=== PATIENT | female | born 1930 | race Caucasian/White ===

== ENCOUNTER 2016-06-20 09:28 | Inpatient (IN) | payer MEDICARE ==
[~2016-06-20] VITALS: Ht 157.5 cm; Wt 84.8 kg
[~2016-06-20 09:28] MED LIST: *BLDWK3; *BLDWK6; /ADVA50050; /ESOM40CA; /ESOM40CA OR; /ESOM40CA PO; /WARF2TA; /WARF3TA; /WARF3TA PO; ADVAIR200 INHALATION; ALDA25TA2; ALDA25TA2 PO; ALLO100T PO; ALLOPUR100 PO; AMBIEN5 PO; AMILORIDE; AMITRIP10 PO; AMLO10TA; AMLO2.5T; AMLO2.5T PO; AMO500 PO; ASACOL PO; ASPI1TAB PO; ASPI81TA83 OR; ATARAX25 PO; AUG875 PO; AUGM875T27 PO; AVAPRO150 PO; AVAPRO75 PO; BISO5TAB5 PO; CIPR25SS OR; CIPRO250 PO; CIPRO500 PO; COLA100C2; COLACE PO; COLC0.6T; COUMADIN; COUMADIN PO; COZA50TA18 PO; DARVOCET-N PO; DARVON-N1 PO; DUONSOL INHALATION; ERYTHROOPT OPTHALMIC; EVISTA60 PO; FERR325T PO; FISH500C PO; FLAGYL500 PO; FLEXERIL5 PO; FURO40TA2 PO; GEMF600T; IRON65TA PO; JANT1TAB; JANUVIA; JANUVIA PO; K-DUR10 PO; LASI40TA; LASI40TA OR; LASI40TA PO; LASIX40 PO; LOPID600 PO; LOPR50TA OR; LOPR50TA PO; LOPRESS50 PO; LOPRESSO25 PO; LOSA50TA20 PO; NEBUMIS2; NEXIUM40 PO; NITR0.4S; NITR0.4S SL; NITR4TASL SL; NITRODUR TOPICAL; NITROSTAT4 SL; OMEPRAZ40 PO; PERC5TAB8 OR; PERC7.5T8 OR; POTA10CA2; PRED10TA2 OR; PRED20TA OR; PREDNISO20 PO; PRIL20CA; PRILOSEC40 PO; PRILOSECOT PO; PRO AIR INH; PROCRIT; PROCRIT3000 MG/ML; PROTONIX40 PO; ROBITUSSDM PO; SIMV40TA2 PO; SPIR25TA2 PO; TRICOR145 PO; TRICOR160 PO; TUMS500C OR; TYLE325T5 PO; TYLENOL500 PO; ULTRAM50 PO; VITAMIN D PO; VITAMIN D50000 UNT; ZEBE5TAB PO; ZOCO20TA; ZOCO40TA; ZOCOR20 PO; ZOCOR40 PO; ZYLO300T4 PO; [UNRECOGNIZED DRUG - CODE] PO; [UNRECOGNIZED DRUG - SUPPLY]; januvia PO
[2016-06-20] MEDS ORDERED: methylPREDNISolone INJ 125 MG/2 ML VIAL (J2930) As Ordered ONE ×2 (09:45→21:07)
[2016-06-20] MEDS ORDERED: IPRATROPIUM 0.5MG/ALBUTEROL 2.5MG INH SOL UD 3ML (DUONEB)(J7620) As Ordered ONE ×4 (09:53→23:04)
[2016-06-20] MEDS ORDERED: ALBUTEROL SULFATE 2.5 MG/0.5 ML INH NEB SOLN As Ordered ONE (09:53)
[2016-06-20 10:10] LABS: BASO % 0.8 % (0.0-1.0); EOS # 0.2 K/mm3 (0.0-0.50); EOS % 3.1 % (0.0-3.0); LARGE UNSTAINED CELL # 0.2 K/mm3 (0.0-0.4); LARGE UNSTAINED CELL % 2.5 % (0.0-4.0); LYMPH # 2.6 K/mm3 (1.5-4.5); LYMPH % 38.6 % (24.0-44.0); MEAN CORPUSCULAR HEMOGLOBIN 31.1 pg (27.0-33.0); MEAN CORPUSCULAR HGB CONC 31.7 g/dl (32.0-36.5); MEAN CORPUSCULAR VOLUME 98.2 fl (80.0-96.0); MONO # 0.4 K/mm3 (0.0-0.8); MONO % 5.9 % (0.0-5.0); NEUTROPHILS # 3.1 K/mm3 (1.8-7.7); NEUTROPHILS % 49.1 % (36.0-66.0); PLATELET COUNT, AUTOMATED 144 k/mm3 (150-450); RED CELL DISTRIBUTION WIDTH 17.2 % (11.5-14.5); WHITE BLOOD COUNT 6.3 K/mm3 (4.0-10.0)
--- NOTE | 2016-06-20 10:18 | REP ---
Clinical: Shortness of breath. Comparison: 07/08/2015. Findings: Mediastinum and cardiac silhouette are stable. Chronic bibasilar changes are appreciated. No obvious acute consolidation, effusion, or pneumothorax. Skeletal structures stable. Impression: Chronic stable changes. No obvious acute cardiopulmonary process. Signed by Domingo Veliz MD 06/20/2016 10:09 A
[2016-06-20 10:33] LABS: ALBUMIN 3.8 GM/DL (3.2-5.2); ALBUMIN/GLOBULIN RATIO 1.12 (1.00-1.93); ALKALINE PHOSPHATASE 80 U/L (45-117); ALT/SGPT 12 U/L (12-78); ANION GAP 10 MEQ/L (8-16); AST/SGOT 12 U/L (15-37); BILIRUBIN,DIRECT 0.2 MG/DL (0.0-0.2); BILIRUBIN,TOTAL 0.7 MG/DL (0.2-1.0); BLOOD UREA NITROGEN 51 MG/DL (7-18); CALCIUM LEVEL 9.5 MG/DL (8.8-10.2); CARBON DIOXIDE LEVEL 27 MEQ/L (21-32); CHLORIDE LEVEL 105 MEQ/L (98-107); CREATININE FOR GFR 2.28 MG/DL (0.55-1.02); GLOMERULAR FILTRATION RATE 21.7 (>32); GLUCOSE, FASTING 111 MG/DL (83-110); POTASSIUM SERUM 4.6 MEQ/L (3.5-5.1); SODIUM LEVEL 142 MEQ/L (136-145); TOTAL PROTEIN 7.2 GM/DL (6.4-8.2)
[2016-06-20] MEDS ORDERED: CLOP75TA2 PO (11:43)
[2016-06-20] MEDS ORDERED: OXYB5TA PO (11:43)
[2016-06-20] MEDS ORDERED: ATOR1TAB19 PO (11:43)
[2016-06-20] MEDS ORDERED: LOSA100T36 PO (11:43)
[2016-06-20 11:58] LABS: ABG BASE EXCESS -3.7 (-2.0-2.0); ABG DEVICE NASAL CANN; ABG HCO3 21.4 MEQ/L (22.0-26.0); ABG STANDARD HCO3 21.3 MEQ/L (22.0-26.0); ABG TOTAL CO2 22.6 MEQ/L (23.0-31.0); ABG pH (ARTERIAL) 7.357 UNITS (7.350-7.450)
[2016-06-20] MEDS ORDERED: ALBUTEROL SULFATE 2.5 MG/0.5 ML INH NEB SOLN INH PRN (13:00)
[2016-06-20] MEDS: DOXYCYCLINE HYCLATE 100 MG in D5W MINI-BAG PLUS 100 ML IV SCH (15:00)
[2016-06-20] MEDS: IPRATROPIUM 0.5MG/ALBUTEROL 2.5MG INH SOL UD 3ML (DUONEB)(J7620) NEB SCH ×3 (15:50→23:08)
--- NOTE | 2016-06-20 18:08 | ECGEPIP ---
Stationary ECG Study [facility] - ED Test Date: 2016-06-20 Pat Name: CHELLY ESPINO Department: Room: - Gender: F Automatic Mounter: bay : 1930 Requested By: Ileana Bernal Order Number: [id number] Reading MD: Hanna Cardoza Measurements Intervals [place] Rate: 98 P: 86 WV: 186 QRS: -41 QRSD: 74 T: 5 QT: 344 QTc: 440 Interpretive Statements SINUS RHYTHM WITH OCCASIONAL SUPRAVENTRICULAR PREMATURE COMPLEXES MARKED LEFT AXIS DEVIATION PATTERN CONSISTENT WITH PULMONARY DISEASE NONSPECIFIC T-WAVE ABNORMALITY PRIOR 07/08/15 ATRIAL PACED Electronically Signed On 06-20-2016 18:07:41 EST by Hanna Cardoza
--- NOTE | 2016-06-20 18:27 | HPEPDOC ---
Medical History and Physical Date of Admission Jun 20, 2016 at 13:16 History and Physical PRIMARY CARE PROVIDER: ATTENDING: Mariama Lorenzo MD CHIEF COMPLAINT: Shortness of breath HISTORY OF PRESENT ILLNESS: This is a 85-year-old female past history of COPD on 2 L home O2, CKD stage 3-4 , CAD, atrial fibrillation, prior NC in 2004, obstructive sleep apnea noncompliant with CPAP who presents with shortness breath and cough. Patient states that she's been short of breath over the past 3 weeks which has been increasing recently. Has been having a nonproductive cough. States she lives alone living assisted area and there is a lot of sick people around her. Patient also states that she's had an episode of nonbilious nonbloody vomiting followed by this cough. Patient denies any abdominal pain. No chest pain/palpitations. In the ED patient was found to have COPD exacerbation with increased oxygen primary. PAST MEDICAL HISTORY: As per HPI PAST SURGICAL HISTORY: Permanent pacemaker, hysterectomy, back surgery, tonsillectomy, colon resection, carpal tunnel repair, cataract surgery FAMILY HISTORY: Noncontributory SOCIAL HISTORY: History of tobacco abuse however quit in 1989, used to smoke 1 pack per day prior to that. Denies any alcohol use. Lives alone in [place]. ALLERGIES: See below REVIEW OF SYSTEMS: HEENT: Denies sore throat/headache CARDIOVASCULAR: Denies chest pain/palpitations RESPIRATORY: + shortness of breath/cough GASTROINTESTINAL: denies nausea/vomiting GENITOURINARY: Denies dysuria/urinary urgency. MUSCULOSKELETAL: Denies myalgias/arthralgias NEUROLOGICAL: Denies any focal weakness Rest of ROS negative. HOME MEDICATIONS: Please see below. PHYSICAL EXAMINATION: Vitals: (see below) General: No acute distress, laying comfortably in bed. HEENT: Moist mucous membranes. Neck: No JVD or lymphadenopathy Cardiac: Irregularly irregular Pulm: Bilateral exp wheezing. Diminished breath sounds at the bases. Abd: NT/ND + BS Ext: No edema or cyanosis LABORATORY DATA: See below. IMAGING: Chest x-ray on 06/20/16 Impression: Chronic stable changes. No obvious acute cardiopulmonary process. ASSESSMENT/PLAN: COPD exacerbation- patient is on 2 L home O2 chronically. Her oxygen requirements have increased to 4 L nasal cannula. Patient's is actively wheezing with a productive cough. Continue nebs, Solu-Medrol, doxycycline. Chest x-ray (see above). Atrial fibrillation- rate is currently controlled. Patient was previously on Coumadin however states that she had a GI bleed and that was discontinued altogether. Patient states she had followed up with her outpt wrapper hands sprayer, and he had placed her on aspirin and Plavix instead of Coumadin. CKD stage 3-4 there has been a mild increase in her creatinine and patient did receive some IV fluid in the ED. Avoid nephrotoxins. Obstructive sleep apnea noncompliant with CPAP History of CAD- continue aspirin, Plavix, statin, beta ezra, ELVIN inhibitor Hypertension- controlled continue current meds DVT prophylaxis- heparin subcutaneous Vital Signs Blood pressure 117/56, heart rate 93, respiratory rate 16, O2 saturation 94% on 4 L as her cannula, afebrile. Laboratory Data Labs 24H Laboratory Tests 2 06/20/16 09:53: Aspartate Amino Transf (AST/SGOT) 12L, Alanine Aminotransferase (ALT/SGPT) 12, Alkaline Phosphatase 80, Total Bilirubin 0.7, Direct Bilirubin 0.2, Albumin 3.8 , Albumin/Globulin Ratio 1.12, Anion Gap 10, White Blood Count 6.3, Red Blood Count 3.32L, Hemoglobin 10.3L, Hematocrit 32.6L, Mean Corpuscular Volume 98.2H, Mean Corpuscular Hemoglobin 31.1, Mean Corpuscular Hemoglobin Concent 31.7L, Red Cell Distribution Width 17.2H, Platelet Count 144L, Neutrophils (%) (Auto) 49.1, Lymphocytes (%) (Auto) 38.6, Monocytes (%) (Auto) 5.9H, Eosinophils (%) ( Auto) 3.1H, Basophils (%) (Auto) 0.8, Neutrophils # (Auto) 3.1, Lymphocytes # ( Auto) 2.6, Monocytes # (Auto) 0.4, Eosinophils # (Auto) 0.2, Basophils # (Auto) 0.0, Calcium Level 9.5, Creatine Kinase MB 1.0, Creatine Kinase MB Relative Index 1.81, Glomerular Filtration Rate 21.7L, Lactic Acid Level 1.5, Large Unclassified Cells # 0.2, Large Unclassified Cells % 2.5, Total Creatine Kinase 55, Total Protein 7.2, Troponin I < 0.02 06/20/16 11:44: Arterial Blood pH 7.357, Arterial Blood Partial Pressure CO2 39.0, Arterial Blood Partial Pressure O2 75.0, Arterial Blood Total CO2 22.6L, Arterial Blood HCO3 21.4L, Arterial Blood Base Excess -3.7L, Arterial Blood Oxygen Saturation 94.4L, Blood Gas Bicarbonate Standard 21.3L, Oxygen Delivery Device NASAL DEL CBC/BMP Laboratory Tests 06/20/16 09:53 Red Blood Count 3.32 L, Mean Corpuscular Volume 98.2 H, Mean Corpuscular Hemoglobin 31.1, Mean Corpuscular Hemoglobin Concent 31.7 L, Red Cell Distribution Width 17.2 H, Neutrophils (%) (Auto) 49.1, Lymphocytes (%) (Auto) 38.6, Monocytes (%) (Auto) 5.9 H, Eosinophils (%) (Auto) 3.1 H, Basophils (%) ( Auto) 0.8, Neutrophils # (Auto) 3.1, Lymphocytes # (Auto) 2.6, Monocytes # (Auto ) 0.4, Eosinophils # (Auto) 0.2, Basophils # (Auto) 0.0 Microbiology Microbiology 06/20/16 Blood Culture, Received Pending 06/20/16 Blood Culture, Received Pending 06/20/16 Respiratory Virus Panel (PCR) (KARMEN) - Final, Complete Coronavirus Oc43 06/20/16 Influenza Virus Type A Antigen - Final, Complete 06/20/16 Influenza Virus Type B Antigen - Final, Complete Home Medications Scheduled Allopurinol (Zyloprim) 300 Mg Tab 300 MG PO DAILY Aspirin (Aspirin 81) 81 Mg Tab 81 MG PO DAILY Atorvastatin Calcium (Atorvastatin Calcium) 10 Mg Tab 10 MG PO QHS Bisoprolol Fumarate (Bisoprolol Fumarate) 5 Mg Tab 2.5 MG PO QPM Clopidogrel Bisulfate (Clopidogrel) 75 Mg Tab 75 MG PO QHS Ferrous Sulfate (Ferrous Sulfate) 325 Mg Tab 325 MG PO DAILY Furosemide (Furosemide) 40 Mg Tab 40 MG PO DAILY Losartan Potassium (Losartan Potassium) 100 Mg Tab 100 MG PO DAILY Oxybutynin Chloride (Oxybutynin Chloride) 5 Mg Tab 5 MG PO DAILY Spironolactone (Spironolactone) 25 Mg Tab 25 MG PO DAILY Scheduled PRN Nitroglycerin (Nitrostat) 0.4 Mg Subl 0.4 MG SL PRN PRN PRN CHEST PAIN Allergies Coded Allergies: Codeine (Verified Allergy, Severe, DIFFICULTY BREATHING, 09/15/12) Nitrofurantoin (Unverified Allergy, Unknown, 06/15/14) Warfarin (Verified Adverse Reaction, Intermediate, ELEVATED BP WITH GENERIC WARFARIN. CAN TAKE COUMADIN BRAND, 09/15/12) Propoxyphene (Verified Adverse Reaction, Mild, UNSET STOMACH, 10/14/13) Uncoded Allergies: NARCOTICS (Adverse Reaction, Mild, UPSET STOMACH, 06/15/14) MARIAMA LORENZO MD Jun 20, 2016 18:27
[2016-06-20 20:00] VITALS: BP 112/54
[2016-06-20] MEDS ORDERED: ACETAMINOPHEN 500 MG TAB PO PRN (20:30)
[2016-06-20] MEDS ORDERED: PANTOPRAZOLE 40MG TAB (PROTONIX) As Ordered ONE (21:07)
[2016-06-20] MEDS: ATORVASTATIN 10 MG TAB PO SCH (21:39)
[2016-06-20] MEDS: PANTOPRAZOLE 40MG TAB (PROTONIX) PO SCH (21:39)
[2016-06-20] MEDS: CLOPIDOGREL 75 MG TAB PO SCH (21:39)
[2016-06-20] MEDS: methylPREDNISolone INJ 125 MG/2 ML VIAL (J2930) IV SCH (21:40)
[2016-06-20] MEDS: BISOPROLOL FUM 2.5 MG PER 1/2TAB PO SCH (21:46)
[2016-06-20] MEDS ORDERED: HEPARIN SOD (PORCINE) 5000 UNITS/ML VIAL As Ordered ONE (21:48)
[2016-06-20] MEDS: HEPARIN SOD (PORCINE) 5000 UNITS/ML VIAL SQ SCH (21:49)
[2016-06-21] VITALS (9 sets, daily range): BP systolic 108–130; BP diastolic 53–64; O2SAT 98
[2016-06-21] MEDS ORDERED: methylPREDNISolone INJ 125 MG/2 ML VIAL (J2930) As Ordered ONE (02:20)
[2016-06-21] MEDS: methylPREDNISolone INJ 125 MG/2 ML VIAL (J2930) IV SCH ×2 (02:54→08:59)
--- NOTE | 2016-06-21 03:14 | EDDOCDS ---
Physician Documentation [facility] Name: Cristela Cooper Age: 85 yrs Sex: Female : 1930 Arrival Date: 06/20/2016 Time: 09:28 Bed Admit Hold Private MD: Jose Roberto Graham Disposition: 06/20/16 12:09 Hospitalization ordered by Feroz Lorenzo for Inpatient Admission. Preliminary diagnosis are Chronic obstructive pulmonary disease with (acute) exacerbation, Chronic obstructive pulmonary disease with acute lower respiratory infection, Chronic respiratory failure with hypoxia. - Bed requested for PCU. - Status is Inpatient Admission. cz - Condition is Stable. - Problem is an acute exacerbation. - Symptoms are unchanged. Historical: - Allergies: Codeine Sulfate ("can't breathe"); Coumadin; Hydrocodone-Acetaminophen; Macrobid (Unknown); Narcotics ("can't breathe"); Vicodin (Unknown); - Home Meds: 1. allopurinol 100 mg Oral tab 2 tabs once daily 2. Plavix 75 mg Oral tab 1 tab nightly 3. oxybutynin chloride 5 mg Oral tab 1 tab once daily 4. bisoprolol fumarate 5 mg oral tab 0.5 tab once daily 5. Lasix 40 mg Oral tab 1 tab once daily 6. ferrous sulfate 325 mg (65 mg iron) Oral cpER daily 7. spironolactone 25 mg Oral tab 1 tab once daily 8. atorvastatin 10 mg oral tab 1 tab once daily 9. aspirin 81 mg Oral chew 1 tab once daily 10. losartan 100 mg oral tab 1 tab once daily 11. NitroQuick SL 0.4 mg as needed 12. 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 No barriers to communication noted, The patient speaks fluent Cameroonian, Speaks appropriately for age. - Family history: Not pertinent. - : The pt / caregiver states he / she is on anticoagulants: Plavix. Home medication list is obtained from the patient. - Exposure Risk Screening:: None identified. Vital Signs: 06/20 09:42 BP 162 / 100; Pulse 71; Resp 20; Temp 97.4(TE); Pulse Ox 86% on R/A; Weight 77.11 kg / hs1 170 lbs; Height 5 ft. 2 in. (157.48 cm); Pain 0/10; 09:42 Pulse Ox 96% on 2 lpm NC; hs1 10:08 BP 118 / 68 (auto/); hs1 10:09 Pulse 78 MON; Pulse Ox 96% ; hs1 10:23 BP 106 / 54 (auto/); hs1 10:24 Pulse 124 MON; Pulse Ox 92% ; hs1 10:53 BP 99 / 56 (auto/); hs1 10:53 Pulse 82 MON; Pulse Ox 92% ; hs1 11:11 BP 110 / 68 (auto/); hs1 11:12 Pulse 98 MON; Pulse Ox 93% ; hs1 11:24 Pulse 136 MON; Pulse Ox 86% on 2 lpm NC; hs1 11:31 BP 120 / 68 (auto/); hs1 11:31 Pulse 144 MON; Pulse Ox 88% ; hs1 11:38 BP 107 / 76 (auto/); hs1 11:38 Pulse 144 MON; Pulse Ox 91% on 5 lpm NC; hs1 11:53 BP 112 / 66 (auto/); hs1 11:54 Pulse 120 MON; Pulse Ox 98% ; hs1 12:08 BP 111 / 58 (auto/); hs1 12:09 Pulse 134 MON; Resp 20; Pulse Ox 95% ; hs1 12:09 Resp 20; hs1 12:23 BP 117 / 58 (auto/); hs1 12:29 Pulse 144 MON; Pulse Ox 93% ; hs1 12:57 BP 102 / 48 (auto/); hs1 12:58 Pulse 140 MON; Pulse Ox 95% ; hs1 14:20 BP 99 / 67 (auto/); hs1 14:20 Pulse 100 MON; Resp 20; Pulse Ox 95% ; hs1 14:23 BP 110 / 42 (auto/); hs1 14:23 Pulse 116 MON; Pulse Ox 96% ; hs1 15:13 BP 102 / 54 (auto/); hs1 15:13 Pulse 120 MON; Pulse Ox 94% ; hs1 15:38 BP 120 / 93 (auto/); hs1 15:39 Pulse 124 MON; Pulse Ox 93% ; hs1 18:21 BP 99 / 55 (auto/); hs1 18:21 Pulse 114 MON; Pulse Ox 96% ; hs1 18:22 BP 112 / 51 (auto/); hs1 18:22 Pulse 122 MON; Pulse Ox 96% ; hs1 09:42 Body Mass Index 31.09 (77.11 kg, 157.48 cm) hs1 MDM: 09:44 IV Saline Lock ordered. ml 09:44 Air Pollution Specialist/Pulse Ox/q 15 min VS ordered. ml 09:44 Rhythm Strip to chart ordered. ml 09:44 -Blood Culture (Adults Only), peripheral from different site, or from device/port/PICC ml etc. if present ordered. 09:44 Albuterol 5 mg Nebulizer once ordered. ml 09:44 Albuterol-Ipratropium 3 ml Inhalation once ordered. ml 09:44 Call Respiratory ordered. ml 09:44 Solu-MEDROL 125 mg IVP once ordered. ml 09:44 Call Respiratory complete. jlf 09:44 CBC with Diff Ordered. EDMS 09:44 MED Profile Ordered. EDMS 09:44 CIP Ordered. EDMS 09:44 Troponin Ordered. EDMS 09:44 Liver Profile Ordered. EDMS 09:44 Lactic Acid (Phillips tube on ice) Ordered. EDMS 09:45 -Blood Culture Ordered. EDMS 09:45 Chest, 1 View Ordered. EDMS 09:50 -Blood Culture (Adults Only), peripheral from different site, or from device/port/PICC lbd etc. if present complete. 09:53 BLOOD CULTURES Ordered. EDMS 10:10 BED REQUEST+ADM ordered. EDMS 10:12 Obtain sample by nasal aspiration ordered. ml 10:13 -Influenza A&B Rapid Antigen - Nose Ordered. EDMS 10:18 ECG WITH READING ER PHYS+CARDIAG ordered. EDMS 10:40 Financial registration complete. mm15 10:44 [facility] Payment Agreement was scanned into [employer] and attached to record. mm15 10:56 CBC with Diff Reviewed. ml 10:56 MED Profile Reviewed. ml 10:56 Liver Profile Reviewed. ml 10:56 CIP Reviewed. ml 10:56 Troponin Reviewed. ml 10:56 Lactic Acid (Phillips tube on ice) Reviewed. ml 10:56 Chest, 1 View Reviewed. ml 11:25 Call Respiratory ordered. ml 11:25 NS 0.9% 500 ml IV at bolus once ordered. ml 11:25 Call Respiratory complete. lbd 11:26 -Arterial Blood Gas Ordered. EDMS 11:39 Albuterol-Ipratropium 3 ml Inhalation once ordered. ml 11:39 Misc. Nursing Order ordered. ml 12:55 SPUTUM CULTURE AND GRAM STAIN Ordered. EDMS 12:55 RESPIRATORY PANEL Ordered. EDMS 12:57 Admission / Observation Status ordered. EDMS 12:57 COPD DIET ordered. EDMS 14:27 -Arterial Blood Gas Reviewed. ml 14:27 -Influenza A&B Rapid Antigen - Nose Reviewed. ml 15:06 T-Sheet-- Draft Copy was scanned into [employer] and attached to record. gb 15:39 Doxycycline 100 mg IVPB once over 1 hrs; dilute in NS or D5W ordered. hs1 19:32 CBC WITH DIFFERENTIAL Ordered. EDMS 19:33 BASIC METABOLIC PROFILE Ordered. EDMS 01 02:42 ELECTROCARDIOGRAM ADULT ordered. EDMS 02:46 MAGNESIUM LEVEL Ordered. EDMS 02:46 PHOSPHOROUS LEVEL Ordered. EDMS 02:46 THYROID STIMULATING HORMONE Ordered. EDMS 03:06 TROPONIN Ordered. EDMS Administered Medications: 06/20 09:55 Drug: Albuterol 5 mg [albuterol sulfate 2.5 mg/0.5 mL solution for nebulization (1 mL)] sd7 Route: Nebulizer; 10:05 Follow up: Response: Nebulizer completed sd7 09:55 Drug: Albuterol-Ipratropium 3 ml [ipratropium-albuterol 0.5 mg-3 mg(2.5 mg base)/3 mL sd7 nebulization soln (3 mL)] Route: Inhalation; 10:05 Follow up: Response: Nebulizer completed sd7 09:57 Drug: Solu-MEDROL 125 mg [Solu-Medrol 500 mg intravenous solution (125 mg)] Route: IVP; hs1 Site: right antecubital; 11:35 Drug: NS 0.9% 500 ml [sodium chloride 0.9 % injection solution] Route: IV; Rate: bolus; dsf Site: right antecubital; 12:48 Follow up: IV Status: Completed infusion; IV Intake: 500ml hs1 11:52 Drug: Albuterol-Ipratropium 3 ml [ipratropium-albuterol 0.5 mg-3 mg(2.5 mg base)/3 mL sd7 nebulization soln (3 mL)] Route: Inhalation; 11:59 Follow up: Response: Nebulizer completed sd7 15:40 Drug: Doxycycline 100 mg [doxycycline hyclate 100 mg intravenous powder for solution] hs1 Route: IVPB; Infused Over: 1 hrs; Site: right antecubital; 16:42 Follow up: IV Status: Completed infusion; IV Intake: 100ml hs1 Signatures: Dispatcher [employer] EDMS Ileana Bernal MD MD ml Daly, Linda, Data Entry Machine Operator Unit lbd Qi Tompkins, RN RN Lacho Franklin RN RN cz Lelia Moran, Reg Reg gb VeronicaDmitryzabeth, Data Entry Machine Operator Unit ml3 Jessica Jane RN RN hs1 Sergio Matias mm15 Yonny Valera, RUKHSANA REGISTERED NURSE FETAL Dorcas Chen RN, Samantha RT sd7 The chart was reviewed and I authenticate all verbal orders and agree with the evaluation and treatment provided.Corrections: (The following items were deleted from the chart) 11:39 11:25 Misc. Nursing Order ordered. ml ml 06/21 02:46 02:38 MAGNESIUM LEVEL ordered. EDMS EDMS 02:46 02:38 PHOSPHOROUS LEVEL ordered. EDMS EDMS 02:46 02:38 THYROID STIMULATING HORMONE ordered. EDMS EDMS 03:07 02:56 TROPONIN ordered. EDMS EDMS Attachments: 06/20 10:44 [facility] [place] Payment Agreement mm15 15:06 T-Sheet-- Draft Copy gb MTDD
[2016-06-21] MEDS: DOXYCYCLINE HYCLATE 100 MG in D5W MINI-BAG PLUS 100 ML IV SCH (03:43)
[2016-06-21] MEDS: IPRATROPIUM 0.5MG/ALBUTEROL 2.5MG INH SOL UD 3ML (DUONEB)(J7620) NEB SCH ×6 (03:58→23:37)
[2016-06-21] MEDS: HEPARIN SOD (PORCINE) 5000 UNITS/ML VIAL SQ SCH ×3 (05:23→21:02)
[2016-06-21 05:33] LABS: BASO % 0.1 % (0.0-1.0); EOS % 0.3 % (0.0-3.0); LARGE UNSTAINED CELL % 0.5 % (0.0-4.0); LYMPH # 0.5 K/mm3 (1.5-4.5); LYMPH % 7.4 % (24.0-44.0); MEAN CORPUSCULAR HEMOGLOBIN 32.7 pg (27.0-33.0); MEAN CORPUSCULAR HGB CONC 32.7 g/dl (32.0-36.5); MEAN CORPUSCULAR VOLUME 100.1 fl (80.0-96.0); MONO # 0.1 K/mm3 (0.0-0.8); MONO % 2.2 % (0.0-5.0); NEUTROPHILS # 5.5 K/mm3 (1.8-7.7); NEUTROPHILS % 89.6 % (36.0-66.0); PLATELET COUNT, AUTOMATED 127 k/mm3 (150-450); RED CELL DISTRIBUTION WIDTH 16.2 % (11.5-14.5); WHITE BLOOD COUNT 6.2 K/mm3 (4.0-10.0)
[2016-06-21 05:50] LABS: CREATININE FOR GFR 3.37 MG/DL (0.55-1.02); GLOMERULAR FILTRATION RATE 13.8 (>32); MAGNESIUM LEVEL 1.5 MG/DL (1.8-2.4); PHOSPHORUS LEVEL 1.7 MG/DL (2.5-4.9); POTASSIUM SERUM 4.2 MEQ/L (3.5-5.1)
[2016-06-21] MEDS ORDERED: MAG SULF 1GM/100ML (MAG RUN) 1 GM in APPROPRIATE DILUENT 1 EA IV ONE (07:30)
--- NOTE | 2016-06-21 07:59 | ECGEPIP ---
Stationary ECG Study [facility] Test Date: 2016-06-21 Pat Name: CHELLY ESPINO Department: Room: [place] [address] Gender: F Histotechnologist Supervisor: SaundersB: 1930 Requested By: SEGUNDO Balderrama Order Number: [id number] Reading MD: Jhonathan Cunningham Measurements Intervals [place] Rate: 90 P: 93 SC: 211 QRS: -32 QRSD: 91 T: 61 QT: 386 QTc: 474 Interpretive Statements SINUS RHYTHM WITH FIRST DEGREE AV BLOCK LEFT AXIS DEVIATION LOW QRS VOLTAGE IN PRECORDIAL LEADS NONSPECIFIC T-WAVE ABNORMALITY Electronically Signed On 06-21-2016 7:59:36 EST by Jhonathan Cunningham
--- NOTE | 2016-06-21 08:06 | ECGEPIP ---
Stationary ECG Study [facility] Test Date: 2016-06-21 Pat Name: CHELLY ESPINO Department: Room: [place] [address] Gender: F Internal Control Manager: CLARA : 1930 Requested By: MARIAMA HOWARD Order Number: [id number] Reading MD: Johnathan Cunningham Measurements Intervals [place] Rate: 75 P: 52 AR: 199 QRS: -31 QRSD: 80 T: 52 QT: 382 QTc: 429 Interpretive Statements SINUS RHYTHM WITH some atrial paced beats LEFT AXIS DEVIATION NONSPECIFIC T-WAVE ABNORMALITY Electronically Signed On 06-21-2016 8:05:45 EST by Jhonathan Cunningham
[2016-06-21] MEDS: FERROUS SULFATE 325MG TAB PO SCH (08:59)
[2016-06-21] MEDS ORDERED: FUROSEMIDE 40 MG TAB PO SCH (09:00)
[2016-06-21] MEDS: ASPIRIN 81 MG ENTERIC TAB PO SCH (09:00)
[2016-06-21] MEDS: ALLOPURINOL 300 MG TAB PO SCH (09:00)
[2016-06-21] MEDS ORDERED: SPIRONOLACTONE 25 MG TAB PO SCH (09:00)
[2016-06-21] MEDS: PANTOPRAZOLE 40MG TAB (PROTONIX) PO SCH (09:00)
--- NOTE | 2016-06-21 10:31 | IPN ---
DATE: 06/21/2016 I was called by nurse due to patient having on water. Rhythm strip printed with 23 beats of ventricular tachycardia. Patient was seen and examined at bedside with vitals of blood pressure 130/58, heart rate 96, temperature 96.4, respiration rate 20, 94% on 4 liters nasal cannula. Patient was lying in bed comfortable. Denied any chest pain, shortness of breath, palpitations, nausea, dizziness, lightheadedness or syncopal episode. . a lot better compared to admission. were . palpable pacemaker but diminished in the lung bases. Abdomen: Soft, nontender. Bowel sounds present. Because of her ventricular tachycardia, an EKG was ordered which showed . . Diet and okay. My preceptor for this patient encounter was Dr. Concetta Foster. The preceptor was physically present in the building during the encounter and was fully available. As needed, all aspects of the patient interview, examination, medical decision making process, and medical care plan development were reviewed and approved by the preceptor. The preceptor is aware and concurs with the plan as stated in the body of this note and will attest to such by his/her cosignature. Dictation quality was poor, please review before signing. MTDD
[2016-06-21] MEDS: oxyBUTYnin 5 MG TAB PO SCH (12:40)
--- NOTE | 2016-06-21 16:38 | IPNPDOC ---
Text Note Date of Service The patient was seen on 06/21/16 at 16:33. NOTE Subjective: Patient states shortness with a significantly improved. Denies any chest pain/palpitations. Had a run of V. tach overnight however patient was asymptomatic. Objective: Vitals: (see below) General: No acute distress, laying comfortably in bed. HEENT: Moist mucous membranes. Neck: No JVD or lymphadenopathy Cardiac: Irregularly irregular Pulm: Minimal external wheezing wheezing. Diminished breath sounds at the bases. Good chest expansion. Abd: NT/ND + BS Ext: No edema or cyanosis Labs (see below) Images: Chest x-ray on 06/20/16 Impression: Chronic stable changes. No obvious acute cardiopulmonary process. Assessment/Plan: COPD exacerbation- patient is on 2 L home O2 chronically. Her oxygen requirements had increased to 4 L nasal cannula, over today she is on room air. Secondary to coronavirus, will d/c antibiotics. Continue nebs. Change Solu- Medrol to prednisone. Chest x-ray (see above). Episode of ventricular tachycardia- asymptomatic with a run of 26 beats. Patient 's magnesium was replaced. Potassium is currently about 4. Dr. Reyes has been consulted. Atrial fibrillation- rate is currently controlled. Patient was previously on Coumadin however states that she had a GI bleed and that was discontinued altogether. Patient states she had followed up with her outpt sweat band sewer, and states he had placed her on aspirin and Plavix instead of Coumadin. 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 Will d/c lasix and spironolactone. Gentle hydration. Obstructive sleep apnea noncompliant with CPAP History of CAD- continue aspirin, Plavix, statin, beta ezra, ELVIN inhibitor Hypertension- controlled continue current meds DVT prophylaxis- heparin subcutaneous VS,Fishbone, I+O VS, Fishbone, I+O Laboratory Tests 06/21/16 05:18 Calcium Level 9.0, Red Blood Count 2.79 L, Mean Corpuscular Volume 100.1 H, Mean Corpuscular Hemoglobin 32.7, Mean Corpuscular Hemoglobin Concent 32.7, Red Cell Distribution Width 16.2 H, Neutrophils (%) (Auto) 89.6 H, Lymphocytes (%) ( Auto) 7.4 L, Monocytes (%) (Auto) 2.2, Eosinophils (%) (Auto) 0.3, Basophils (% ) (Auto) 0.1, Neutrophils # (Auto) 5.5, Lymphocytes # (Auto) 0.5 L, Monocytes # (Auto) 0.1, Eosinophils # (Auto) 0.0, Basophils # (Auto) 0.0 Vital Signs Date Time Temp Pulse Resp B/P Pulse Ox O2 Delivery O2 Flow Rate FiO2 06/21/16 16:00 95.7 92 20 120/54 99 Room Air 06/21/16 07:30 2.0 I&O- Last 24 Hours up to 6 AM 06/21/16 05:59 Intake Total 240 ml Output Total 0 ml Balance 240 ml MARIAMA HOWARD MD Jun 21, 2016 16:38
[2016-06-21] MEDS ORDERED: CEPACOL LOZENGE PO PRN (17:15)
[2016-06-21] MEDS ORDERED: SODIUM CHLORIDE 0.9% 1000 ML IV ONE (17:45)
[2016-06-21] MEDS ORDERED: METOPROLOL 5 MG/5 ML VIAL As Ordered ONE (17:45)
[2016-06-21] MEDS: BISOPROLOL FUM 2.5 MG PER 1/2TAB PO SCH (17:56)
[2016-06-21] MEDS ORDERED: METOPROLOL 5 MG/5 ML VIAL IV ONE (18:00)
[2016-06-21] MEDS: NS 1,000 ML IV SCH (18:58)
--- NOTE | 2016-06-21 20:50 | IPN ---
DATE: 06/21/2016 SUBJECTIVE: I was called by nursing staff due to patient having multiple runs of ventricular tachycardia (V-tach) on monitor. Please note that this is a redictation to previously transcribed note as previous note was poorly transcribed. The patient had a rhythm strip printed, with repeats of V-tach. She was seen and examined at bedside. Denied any chest pain, shortness of breath, palpitations, nausea, vomiting, dizziness, lightheadedness, near-syncopal or syncopal episode. States that she was feeling a lot better compared to when she first got admitted and wants to know if she can go home because she was worried that her cat was home by herself. PHYSICAL EXAMINATION: VITAL SIGNS: Blood pressure 130/58, heart rate 96, temperature 96.4, respiration rate 20, pulse oximetry 94% on 4 liters nasal cannula. The patient was lying in bed, comfortable, in no acute distress. She is alert, awake, oriented times three, pleasant, cooperative. HEENT: Normocephalic, atraumatic. NECK: Supple. Trachea midline. CHEST: Symmetric chest rise. No accessory muscle use. Breath sounds diminished in the lung bases. Left chest with probable pacemaker. EKG ordered showed sinus rhythm with first degree arteriovenous (AV) block, rate of 90. Left axis deviation with low QRS voltage. Nonspecific abnormality in T wave. Because of her nonsustained V-tach on the monitor, laboratories were ordered including electrolytes and troponin. Case discussed with Dr. Foster regarding her nonsustained V-tach. At this time, because the patient remains asymptomatic throughout the episode, no further intervention was recommended. Will continue to monitor patient closely and followup lab work. My preceptor for this patient encounter was Dr. Concetta Foster. The preceptor was physically present in the building during the encounter and was fully available. As needed, all aspects of the patient interview, examination, medical decision making process, and medical care plan development were reviewed and approved by the preceptor. The preceptor is aware and concurs with the plan as stated in the body of this note and will attest to such by his/her cosignature. ESTEVAN
[2016-06-21] MEDS: ATORVASTATIN 10 MG TAB PO SCH (21:02)
[2016-06-21] MEDS: CLOPIDOGREL 75 MG TAB PO SCH (21:02)
[2016-06-22] MEDS: IPRATROPIUM 0.5MG/ALBUTEROL 2.5MG INH SOL UD 3ML (DUONEB)(J7620) NEB SCH ×6 (03:07→23:44)
[2016-06-22 05:40] VITALS: BP 129/60
[2016-06-22] MEDS: HEPARIN SOD (PORCINE) 5000 UNITS/ML VIAL SQ SCH ×3 (05:46→21:37)
[2016-06-22 06:07] LABS: EOS % 0.3 % (0.0-3.0); LARGE UNSTAINED CELL # 0.1 K/mm3 (0.0-0.4); LARGE UNSTAINED CELL % 0.5 % (0.0-4.0); LYMPH # 0.6 K/mm3 (1.5-4.5); LYMPH % 4.9 % (24.0-44.0); MEAN CORPUSCULAR HEMOGLOBIN 32.2 pg (27.0-33.0); MEAN CORPUSCULAR HGB CONC 32.2 g/dl (32.0-36.5); MEAN CORPUSCULAR VOLUME 99.8 fl (80.0-96.0); MONO # 0.3 K/mm3 (0.0-0.8); MONO % 2.2 % (0.0-5.0); NEUTROPHILS # 10.6 K/mm3 (1.8-7.7); NEUTROPHILS % 92.1 % (36.0-66.0); PLATELET COUNT, AUTOMATED 132 k/mm3 (150-450); RED CELL DISTRIBUTION WIDTH 16.3 % (11.5-14.5); WHITE BLOOD COUNT 11.6 K/mm3 (4.0-10.0)
[2016-06-22 06:20] LABS: CALCIUM LEVEL 8.5 MG/DL (8.8-10.2); CREATININE FOR GFR 2.84 MG/DL (0.55-1.02); GLOMERULAR FILTRATION RATE 16.9 (>32); POTASSIUM SERUM 4.3 MEQ/L (3.5-5.1)
[2016-06-22 08:00] VITALS: BP 126/58
[2016-06-22] MEDS: NS 1,000 ML IV SCH ×2 (08:59→23:40)
[2016-06-22] MEDS: predniSONE 20 MG TAB PO SCH (09:00)
[2016-06-22] MEDS: FERROUS SULFATE 325MG TAB PO SCH (09:00)
[2016-06-22] MEDS: ALLOPURINOL 300 MG TAB PO SCH (09:00)
[2016-06-22] MEDS: ASPIRIN 81 MG ENTERIC TAB PO SCH (09:00)
[2016-06-22] MEDS: oxyBUTYnin 5 MG TAB PO SCH (09:00)
[2016-06-22] MEDS: PANTOPRAZOLE 40MG TAB (PROTONIX) PO SCH (09:00)
[2016-06-22 12:00] VITALS: BP 138/57
[2016-06-22] MEDS ORDERED: BISOPROLOL FUM 2.5 MG PER 1/2TAB PO ONE (14:30)
[2016-06-22 14:51] LABS: CALCIUM LEVEL 8.3 MG/DL (8.8-10.2); CREATININE FOR GFR 2.54 MG/DL (0.55-1.02); GLOMERULAR FILTRATION RATE 19.2 (>32); MAGNESIUM LEVEL 1.7 MG/DL (1.8-2.4); POTASSIUM SERUM 4.4 MEQ/L (3.5-5.1)
--- NOTE | 2016-06-22 15:27 | IPNPDOC ---
Text Note Date of Service The patient was seen on 06/22/16 at 15:25. NOTE Subjective: Patient denies any shortness of breath at this time. Denies any chest pain/palpitations. Objective: Vitals: (see below) General: No acute distress, laying comfortably in bed. HEENT: Moist mucous membranes. Neck: No JVD or lymphadenopathy Cardiac: Irregularly irregular Pulm: Minimal external wheezing wheezing. Diminished breath sounds at the bases. Good chest expansion. Abd: NT/ND + BS Ext: No edema or cyanosis Labs (see below) Images: Chest x-ray on 06/20/16 Impression: Chronic stable changes. No obvious acute cardiopulmonary process. Assessment/Plan: COPD exacerbation- patient is on 2 L home O2 chronically. Her oxygen requirements had increased to 4 L nasal cannula, over today she is on room air. Secondary to coronavirus, will d/c antibiotics. Continue nebs. Change Solu- Medrol to prednisone. Chest x-ray (see above). Episode of ventricular tachycardia- asymptomatic with a run of 26 beats. Patient 's magnesium was replaced. Potassium is currently about 4. Dr. Reyes has been consulted. Had another episode of V. tach this morning 06/22/16 however patient was asymptomatic. We'll maintain magnesium greater than 2 and potassium rhythm 4. Beta Licha dose has been increased. Atrial fibrillation- rate is currently controlled. Patient was previously on Coumadin however states that she had a GI bleed and that was discontinued altogether. Patient states she had followed up with her outpt insurance sales representative, and states he had placed her on aspirin and Plavix instead of Coumadin. 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 Will d/c lasix and spironolactone. Gentle hydration. Obstructive sleep apnea noncompliant with CPAP History of CAD- continue aspirin, Plavix, statin, beta licha, ELVIN inhibitor Hypertension- controlled continue current meds DVT prophylaxis- heparin subcutaneous VS,Fishbone, I+O VS, Fishbone, I+O Laboratory Tests 06/22/16 05:19 Calcium Level 8.5 L, Red Blood Count 2.61 L, Mean Corpuscular Volume 99.8 H, Mean Corpuscular Hemoglobin 32.2, Mean Corpuscular Hemoglobin Concent 32.2, Red Cell Distribution Width 16.3 H, Neutrophils (%) (Auto) 92.1 H, Lymphocytes (%) ( Auto) 4.9 L, Monocytes (%) (Auto) 2.2, Eosinophils (%) (Auto) 0.3, Basophils (% ) (Auto) 0.0, Neutrophils # (Auto) 10.6 H, Lymphocytes # (Auto) 0.6 L, Monocytes # (Auto) 0.3, Eosinophils # (Auto) 0.0, Basophils # (Auto) 0.0 06/22/16 14:13 Calcium Level 8.3 L Vital Signs Date Time Temp Pulse Resp B/P Pulse Ox O2 Delivery O2 Flow Rate FiO2 06/22/16 14:42 101 145/72 06/22/16 12:00 97.0 20 97 Nasal Cannula 3.0 I&O- Last 24 Hours up to 6 AM 06/22/16 05:59 Intake Total 1280 ml Output Total 707 ml Balance 573 ml AMRIAMA HOWARD MD Jun 22, 2016 15:27
[2016-06-22 16:00] VITALS: BP 132/63
[2016-06-22] MEDS ORDERED: MAG SULF 1GM/100ML (MAG RUN) 1 GM in APPROPRIATE DILUENT 1 EA IV ONE (16:00)
[2016-06-22 20:00] VITALS: BP 144/62
[2016-06-22] MEDS: CLOPIDOGREL 75 MG TAB PO SCH (20:06)
[2016-06-22] MEDS: ATORVASTATIN 10 MG TAB PO SCH (20:06)
[2016-06-22] MEDS ORDERED: BISOPROLOL FUMARATE 5 MG TAB PO SCH (21:00)
[2016-06-23] VITALS (7 sets, daily range): BP systolic 99–155; BP diastolic 54–72
[2016-06-23] MEDS: IPRATROPIUM 0.5MG/ALBUTEROL 2.5MG INH SOL UD 3ML (DUONEB)(J7620) NEB SCH ×6 (03:55→23:39)
--- NOTE | 2016-06-23 04:14 | EDDOCDS ---
Nurse's Notes [facility] Name: Cristela Cooper Age: 85 yrs Sex: Female : 1930 Arrival Date: 06/20/2016 Time: 09:28 Bed Admit Hold Private MD: Jose Roberto Graham Diagnosis: Chronic obstructive pulmonary disease with (acute) exacerbation;Chronic obstructive pulmonary disease with acute lower respiratory infection;Chronic respiratory failure with hypoxia Presentation: 06/20 09:31 Presenting complaint: EMS states: patient called due to difficulty breathing because of hs1 her cough. Wheezes bilaterally and cough in unproductive. Patient lacking appetite. Adult Sepsis Screening: The patient does not have new or worsening altered mentation. Patient's respiratory rate is less than 22. Systolic blood pressure is greater than 100. Patient has a qSOFA score of 0- Negative Sepsis Screen. Suicide/Homicide risk assessment- the patient denies having any suicidal and/or homicidal ideations and does not present with any other emotional, behavioral or mental health complaints. Status: Patient is not a player services representative or dependent. Transition of care: patient was not received from another setting of care. 09:31 Acuity: TONY Level 3 hs1 09:31 Method Of Arrival: Ambulance hs1 Triage Assessment: 09:39 General: Appears in no apparent distress, Behavior is appropriate for age, cooperative. hs1 Pain: Location: back. Neurological: No deficits noted. Cardiovascular: Rhythm is irregular. Respiratory: Airway is patent Respiratory effort is even, unlabored, Respiratory pattern is regular, symmetrical, Breath sounds are coarse Breath sounds with wheezes bilaterally. : Reports urinating when she coughs and sneezes frequently. Patient states she wears a pad. Derm: Skin is pink, warm & dry. normal. Historical: - Allergies: Codeine Sulfate ("can't breathe"); Coumadin; Hydrocodone-Acetaminophen; Macrobid (Unknown); Narcotics ("can't breathe"); Vicodin (Unknown); - Home Meds: 1. allopurinol 100 mg Oral tab 2 tabs once daily 2. Plavix 75 mg Oral tab 1 tab nightly 3. oxybutynin chloride 5 mg Oral tab 1 tab once daily 4. bisoprolol fumarate 5 mg oral tab 0.5 tab once daily 5. Lasix 40 mg Oral tab 1 tab once daily 6. ferrous sulfate 325 mg (65 mg iron) Oral cpER daily 7. spironolactone 25 mg Oral tab 1 tab once daily 8. atorvastatin 10 mg oral tab 1 tab once daily 9. aspirin 81 mg Oral chew 1 tab once daily 10. losartan 100 mg oral tab 1 tab once daily 11. NitroQuick SL 0.4 mg as needed 12. 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 No barriers to communication noted, The patient speaks fluent Zambian, Speaks appropriately for age. - Family history: Not pertinent. - : The pt / caregiver states he / she is on anticoagulants: Plavix. Home medication list is obtained from the patient. - Exposure Risk Screening:: None identified. Screenin:58 Screening information is obtained from the patient. Fall risk: No risks identified. hs1 Assistance ADL's: requires no assistance with activities of daily living. Abuse/DV Screen: The patient / caregiver reports he/she is: not in a situation that causes fear, pain or injury. Nutritional screening: No deficits noted. Advance Directives: There is no active DNR order. home support is adequate. Assessment: 09:57 General: Appears in no apparent distress, comfortable, Behavior is cooperative, hs1 pleasant. Pain: Location: back Noted to be grimacing. Neurological: Level of Consciousness is awake, alert, obeys commands. Cardiovascular: Rhythm is irregular. Respiratory: Airway is patent Respiratory effort is even, Respiratory pattern is regular, symmetrical, Breath sounds with wheezes bilaterally. GI: No deficits noted. Derm: Skin is pink, warm & dry. normal. 10:35 General: Patient noted to be SOB on any exertion. NC needed to be increased to keep hs1 patient above 90%. Pt now on 4 L NC at this time. Pt resting on stretcher. . 11:36 General: Appears in no apparent distress, resting on stretcher. Family present at this hs1 time. Family is a employee here of [employer]. Pt resting on stretcher Cough noted and SOB on any exertion. Patient has no needs at this time. . 11:36 Adult Sepsis Screening: The patient does not have new or worsening altered mentation. hs1 Patient's respiratory rate is less than 22. Systolic blood pressure is greater than 100. Patient has a qSOFA score of 0- Negative Sepsis Screen. 12:54 General: Appears in no apparent distress, Behavior is appropriate for age, cooperative. hs1 Pain: Location: back Pain currently is 6 out of 10 on a pain scale. Is intermittent lasting a few seconds. Neurological: No deficits noted. Respiratory: Airway is patent Respiratory effort is even, cough noted. Breath sounds with wheezes bilaterally. 14:22 General: Appears in no apparent distress, Behavior is appropriate for age, cooperative, hs1 Pt resting on stretcher with no needs at present. Pt denies SOB at this time however does become SOB with any exertion.. Respiratory: Airway is patent Respiratory effort is even, Respiratory pattern is regular, symmetrical, Breath sounds with wheezes bilaterally. 15:42 Reassessment: Patient appears in no apparent distress at this time. Pt resting with hs1 family member at bedside. Pt eating and drinking with no issues. Patient does not appear SOB while eating. Cough still present. . Cardiovascular: Rhythm is atrial fibrillation. Derm: Skin is pink, warm & dry. normal. 16:04 Adult Sepsis Screening: The patient does not have new or worsening altered mentation. hs1 Patient's respiratory rate is less than 22. Systolic blood pressure is greater than 100. Patient has a qSOFA score of 0- Negative Sepsis Screen. 17:25 General: Appears in no apparent distress, comfortable, Behavior is appropriate for age, hs1 cooperative, sitting up at edge of bed. No needs noted. Pt aware of being here for the night and bed capacity. Patient is vert patient with nursing staff. . Respiratory: Airway is patent Respiratory effort is even, unlabored, Respiratory pattern is regular, Breath sounds with wheezes bilaterally. 18:30 General: Appears in no apparent distress, comfortable, Behavior is appropriate for age, hs1 cooperative, No needs noted. Patient awaiting dinner at present, medications administered per MAR. Pt very pleasant and cordial with all staff. Respiratory will be down for breathing treatment around 8pm. . 19:58 Reassessment: Patient states feeling better. Patient states symptoms have improved. cf2 20:18 General: Patient with complaint of back pain. Repositioned and hospitalist paged. . cf2 Vital Signs: 09:42 BP 162 / 100; Pulse 71; Resp 20; Temp 97.4(TE); Pulse Ox 86% on R/A; Weight 77.11 kg; hs1 Height 5 ft. 2 in. (157.48 cm); Pain 0/10; 09:42 Pulse Ox 96% on 2 lpm NC; hs1 10:08 BP 118 / 68 (auto/); hs1 10:09 Pulse 78 MON; Pulse Ox 96% ; hs1 10:23 BP 106 / 54 (auto/); hs1 10:24 Pulse 124 MON; Pulse Ox 92% ; hs1 10:53 BP 99 / 56 (auto/); hs1 10:53 Pulse 82 MON; Pulse Ox 92% ; hs1 11:11 BP 110 / 68 (auto/); hs1 11:12 Pulse 98 MON; Pulse Ox 93% ; hs1 11:24 Pulse 136 MON; Pulse Ox 86% on 2 lpm NC; hs1 11:31 BP 120 / 68 (auto/); hs1 11:31 Pulse 144 MON; Pulse Ox 88% ; hs1 11:38 BP 107 / 76 (auto/); hs1 11:38 Pulse 144 MON; Pulse Ox 91% on 5 lpm NC; hs1 11:53 BP 112 / 66 (auto/); hs1 11:54 Pulse 120 MON; Pulse Ox 98% ; hs1 12:08 BP 111 / 58 (auto/); hs1 12:09 Pulse 134 MON; Resp 20; Pulse Ox 95% ; hs1 12:09 Resp 20; hs1 12:23 BP 117 / 58 (auto/); hs1 12:29 Pulse 144 MON; Pulse Ox 93% ; hs1 12:57 BP 102 / 48 (auto/); hs1 12:58 Pulse 140 MON; Pulse Ox 95% ; hs1 14:20 BP 99 / 67 (auto/); hs1 14:20 Pulse 100 MON; Resp 20; Pulse Ox 95% ; hs1 14:23 BP 110 / 42 (auto/); hs1 14:23 Pulse 116 MON; Pulse Ox 96% ; hs1 15:13 BP 102 / 54 (auto/); hs1 15:13 Pulse 120 MON; Pulse Ox 94% ; hs1 15:38 BP 120 / 93 (auto/); hs1 15:39 Pulse 124 MON; Pulse Ox 93% ; hs1 18:21 BP 99 / 55 (auto/); hs1 18:21 Pulse 114 MON; Pulse Ox 96% ; hs1 18:22 BP 112 / 51 (auto/); hs1 18:22 Pulse 122 MON; Pulse Ox 96% ; hs1 09:42 Body Mass Index 31.09 (77.11 kg, 157.48 cm) hs1 Vitals: 09:42 Log In Time N/A - ambulance arrival. hs1 ED Course: 09:29 Patient visited by Bette Kemp Reg. lg 09:29 Jose Roberto Graham MD is Private Physician. lg 09:29 Patient moved to Waiting lg 09:30 Patient moved to 14 hs1 09:36 Ileana Bernal MD is Attending Physician. ml 09:36 Patient visited by Ileana Bernal MD. ml 09:36 Triage Initiated hs1 09:50 Inserted saline lock: 20 gauge in right antecubital area The patient tolerated the hs1 procedure well. 09:57 Lactic Acid (Phillips tube on ice) Sent. hs1 09:57 Liver Profile Sent. hs1 09:57 Troponin Sent. hs1 09:57 CIP Sent. hs1 09:57 MED Profile Sent. hs1 09:57 CBC with Diff Sent. hs1 09:57 -Blood Culture Sent. hs1 10:13 Patient visited by Yonny Valera PCA. jlf 10:21 Patient visited by Yonny Valera PCA. jlf 10:21 EKG done. (by ED staff). Reviewed by Ileana Bernal MD. jlf 10:32 Chest, 1 View Returned. EDMS 10:35 Patient visited by Yonny Valera PCA. jlf 10:44 [facility] Payment Agreement was scanned into [employer] and attached to record. mm15 11:02 -Influenza A&B Rapid Antigen - Nose Sent. mcp 11:08 Patient visited by Yonny Valera PCA. jlf 11:13 BLOOD CULTURES Sent. kc3 11:13 Labs/Blood culture drawn. kc3 11:32 Patient visited by Yonny Valera PCA. jlf 11:51 -Arterial Blood Gas Sent. sd7 12:08 Feroz Lorenzo is Hospitalizing Provider. ml 12:57 The patient / caregiver is instructed regarding the plan of care and ED course. hs1 15:06 T-Sheet-- Draft Copy was scanned into [employer] and attached to record. gb 17:17 Patient moved to Admit Hold mcp 18:09 EKG-ADULT Returned. EDMS 18:44 Patient moved to 14 mcp 18:44 Patient moved to Admit Hold mcp 19:06 Nydia Rodriguez,RN is Primary Nurse. cf2 19:06 Patient visited by Nydia Rodriguez,HAYDEN. cf2 19:21 Patient visited by Nydia Rodriguez,HAYDEN. cf2 19:57 Patient visited by Nydia Rodriguez,HAYDEN. cf2 19:58 Patient has correct armband on for positive identification. Placed in gown. Bed in low cf2 position. Call light in reach. Side rails up X 1. Side rails up X2. Adult w/ patient. court monitor on. Pulse ox on. NIBP on. Property :Personal belongings accompany Pt. Door closed. Noise minimized. Visitors limited. Lights dimmed. Moved to private room. Warm blanket given. Pillow given. Head of bed elevated. 19:58 No procedures done that require assistance. cf2 21:04 Patient visited by Nydia Rodriguez,HAYDEN. cf2 06/21 02:49 EKG done. (by ED staff). given to hospitalist. rehan Administered Medications: 06/20 09:55 Drug: Albuterol 5 mg [albuterol sulfate 2.5 mg/0.5 mL solution for nebulization (1 mL)] Route: Nebulizer; 10:05 Follow up: Response: Nebulizer completed 09:55 Drug: Albuterol-Ipratropium 3 ml [ipratropium-albuterol 0.5 mg-3 mg(2.5 mg base)/3 mL sd7 nebulization soln (3 mL)] Route: Inhalation; 10:05 Follow up: Response: Nebulizer completed 09:57 Drug: Solu-MEDROL 125 mg [Solu-Medrol 500 mg intravenous solution (125 mg)] Route: IVP; hs1 Site: right antecubital; 11:35 Drug: NS 0.9% 500 ml [sodium chloride 0.9 % injection solution] Route: IV; Rate: bolus; dsf Site: right antecubital; 12:48 Follow up: IV Status: Completed infusion; IV Intake: 500ml hs1 11:52 Drug: Albuterol-Ipratropium 3 ml [ipratropium-albuterol 0.5 mg-3 mg(2.5 mg base)/3 mL sd7 nebulization soln (3 mL)] Route: Inhalation; 11:59 Follow up: Response: Nebulizer completed sd7 15:40 Drug: Doxycycline 100 mg [doxycycline hyclate 100 mg intravenous powder for solution] hs1 Route: IVPB; Infused Over: 1 hrs; Site: right antecubital; 16:42 Follow up: IV Status: Completed infusion; IV Intake: 100ml hs1 Intake: 12:48 IV: 500.00ml; Total: 500.00ml. hs1 16:42 IV: 100.00ml; Total: 600.00ml. hs1 RT: 09:57 Initial Med Neb Given as ordered Patient was instructed and evaluated on procedure sd7 Patient tolerated procedure well without adverse effect. Respiratory: Airway is patent Respiratory effort is labored, Respiratory pattern is regular Breath sounds with wheezes bilaterally. at expiration. 11:52 ABG's drawn from right radial artery allens test done and positive pressure held for 5 sd7 minutes no bleeding noted pressure bandage applied specimen sent pt. tolerated well. Subsequent Med Neb Given as ordered Patient tolerated procedure well without adverse effect. Respiratory: Breath sounds with wheezes bilaterally. at expiration. Order Results: Lab Order: CBC with Diff; SPEC'M 06/20/16 09:53 Test: WHITE BLOOD COUNT; Value: 6.3; Range: 4.0-10.0; Units: K/mm3; Status: F Test: RED BLOOD COUNT; Value: 3.32; Range: 4.00-5.40; Abnormal: Below low normal; Units: M/mm3; Status: F Test: HEMOGLOBIN; Value: 10.3; Range: 12.0-16.0; Abnormal: Below low normal; Units: g/dl; Status: F Test: HEMATOCRIT; Value: 32.6; Range: 36.0-47.0; Abnormal: Below low normal; Units: %; Status: F Test: MEAN CORPUSCULAR VOLUME; Value: 98.2; Range: 80.0-96.0; Abnormal: Above high normal; Units: fl; Status: F Test: MEAN CORPUSCULAR HEMOGLOBIN; Value: 31.1; Range: 27.0-33.0; Units: pg; Status: F Test: MEAN CORPUSCULAR HGB CONC; Value: 31.7; Range: 32.0-36.5; Abnormal: Below low normal; Units: g/dl; Status: F Test: RED CELL DISTRIBUTION WIDTH; Value: 17.2; Range: 11.5-14.5; Abnormal: Above high normal; Units: %; Status: F Test: PLATELET COUNT, AUTOMATED; Value: 144; Range: 150-450; Abnormal: Below low normal; Units: k/mm3; Status: F Test: NEUTROPHILS %; Value: 49.1; Range: 36.0-66.0; Units: %; Status: F Test: LYMPH %; Value: 38.6; Range: 24.0-44.0; Units: %; Status: F Test: MONO %; Value: 5.9; Range: 0.0-5.0; Abnormal: Above high normal; Units: %; Status: F Test: EOS %; Value: 3.1; Range: 0.0-3.0; Abnormal: Above high normal; Units: %; Status: F Test: BASO %; Value: 0.8; Range: 0.0-1.0; Units: %; Status: F Test: LARGE UNSTAINED CELL %; Value: 2.5; Range: 0.0-4.0; Units: %; Status: F Test: NEUTROPHILS #; Value: 3.1; Range: 1.8-7.7; Units: K/mm3; Status: F Test: LYMPH #; Value: 2.6; Range: 1.5-4.5; Units: K/mm3; Status: F Test: MONO #; Value: 0.4; Range: 0.0-0.8; Units: K/mm3; Status: F Test: EOS #; Value: 0.2; Range: 0.0-0.50; Units: K/mm3; Status: F Test: BASO #; Value: 0.0; Range: 0.0-0.2; Units: K/mm3; Status: F Test: LARGE UNSTAINED CELL #; Value: 0.2; Range: 0.0-0.4; Units: K/mm3; Status: F Lab Order: MED Profile; SPEC06/20/16 09:53 Test: GLUCOSE, FASTING; Value: 111; Range: 83-110; Abnormal: Above high normal; Units: MG/DL; Status: F Test: BLOOD UREA NITROGEN; Value: 51; Range: 7-18; Abnormal: Above high normal; Units: MG/DL; Status: F Test: CREATININE FOR GFR; Value: 2.28; Range: 0.55-1.02; Abnormal: Above high normal; Units: MG/DL; Status: F Test: GLOMERULAR FILTRATION RATE; Value: 21.7; Range: >32; Abnormal: Below low normal; Status: F Test: SODIUM LEVEL; Value: 142; Range: 136-145; Units: MEQ/L; Status: F Test: POTASSIUM SERUM; Value: 4.6; Range: 3.5-5.1; Units: MEQ/L; Status: F Test: CHLORIDE LEVEL; Value: 105; Range: 98-107; Units: MEQ/L; Status: F Test: CARBON DIOXIDE LEVEL; Value: 27; Range: 21-32; Units: MEQ/L; Status: F Test: ANION GAP; Value: 10; Range: 8-16; Units: MEQ/L; Status: F Test: CALCIUM LEVEL; Value: 9.5; Range: 8.8-10.2; Units: MG/DL; Status: F Test Note: ; Units are mL/min/1.73 m2 Chronic Kidney Disease Staging per NKF: Stage I & II GFR >=60 Normal to Mildly Decreased Stage III GFR 30-59 Moderately Decreased Stage IV GFR 15-29 Severely Decreased Stage V GFR <15 Very Little GFR Left ESRD GFR <15 on SHOULDER PAD MOLDER Lab Order: CIP; SPEC06/20/16 09:53 Test: CPK CREATINE PHOSPHOKINASE; Value: 55; Range: 26-192; Units: U/L; Status: F Test: CK-MB VALUE MASS; Value: 1.0; Range: 0.0-3.6; Units: NG/ML; Status: F Test: MB/CK RELATIVE INDEX; Value: 1.81; Range: < OR =4; Status: F Test Note: ; DIAGNOSIS CRITERIA MMB ng/ml Relative Index (RI) NON-AMI < or = 5 N/A PHILLIPS ZONE > 5 < or = 4 AMI > 5 > 4 Lab Order: Troponin; 06/20/16 09:53 Test: TROPONIN I; Value: < 0.02; Range: < 0.10; Units: NG/ML; Status: F Test Note: ; Troponin I Reference Interval for Siemens Cotera LOCI: 99th Percentile= 0.00-0.045 ng/ml Risk Stratification: <= 0.10 ng/ml Decreased Risk for Adverse Clinical Events. 0.10-1.50 ng/ml Increased Risk for Adverse Clinical Events. Evaluation of additional criterion and/or repeat testing in 2-6 hours is suggested to rule out myocardial damage. >= 1.50 ng/ml Indicative of Myocardial Injury. Lab Order: Liver Profile; 06/20/16 09:53 Test: AST/SGOT; Value: 12; Range: 15-37; Abnormal: Below low normal; Units: U/L; Status: F Test: ALT/SGPT; Value: 12; Range: 12-78; Units: U/L; Status: F Test: ALKALINE PHOSPHATASE; Value: 80; Range: 45-117; Units: U/L; Status: F Test: BILIRUBIN,TOTAL; Value: 0.7; Range: 0.2-1.0; Units: MG/DL; Status: F Test: BILIRUBIN,DIRECT; Value: 0.2; Range: 0.0-0.2; Units: MG/DL; Status: F Test: TOTAL PROTEIN; Value: 7.2; Range: 6.4-8.2; Units: GM/DL; Status: F Test: ALBUMIN; Value: 3.8; Range: 3.2-5.2; Units: GM/DL; Status: F Test: ALBUMIN/GLOBULIN RATIO; Value: 1.12; Range: 1.00-1.93; Status: F Lab Order: Lactic Acid (Phillips tube on ice); 06/20/16 09:53 Test: LACTIC ACID LEVEL, LACTATE; Value: 1.5; Range: 0.4-2.0; Units: MMOL/L; Status: F Lab Order: -Influenza A&B Rapid Antigen - Nose; 06/20/16 10:59 Test: INFLUENZA A RAPID SCR by ICA; Value: INFLUENZA A RESULTS NEGATIVE; Status: F Test: INFLUENZA A RAPID SCR by ICA; Value: Comments:; Status: F Test: INFLUENZA B RAPID SCR by ICA; Value: INFLUENZA B RESULTS NEGATIVE; Status: F Test Note: ; The Influenza test is a direct rapid immunoassay for the qualitative detection of Influenza viral antigen. Cell culture (Viral Culture) testing should be considered to confirm NEGATIVE results and to assist in detecting other viruses that can provide similar clinical symptoms. Please contact the lab within 24 hours [phone] if confirmatory testing is desired. Lab Order: -Arterial Blood Gas; SPEC'M 06/20/16 11:44 Test: ABG pH (ARTERIAL); Value: 7.357; Range: 7.350-7.450; Units: UNITS; Status: F Test: ABG PARTIAL PRESSURE CO2; Value: 39.0; Range: 35.0-45.0; Units: mmHg; Status: F Test: ABG PARTIAL PRESSURE O2; Value: 75.0; Range: 75.0-100.0; Units: mmHg; Status: F Test: ABG TOTAL CO2; Value: 22.6; Range: 23.0-31.0; Abnormal: Below low normal; Units: MEQ/L; Status: F Test: ABG HCO3; Value: 21.4; Range: 22.0-26.0; Abnormal: Below low normal; Units: MEQ/L; Status: F Test: ABG BASE EXCESS; Value: -3.7; Range: -2.0-2.0; Abnormal: Below low normal; Status: F Test: ABG STANDARD HCO3; Value: 21.3; Range: 22.0-26.0; Abnormal: Below low normal; Units: MEQ/L; Status: F Test: ABG O2 SATURATION; Value: 94.4; Range: 95.0-99.0; Abnormal: Below low normal; Units: %; Status: F Test: ABG DEVICE; Value: NASAL DEL; Status: F Lab Order: RESPIRATORY PANEL; SPEC'M 06/20/16 10:59 Test: RESPIRATORY PANEL; Value: RP PANEL RESULT POSITIVE by PCR; Abnormal: Abnormal; Status: F Test: RESPIRATORY PANEL; Value: Comments:; Status: F Test: RESPIRATORY PANEL; Value: ORGANISM 1: CORONAVIRUS OC43; Status: F Test: RESPIRATORY PANEL; Value: CORONAVIRUS OC43; Status: F Test: RESPIRATORY PANEL; Value: Feliciano OC 1 Coronaviruses are most commonly associated with; Status: F Test: RESPIRATORY PANEL; Value: Feliciano OC 2 mild to moderate upper respiratory tract infections.; Status: F Test: RESPIRATORY PANEL; Value: Feliciano OC 3 Coronaviruses have been associated with croup and; Status: F Test: RESPIRATORY PANEL; Value: Feliciano OC 4 exacerbation of asthma. Infections occur more often; Status: F Test: RESPIRATORY PANEL; Value: Feliciano OC 5 in the winter.; Status: F Test Note: ; This respiratory PCR panel detects Influenza A H1, H3 and 2009 H1 viruses, Influenza B virus, Respiratory syncytial virus, Human metapneumovirus, Parainfluenza virus 1, 2, 3 and 4, Adenovirus, Rhinovirus/Enterovirus, Coronavirus HKU1, NL63, OC43 and 229E, Bordetella pertussis, Mycoplasma pneumoniae and Chlamydia pneumoniae. Radiology Order: Chest, 1 View Test: Chest, 1 View REASON FOR EXAMINATION: sob; Clinical: Shortness of breath.; ; Comparison: 07/08/2015.; ; Findings: Mediastinum and cardiac silhouette are stable. Chronic bibasilar; changes are appreciated. No obvious acute consolidation, effusion, or; pneumothorax. Skeletal structures stable.; ; Impression:; Chronic stable changes. No obvious acute cardiopulmonary process.; ; ; Signed by; Domingo Veliz MD 06/20/2016 10:09 A; Outcome: 12:09 Decision to Hospitalize by Provider. 21:04 Discharge Assessment: Patient awake, alert and oriented x 3. No cognitive and/or cf2 functional deficits noted. Patient verbalized understanding of disposition instructions. Patient awake and alert. patient administered narcotics - no. The following High Risk Discharge criteria are identified: Yes, Admitted ER admission hold. Condition: stable. No special radiology studies were completed. 06/21 03:13 Patient left the ED. cz Signatures: Dispatcher [employer] EDMS Ileana Bernal MD MD ml Peters, Mary RN RN Lacho Franklin RN RN cz Lelia Moran, Reg Reg gb Bette Kemp, Reg Reg lg Jessica Jane RN RN hs1 Abril Heath, TAR PROCESSING TECHNICIAN TAR PROCESSING TECHNICIAN Dorcas Magdaleno,RN RN dsf Sergio Matias mm15 Yonny Valera, TAR PROCESSING TECHNICIAN TAR PROCESSING TECHNICIAN jlf Keely Aquino,RT RT sd7 Suzan Santoyo,RN RN kc3 Nydia RodriguezRN RN cf2 Corrections: (The following items were deleted from the chart) 06/20 16:04 11:36 General: Appears in no apparent distress, resting on stretcher. Family present at hs1 this time. Family is a employee here of [facility]. Pt resting on stretcher Cough noted and SOB on any exertion. Patient has no needs at this time. . hs1 Chart Complete MTDD
--- NOTE | 2016-06-23 04:14 | EDDOCDS ---
Physician Documentation [facility] Name: Cristela Cooper Age: 85 yrs Sex: Female : 1930 Arrival Date: 06/20/2016 Time: 09:28 Bed Admit Hold Private MD: Jose Roberto Graham Disposition: 06/20/16 12:09 Hospitalization ordered by Feroz Lorenzo for Inpatient Admission. Preliminary diagnosis are Chronic obstructive pulmonary disease with (acute) exacerbation, Chronic obstructive pulmonary disease with acute lower respiratory infection, Chronic respiratory failure with hypoxia. - Bed requested for PCU. - Status is Inpatient Admission. cz - Condition is Stable. - Problem is an acute exacerbation. - Symptoms are unchanged. Historical: - Allergies: Codeine Sulfate ("can't breathe"); Coumadin; Hydrocodone-Acetaminophen; Macrobid (Unknown); Narcotics ("can't breathe"); Vicodin (Unknown); - Home Meds: 1. allopurinol 100 mg Oral tab 2 tabs once daily 2. Plavix 75 mg Oral tab 1 tab nightly 3. oxybutynin chloride 5 mg Oral tab 1 tab once daily 4. bisoprolol fumarate 5 mg oral tab 0.5 tab once daily 5. Lasix 40 mg Oral tab 1 tab once daily 6. ferrous sulfate 325 mg (65 mg iron) Oral cpER daily 7. spironolactone 25 mg Oral tab 1 tab once daily 8. atorvastatin 10 mg oral tab 1 tab once daily 9. aspirin 81 mg Oral chew 1 tab once daily 10. losartan 100 mg oral tab 1 tab once daily 11. NitroQuick SL 0.4 mg as needed 12. 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 No barriers to communication noted, The patient speaks fluent Mongolian, Speaks appropriately for age. - Family history: Not pertinent. - : The pt / caregiver states he / she is on anticoagulants: Plavix. Home medication list is obtained from the patient. - Exposure Risk Screening:: None identified. Vital Signs: 06/20 09:42 BP 162 / 100; Pulse 71; Resp 20; Temp 97.4(TE); Pulse Ox 86% on R/A; Weight 77.11 kg / hs1 170 lbs; Height 5 ft. 2 in. (157.48 cm); Pain 0/10; 09:42 Pulse Ox 96% on 2 lpm NC; hs1 10:08 BP 118 / 68 (auto/); hs1 10:09 Pulse 78 MON; Pulse Ox 96% ; hs1 10:23 BP 106 / 54 (auto/); hs1 10:24 Pulse 124 MON; Pulse Ox 92% ; hs1 10:53 BP 99 / 56 (auto/); hs1 10:53 Pulse 82 MON; Pulse Ox 92% ; hs1 11:11 BP 110 / 68 (auto/); hs1 11:12 Pulse 98 MON; Pulse Ox 93% ; hs1 11:24 Pulse 136 MON; Pulse Ox 86% on 2 lpm NC; hs1 11:31 BP 120 / 68 (auto/); hs1 11:31 Pulse 144 MON; Pulse Ox 88% ; hs1 11:38 BP 107 / 76 (auto/); hs1 11:38 Pulse 144 MON; Pulse Ox 91% on 5 lpm NC; hs1 11:53 BP 112 / 66 (auto/); hs1 11:54 Pulse 120 MON; Pulse Ox 98% ; hs1 12:08 BP 111 / 58 (auto/); hs1 12:09 Pulse 134 MON; Resp 20; Pulse Ox 95% ; hs1 12:09 Resp 20; hs1 12:23 BP 117 / 58 (auto/); hs1 12:29 Pulse 144 MON; Pulse Ox 93% ; hs1 12:57 BP 102 / 48 (auto/); hs1 12:58 Pulse 140 MON; Pulse Ox 95% ; hs1 14:20 BP 99 / 67 (auto/); hs1 14:20 Pulse 100 MON; Resp 20; Pulse Ox 95% ; hs1 14:23 BP 110 / 42 (auto/); hs1 14:23 Pulse 116 MON; Pulse Ox 96% ; hs1 15:13 BP 102 / 54 (auto/); hs1 15:13 Pulse 120 MON; Pulse Ox 94% ; hs1 15:38 BP 120 / 93 (auto/); hs1 15:39 Pulse 124 MON; Pulse Ox 93% ; hs1 18:21 BP 99 / 55 (auto/); hs1 18:21 Pulse 114 MON; Pulse Ox 96% ; hs1 18:22 BP 112 / 51 (auto/); hs1 18:22 Pulse 122 MON; Pulse Ox 96% ; hs1 09:42 Body Mass Index 31.09 (77.11 kg, 157.48 cm) hs1 MDM: 09:44 IV Saline Lock ordered. ml 09:44 Health Information Management Director/Pulse Ox/q 15 min VS ordered. ml 09:44 Rhythm Strip to chart ordered. ml 09:44 -Blood Culture (Adults Only), peripheral from different site, or from device/port/PICC ml etc. if present ordered. 09:44 Albuterol 5 mg Nebulizer once ordered. ml 09:44 Albuterol-Ipratropium 3 ml Inhalation once ordered. ml 09:44 Call Respiratory ordered. ml 09:44 Solu-MEDROL 125 mg IVP once ordered. ml 09:44 Call Respiratory complete. jlf 09:44 CBC with Diff Ordered. EDMS 09:44 MED Profile Ordered. EDMS 09:44 CIP Ordered. EDMS 09:44 Troponin Ordered. EDMS 09:44 Liver Profile Ordered. EDMS 09:44 Lactic Acid (Phillips tube on ice) Ordered. EDMS 09:45 -Blood Culture Ordered. EDMS 09:45 Chest, 1 View Ordered. EDMS 09:50 -Blood Culture (Adults Only), peripheral from different site, or from device/port/PICC lbd etc. if present complete. 09:53 BLOOD CULTURES Ordered. EDMS 10:10 BED REQUEST+ADM ordered. EDMS 10:12 Obtain sample by nasal aspiration ordered. ml 10:13 -Influenza A&B Rapid Antigen - Nose Ordered. EDMS 10:18 ECG WITH READING ER PHYS+CARDIAG ordered. EDMS 10:40 Financial registration complete. mm15 10:44 [facility] Payment Agreement was scanned into [employer] and attached to record. mm15 10:56 CBC with Diff Reviewed. ml 10:56 MED Profile Reviewed. ml 10:56 Liver Profile Reviewed. ml 10:56 CIP Reviewed. ml 10:56 Troponin Reviewed. ml 10:56 Lactic Acid (Phillips tube on ice) Reviewed. ml 10:56 Chest, 1 View Reviewed. ml 11:25 Call Respiratory ordered. ml 11:25 NS 0.9% 500 ml IV at bolus once ordered. ml 11:25 Call Respiratory complete. lbd 11:26 -Arterial Blood Gas Ordered. EDMS 11:39 Albuterol-Ipratropium 3 ml Inhalation once ordered. ml 11:39 Misc. Nursing Order ordered. ml 12:55 SPUTUM CULTURE AND GRAM STAIN Ordered. EDMS 12:55 RESPIRATORY PANEL Ordered. EDMS 12:57 Admission / Observation Status ordered. EDMS 12:57 COPD DIET ordered. EDMS 14:27 -Arterial Blood Gas Reviewed. ml 14:27 -Influenza A&B Rapid Antigen - Nose Reviewed. ml 15:06 T-Sheet-- Draft Copy was scanned into [employer] and attached to record. gb 15:39 Doxycycline 100 mg IVPB once over 1 hrs; dilute in NS or D5W ordered. hs1 19:32 CBC WITH DIFFERENTIAL Ordered. EDMS 19:33 BASIC METABOLIC PROFILE Ordered. EDMS 01 02:42 ELECTROCARDIOGRAM ADULT ordered. EDMS 02:46 MAGNESIUM LEVEL Ordered. EDMS 02:46 PHOSPHOROUS LEVEL Ordered. EDMS 02:46 THYROID STIMULATING HORMONE Ordered. EDMS 03:06 TROPONIN Ordered. EDMS Administered Medications: 06/20 09:55 Drug: Albuterol 5 mg [albuterol sulfate 2.5 mg/0.5 mL solution for nebulization (1 mL)] sd7 Route: Nebulizer; 10:05 Follow up: Response: Nebulizer completed sd7 09:55 Drug: Albuterol-Ipratropium 3 ml [ipratropium-albuterol 0.5 mg-3 mg(2.5 mg base)/3 mL sd7 nebulization soln (3 mL)] Route: Inhalation; 10:05 Follow up: Response: Nebulizer completed sd7 09:57 Drug: Solu-MEDROL 125 mg [Solu-Medrol 500 mg intravenous solution (125 mg)] Route: IVP; hs1 Site: right antecubital; 11:35 Drug: NS 0.9% 500 ml [sodium chloride 0.9 % injection solution] Route: IV; Rate: bolus; dsf Site: right antecubital; 12:48 Follow up: IV Status: Completed infusion; IV Intake: 500ml hs1 11:52 Drug: Albuterol-Ipratropium 3 ml [ipratropium-albuterol 0.5 mg-3 mg(2.5 mg base)/3 mL sd7 nebulization soln (3 mL)] Route: Inhalation; 11:59 Follow up: Response: Nebulizer completed sd7 15:40 Drug: Doxycycline 100 mg [doxycycline hyclate 100 mg intravenous powder for solution] hs1 Route: IVPB; Infused Over: 1 hrs; Site: right antecubital; 16:42 Follow up: IV Status: Completed infusion; IV Intake: 100ml hs1 Signatures: Dispatcher [employer] EDMS Ileana Bernal MD MD ml Daly, Linda, Vamper Unit lbd Qi Tompkins, RN RN Lacho Franklin RN RN cz Lelai Moran, Reg Reg gb VeronicaDariusAnna Marie, Vamper Unit ml3 Jessica Jane RN RN hs1 Sergio Matias mm15 Yonny Valera, RUKHSANA CHASSIS ENGINEER Dorcas Chen RN, Samantha RT sd7 The chart was reviewed and I authenticate all verbal orders and agree with the evaluation and treatment provided.Corrections: (The following items were deleted from the chart) 11:39 11:25 Misc. Nursing Order ordered. ml ml 06/21 02:46 02:38 MAGNESIUM LEVEL ordered. EDMS EDMS 02:46 02:38 PHOSPHOROUS LEVEL ordered. EDMS EDMS 02:46 02:38 THYROID STIMULATING HORMONE ordered. EDMS EDMS 03:07 02:56 TROPONIN ordered. EDMS EDMS Attachments: 06/20 10:44 [facility] mm15 15:06 T-Sheet-- Draft Copy gb Chart Complete MTDD
--- NOTE | 2016-06-23 04:14 | EDDOCDS ---
Physician Documentation [facility] Name: Cristela Cooper Age: 85 yrs Sex: Female : 1930 Arrival Date: 06/20/2016 Time: 09:28 Bed Admit Hold Private MD: Jose Roberto Graham Disposition: 06/20/16 12:09 Hospitalization ordered by Feroz Lorenzo for Inpatient Admission. Preliminary diagnosis are Chronic obstructive pulmonary disease with (acute) exacerbation, Chronic obstructive pulmonary disease with acute lower respiratory infection, Chronic respiratory failure with hypoxia. - Bed requested for PCU. - Status is Inpatient Admission. cz - Condition is Stable. - Problem is an acute exacerbation. - Symptoms are unchanged. Historical: - Allergies: Codeine Sulfate ("can't breathe"); Coumadin; Hydrocodone-Acetaminophen; Macrobid (Unknown); Narcotics ("can't breathe"); Vicodin (Unknown); - Home Meds: 1. allopurinol 100 mg Oral tab 2 tabs once daily 2. Plavix 75 mg Oral tab 1 tab nightly 3. oxybutynin chloride 5 mg Oral tab 1 tab once daily 4. bisoprolol fumarate 5 mg oral tab 0.5 tab once daily 5. Lasix 40 mg Oral tab 1 tab once daily 6. ferrous sulfate 325 mg (65 mg iron) Oral cpER daily 7. spironolactone 25 mg Oral tab 1 tab once daily 8. atorvastatin 10 mg oral tab 1 tab once daily 9. aspirin 81 mg Oral chew 1 tab once daily 10. losartan 100 mg oral tab 1 tab once daily 11. NitroQuick SL 0.4 mg as needed 12. 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 No barriers to communication noted, The patient speaks fluent [place] Citizen, Speaks appropriately for age. - Family history: Not pertinent. - : The pt / caregiver states he / she is on anticoagulants: Plavix. Home medication list is obtained from the patient. - Exposure Risk Screening:: None identified. Vital Signs: 06/20 09:42 BP 162 / 100; Pulse 71; Resp 20; Temp 97.4(TE); Pulse Ox 86% on R/A; Weight 77.11 kg / hs1 170 lbs; Height 5 ft. 2 in. (157.48 cm); Pain 0/10; 09:42 Pulse Ox 96% on 2 lpm NC; hs1 10:08 BP 118 / 68 (auto/); hs1 10:09 Pulse 78 MON; Pulse Ox 96% ; hs1 10:23 BP 106 / 54 (auto/); hs1 10:24 Pulse 124 MON; Pulse Ox 92% ; hs1 10:53 BP 99 / 56 (auto/); hs1 10:53 Pulse 82 MON; Pulse Ox 92% ; hs1 11:11 BP 110 / 68 (auto/); hs1 11:12 Pulse 98 MON; Pulse Ox 93% ; hs1 11:24 Pulse 136 MON; Pulse Ox 86% on 2 lpm NC; hs1 11:31 BP 120 / 68 (auto/); hs1 11:31 Pulse 144 MON; Pulse Ox 88% ; hs1 11:38 BP 107 / 76 (auto/); hs1 11:38 Pulse 144 MON; Pulse Ox 91% on 5 lpm NC; hs1 11:53 BP 112 / 66 (auto/); hs1 11:54 Pulse 120 MON; Pulse Ox 98% ; hs1 12:08 BP 111 / 58 (auto/); hs1 12:09 Pulse 134 MON; Resp 20; Pulse Ox 95% ; hs1 12:09 Resp 20; hs1 12:23 BP 117 / 58 (auto/); hs1 12:29 Pulse 144 MON; Pulse Ox 93% ; hs1 12:57 BP 102 / 48 (auto/); hs1 12:58 Pulse 140 MON; Pulse Ox 95% ; hs1 14:20 BP 99 / 67 (auto/); hs1 14:20 Pulse 100 MON; Resp 20; Pulse Ox 95% ; hs1 14:23 BP 110 / 42 (auto/); hs1 14:23 Pulse 116 MON; Pulse Ox 96% ; hs1 15:13 BP 102 / 54 (auto/); hs1 15:13 Pulse 120 MON; Pulse Ox 94% ; hs1 15:38 BP 120 / 93 (auto/); hs1 15:39 Pulse 124 MON; Pulse Ox 93% ; hs1 18:21 BP 99 / 55 (auto/); hs1 18:21 Pulse 114 MON; Pulse Ox 96% ; hs1 18:22 BP 112 / 51 (auto/); hs1 18:22 Pulse 122 MON; Pulse Ox 96% ; hs1 09:42 Body Mass Index 31.09 (77.11 kg, 157.48 cm) hs1 MDM: 09:44 IV Saline Lock ordered. ml 09:44 Truck Striker/Pulse Ox/q 15 min VS ordered. ml 09:44 Rhythm Strip to chart ordered. ml 09:44 -Blood Culture (Adults Only), peripheral from different site, or from device/port/PICC ml etc. if present ordered. 09:44 Albuterol 5 mg Nebulizer once ordered. ml 09:44 Albuterol-Ipratropium 3 ml Inhalation once ordered. ml 09:44 Call Respiratory ordered. ml 09:44 Solu-MEDROL 125 mg IVP once ordered. ml 09:44 Call Respiratory complete. jlf 09:44 CBC with Diff Ordered. EDMS 09:44 MED Profile Ordered. EDMS 09:44 CIP Ordered. EDMS 09:44 Troponin Ordered. EDMS 09:44 Liver Profile Ordered. EDMS 09:44 Lactic Acid (Phillips tube on ice) Ordered. EDMS 09:45 -Blood Culture Ordered. EDMS 09:45 Chest, 1 View Ordered. EDMS 09:50 -Blood Culture (Adults Only), peripheral from different site, or from device/port/PICC lbd etc. if present complete. 09:53 BLOOD CULTURES Ordered. EDMS 10:10 BED REQUEST+ADM ordered. EDMS 10:12 Obtain sample by nasal aspiration ordered. ml 10:13 -Influenza A&B Rapid Antigen - Nose Ordered. EDMS 10:18 ECG WITH READING ER PHYS+CARDIAG ordered. EDMS 10:40 Financial registration complete. mm15 10:44 [facility] Payment Agreement was scanned into [employer] and attached to record. mm15 10:56 CBC with Diff Reviewed. ml 10:56 MED Profile Reviewed. ml 10:56 Liver Profile Reviewed. ml 10:56 CIP Reviewed. ml 10:56 Troponin Reviewed. ml 10:56 Lactic Acid (Phillips tube on ice) Reviewed. ml 10:56 Chest, 1 View Reviewed. ml 11:25 Call Respiratory ordered. ml 11:25 NS 0.9% 500 ml IV at bolus once ordered. ml 11:25 Call Respiratory complete. lbd 11:26 -Arterial Blood Gas Ordered. EDMS 11:39 Albuterol-Ipratropium 3 ml Inhalation once ordered. ml 11:39 Misc. Nursing Order ordered. ml 12:55 SPUTUM CULTURE AND GRAM STAIN Ordered. EDMS 12:55 RESPIRATORY PANEL Ordered. EDMS 12:57 Admission / Observation Status ordered. EDMS 12:57 COPD DIET ordered. EDMS 14:27 -Arterial Blood Gas Reviewed. ml 14:27 -Influenza A&B Rapid Antigen - Nose Reviewed. ml 15:06 T-Sheet-- Draft Copy was scanned into [employer] and attached to record. gb 15:39 Doxycycline 100 mg IVPB once over 1 hrs; dilute in NS or D5W ordered. hs1 19:32 CBC WITH DIFFERENTIAL Ordered. EDMS 19:33 BASIC METABOLIC PROFILE Ordered. EDMS 01 02:42 ELECTROCARDIOGRAM ADULT ordered. EDMS 02:46 MAGNESIUM LEVEL Ordered. EDMS 02:46 PHOSPHOROUS LEVEL Ordered. EDMS 02:46 THYROID STIMULATING HORMONE Ordered. EDMS 03:06 TROPONIN Ordered. EDMS Administered Medications: 06/20 09:55 Drug: Albuterol 5 mg [albuterol sulfate 2.5 mg/0.5 mL solution for nebulization (1 mL)] sd7 Route: Nebulizer; 10:05 Follow up: Response: Nebulizer completed sd7 09:55 Drug: Albuterol-Ipratropium 3 ml [ipratropium-albuterol 0.5 mg-3 mg(2.5 mg base)/3 mL sd7 nebulization soln (3 mL)] Route: Inhalation; 10:05 Follow up: Response: Nebulizer completed sd7 09:57 Drug: Solu-MEDROL 125 mg [Solu-Medrol 500 mg intravenous solution (125 mg)] Route: IVP; hs1 Site: right antecubital; 11:35 Drug: NS 0.9% 500 ml [sodium chloride 0.9 % injection solution] Route: IV; Rate: bolus; dsf Site: right antecubital; 12:48 Follow up: IV Status: Completed infusion; IV Intake: 500ml hs1 11:52 Drug: Albuterol-Ipratropium 3 ml [ipratropium-albuterol 0.5 mg-3 mg(2.5 mg base)/3 mL sd7 nebulization soln (3 mL)] Route: Inhalation; 11:59 Follow up: Response: Nebulizer completed sd7 15:40 Drug: Doxycycline 100 mg [doxycycline hyclate 100 mg intravenous powder for solution] hs1 Route: IVPB; Infused Over: 1 hrs; Site: right antecubital; 16:42 Follow up: IV Status: Completed infusion; IV Intake: 100ml hs1 Signatures: Dispatcher [employer] EDMS Ileana Bernal MD MD ml Daly, Linda, Jig Boring Machine Set Up Operator Unit lbd Qi Tompkins, RN RN Lacho Franklin RN RN cz Lelia Moran, Reg Reg gb VeronicaDariusAnna Marie, Jig Boring Machine Set Up Operator Unit ml3 Jessica Jane RN RN hs1 Sergio Matias mm15 Yonny Valera, RUKHSANA CHILI MAKER Dorcas Chen RN, Samantha RT sd7 The chart was reviewed and I authenticate all verbal orders and agree with the evaluation and treatment provided.Corrections: (The following items were deleted from the chart) 11:39 11:25 Misc. Nursing Order ordered. ml ml 06/21 02:46 02:38 MAGNESIUM LEVEL ordered. EDMS EDMS 02:46 02:38 PHOSPHOROUS LEVEL ordered. EDMS EDMS 02:46 02:38 THYROID STIMULATING HORMONE ordered. EDMS EDMS 03:07 02:56 TROPONIN ordered. EDMS EDMS Attachments: 06/20 10:44 [facility] [place] Agreement mm15 15:06 T-Sheet-- Draft Copy gb Chart Complete MTDD
[2016-06-23 05:30] LABS: BASO # 0.1 K/mm3 (0.0-0.2); BASO % 1.1 % (0.0-1.0); EOS % 0.4 % (0.0-3.0); LARGE UNSTAINED CELL # 0.1 K/mm3 (0.0-0.4); LARGE UNSTAINED CELL % 0.7 % (0.0-4.0); LYMPH # 0.6 K/mm3 (1.5-4.5); LYMPH % 4.6 % (24.0-44.0); MEAN CORPUSCULAR HEMOGLOBIN 31.8 pg (27.0-33.0); MEAN CORPUSCULAR HGB CONC 32.8 g/dl (32.0-36.5); MEAN CORPUSCULAR VOLUME 96.9 fl (80.0-96.0); MONO # 0.3 K/mm3 (0.0-0.8); MONO % 2.7 % (0.0-5.0); NEUTROPHILS # 9.8 K/mm3 (1.8-7.7); NEUTROPHILS % 90.5 % (36.0-66.0); PLATELET COUNT, AUTOMATED 123 k/mm3 (150-450); RED CELL DISTRIBUTION WIDTH 17.3 % (11.5-14.5); WHITE BLOOD COUNT 10.9 K/mm3 (4.0-10.0)
[2016-06-23 05:45] LABS: CALCIUM LEVEL 8.9 MG/DL (8.8-10.2); CREATININE FOR GFR 2.22 MG/DL (0.55-1.02); GLOMERULAR FILTRATION RATE 22.4 (>32); POTASSIUM SERUM 4.3 MEQ/L (3.5-5.1)
[2016-06-23] MEDS: HEPARIN SOD (PORCINE) 5000 UNITS/ML VIAL SQ SCH ×3 (05:53→21:12)
[2016-06-23] MEDS ORDERED: GLUCAGON FOR INJ 1 MG VIAL (J1610) SC PRN (07:30)
[2016-06-23] MEDS ORDERED: DEXTROSE 50% 50 ML SYRINGE IV PRN (07:30)
[2016-06-23] MEDS ORDERED: GLUCOSE 4 GM CHEW TABLET PO PRN (07:30)
[2016-06-23] MEDS: HumaLOG INSULIN (NovoLOG) PER UNIT SC SCH ×3 (08:43→17:23)
[2016-06-23] MEDS: ALLOPURINOL 300 MG TAB PO SCH (08:43)
[2016-06-23] MEDS: predniSONE 20 MG TAB PO SCH (08:43)
[2016-06-23] MEDS: FERROUS SULFATE 325MG TAB PO SCH (08:43)
[2016-06-23] MEDS: oxyBUTYnin 5 MG TAB PO SCH (08:43)
[2016-06-23] MEDS: PANTOPRAZOLE 40MG TAB (PROTONIX) PO SCH (08:43)
[2016-06-23] MEDS: ASPIRIN 81 MG ENTERIC TAB PO SCH (08:44)
[2016-06-23] MEDS ORDERED: BISOPROLOL FUMARATE 5 MG TAB PO ONE (09:45)
--- NOTE | 2016-06-23 10:20 | ECGEPIP ---
Stationary ECG Study [facility] Test Date: 2016-06-23 Pat Name: CHELLY ESPINO Department: Room: [place] [address] Gender: F Accounting Manager Assistant Controller: EMERALD : 1930 Requested By: MARIAMA HOWARD Order Number: [id number] Reading MD: Jhonathan Cunningham Measurements Intervals [place] Rate: 132 P: SD: 0 QRS: -24 QRSD: 75 T: 136 QT: 230 QTc: 341 Interpretive Statements ATRIAL FIBRILLATION WITH RAPID VENTRICULAR RESPONSE Last non sinus tracing in computer was from 03-04-14 BORDERLINE LEFT AXIS DEVIATION NONSPECIFIC ST & T-WAVE ABNORMALITY Electronically Signed On 06-23-2016 10:20:47 EST by Jhonathan Cunningham
--- NOTE | 2016-06-23 12:48 | IPNPDOC ---
Text Note Date of Service The patient was seen on 06/23/16 at 12:46. NOTE Subjective: Patient denies any shortness of breath at this time. Denies any chest pain. Has some palpitations. Found to be in rapid ventricular response today, specially when ambulating. Objective: Vitals: (see below) General: No acute distress, laying comfortably in bed. HEENT: Moist mucous membranes. Neck: No JVD or lymphadenopathy Cardiac: Irregularly irregular, tachycardic Pulm: No wheezing. Diminished breath sounds at the bases. Good chest expansion. Abd: NT/ND + BS Ext: No edema or cyanosis Labs (see below) Images: Chest x-ray on 06/20/16 Impression: Chronic stable changes. No obvious acute cardiopulmonary process. Assessment/Plan: COPD exacerbation- patient is on 2 L home O2 chronically. Her oxygen requirements had increased to 4 L nasal cannula, over today she is on room air. Secondary to coronavirus, will d/c antibiotics. Continue nebs. Decrease prednisone dose. Chest x-ray (see above). Episode of ventricular tachycardia- asymptomatic with a run of 26 beats. Patient 's magnesium was replaced. Potassium is currently about 4. Dr. Reyes has been consulted. Had another episode of V. tach this morning 06/22/16 however patient was asymptomatic. We'll maintain magnesium greater than 2 and potassium rhythm 4. Beta Licha dose has been increased. As per nurse cleared for discharge by Dr. Reyes. Atrial fibrillation- rate was uncontrolled this morning and her beta licha dose was increased. Patient was previously on Coumadin however states that she had a GI bleed and that was discontinued altogether. Patient states she had followed up with her outpt crossing guard, and states he had placed her on aspirin and Plavix instead of Coumadin. 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 Will d/c lasix and spironolactone. Discontinue IV fluids. Obstructive sleep apnea noncompliant with CPAP History of CAD- continue aspirin, Plavix, statin, beta licha, ELVIN inhibitor Hypertension- controlled continue current meds DVT prophylaxis- heparin subcutaneous VS,Fishbone, I+O VS, Fishbone, I+O Laboratory Tests 06/22/16 14:13 Calcium Level 8.3 L 06/23/16 05:18 Calcium Level 8.9, Total Creatine Kinase 308 #H, Red Blood Count 2.85 L, Mean Corpuscular Volume 96.9 H, Mean Corpuscular Hemoglobin 31.8, Mean Corpuscular Hemoglobin Concent 32.8, Red Cell Distribution Width 17.3 H, Neutrophils (%) ( Auto) 90.5 H, Lymphocytes (%) (Auto) 4.6 L, Monocytes (%) (Auto) 2.7, Eosinophils (%) (Auto) 0.4, Basophils (%) (Auto) 1.1 H, Neutrophils # (Auto) 9.8 H, Lymphocytes # (Auto) 0.6 L, Monocytes # (Auto) 0.3, Eosinophils # (Auto) 0.0, Basophils # (Auto) 0.1 Vital Signs Date Time Temp Pulse Resp B/P Pulse Ox O2 Delivery O2 Flow Rate FiO2 06/23/16 11:34 100 148/70 06/23/16 08:00 Nasal Cannula 2.0 06/23/16 08:00 97.7 18 96 I&O- Last 24 Hours up to 6 AM 06/23/16 06:00 Intake Total 2860 ml Output Total 1600 ml Balance 1260 ml MARIAMA OHWARD MD Jun 23, 2016 12:48
--- NOTE | 2016-06-23 19:35 | ECGEPIP ---
Stationary ECG Study [facility] Test Date: 2016-06-23 Pat Name: CHELLY ESPINO Department: Room: [place] [address] Gender: F Welder Apprentice: EMERALD : 1930 Requested By: MARIAMA HOWARD Order Number: [id number] Reading MD: Jhonathan Cunningham Measurements Intervals [place] Rate: 100 P: 77 VA: 196 QRS: -29 QRSD: 86 T: 74 QT: 335 QTc: 434 Interpretive Statements SINUS TACHYCARDIA WITH OCCASIONAL SUPRAVENTRICULAR PREMATURE COMPLEXES BORDERLINE LEFT AXIS DEVIATION NONSPECIFIC ST & T-WAVE ABNORMALITY Electronically Signed On 06-23-2016 19:35:00 EST by Jhonathan Cunningham
[2016-06-23] MEDS ORDERED: BISOPROLOL FUMARATE 10 MG TAB PO SCH (21:00)
[2016-06-23] MEDS ORDERED: HumaLOG INSULIN (NovoLOG) PER UNIT SC SCH (21:00)
[2016-06-23] MEDS: ATORVASTATIN 10 MG TAB PO SCH (21:12)
[2016-06-23] MEDS: CLOPIDOGREL 75 MG TAB PO SCH (21:12)
[2016-06-24] VITALS: BP 146/61
[2016-06-24] MEDS: IPRATROPIUM 0.5MG/ALBUTEROL 2.5MG INH SOL UD 3ML (DUONEB)(J7620) NEB SCH ×3 (03:24→11:13)
[2016-06-24 04:00] VITALS: BP 129/59
[2016-06-24 06:05] LABS: BASO % 0.1 % (0.0-1.0); EOS % 0.5 % (0.0-3.0); LARGE UNSTAINED CELL # 0.1 K/mm3 (0.0-0.4); LARGE UNSTAINED CELL % 1.5 % (0.0-4.0); LYMPH # 0.9 K/mm3 (1.5-4.5); LYMPH % 9.6 % (24.0-44.0); MEAN CORPUSCULAR HEMOGLOBIN 31.7 pg (27.0-33.0); MEAN CORPUSCULAR HGB CONC 31.9 g/dl (32.0-36.5); MEAN CORPUSCULAR VOLUME 99.5 fl (80.0-96.0); MONO # 0.5 K/mm3 (0.0-0.8); MONO % 5.5 % (0.0-5.0); NEUTROPHILS # 7.5 K/mm3 (1.8-7.7); NEUTROPHILS % 82.7 % (36.0-66.0); PLATELET COUNT, AUTOMATED 134 k/mm3 (150-450); RED CELL DISTRIBUTION WIDTH 16.1 % (11.5-14.5)
[2016-06-24 06:35] LABS: CALCIUM LEVEL 8.8 MG/DL (8.8-10.2); CREATININE FOR GFR 1.91 MG/DL (0.55-1.02); GLOMERULAR FILTRATION RATE 26.6 (>32); MAGNESIUM LEVEL 2.1 MG/DL (1.8-2.4); POTASSIUM SERUM 4.3 MEQ/L (3.5-5.1)
[2016-06-24] MEDS: HEPARIN SOD (PORCINE) 5000 UNITS/ML VIAL SQ SCH ×2 (06:56→13:38)
[2016-06-24 08:00] VITALS: BP 136/71
[2016-06-24] MEDS: PANTOPRAZOLE 40MG TAB (PROTONIX) PO SCH (08:00)
[2016-06-24] MEDS: HumaLOG INSULIN (NovoLOG) PER UNIT SC SCH ×2 (08:00→12:00)
[2016-06-24] MEDS: ASPIRIN 81 MG ENTERIC TAB PO SCH (08:00)
[2016-06-24] MEDS: FERROUS SULFATE 325MG TAB PO SCH (08:01)
[2016-06-24] MEDS: oxyBUTYnin 5 MG TAB PO SCH (08:01)
[2016-06-24] MEDS: ALLOPURINOL 300 MG TAB PO SCH (08:01)
--- NOTE | 2016-06-24 08:32 | ECHO ---
DATE OF PROCEDURE: 06/22/2016 AGE: 85 GENDER: Female. HEIGHT: 62 inches. WEIGHT: 183 pounds. BODY SURFACE AREA: 1.84 sq m INPATIENT: Progressive care unit (PCU), room 3219. REFERRING PHYSICIAN: Dr. Feroz Lorenzo INDICATION: Abnormal EKG (nonsustained VT). MEASUREMENTS: 2D MEASUREMENTS: RV: 3.7 cm LV: 5.4 cm Septum: 1.1 cm Posterior wall: 1.1 cm Aortic root: 3.4 cm LA: 4.4 cm LVEF: 75% DOPPLER MEASUREMENTS: AV: 2.38 m/s LVOT: 1.2 m/s LVOT diameter: 2.0 cm Mean AV systolic gradient: 11 mmHg MV-E: 95 A: 106 E/A ratio: 0.9 Early mitral deceleration time: 155 ms PV: 1.0 m/s Pulmonary artery acceleration time: 85 ms RVSP: 66 mmHg IVC: 2.5 cm COMMENTS: The patient was initially in atrial fibrillation with a rapid ventricular response and narrow QRS complexes. Shortly into this examination, the patient converted to a sinus mechanism at 104 beats per minute. Somewhat technically challenging in light of the patient's body habitus/pulmonary disease, but diagnostically useful information was still obtained. Mildly dilated left atrium, but normal left ventricular size. Normal right ventricle size, but mildly dilated right atrium. Left ventricle (LV) wall thickness was upper limits of normal. On real-time imaging from the parasternal and apical projections, wall motion was symmetrical and hyperkinetic. Slightly thickened mitral annulus, but normal leaflet thickness and excursion with no posterior systolic buckling. Three equal size aortic cusps with moderate thickening but apparent adequate cusp separation. Normal aortic root size. Pacing leads could be visualized traversing right heart structures. No separate intracardiac mass. No pericardial effusion. Color flow Doppler study taken from the parasternal and apical projections showed trace aortic, very mild mitral, and moderate tricuspid insufficiency. Guided continuous wave Doppler of her aortic valve and pulsed Doppler study of her LV outflow tract taken from the apical long axis and five chamber projection showed an increased peak systolic velocity and slightly increased mean gradient with dimensionless index of 0.57 - at worst case, no more than very mild aortic stenosis. Pulsed and continuous wave Doppler of her LV inflow tract taken from the apical four-chamber projection showed normal diastolic filling velocities against mitral stenosis. There was more prominent late diastolic/atrial dependent filling pattern. Pulsed and continuous wave Doppler of her pulmonary trunk showed a normal peak systolic velocity against right ventricular (RV) outflow tract obstruction. Her pulmonary artery acceleration time was abbreviated, consistent with an elevated pulmonary vascular resistance. Guided continuous wave Doppler of her tricuspid valve allowed our estimation of her right ventricular systolic pressure (severely increased). Her inferior vena cava was prominently dilated with reduced respiratory collapse, consistent with an elevated central venous pressure/right heart failure. CONCLUSIONS: Normal left ventricular size and wall thickness with hyperkinetic wall motion. Mildly dilated left atrium with subtle Doppler findings in keeping with a degree of impaired LV diastolic function, but currently normal estimated mean left atrial pressure. Right ventricle upper limits of normal, but Doppler evidence of severe pulmonary hypertension. Mildly dilated right atrium and prominently dilated IVC with reduced respiratory collapse, consistent with elevated central venous pressure/right heart failure. At most, very mild calcific aortic stenosis with trace insufficiency. Subtle mitral annular thickening without functional valvular abnormality.
[2016-06-24] MEDS ORDERED: predniSONE 20 MG TAB PO SCH (09:00)
[2016-06-24 12:00] VITALS: BP 159/78
[2016-06-24] MEDS ORDERED: BISO10TA PO (13:27)
[2016-06-24] MEDS ORDERED: LASI20TA PO (13:27)
[2016-06-24] MEDS ORDERED: LOSA25TA8 PO (13:27)
[2016-06-24] MEDS ORDERED: DELT1TAB PO (13:27)
--- NOTE | 2016-06-24 15:37 | DS.PDOC ---
Discharge Summary General Date of Admission Jun 21, 2016 at 13:22 Date of Discharge Jun 24, 2016 at 14:07 Attending Physician: MARIAMA HOWARD MD Specialist/Consultants Involve: KELSIE TOBAR MD Discharge Summary PROCEDURES PERFORMED DURING STAY: None. COMPLICATIONS/CHIEF COMPLAINT: copd EXACERBATION ADMISSION DIAGNOSES/DISCHARGE DIAGNOSES: 1. COPD exacerbation from coronavirus 2. Nonsustained V. tach 3. Atrial fibrillation 4. Acute kidney injury on chronic kidney disease 5. Obstructive sleep apnea noncompliant with CPAP 6. History of CAD 7. Hypertension HISTORY OF PRESENT ILLNESS/HOSPITAL COURSE: This is a 85-year-old female past medical history of COPD on 2 L home O2, atrial fibrillation, CAD who presents complaining of shortness of breath and nonproductive cough over the past 3 weeks. Patient was found to be in a COPD exacerbation and was treated with steroids and nebulizer therapy. Patient was initially started on antibiotics however given respiratory panel positive for coronavirus, abx were d/c. Patient's respiratory status has significantly improved over the course of admission. She has been ambulating without difficulty and did well with physical therapy. During the course of hospitalization, patient did have an asymptomatic episode of V. tach. Her echocardiogram showed normal LV function. Dr. Tobar has been consulted and is cleared patient for discharge, with outpatient follow-up. Patient also did have atrial fibrillation with rapid ventricular rate for which her beta ezra dose was increased. She is currently hemodynamic stable and ready to be discharged with outpatient follow-up. DISCHARGE MEDICATIONS: Please see below. ALLERGIES: Please see below. PHYSICAL EXAMINATION ON DISCHARGE: Vitals: (see below) General: No acute distress, laying comfortably in bed. HEENT: Moist mucous membranes. Neck: No JVD or lymphadenopathy Cardiac: Irregularly irregular, tachycardic Pulm: No wheezing. Diminished breath sounds at the bases. Good chest expansion. Abd: NT/ND + BS Ext: No edema or cyanosis LABORATORY DATA: Please see below. IMAGING: Images: Chest x-ray on 06/20/16 Impression: Chronic stable changes. No obvious acute cardiopulmonary process. VTE Prophylaxis ordered?: Yes DISCHARGE CONDITION: Stable DISPOSITION: 01 Home, Self-Care ACTIVITY: As tolerated DIET: Low-sodium DISCHARGE PLAN AND INSTRUCTIONS: 1. Follow-up with PCP, cardiology, nephrology in 1-2 weeks. TIME SPENT ON DISCHARGE: Greater than 30 minutes. Vital Signs/I&Os Vital Signs Date Time Temp Pulse Resp B/P Pulse Ox O2 Delivery O2 Flow Rate FiO2 06/24/16 12:00 97.9 82 20 159/78 95 Room Air 06/23/16 16:00 2.0 I&O- Last 24 Hours up to 6 AM 06/24/16 06:00 Intake Total 2120 ml Output Total 2175 ml Balance -55 ml Laboratory Data Labs 24H Laboratory Tests 2 06/23/16 15:36: Creatine Kinase MB 14.6H, Creatine Kinase MB Relative Index 3.97, Total Creatine Kinase 367H, Troponin I 0.13H 06/23/16 16:29: Bedside Glucose (Misc Panel) 184H 06/23/16 20:24: Bedside Glucose (Misc Panel) 163H 06/23/16 23:09: Creatine Kinase MB 11.6H, Creatine Kinase MB Relative Index 3.91, Total Creatine Kinase 296H, Troponin I 0.11H 06/24/16 05:19: Anion Gap 10, White Blood Count 9.0, Red Blood Count 2.87L, Hemoglobin 9.1L, Hematocrit 28.5L, Mean Corpuscular Volume 99.5H, Mean Corpuscular Hemoglobin 31.7, Mean Corpuscular Hemoglobin Concent 31.9L, Red Cell Distribution Width 16.1H, Platelet Count 134L, Neutrophils (%) (Auto) 82.7H, Lymphocytes (%) (Auto ) 9.6L, Monocytes (%) (Auto) 5.5H, Eosinophils (%) (Auto) 0.5, Basophils (%) ( Auto) 0.1, Neutrophils # (Auto) 7.5, Lymphocytes # (Auto) 0.9L, Monocytes # ( Auto) 0.5, Eosinophils # (Auto) 0.0, Basophils # (Auto) 0.0, Blood Urea Nitrogen 57H, Creatinine 1.91H, Sodium Level 139, Potassium Level 4.3, Chloride Level 107, Carbon Dioxide Level 22, Calcium Level 8.8, Glomerular Filtration Rate 26.6L, Large Unclassified Cells # 0.1, Large Unclassified Cells % 1.5, Magnesium Level 2.1 CBC/BMP Laboratory Tests 06/24/16 05:19 Calcium Level 8.8, Red Blood Count 2.87 L, Mean Corpuscular Volume 99.5 H, Mean Corpuscular Hemoglobin 31.7, Mean Corpuscular Hemoglobin Concent 31.9 L, Red Cell Distribution Width 16.1 H, Neutrophils (%) (Auto) 82.7 H, Lymphocytes (%) ( Auto) 9.6 L, Monocytes (%) (Auto) 5.5 H, Eosinophils (%) (Auto) 0.5, Basophils ( %) (Auto) 0.1, Neutrophils # (Auto) 7.5, Lymphocytes # (Auto) 0.9 L, Monocytes # (Auto) 0.5, Eosinophils # (Auto) 0.0, Basophils # (Auto) 0.0 FSBS Laboratory Tests Test 06/23/16 16:29 06/23/16 20:24 Range/Units Bedside Glucose (Misc Panel) 184 163 83-110 MG/DL Microbiology Microbiology 06/20/16 Blood Culture - Preliminary, Resulted No Growth after 72 hours. All specime... 06/20/16 Blood Culture - Preliminary, Resulted No Growth after 72 hours. All specime... 06/20/16 Respiratory Virus Panel (PCR) ([facility]) - Final, Complete Coronavirus Oc43 06/20/16 Influenza Virus Type A Antigen - Final, Complete 06/20/16 Influenza Virus Type B Antigen - Final, Complete Medications Scheduled (Deltasone) 20 Mg Tab 20 MG PO DAILY Allopurinol (Zyloprim) 300 Mg Tab 300 MG PO DAILY Aspirin (Aspirin 81) 81 Mg Tab 81 MG PO DAILY Atorvastatin Calcium (Atorvastatin Calcium) 10 Mg Tab 10 MG PO QHS Bisoprolol Fumarate (Zebeta) 10 Mg Tab 10 MG PO QHS Clopidogrel Bisulfate (Clopidogrel) 75 Mg Tab 75 MG PO QHS Ferrous Sulfate (Ferrous Sulfate) 325 Mg Tab 325 MG PO DAILY Furosemide (Lasix) 20 Mg Tab 20 MG PO DAILY Losartan Potassium (Losartan Potassium) 25 Mg Tab 25 MG PO DAILY Oxybutynin Chloride (Oxybutynin Chloride) 5 Mg Tab 5 MG PO DAILY Scheduled PRN Nitroglycerin (Nitrostat) 0.4 Mg Subl 0.4 MG SL PRN PRN PRN CHEST PAIN Allergies Coded Allergies: Codeine (Verified Allergy, Severe, DIFFICULTY BREATHING, 09/15/12) Nitrofurantoin (Unverified Allergy, Unknown, 06/15/14) Warfarin (Verified Adverse Reaction, Intermediate, ELEVATED BP WITH GENERIC WARFARIN. CAN TAKE COUMADIN BRAND, 09/15/12) Propoxyphene (Verified Adverse Reaction, Mild, UNSET STOMACH, 10/14/13) Unclassified Drugs (Unverified Adverse Reaction, Mild, NARCOTICS - UPSET STOMACH, 06/22/16) MARIAMA HOWARD MD Jun 24, 2016 15:37
== END 2016-06-24 14:07 | disposition home or self-care (01) | DRG 191 ==
LOC: M ED 09:28 → M ED INP 13:16 → M PCU 06-21 03:18 → OBSVTOIN 06-21 13:22
PROVIDERS: ADMIT Internal Medicine; ATTEND Internal Medicine
DX: J44.1 Chronic obstructive pulmonary disease with (acute) exacerbation (principal); N18.4 Chronic kidney disease, stage 4 (severe); I47.2 Ventricular tachycardia; N17.9 Acute kidney failure, unspecified; G47.33 Obstructive sleep apnea (adult) (pediatric); I48.91 Unspecified atrial fibrillation; I25.10 Atherosclerotic heart disease of native coronary artery without angina pectoris; I12.9 Hypertensive chronic kidney disease with stage 1 through stage 4 chronic kidney disease, or unspecified chronic kidney disease; Z79.02 Long term (current) use of antithrombotics/antiplatelets; Z79.82 Long term (current) use of aspirin; Z99.81 Dependence on supplemental oxygen; Z91.14 Patient's other noncompliance with medication regimen; Z87.891 Personal history of nicotine dependence; I25.2 Old myocardial infarction; Z95.0 Presence of cardiac pacemaker; Z90.710 Acquired absence of both cervix and uterus; Z90.49 Acquired absence of other specified parts of digestive tract; Z79.899 Other long term (current) drug therapy

== ENCOUNTER 2016-06-26 13:06 | Observation (INO) | payer MEDICARE, MEDICAID ==
[~2016-06-26] VITALS: Ht 152.4 cm; Wt 79.7 kg
[~2016-06-26 13:06] MED LIST changes: +ATOR1TAB19 PO; +BISO10TA PO; +CLOP75TA2 PO; +DELT1TAB PO; +LASI20TA PO; +LOSA100T36 PO; +LOSA25TA8 PO; +OXYB5TA PO
[2016-06-26] MEDS ORDERED: methylPREDNISolone INJ 125 MG/2 ML VIAL (J2930) As Ordered ONE (13:39)
[2016-06-26] MEDS ORDERED: IPRATROPIUM 0.5MG/ALBUTEROL 2.5MG INH SOL UD 3ML (DUONEB)(J7620) As Ordered ONE (13:41)
[2016-06-26 13:53] LABS: BASO % 0.3 % (0.0-1.0); EOS # 0.1 K/mm3 (0.0-0.50); EOS % 0.8 % (0.0-3.0); LARGE UNSTAINED CELL # 0.1 K/mm3 (0.0-0.4); LARGE UNSTAINED CELL % 0.8 % (0.0-4.0); LYMPH # 0.8 K/mm3 (1.5-4.5); LYMPH % 10.9 % (24.0-44.0); MEAN CORPUSCULAR HGB CONC 32.9 g/dl (32.0-36.5); MEAN CORPUSCULAR VOLUME 97.4 fl (80.0-96.0); MONO # 0.3 K/mm3 (0.0-0.8); MONO % 3.3 % (0.0-5.0); NEUTROPHILS # 6.5 K/mm3 (1.8-7.7); PLATELET COUNT, AUTOMATED 144 k/mm3 (150-450); RED CELL DISTRIBUTION WIDTH 16.6 % (11.5-14.5); WHITE BLOOD COUNT 7.7 K/mm3 (4.0-10.0)
[2016-06-26 13:54] LABS: ABG BASE EXCESS -0.8 (-2.0-2.0); ABG DEVICE NASAL CANN; ABG HCO3 23.5 MEQ/L (22.0-26.0); ABG PARTIAL PRESSURE CO2 37.4 mmHg (35.0-45.0); ABG PARTIAL PRESSURE O2 76.6 mmHg (75.0-100.0); ABG STANDARD HCO3 23.8 MEQ/L (22.0-26.0); ABG TOTAL CO2 24.6 MEQ/L (23.0-31.0); ABG pH (ARTERIAL) 7.416 UNITS (7.350-7.450)
[2016-06-26 14:08] LABS: INR 1.02
--- NOTE | 2016-06-26 14:08 | REP ---
CHEST, ONE VIEW: HISTORY: Shortness of breath. COMPARISON: 03/02/2015 A minimal increase in interstitial markings is present in the lungs consistent with chronic interstitial fibrosis. Linear density is present in the right lower lobe consistent with scar. The heart is upper limits of normal in size. The pulmonary vasculature is normal in appearance. A cardiac pacemaker is present. IMPRESSION: 1. Chronic interstitial fibrosis. 2. Right lower lobe scar. Signed by Marvin Dinero MD 06/26/2016 02:09 P
[2016-06-26 14:11] LABS: CREATININE FOR GFR 1.8 MG/DL (0.55-1.02); GLOMERULAR FILTRATION RATE 28.5 (>32); POTASSIUM SERUM 4.2 MEQ/L (3.5-5.1)
[2016-06-26] MEDS ORDERED: BISO10TA6 PO (14:26)
[2016-06-26] MEDS ORDERED: NITROGLYCERIN 0.4 MG SUBL TABLET SL PRN (19:30)
[2016-06-26] MEDS ORDERED: ACETAMINOPHEN TAB 650MG DOSE (2X325MG) PO PRN (19:45)
--- NOTE | 2016-06-26 19:47 | HPEPDOC ---
General Date of Admission Jun 26, 2016 at 16:02 Primary Care Physician: JASBIR MATTHEWS MD [facility] Attending Physician: BRITTA ELLER DO Chief Complaint The patient is a 85-year-old female admitted with a reason for visit of shortness of breath. Source: Patient Exam Limitations: No limitations History of Present Illness Patient is an 85 year old female with past medical history of pulmonary hypertension, diastolic CHF, chronic back pain, chronic kidney disease, COPD, hypercholesterolemia, hypertension and myocardial infarction presenting with shortness of breath. The patient was recently discharged from [facility] on 06/24/15 for pneumonia and COPD exacerbation. At discharge she was feeling well, but after being home for 24 hours she started to feel increasingly short of breath, even at rest. She admits that she felt like she was gasping for air. The patient tried to use her nebulizer at home but she did not have any medication for it. She normally uses 2L oxygen at night, but had to use the oxygen for the duration of the day after she started feeling short of breath. She decided to come to [facility] again because the shortness of breath was persisting. She admits to having a cough but is not producing any sputum. She admits to chest pain right under the left breast tissue. She describes it as a "little ache." The pain does not travel and goes away after a couple seconds. The pain comes on with no identified inciting events. She denies fever, nausea, vomiting, and diarrhea. She admits to weight loss of 4 lbs and orthopnea. Home Medications Scheduled (Deltasone) 20 Mg Tab 20 MG PO DAILY Allopurinol (Zyloprim) 300 Mg Tab 300 MG PO DAILY (Reported) Aspirin (Aspirin 81) 81 Mg Tab 81 MG PO DAILY (Reported) Atorvastatin Calcium (Atorvastatin Calcium) 10 Mg Tab 10 MG PO QHS (Reported) Bisoprolol Fumarate (Zebeta) 10 Mg Tab 10 MG PO QHS Bisoprolol Fumarate (Bisoprolol Fumarate) 10 Mg Tab 10 MG PO QHS (Reported) Clopidogrel Bisulfate (Clopidogrel) 75 Mg Tab 75 MG PO QHS (Reported) Ferrous Sulfate (Ferrous Sulfate) 325 Mg Tab 325 MG PO DAILY (Reported) Furosemide (Lasix) 20 Mg Tab 20 MG PO DAILY Losartan Potassium (Losartan Potassium) 25 Mg Tab 25 MG PO DAILY Scheduled PRN Nitroglycerin (Nitrostat) 0.4 Mg Subl 0.4 MG SL PRN PRN PRN CHEST PAIN (Reported ) Allergies Coded Allergies: Codeine (Verified Allergy, Severe, DIFFICULTY BREATHING, 09/15/12) Nitrofurantoin (Unverified Allergy, Unknown, 06/15/14) Warfarin (Verified Adverse Reaction, Intermediate, ELEVATED BP WITH GENERIC WARFARIN. CAN TAKE COUMADIN BRAND, 09/15/12) Propoxyphene (Verified Adverse Reaction, Mild, UNSET STOMACH, 10/14/13) Unclassified Drugs (Unverified Adverse Reaction, Mild, NARCOTICS - UPSET STOMACH, 06/22/16) Past Medical History Medical History 1. Pulmonary Hypertension 2. Diastolic CHF 3. Chronic back pain 4. Chronic Kidney Disease 5. COPD 6. Hypercholesterolemia 7. Hypertension 8. ND Surgical History 1. Pacemaker insertion 2. Adenoidectomy 3. Hysterectomy 4. Back Surgery 5. Partial colectomy for diverticulitis 6. Tonsillectomy Family History Significant Family History: Cancer (Brother and Grandmother had bone cancer), Other (Mom had aneurysm of some kind) Social History * Smoker: former Smoker (Quit in 1989. Smoked for 50 years previously. ) Alcohol: denies Drugs: denies Recent Travel/Sick Contacts: Reports: Recent sick contacts Psychosocial History: No pertinent psych hx Social History Occupation: Used to work in [place] for 59 cents an hour. Pets: Cat named Baby Review of Symptoms Constitutional: Denies: Chills, Fever Eyes: Denies: Vision change ENT: Reports: Head Aches Pulmonary: Reports: Cough, Dyspnea Cardiovascular: Reports: Chest Pain, Orthopnea, Denies: Edema, Paroxysmal Noc. Dyspnea Gastrointestinal: Denies: Diarrhea, Nausea, Vomiting Genitourinary: Denies: Dysuria, Hematuria Physical Examination General Exam: Positive: Alert, No Acute Distress Eye Exam: Positive: EOMI ENT Exam: Positive: Atraumatic, Mucous membr. moist/pink Neck Exam: Positive: JVD (2.5cm) Chest Exam: Positive: Rhonchi, Wheezing Heart Exam: Positive: Normal S1, Normal S2, Rate Normal, Regular Rhythm Abdomen Exam: Positive: Normal bowel sounds, Soft, Negative: Tenderness Vital Signs Blood Pressure: 191/75, Pulse 79, Respirations 18, Temperature 98.4, Pulse Ox 94 % 2L NC Laboratory Data Labs 24H Laboratory Tests 2 06/26/16 13:19: Anion Gap 10, B-Type Natriuretic Peptide 270H, White Blood Count 7.7, Red Blood Count 3.10L, Hemoglobin 9.9L, Hematocrit 30.2L, Mean Corpuscular Volume 97.4H, Mean Corpuscular Hemoglobin 32.0, Mean Corpuscular Hemoglobin Concent 32.9, Red Cell Distribution Width 16.6H, Platelet Count 144L, Neutrophils (%) (Auto) 84.0H , Lymphocytes (%) (Auto) 10.9L, Monocytes (%) (Auto) 3.3, Eosinophils (%) (Auto ) 0.8, Basophils (%) (Auto) 0.3, Neutrophils # (Auto) 6.5, Lymphocytes # (Auto) 0.8L, Monocytes # (Auto) 0.3, Eosinophils # (Auto) 0.1, Basophils # (Auto) 0.0, Blood Urea Nitrogen 47H, Creatinine 1.80H, Sodium Level 141, Potassium Level 4.2 , Chloride Level 105, Carbon Dioxide Level 26, Calcium Level 9.0, Total Creatine Kinase 79, Creatine Kinase MB 3.8H, Creatine Kinase MB Relative Index 4.81H, Glomerular Filtration Rate 28.5L, Large Unclassified Cells # 0.1, Large Unclassified Cells % 0.8, Prothromb Time International Ratio 1.02, Prothrombin Time 13.5, Troponin I 0.04 06/26/16 13:49: Arterial Blood pH 7.416, Arterial Blood Partial Pressure CO2 37.4, Arterial Blood Partial Pressure O2 76.6, Arterial Blood Total CO2 24.6, Arterial Blood HCO3 23.5, Arterial Blood Base Excess -0.8, Arterial Blood Oxygen Saturation 95.7, Blood Gas Bicarbonate Standard 23.8, Oxygen Delivery Device NASAL DEL CBC/BMP Laboratory Tests 06/26/16 13:19 Calcium Level 9.0, Total Creatine Kinase 79, Red Blood Count 3.10 L, Mean Corpuscular Volume 97.4 H, Mean Corpuscular Hemoglobin 32.0, Mean Corpuscular Hemoglobin Concent 32.9, Red Cell Distribution Width 16.6 H, Neutrophils (%) ( Auto) 84.0 H, Lymphocytes (%) (Auto) 10.9 L, Monocytes (%) (Auto) 3.3, Eosinophils (%) (Auto) 0.8, Basophils (%) (Auto) 0.3, Neutrophils # (Auto) 6.5, Lymphocytes # (Auto) 0.8 L, Monocytes # (Auto) 0.3, Eosinophils # (Auto) 0.1, Basophils # (Auto) 0.0 Microbiology Microbiology 06/26/16 Blood Culture, Received Pending 06/26/16 Blood Culture, Received Pending Assessment/Plan Problems: (1) Dyspnea Onset Date: 12/21/2013 Status: Acute Problem Text: Patient likely is fluid overloaded with fluid accumulating in the lungs. This is based on the patient's history of diastolic CHF, pulmonary hypertension and chronic kidney disease. Rhonchi and faint crackles at the bases were appreciated in the patients lungs and she also admits to orthopnea. Patient's baseline dyspnea is 2L oxygen at night but now needs to wear 2L oxygen all the time to not have dyspnea. Less likely to be COPD exacerbation as upon examination of the patient, she was not found to be struggling to breathe nor was she having profound wheezing. We will start the patient on 40mg IV Lasix bid and monitor her with daily weights and Ins/Outs. (2) Diastolic CHF Status: Acute (3) Hyperlipidemia Status: Chronic Problem Text: Continue atorvastatin (4) Past heart attack Status: Chronic Problem Text: Patient reveals she had an ND back in 2003. She has not had any events since then. Continue bisprolol, aspirin, plavix, losartan and atorvastatin. Patient was taking Coumadin but stopped taking it due to adverse effect. She is taking aspirin and plavix now instead. (5) Hypertension Status: Chronic Problem Text: Patient has been having elevated BP beyond her baseline in the 130's. Today was 191/75. We will start her on IV hydralazine. q6 hours with hold parameter for less than 160 systolic and monitor her. Iv lasix will help reduce volume and anticipate BP to drop as she diureses. Continue bisprolol spironolactone, and losartan. (6) COPD (chronic obstructive pulmonary disease) Status: Chronic Problem Text: She received 125 mg Solumedrol and Duonebs in the ED. We will continue patients regiment of 20mg prednisone and Duonebs prn. (7) A-fib Status: Chronic Problem Text: Patient rate controlled with pace maker. Continue Plavix and aspirin. (8) TANISHA (obstructive sleep apnea) Status: Chronic Problem Text: Patient non-compliant with CPAP. (9) CKD (chronic kidney disease), stage III Status: Chronic Problem Text: Creatinine and BUN are at baseline for her. We will continue to monitor. Plan / VTE VTE Prophylaxis Ordered?: Yes (Lovenox renally dosed) RADHA ARGUELLO DO Jun 26, 2016 18:05
--- NOTE | 2016-06-26 19:53 | EDDOCDS ---
Nurse's Notes [facility] Name: Cristela Cooper Age: 85 yrs Sex: Female : 1930 Arrival Date: 06/26/2016 Time: 13:06 Bed 1 Private MD: Diagnosis: Hypoxemia;Other disorders of lung-copd with exacerbation Presentation: 06/26 13:07 Presenting complaint: Patient states: sob for the past few weeks was recently admitted mk4 to PCu for same and was discharged. 13:14 Adult Sepsis Screening: The patient does not have new or worsening altered mentation. [facility] Patient has a respiratory rate of greater than or equal to 22 (1 point). Systolic blood pressure is greater than 100. Patient has a qSOFA score of 1- Negative Sepsis Screen. Suicide/Homicide risk assessment- the patient denies having any suicidal and/or homicidal ideations and does not present with any other emotional, behavioral or mental health complaints. Status: Patient is not a patient service associate or dependent. Transition of care: patient was not received from another setting of care. 13:14 Acuity: TONY Level 3 [facility] 13:14 Method Of Arrival: Ambulance [facility] Triage Assessment: 13:13 General: Appears in no apparent distress. Pain: Denies pain. Respiratory: Onset: The [facility] symptoms/episode began/occurred past few weeks. Historical: - Allergies: Codeine Sulfate ("can't breathe"); Coumadin; Hydrocodone-Acetaminophen; Macrobid (Unknown); Narcotics ("can't breathe"); Vicodin (Unknown); - Home Meds: 1. Oxygen 2 L at night 2. allopurinol 100 mg Oral tab 2 tabs once daily 3. aspirin 81 mg Oral chew 1 tab once daily 4. atorvastatin 10 mg oral tab 1 tab once daily 5. bisoprolol fumarate 5 mg oral tab 0.5 tab once daily 6. ferrous sulfate 325 mg (65 mg iron) Oral cpER daily 7. Lasix 40 mg Oral tab 1 tab once daily 8. losartan 100 mg oral tab 1 tab once daily 9. NitroQuick SL 0.4 mg as needed 10. oxybutynin chloride 5 mg Oral tab 1 tab once daily 11. Plavix 75 mg Oral tab 1 tab nightly 12. spironolactone 25 mg Oral tab 1 tab once daily 13. bisoprolol fumarate 10 mg oral tab nightly 14. prednisone 20 mg Oral tab once daily 15. losartan 25 mg oral tab once daily - PMHx: Chronic Back pain; Chronic Renal Failure w/o Dialysis; COPD; Hypercholesterolemia; Hypertension; Myocardial infarction; - PSHx: Pacemaker Insertion; Adenoidectomy; Hysterectomy; back surgery; Unkown abdomen surgery; Tonsillectomy; - Social history: Smoking status: Patient states former smoker of tobacco. No barriers to communication noted, The patient speaks fluent Swedish. - Family history: Not pertinent. - : The pt / caregiver states he / she is on anticoagulants: Plavix. Home medication list is obtained from the facility AUG. - Exposure Risk Screening:: None identified. Screenin:44 Screening information is obtained from the patient. Fall risk: At risk due to gait mk4 disturbance, The following interventions are performed due to a positive Fall Risk Screen: Fall Risk is added to Special Handling on the patient Summary Screen. A Fall Risk Bracelet was applied to the patient. Side Rails are placed in the up position. A Call Welch is given with instruction to call for help when getting out of bed. Fall Alert bracelet is placed on the patient. Abuse/DV Screen: The patient / caregiver reports he/she is: not in a situation that causes fear, pain or injury. 18:34 Assistance ADL's: Requires assistance with meal preparation, this assistance is mk4 provided by residence staff, bathing, assistance is provided by residence staff, dressing, assistance is provided by residence staff, toileting, assistance is provided by residence staff, ambulation, assistance is provided by residence staff, housework, assistance is provided by residence staff. Nutritional screening: No deficits noted. home support is adequate. 19:42 Advance Directives: There is no active DNR order. js15 Assessment: 13:44 General: Appears in no apparent distress, comfortable. Neurological: Level of mk4 Consciousness is awake, alert, Oriented to person, place, time. Cardiovascular: Chest pain is denied. Respiratory: Airway is patent Respiratory effort is even, labored, Respiratory pattern is tachypnea pt RUSH just transferring from ambulance stretcher to bed. 15:04 General: Appears in no apparent distress, comfortable, pt ambulated in [place] with walker mk4 and no oxygen pt only wears o2 at night , pt ambulated well SAO2 dropped to 86% while ambulating, Daughter states mother only wears nasal cannula at night. 15:52 General: Appears in no apparent distress, comfortable, Behavior is cooperative. mk4 Respiratory: Breath sounds are clear bilaterally. 16:24 General: Appears in no apparent distress, comfortable, Behavior is cooperative, mk4 transferred to bedside commode independently gait steady , resp labored on exertion, 88-89 sao2 on room air, oxygen applied at 2-3 l nc. 16:45 General: Appears in no apparent distress, comfortable, Behavior is cooperative, pt resp mk4 easy , states she is scared to go home alone, states she is afraid she wont be able to breathe at night , pt aware of admission . 17:10 General: Appears in no apparent distress, comfortable. mk4 18:42 General: Appears in no apparent distress, comfortable, Behavior is cooperative, mk4 pleasant. Respiratory: Airway is patent Respiratory effort is even, labored, Respiratory pattern is regular. 19:20 General: Appears in no apparent distress, comfortable, Behavior is appropriate for age, js15 cooperative. Pain: Denies pain. Neurological: Level of Consciousness is awake, alert, obeys commands, Oriented to person, place, time. Cardiovascular: Rhythm is irregular. Respiratory: Airway is patent Respiratory effort is even, unlabored, Respiratory pattern is regular, symmetrical. Derm: Skin is pink, warm & dry. Vital Signs: 13:14 BP 191 / 75; Pulse 79; Resp 18; Temp 98.4(TE); Pulse Ox 94% on 2 lpm NC; Weight 81.04 ct3 kg (M); Height 5 ft. 1 in. (154.94 cm) (R); Pain 0/10; 13:45 BP 161 / 70 (auto/); mk4 13:46 Pulse 76 MON; Pulse Ox 95% ; mk4 14:00 BP 168 / 82 (auto/); mk4 14:00 Pulse 84 MON; Pulse Ox 94% ; mk4 14:15 BP 139 / 68 (auto/); mk4 14:16 Pulse 69 MON; Pulse Ox 94% ; mk4 14:30 BP 147 / 67 (auto/); mk4 14:30 Pulse 88 MON; Pulse Ox 93% ; mk4 14:45 BP 154 / 70 (auto/); mk4 14:46 Pulse 61 MON; Pulse Ox 94% ; mk4 15:15 BP 153 / 70 (auto/); mk4 15:15 Pulse 76 MON; Pulse Ox 90% ; mk4 15:29 Pulse 86 MON; Pulse Ox 87% ; mk4 15:30 BP 208 / 77 (auto/); mk4 15:45 BP 185 / 78 (auto/); mk4 15:46 Pulse 81 MON; Pulse Ox 87% ; mk4 16:08 BP 199 / 91 (auto/); mk4 16:08 Pulse 87 MON; Pulse Ox 92% ; mk4 16:15 BP 192 / 86 (auto/); mk4 16:16 Pulse 61 MON; Pulse Ox 95% ; mk4 16:26 Temp 99.4(TE); mk4 16:30 BP 177 / 77 (auto/); mk4 16:31 Pulse 67 MON; Pulse Ox 96% ; mk4 16:45 BP 200 / 81 (auto/); mk4 16:46 Pulse 81 MON; Pulse Ox 95% ; mk4 17:00 BP 201 / 85 (auto/); mk4 17:01 Pulse 70 MON; Pulse Ox 94% ; mk4 17:14 Pulse 72 MON; Pulse Ox 95% ; mk4 17:29 Pulse 60 MON; Pulse Ox 96% ; mk4 17:30 BP 189 / 77 (auto/); mk4 17:45 BP 184 / 93 (auto/); mk4 17:45 Pulse 64 MON; Pulse Ox 96% ; mk4 18:00 BP 199 / 84 (auto/); mk4 18:00 Pulse 63 MON; Pulse Ox 95% ; mk4 18:15 BP 193 / 78 (auto/); mk4 18:16 Pulse 68 MON; Pulse Ox 95% ; mk4 18:30 BP 167 / 73 (auto/); mk4 18:31 Pulse 69 MON; Pulse Ox 95% ; mk4 18:45 BP 181 / 77 (auto/); js15 18:45 Pulse 66 MON; Pulse Ox 94% ; js15 19:00 BP 161 / 69 (auto/); js15 19:00 Pulse 63 MON; Pulse Ox 97% ; js15 19:15 BP 181 / 76 (auto/); js15 19:16 Pulse 62 MON; Pulse Ox 96% ; js15 19:30 BP 173 / 79 (auto/); js15 19:30 Pulse 66 MON; Pulse Ox 95% ; js15 13:14 Body Mass Index 33.76 (81.04 kg, 154.94 cm) ct3 Vitals: 13:13 Log In Time N/A - ambulance arrival. mk4 13:14 Log In Time N/A - ambulance arrival. ct3 ED Course: 13:06 Patient visited by Quin Tian PCA. ar3 13:06 Patient moved to Waiting ar3 13:07 Patient moved to 1 ar3 13:14 Patient has correct armband on for positive identification. Placed in gown. Bed in low ct3 position. Call light in reach. Side rails up X2. automotive alignment specialist on. Pulse ox on. NIBP on. 13:15 Patient visited by Mariana Mckeon PCA. ct3 13:15 Triage Initiated mk4 13:18 Avery Carreon FNP is PHCP. ke 13:18 Patient visited by Avery Carreon FNP. ke 13:18 Patient visited by Avery Carreon FNP. ke 13:35 -Blood Culture Sent. mk4 13:35 B-Type Natiuretic Peptide Sent. mk4 13:35 Basic Metabolic Profile Sent. mk4 13:35 CBC with Diff Sent. mk4 13:35 Cardiac Injury Profile Sent. mk4 13:35 Troponin Sent. mk4 13:36 PT/INR Sent. mk4 13:43 Patient visited by Quin Tian PCA. ar3 13:43 EKG done. (by ED staff). Reviewed by Avery MUNSON. ar3 13:44 The patient / caregiver is instructed regarding the plan of care and ED course. mk4 13:44 Inserted saline lock: 20 gauge in right hand. mk4 13:50 -Arterial Blood Gas Sent. sd7 14:15 Patient visited by Avery Carreon FNP. ke 14:40 Patient visited by Avery Carreon FNP. ke 14:53 Chest, 1 View Returned. EDMS 15:11 Patient visited by Anupama Chavarria RN. mk4 15:18 Vickey Solares is Hospitalizing Provider. ke 15:41 [facility] Payment Agreement was scanned into [email or web address] and attached to record. gjb 18:44 No procedures done that require assistance. mk4 Administered Medications: 13:43 Drug: Solu-MEDROL 125 mg [Solu-Medrol 500 mg intravenous solution (125 mg)] Route: IVP; mk4 Site: right hand; 13:48 Drug: Albuterol-Ipratropium 3 ml [ipratropium-albuterol 0.5 mg-3 mg(2.5 mg base)/3 mL nebulization soln (3 mL)] Route: Inhalation; 13:57 Follow up: Response: Nebulizer completed RT: 13:45 ABG's drawn from right radial artery allens test done and positive pressure held for 5 sd7 minutes no bleeding noted pressure bandage applied specimen sent pt. tolerated well. 13:48 Initial Med Neb Given as ordered Patient was instructed and evaluated on procedure 7 Patient tolerated procedure well without adverse effect. Respiratory: Breath sounds with wheezes bilaterally. at expiration. Order Results: Lab Order: -Arterial Blood Gas; SPEC'M 06/26/16 13:49 Test: ABG pH (ARTERIAL); Value: 7.416; Range: 7.350-7.450; Units: UNITS; Status: F Test: ABG PARTIAL PRESSURE CO2; Value: 37.4; Range: 35.0-45.0; Units: mmHg; Status: F Test: ABG PARTIAL PRESSURE O2; Value: 76.6; Range: 75.0-100.0; Units: mmHg; Status: F Test: ABG TOTAL CO2; Value: 24.6; Range: 23.0-31.0; Units: MEQ/L; Status: F Test: ABG HCO3; Value: 23.5; Range: 22.0-26.0; Units: MEQ/L; Status: F Test: ABG BASE EXCESS; Value: -0.8; Range: -2.0-2.0; Status: F Test: ABG STANDARD HCO3; Value: 23.8; Range: 22.0-26.0; Units: MEQ/L; Status: F Test: ABG O2 SATURATION; Value: 95.7; Range: 95.0-99.0; Units: %; Status: F Test: ABG DEVICE; Value: NASAL DEL; Status: F Lab Order: B-Type Natiuretic Peptide; SPEC'M 06/26/16 13:19 Test: BRAIN NATRIURETIC PEPTIDE; Value: 270; Range: <100; Abnormal: Above high normal; Units: PG/ML; Status: F Lab Order: Basic Metabolic Profile; SPEC'M 06/26/16 13:19 Test: GLUCOSE, FASTING; Value: 151; Range: 83-110; Abnormal: Above high normal; Units: MG/DL; Status: F Test: BLOOD UREA NITROGEN; Value: 47; Range: 7-18; Abnormal: Above high normal; Units: MG/DL; Status: F Test: CREATININE FOR GFR; Value: 1.80; Range: 0.55-1.02; Abnormal: Above high normal; Units: MG/DL; Status: F Test: GLOMERULAR FILTRATION RATE; Value: 28.5; Range: >32; Abnormal: Below low normal; Status: F Test: SODIUM LEVEL; Value: 141; Range: 136-145; Units: MEQ/L; Status: F Test: POTASSIUM SERUM; Value: 4.2; Range: 3.5-5.1; Units: MEQ/L; Status: F Test: CHLORIDE LEVEL; Value: 105; Range: 98-107; Units: MEQ/L; Status: F Test: CARBON DIOXIDE LEVEL; Value: 26; Range: 21-32; Units: MEQ/L; Status: F Test: ANION GAP; Value: 10; Range: 8-16; Units: MEQ/L; Status: F Test: CALCIUM LEVEL; Value: 9.0; Range: 8.8-10.2; Units: MG/DL; Status: F Test Note: ; Units are mL/min/1.73 m2 Chronic Kidney Disease Staging per NKF: Stage I & II GFR >=60 Normal to Mildly Decreased Stage III GFR 30-59 Moderately Decreased Stage IV GFR 15-29 Severely Decreased Stage V GFR <15 Very Little GFR Left ESRD GFR <15 on GLASSWARE SELECTOR Lab Order: CBC with Diff; SPEC'M 06/26/16 13:19 Test: WHITE BLOOD COUNT; Value: 7.7; Range: 4.0-10.0; Units: K/mm3; Status: F Test: RED BLOOD COUNT; Value: 3.10; Range: 4.00-5.40; Abnormal: Below low normal; Units: M/mm3; Status: F Test: HEMOGLOBIN; Value: 9.9; Range: 12.0-16.0; Abnormal: Below low normal; Units: g/dl; Status: F Test: HEMATOCRIT; Value: 30.2; Range: 36.0-47.0; Abnormal: Below low normal; Units: %; Status: F Test: MEAN CORPUSCULAR VOLUME; Value: 97.4; Range: 80.0-96.0; Abnormal: Above high normal; Units: fl; Status: F Test: MEAN CORPUSCULAR HEMOGLOBIN; Value: 32.0; Range: 27.0-33.0; Units: pg; Status: F Test: MEAN CORPUSCULAR HGB CONC; Value: 32.9; Range: 32.0-36.5; Units: g/dl; Status: F Test: RED CELL DISTRIBUTION WIDTH; Value: 16.6; Range: 11.5-14.5; Abnormal: Above high normal; Units: %; Status: F Test: PLATELET COUNT, AUTOMATED; Value: 144; Range: 150-450; Abnormal: Below low normal; Units: k/mm3; Status: F Test: NEUTROPHILS %; Value: 84.0; Range: 36.0-66.0; Abnormal: Above high normal; Units: %; Status: F Test: LYMPH %; Value: 10.9; Range: 24.0-44.0; Abnormal: Below low normal; Units: %; Status: F Test: MONO %; Value: 3.3; Range: 0.0-5.0; Units: %; Status: F Test: EOS %; Value: 0.8; Range: 0.0-3.0; Units: %; Status: F Test: BASO %; Value: 0.3; Range: 0.0-1.0; Units: %; Status: F Test: LARGE UNSTAINED CELL %; Value: 0.8; Range: 0.0-4.0; Units: %; Status: F Test: NEUTROPHILS #; Value: 6.5; Range: 1.8-7.7; Units: K/mm3; Status: F Test: LYMPH #; Value: 0.8; Range: 1.5-4.5; Abnormal: Below low normal; Units: K/mm3; Status: F Test: MONO #; Value: 0.3; Range: 0.0-0.8; Units: K/mm3; Status: F Test: EOS #; Value: 0.1; Range: 0.0-0.50; Units: K/mm3; Status: F Test: BASO #; Value: 0.0; Range: 0.0-0.2; Units: K/mm3; Status: F Test: LARGE UNSTAINED CELL #; Value: 0.1; Range: 0.0-0.4; Units: K/mm3; Status: F Lab Order: Cardiac Injury Profile; [facility]' 06/26/16 13:19 Test: CPK CREATINE PHOSPHOKINASE; Value: 79; Range: 26-192; Units: U/L; Status: F Test: CK-MB VALUE MASS; Value: 3.8; Range: 0.0-3.6; Abnormal: Above high normal; Units: NG/ML; Status: F Test: MB/CK RELATIVE INDEX; Value: 4.81; Range: < OR =4; Abnormal: Above high normal; Status: F Test Note: ; DIAGNOSIS CRITERIA MMB ng/ml Relative Index (RI) NON-AMI < or = 5 N/A STEIN ZONE > 5 < or = 4 AMI > 5 > 4 Lab Order: Troponin; [facility]' 06/26/16 13:19 Test: TROPONIN I; Value: 0.04; Range: < 0.10; Units: NG/ML; Status: F Test Note: ; Troponin I Reference Interval for [facility] LOCI: 99th Percentile= 0.00-0.045 ng/ml Risk Stratification: <= 0.10 ng/ml Decreased Risk for Adverse Clinical Events. 0.10-1.50 ng/ml Increased Risk for Adverse Clinical Events. Evaluation of additional criterion and/or repeat testing in 2-6 hours is suggested to rule out myocardial damage. >= 1.50 ng/ml Indicative of Myocardial Injury. Lab Order: PT/INR; SPEC'M 06/26/16 13:19 Test: PROTHROMBIN TIME; Value: 13.5; Range: 12.3-14.5; Units: SECONDS; Status: F Test: INR; Value: 1.02; Status: F Test Note: ; THERAPUTIC HUMAN INR VALUES INDICATIONS NORMAL RANGES PROPHYLAXIS/TREATMENT OF: VENOUS THROMBOSIS 2.0-3.0 PULMONARY EMBOLISM 2.0-3.0 PREVENTION OF SYSTEMIC EMBOLISM FROM: TISSUE HEART VALVES 2.0-3.0 ACUTE MYOCARDIAL INFARCTION 2.0-3.0 VALVULAR HEART DISEASE 2.0-3.0 ATRIAL FIBRILLATION 2.0-3.0 MECHANICAL VALVES(HIGH RISK) 2.5-3.5 RECURRENT MYOCARDIAL INFARCTION 2.5-3.5 Radiology Order: Chest, 1 View Test: Chest, 1 View REASON FOR EXAMINATION: Shortness of Breath; CHEST, ONE VIEW:; ; HISTORY: Shortness of breath.; ; COMPARISON: 03/02/2015; ; A minimal increase in interstitial markings is present in the lungs consistent; with chronic interstitial fibrosis. Linear density is present in the right lower; lobe consistent with scar. The heart is upper limits of normal in size. The; pulmonary vasculature is normal in appearance. A cardiac pacemaker is present.; ; IMPRESSION:; ; 1. Chronic interstitial fibrosis.; ; 2. Right lower lobe scar.; ; ; Signed by; Marvin Dinero MD 06/26/2016 02:09 P; Outcome: 15:20 Decision to Hospitalize by Provider. 18:34 Discharge Assessment: patient administered narcotics - no. The following High Risk [facility] Discharge criteria are identified: None. Discharged to intermediate. Condition: stable. CT Study completed. Property sent home with patient. 18:44 Admission hand-off: Report Faxed Fax receipt verified by gabo angeles unable to go to [place] [id number] at this time. 19:53 Patient left the ED. js15 Signatures: Dispatcher [employer] EDMS Avery Carreon, BOILER ERECTOR BOILER ERECTOR Quin Lilly, THEATER EDUCATION TEACHER THEATER EDUCATION TEACHER ar3 Mariana Mckeon, THEATER EDUCATION TEACHER THEATER EDUCATION TEACHER ct3 Anupama Chavarria, RN RN mk4 Keely Aquino,RT RT [email or web address] Meredith Pa,RN RN js15 Beatriz Bellamy MTDD
--- NOTE | 2016-06-26 19:53 | EDDOCDS ---
Physician Documentation [facility] Name: Cristela Cooper Age: 85 yrs Sex: Female : 1930 Arrival Date: 06/26/2016 Time: 13:06 Bed 1 Private MD: Disposition: 06/26/16 15:20 Hospitalization ordered by Vickey Solares for Inpatient Admission. Preliminary diagnosis are Hypoxemia, Other disorders of lung - copd with exacerbation. - [facility] - Status is Inpatient Admission. js15 - Condition is Stable. - Problem is an acute exacerbation. - Symptoms are unchanged. Historical: - Allergies: Codeine Sulfate ("can't breathe"); Coumadin; Hydrocodone-Acetaminophen; Macrobid (Unknown); Narcotics ("can't breathe"); Vicodin (Unknown); - Home Meds: 1. Oxygen 2 L at night 2. allopurinol 100 mg Oral tab 2 tabs once daily 3. aspirin 81 mg Oral chew 1 tab once daily 4. atorvastatin 10 mg oral tab 1 tab once daily 5. bisoprolol fumarate 5 mg oral tab 0.5 tab once daily 6. ferrous sulfate 325 mg (65 mg iron) Oral cpER daily 7. Lasix 40 mg Oral tab 1 tab once daily 8. losartan 100 mg oral tab 1 tab once daily 9. NitroQuick SL 0.4 mg as needed 10. oxybutynin chloride 5 mg Oral tab 1 tab once daily 11. Plavix 75 mg Oral tab 1 tab nightly 12. spironolactone 25 mg Oral tab 1 tab once daily 13. bisoprolol fumarate 10 mg oral tab nightly 14. prednisone 20 mg Oral tab once daily 15. losartan 25 mg oral tab once daily - PMHx: Chronic Back pain; Chronic Renal Failure w/o Dialysis; COPD; Hypercholesterolemia; Hypertension; Myocardial infarction; - PSHx: Pacemaker Insertion; Adenoidectomy; Hysterectomy; back surgery; Unkown abdomen surgery; Tonsillectomy; - Social history: Smoking status: Patient states former smoker of tobacco. No barriers to communication noted, The patient speaks fluent Malay. - Family history: Not pertinent. - : The pt / caregiver states he / she is on anticoagulants: Plavix. Home medication list is obtained from the facility AUG. - Exposure Risk Screening:: None identified. Vital Signs: 01/17 13:14 BP 191 / 75; Pulse 79; Resp 18; Temp 98.4(TE); Pulse Ox 94% on 2 lpm NC; Weight 81.04 ct3 kg / 178.66 lbs (M); Height 5 ft. 1 in. (154.94 cm) (R); Pain 0/10; 13:45 BP 161 / 70 (auto/); mk4 13:46 Pulse 76 MON; Pulse Ox 95% ; mk4 14:00 BP 168 / 82 (auto/); mk4 14:00 Pulse 84 MON; Pulse Ox 94% ; mk4 14:15 BP 139 / 68 (auto/); mk4 14:16 Pulse 69 MON; Pulse Ox 94% ; mk4 14:30 BP 147 / 67 (auto/); mk4 14:30 Pulse 88 MON; Pulse Ox 93% ; mk4 14:45 BP 154 / 70 (auto/); mk4 14:46 Pulse 61 MON; Pulse Ox 94% ; mk4 15:15 BP 153 / 70 (auto/); mk4 15:15 Pulse 76 MON; Pulse Ox 90% ; mk4 15:29 Pulse 86 MON; Pulse Ox 87% ; mk4 15:30 BP 208 / 77 (auto/); mk4 15:45 BP 185 / 78 (auto/); mk4 15:46 Pulse 81 MON; Pulse Ox 87% ; mk4 16:08 BP 199 / 91 (auto/); mk4 16:08 Pulse 87 MON; Pulse Ox 92% ; mk4 16:15 BP 192 / 86 (auto/); mk4 16:16 Pulse 61 MON; Pulse Ox 95% ; mk4 16:26 Temp 99.4(TE); mk4 16:30 BP 177 / 77 (auto/); mk4 16:31 Pulse 67 MON; Pulse Ox 96% ; mk4 16:45 BP 200 / 81 (auto/); mk4 16:46 Pulse 81 MON; Pulse Ox 95% ; mk4 17:00 BP 201 / 85 (auto/); mk4 17:01 Pulse 70 MON; Pulse Ox 94% ; mk4 17:14 Pulse 72 MON; Pulse Ox 95% ; mk4 17:29 Pulse 60 MON; Pulse Ox 96% ; mk4 17:30 BP 189 / 77 (auto/); mk4 17:45 BP 184 / 93 (auto/); mk4 17:45 Pulse 64 MON; Pulse Ox 96% ; mk4 18:00 BP 199 / 84 (auto/); mk4 18:00 Pulse 63 MON; Pulse Ox 95% ; mk4 18:15 BP 193 / 78 (auto/); mk4 18:16 Pulse 68 MON; Pulse Ox 95% ; mk4 18:30 BP 167 / 73 (auto/); mk4 18:31 Pulse 69 MON; Pulse Ox 95% ; mk4 18:45 BP 181 / 77 (auto/); js15 18:45 Pulse 66 MON; Pulse Ox 94% ; js15 19:00 BP 161 / 69 (auto/); js15 19:00 Pulse 63 MON; Pulse Ox 97% ; js15 19:15 BP 181 / 76 (auto/); js15 19:16 Pulse 62 MON; Pulse Ox 96% ; js15 19:30 BP 173 / 79 (auto/); js15 19:30 Pulse 66 MON; Pulse Ox 95% ; js15 13:14 Body Mass Index 33.76 (81.04 kg, 154.94 cm) ct3 MDM: 13:32 Solu-MEDROL 125 mg IVP once ordered. ke 13:32 -Blood Culture (Adults Only), peripheral from different site, or from device/port/PICC ke etc. if present ordered. 13:32 Consumer Affairs Director/Pulse Ox/q 15 min VS ordered. ke 13:32 IV Saline Lock ordered. ke 13:32 Oxygen at 4L/Min NC or Home dosage ordered. ke 13:32 Rhythm Strip to chart ordered. ke 13:32 Albuterol-Ipratropium 3 ml Inhalation once ordered. ke 13:32 Call Respiratory ordered. ke 13:33 -Arterial Blood Gas Ordered. EDMS 13:33 -Blood Culture Ordered. EDMS 13:33 B-Type Natiuretic Peptide Ordered. EDMS 13:33 Basic Metabolic Profile Ordered. EDMS 13:33 CBC with Diff Ordered. EDMS 13:33 Cardiac Injury Profile Ordered. EDMS 13:33 Troponin Ordered. EDMS 13:33 PT/INR Ordered. EDMS 13:33 Chest, 1 View Ordered. EDMS 13:34 ECG WITH READING ER PHYS+CARDIAG ordered. EDMS 13:34 -Blood Culture (Adults Only), peripheral from different site, or from device/port/PICC lbd etc. if present complete. 13:35 Call Respiratory complete. lbd 13:37 BED REQUEST+ADM ordered. EDMS 13:49 BLOOD CULTURES Ordered. EDMS 14:41 B-Type Natiuretic Peptide Reviewed. ke 14:41 Basic Metabolic Profile Reviewed. ke 14:41 CBC with Diff Reviewed. ke 14:41 Cardiac Injury Profile Reviewed. ke 14:41 -Arterial Blood Gas Reviewed. ke 14:41 Troponin Reviewed. ke 14:41 PT/INR Reviewed. ke 15:13 Chest, 1 View Reviewed. ke 15:39 Financial registration complete. gjb 15:41 [facility] Payment Agreement was scanned into [employer] and attached to record. gjb 16:10 Admission / Observation Status ordered. EDMS 16:21 Admission / Observation Status ordered. EDMS 19:41 ELECTROCARDIOGRAM ADULT ordered. EDMS 19:41 CARDIAC MARKER PANEL Ordered. EDMS 19:41 BASIC METABOLIC PROFILE Ordered. EDMS 19:41 COMPLETE BLOOD COUNT Ordered. EDMS 19:42 CARDIAC MARKER PANEL Ordered. EDMS 19:42 CARDIAC MARKER PANEL Ordered. EDMS Administered Medications: 13:43 Drug: Solu-MEDROL 125 mg [Solu-Medrol 500 mg intravenous solution (125 mg)] Route: IVP; mk4 Site: right hand; 13:48 Drug: Albuterol-Ipratropium 3 ml [ipratropium-albuterol 0.5 mg-3 mg(2.5 mg base)/3 mL sd7 nebulization soln (3 mL)] Route: Inhalation; 13:57 Follow up: Response: Nebulizer completed sd7 Signatures: Dispatcher [employer] EDMS Daniela Martinez, Manager Production Unit [facility] Qi Tompkins RN Avery Rodrigues mcp, MANAGER CLUB MANAGER CLUB Anupama Cain RN RN mk4 Meredith Pa,RN RN js15 Beatriz Bellamy b Suhail Pérez, RN Keely Parekh sa RT sd7 The chart was reviewed and I authenticate all verbal orders and agree with the evaluation and treatment provided.Attachments: 15:41 [facility] Payment Agreement gjb MTDD
[2016-06-26 20:06] VITALS: BP 167/74
[2016-06-26] MEDS: hydrALAZINE INJ 20 MG/ML VIAL IV SCH (21:00)
[2016-06-26] MEDS: BISOPROLOL FUMARATE 10 MG TAB PO SCH (21:32)
[2016-06-26] MEDS: ATORVASTATIN 10 MG TAB PO SCH (21:38)
[2016-06-26] MEDS: FUROSEMIDE 40 MG/4 ML VIAL (J1940) IV SCH (21:38)
[2016-06-26] MEDS: CLOPIDOGREL 75 MG TAB PO SCH (21:38)
[2016-06-27] VITALS (7 sets, daily range): BP systolic 117–178; BP diastolic 49–88
[2016-06-27] MEDS: hydrALAZINE INJ 20 MG/ML VIAL IV SCH ×4 (03:30→20:47)
[2016-06-27 05:57] LABS: MEAN CORPUSCULAR HEMOGLOBIN 31.8 pg (27.0-33.0); MEAN CORPUSCULAR HGB CONC 31.6 g/dl (32.0-36.5); MEAN CORPUSCULAR VOLUME 100.7 fl (80.0-96.0); RED CELL DISTRIBUTION WIDTH 17.5 % (11.5-14.5); WHITE BLOOD COUNT 6.9 K/mm3 (4.0-10.0)
[2016-06-27 06:09] LABS: CALCIUM LEVEL 8.5 MG/DL (8.8-10.2); CREATININE FOR GFR 2.05 MG/DL (0.55-1.02); GLOMERULAR FILTRATION RATE 24.6 (>32)
--- NOTE | 2016-06-27 07:59 | ECGEPIP ---
Stationary ECG Study [facility] - ED Test Date: 2016-06-26 Pat Name: CHELLY ESPINO Department: Room: - Gender: F Master Ship: [place] : 1930 Requested By: NIKI MUNSON Order Number: [id number] Reading MD: Hanna Cardoza Measurements Intervals [place] Rate: 64 P: 27 LA: 165 QRS: -30 QRSD: 81 T: -19 QT: 405 QTc: 418 Interpretive Statements ELECTRONIC ATRIAL PACEMAKER BORDERLINE LEFT AXIS DEVIATION ABNORMAL RHYTHM ECG NSTTW ABNORMALITY Electronically Signed On 06-27-2016 7:58:57 EST by Hanna Cardoza
[2016-06-27] MEDS: ASPIRIN 81 MG ENTERIC TAB PO SCH (08:22)
[2016-06-27] MEDS: predniSONE 20 MG TAB PO SCH (08:22)
[2016-06-27] MEDS: FERROUS SULFATE 325MG TAB PO SCH (08:22)
[2016-06-27] MEDS: ALLOPURINOL 300 MG TAB PO SCH (08:22)
[2016-06-27] MEDS: FUROSEMIDE 40 MG/4 ML VIAL (J1940) IV SCH ×2 (08:23→16:52)
[2016-06-27] MEDS: ENOXAPARIN 30 MG/0.3 ML SYR (J1650) SC SCH (08:23)
[2016-06-27] MEDS ORDERED: LOSARTAN 25 MG TAB PO SCH (09:00)
--- NOTE | 2016-06-27 18:44 | IPNPDOC ---
Date/Time Seen The patient was seen on 06/27/16 at 09:27. Progress Note SUBJECTIVE: Patient is a 85 year old female with multiple comorbidities presenting with shortness of breath. Patient was examined at bedside and was found sitting on the edge of the bed in street clothes. She admits that she is feeling less short of breath today and is feeling better overall. She stated that she wants to go home. She admits to two episodes of chest pain underneath the left breast tissue that happened last night. The pain only lasts a few seconds and then goes away, without radiation. Denies syncope, palpitations, nausea, vomiting, diarrhea. She also admitted to a headache located in the forehead, rating it a 4 on the pain scale. She stated she rarely gets headaches. Admits to being constipated sometimes, cold extremities and feeling tired. OBJECTIVE: PHYSICAL EXAMINATION: GENERAL: A+Ox3. NAD HEENT: Normocephalic, atraumatic. Mucous membranes moist. EOMI. CARDIOVASCULAR: RRR. S1 systolic murmur, Normal S2. No gallops or rubs. RESPIRATORY: No rales or rhonchi. Mild wheezing. ABDOMINAL: Soft, non-tender. Normoactive bowel sounds. EXTREMITIES: No cyanosis, pallor or edema. IMAGING: Chest X-Ray revealed chronic interstitial fibrosis of lungs. DVT prophylaxis ordered?: Yes, Lovenox. ASSESSMENT AND PLAN: This is an 85 year old female with multiple comorbidities presenting with shortness of breath. PROBLEMS: 1. Dyspnea. Acute. Patient admits to feeling much less short of breath today. She continues to use 2L oxygen. Rhonchi were no longer appreciated in patient's lung ochoa but continued to have mild wheezing. Patient seems to be less fluid overloaded compared to yesterday. Continue patient on 40mg IV Lasix bid and monitor her with daily weights and Ins/Outs. 2. Diastolic CHF. Acute. Fluid overload is being managed with Lasix. 3. Hyperlipidemia. Chronic. Continue atorvastatin 4. Past Heart attack. Chronic. Patient reveals she had an NV back in 2003. Patient admits to paroxysmal chest pain that lasts a few seconds. She is on telemetry. Repeat troponins have been negative. Continue bisprolol, aspirin, plavix, losartan and atorvastatin. Patient was taking Coumadin but stopped taking it due to adverse effect. She is taking aspirin and plavix now instead. 5. Hypertension. Chronic. Patient has been having elevated BP beyond her baseline in the 130's. Today was 142/88. We will continue IV hydralazine q6 hours with hold parameter for less than 160 systolic and monitor her. Iv lasix will help reduce volume and anticipate BP to drop as she diureses. Continue bisprolol spironolactone, and losartan. 6. COPD. Chronic. She received 125 mg Solumedrol and Duonebs in the ED. We will continue patients regiment of 20mg prednisone and Duonebs prn. 7. Atrial Fibrillation. Chronic. Patient rate controlled with pace maker. Continue Plavix and aspirin. 8. TANISHA. Chronic. Patient non-compliant with CPAP. 9. Chronic Kidney Disease, Stage III. Chronic. Creatinine and BUN are at baseline for her. We will continue to monitor. VS, I&O, 24H, Fishbone VS, I&O, 24H, Fishbone Vital Signs Date Time Temp Pulse Resp B/P Pulse Ox O2 Delivery O2 Flow Rate FiO2 06/27/16 08:22 148/68 06/27/16 07:30 96.7 60 22 97 Nasal Cannula 06/27/16 07:10 2.0 I&O- Last 24 Hours up to 6 AM 06/27/16 06:00 Intake Total 120 ml Output Total 1925 ml Balance -1805 ml Laboratory Tests 2 06/26/16 13:19: Anion Gap 10, B-Type Natriuretic Peptide 270H, White Blood Count 7.7, Red Blood Count 3.10L, Hemoglobin 9.9L, Hematocrit 30.2L, Mean Corpuscular Volume 97.4H, Mean Corpuscular Hemoglobin 32.0, Mean Corpuscular Hemoglobin Concent 32.9, Red Cell Distribution Width 16.6H, Platelet Count 144L, Neutrophils (%) (Auto) 84.0H , Lymphocytes (%) (Auto) 10.9L, Monocytes (%) (Auto) 3.3, Eosinophils (%) (Auto ) 0.8, Basophils (%) (Auto) 0.3, Neutrophils # (Auto) 6.5, Lymphocytes # (Auto) 0.8L, Monocytes # (Auto) 0.3, Eosinophils # (Auto) 0.1, Basophils # (Auto) 0.0, Blood Urea Nitrogen 47H, Creatinine 1.80H, Sodium Level 141, Potassium Level 4.2 , Chloride Level 105, Carbon Dioxide Level 26, Calcium Level 9.0, Total Creatine Kinase 79, Creatine Kinase MB 3.8H, Creatine Kinase MB Relative Index 4.81H, Glomerular Filtration Rate 28.5L, Large Unclassified Cells # 0.1, Large Unclassified Cells % 0.8, Prothromb Time International Ratio 1.02, Prothrombin Time 13.5, Troponin I 0.04 06/26/16 13:49: Arterial Blood pH 7.416, Arterial Blood Partial Pressure CO2 37.4, Arterial Blood Partial Pressure O2 76.6, Arterial Blood Total CO2 24.6, Arterial Blood HCO3 23.5, Arterial Blood Base Excess -0.8, Arterial Blood Oxygen Saturation 95.7, Blood Gas Bicarbonate Standard 23.8, Oxygen Delivery Device NASAL DEL 06/26/16 20:29: Total Creatine Kinase 66, Creatine Kinase MB 2.6, Creatine Kinase MB Relative Index 3.93, Troponin I 0.02# 06/27/16 05:12: Anion Gap 9, Blood Urea Nitrogen 51H, Creatinine 2.05H, Sodium Level 140, Potassium Level 4.0, Chloride Level 103, Carbon Dioxide Level 28, Calcium Level 8.5L, Total Creatine Kinase 48, Creatine Kinase MB 1.8, Creatine Kinase MB Relative Index 3.75, Glomerular Filtration Rate 24.6L, Troponin I 0.03# Laboratory Tests 06/26/16 13:19 Calcium Level 9.0, Total Creatine Kinase 79, Red Blood Count 3.10 L, Mean Corpuscular Volume 97.4 H, Mean Corpuscular Hemoglobin 32.0, Mean Corpuscular Hemoglobin Concent 32.9, Red Cell Distribution Width 16.6 H, Neutrophils (%) ( Auto) 84.0 H, Lymphocytes (%) (Auto) 10.9 L, Monocytes (%) (Auto) 3.3, Eosinophils (%) (Auto) 0.8, Basophils (%) (Auto) 0.3, Neutrophils # (Auto) 6.5, Lymphocytes # (Auto) 0.8 L, Monocytes # (Auto) 0.3, Eosinophils # (Auto) 0.1, Basophils # (Auto) 0.0 06/27/16 05:12 Calcium Level 8.5 L, Total Creatine Kinase 48, Red Blood Count 3.07 L, Mean Corpuscular Volume 100.7 H, Mean Corpuscular Hemoglobin 31.8, Mean Corpuscular Hemoglobin Concent 31.6 L, Red Cell Distribution Width 17.5 H Microbiology 06/26/16 Blood Culture, Received Pending 06/26/16 Blood Culture, Received Pending GME ATTESTATION GME ATTESTATION My preceptor for this patient encounter was physically present in the building during the encounter and was fully available. As needed, all aspects of the patient interview, examination, medical decision making process, and medical care plan development were reviewed and approved by the preceptor. Preceptor is aware and concurs with the plan as stated in the body of this note and will attest to such by his/her cosignature. RADHA ARGUELLO DO Jun 27, 2016 10:09
[2016-06-27] MEDS: CLOPIDOGREL 75 MG TAB PO SCH (20:47)
[2016-06-27] MEDS: ATORVASTATIN 10 MG TAB PO SCH (20:47)
[2016-06-27] MEDS: BISOPROLOL FUMARATE 10 MG TAB PO SCH (20:47)
[2016-06-28] MEDS: hydrALAZINE INJ 20 MG/ML VIAL IV SCH ×4 (03:00→21:00)
[2016-06-28 04:00] VITALS: BP 157/70
[2016-06-28 05:25] LABS: MEAN CORPUSCULAR HEMOGLOBIN 32.2 pg (27.0-33.0); MEAN CORPUSCULAR HGB CONC 32.7 g/dl (32.0-36.5); MEAN CORPUSCULAR VOLUME 98.6 fl (80.0-96.0); RED CELL DISTRIBUTION WIDTH 16.3 % (11.5-14.5)
[2016-06-28 05:47] LABS: CALCIUM LEVEL 8.7 MG/DL (8.8-10.2); CREATININE FOR GFR 2.18 MG/DL (0.55-1.02); GLOMERULAR FILTRATION RATE 22.9 (>32); POTASSIUM SERUM 3.7 MEQ/L (3.5-5.1)
[2016-06-28 07:30] VITALS: BP 130/59
[2016-06-28] MEDS: FERROUS SULFATE 325MG TAB PO SCH (08:14)
[2016-06-28] MEDS: ALLOPURINOL 300 MG TAB PO SCH (08:14)
[2016-06-28] MEDS: ENOXAPARIN 30 MG/0.3 ML SYR (J1650) SC SCH (08:14)
[2016-06-28] MEDS: predniSONE 20 MG TAB PO SCH (08:14)
[2016-06-28] MEDS: ASPIRIN 81 MG ENTERIC TAB PO SCH (08:14)
[2016-06-28] MEDS ORDERED: LEVALBUTEROL 1.25 MG/0.5 ML CONCENTRATE NEB INH PRN (08:15)
--- NOTE | 2016-06-28 08:27 | ECGEPIP ---
Stationary ECG Study [facility] Test Date: 2016-06-27 Pat Name: CHELLY ESPINO Department: Room: [place] [address] Gender: F Perfusionist: KIMBERLY : [id number] Requested By: RADHA ARGUELLO Order Number: [id number] Reading MD: Rickie Gonzalez Measurements Intervals [place] Rate: 59 P: 95 [place]: 185 QRS: -28 QRSD: 78 T: -12 QT: 424 QTc: 423 Interpretive Statements Atrial pacing Left axis deviation Nonspecific ST-T wave abnormalities No significant change when compared to prior tracing of 06/26/2016 Electronically Signed On 06-28-2016 8:27:20 EST by Ricike Gonzalez
[2016-06-28] MEDS: FUROSEMIDE 40 MG TAB PO SCH (08:39)
[2016-06-28 12:00] VITALS: BP 124/58
[2016-06-28 16:00] VITALS: BP 150/66
[2016-06-28 20:00] VITALS: BP 129/61
--- NOTE | 2016-06-28 20:05 | IPNPDOC ---
Date/Time Seen The patient was seen on 06/28/16 at 10:32. Progress Note SUBJECTIVE: Patient is a 85 year old female with multiple comorbidities presenting with shortness of breath. Patient was examined at bedside and found in bed laying on her side at 60 degrees. Patient admits that her breathing continues to improve and feels at baseline. She admits that yesterday she did not wear her oxygen and did not experience any shortness of breath. Today she is wearing her oxygen because she gets a headache when she is not wearing oxygen. Continues to have a dry cough. Admits to being constipated as well. Denies chest pain, nausea, vomiting, diarrhea. Tolerating food well. OBJECTIVE: PHYSICAL EXAMINATION: GENERAL: NAD. A&Ox3. HEENT: Normocephalic, atraumatic. CARDIOVASCULAR: RRR. Normal S1 and S2. RESPIRATORY: Mild wheezes bilaterally at the lung bases. No rhonchi or rales. ABDOMINAL: Soft, nontender. No ecchymosis, peritoneal signs or masses. Normoactive bowel sounds. EXTREMITIES: No cyanosis or pallor. Edema in lower extremities bilaterally. DVT prophylaxis ordered?: Yes, patient on Lovenox. ASSESSMENT AND PLAN: This is a 85-year-old female with multiple comorbidities presenting with shortness of breath. PROBLEMS: 1. Dyspnea. Acute. Patient admits to feeling at baseline. She continues to use 2L oxygen. Rhonchi were no longer appreciated in patient's lung ochoa but continued to have mild wheezing in lung bases. Patient seems less fluid overloaded compared to admission. Will switch her over to her home dose of Lasix 40mg (which is listed wrong on the home med rec list), and she also says she is on 100mg of Losartan daily at home, but only 25 here, I will up her to 50 at this time and monitor. 2. Diastolic CHF. Acute. Fluid overload is being managed with Lasix. 3. Hyperlipidemia. Chronic. Continue atorvastatin 4. Past Heart attack. Chronic. Patient reveals she had an PA back in 2003. No new episodes of pain since admission. She is on telemetry. Repeat troponins have been negative. Continue bisprolol, aspirin, plavix, losartan and atorvastatin. Patient was taking Coumadin but stopped taking it due to adverse effect. She is taking aspirin and plavix now instead. 5. Hypertension. Chronic. Today was 130/59. We will continue IV hydralazine q6 hours with hold parameter for less than 160 systolic and monitor her. lasix will help reduce volume and anticipate BP to drop as she diureses. Continue bisprolol spironolactone, and will increase losartan as noted above. 6. COPD. Chronic. She received 125 mg Solumedrol and Duonebs in the ED. We will continue patients Levalbuterol HCl q4h prn and her home dose of 20mg prednisone daily. 7. Atrial Fibrillation. Chronic. Patient rate controlled with pace maker. Continue Plavix and aspirin. 8. TANISHA. Chronic. Patient non-compliant with CPAP. 9. Chronic Kidney Disease, Stage III. Chronic. Creatinine and BUN are at baseline for her. We will continue to monitor. VS, I&O, 24H, Fishbone VS, I&O, 24H, Fishbone Vital Signs Date Time Temp Pulse Resp B/P Pulse Ox O2 Delivery O2 Flow Rate FiO2 06/28/16 08:14 130/59 06/28/16 04:00 96.4 62 20 93 Nasal Cannula 2.0 I&O- Last 24 Hours up to 6 AM 06/28/16 06:00 Intake Total 1060 ml Output Total 1600 ml Balance -540 ml Laboratory Tests 2 06/27/16 11:23: Creatine Kinase MB 1.6, Creatine Kinase MB Relative Index 2.85, Total Creatine Kinase 56, Troponin I 0.02# 06/28/16 04:51: Anion Gap 9, Blood Urea Nitrogen 66H, Creatinine 2.18H, Sodium Level 144, Potassium Level 3.7, Chloride Level 105, Carbon Dioxide Level 30, Calcium Level 8.7L, Glomerular Filtration Rate 22.9L Laboratory Tests 06/28/16 04:51 Calcium Level 8.7 L, Red Blood Count 3.02 L, Mean Corpuscular Volume 98.6 H, Mean Corpuscular Hemoglobin 32.2, Mean Corpuscular Hemoglobin Concent 32.7, Red Cell Distribution Width 16.3 H Microbiology 06/26/16 Blood Culture - Preliminary, Resulted No growth after 24 hours . All specim... 06/26/16 Blood Culture - Preliminary, Resulted No growth after 24 hours . All specim... GME ATTESTATION GME ATTESTATION My preceptor for this patient encounter was physically present in the building during the encounter and was fully available. As needed, all aspects of the patient interview, examination, medical decision making process, and medical care plan development were reviewed and approved by the preceptor. Preceptor is aware and concurs with the plan as stated in the body of this note and will attest to such by his/her cosignature. RADHA ARGUELLO DO Jun 28, 2016 10:51
--- NOTE | 2016-06-28 20:53 | EDDOCDS ---
Nurse's Notes [facility] Name: Cristela Cooper Age: 85 yrs Sex: Female : 1930 Arrival Date: 06/26/2016 Time: 13:06 Bed 1 Private MD: Diagnosis: Hypoxemia;Other disorders of lung-copd with exacerbation Presentation: 06/26 13:07 Presenting complaint: Patient states: sob for the past few weeks was recently admitted mk4 to [facility]u for same and was discharged. 13:14 Adult Sepsis Screening: The patient does not have new or worsening altered mentation. [facility] Patient has a respiratory rate of greater than or equal to 22 (1 point). Systolic blood pressure is greater than 100. Patient has a qSOFA score of 1- Negative Sepsis Screen. Suicide/Homicide risk assessment- the patient denies having any suicidal and/or homicidal ideations and does not present with any other emotional, behavioral or mental health complaints. Status: Patient is not a medical customer service representative or dependent. Transition of care: patient was not received from another setting of care. 13:14 Acuity: TONY Level 3 [facility] 13:14 Method Of Arrival: Ambulance [facility] Triage Assessment: 13:13 General: Appears in no apparent distress. Pain: Denies pain. Respiratory: Onset: The [facility] symptoms/episode began/occurred past few weeks. Historical: - Allergies: Codeine Sulfate ("can't breathe"); Coumadin; Hydrocodone-Acetaminophen; Macrobid (Unknown); Narcotics ("can't breathe"); Vicodin (Unknown); - Home Meds: 1. Oxygen 2 L at night 2. allopurinol 100 mg Oral tab 2 tabs once daily 3. aspirin 81 mg Oral chew 1 tab once daily 4. atorvastatin 10 mg oral tab 1 tab once daily 5. bisoprolol fumarate 5 mg oral tab 0.5 tab once daily 6. ferrous sulfate 325 mg (65 mg iron) Oral cpER daily 7. Lasix 40 mg Oral tab 1 tab once daily 8. losartan 100 mg oral tab 1 tab once daily 9. NitroQuick SL 0.4 mg as needed 10. oxybutynin chloride 5 mg Oral tab 1 tab once daily 11. Plavix 75 mg Oral tab 1 tab nightly 12. spironolactone 25 mg Oral tab 1 tab once daily 13. bisoprolol fumarate 10 mg oral tab nightly 14. prednisone 20 mg Oral tab once daily 15. losartan 25 mg oral tab once daily - PMHx: Chronic Back pain; Chronic Renal Failure w/o Dialysis; COPD; Hypercholesterolemia; Hypertension; Myocardial infarction; - PSHx: Pacemaker Insertion; Adenoidectomy; Hysterectomy; back surgery; Unkown abdomen surgery; Tonsillectomy; - Social history: Smoking status: Patient states former smoker of tobacco. No barriers to communication noted, The patient speaks fluent Korean. - Family history: Not pertinent. - : The pt / caregiver states he / she is on anticoagulants: Plavix. Home medication list is obtained from the facility AUG. - Exposure Risk Screening:: None identified. Screenin:44 Screening information is obtained from the patient. Fall risk: At risk due to gait mk4 disturbance, The following interventions are performed due to a positive Fall Risk Screen: Fall Risk is added to Special Handling on the patient Summary Screen. A Fall Risk Bracelet was applied to the patient. Side Rails are placed in the up position. A Call Welch is given with instruction to call for help when getting out of bed. Fall Alert bracelet is placed on the patient. Abuse/DV Screen: The patient / caregiver reports he/she is: not in a situation that causes fear, pain or injury. 18:34 Assistance ADL's: Requires assistance with meal preparation, this assistance is mk4 provided by residence staff, bathing, assistance is provided by residence staff, dressing, assistance is provided by residence staff, toileting, assistance is provided by residence staff, ambulation, assistance is provided by residence staff, housework, assistance is provided by residence staff. Nutritional screening: No deficits noted. home support is adequate. 19:42 Advance Directives: There is no active DNR order. js15 Assessment: 13:44 General: Appears in no apparent distress, comfortable. Neurological: Level of mk4 Consciousness is awake, alert, Oriented to person, place, time. Cardiovascular: Chest pain is denied. Respiratory: Airway is patent Respiratory effort is even, labored, Respiratory pattern is tachypnea pt RUSH just transferring from ambulance stretcher to bed. 15:04 General: Appears in no apparent distress, comfortable, pt ambulated in [place] with walker mk4 and no oxygen pt only wears o2 at night , pt ambulated well SAO2 dropped to 86% while ambulating, Daughter states mother only wears nasal cannula at night. 15:52 General: Appears in no apparent distress, comfortable, Behavior is cooperative. mk4 Respiratory: Breath sounds are clear bilaterally. 16:24 General: Appears in no apparent distress, comfortable, Behavior is cooperative, mk4 transferred to bedside commode independently gait steady , resp labored on exertion, 88-89 sao2 on room air, oxygen applied at 2-3 l nc. 16:45 General: Appears in no apparent distress, comfortable, Behavior is cooperative, pt resp mk4 easy , states she is scared to go home alone, states she is afraid she wont be able to breathe at night , pt aware of admission . 17:10 General: Appears in no apparent distress, comfortable. mk4 18:42 General: Appears in no apparent distress, comfortable, Behavior is cooperative, mk4 pleasant. Respiratory: Airway is patent Respiratory effort is even, labored, Respiratory pattern is regular. 19:20 General: Appears in no apparent distress, comfortable, Behavior is appropriate for age, js15 cooperative. Pain: Denies pain. Neurological: Level of Consciousness is awake, alert, obeys commands, Oriented to person, place, time. Cardiovascular: Rhythm is irregular. Respiratory: Airway is patent Respiratory effort is even, unlabored, Respiratory pattern is regular, symmetrical. Derm: Skin is pink, warm & dry. Vital Signs: 13:14 BP 191 / 75; Pulse 79; Resp 18; Temp 98.4(TE); Pulse Ox 94% on 2 lpm NC; Weight 81.04 ct3 kg (M); Height 5 ft. 1 in. (154.94 cm) (R); Pain 0/10; 13:45 BP 161 / 70 (auto/); mk4 13:46 Pulse 76 MON; Pulse Ox 95% ; mk4 14:00 BP 168 / 82 (auto/); mk4 14:00 Pulse 84 MON; Pulse Ox 94% ; mk4 14:15 BP 139 / 68 (auto/); mk4 14:16 Pulse 69 MON; Pulse Ox 94% ; mk4 14:30 BP 147 / 67 (auto/); mk4 14:30 Pulse 88 MON; Pulse Ox 93% ; mk4 14:45 BP 154 / 70 (auto/); mk4 14:46 Pulse 61 MON; Pulse Ox 94% ; mk4 15:15 BP 153 / 70 (auto/); mk4 15:15 Pulse 76 MON; Pulse Ox 90% ; mk4 15:29 Pulse 86 MON; Pulse Ox 87% ; mk4 15:30 BP 208 / 77 (auto/); mk4 15:45 BP 185 / 78 (auto/); mk4 15:46 Pulse 81 MON; Pulse Ox 87% ; mk4 16:08 BP 199 / 91 (auto/); mk4 16:08 Pulse 87 MON; Pulse Ox 92% ; mk4 16:15 BP 192 / 86 (auto/); mk4 16:16 Pulse 61 MON; Pulse Ox 95% ; mk4 16:26 Temp 99.4(TE); mk4 16:30 BP 177 / 77 (auto/); mk4 16:31 Pulse 67 MON; Pulse Ox 96% ; mk4 16:45 BP 200 / 81 (auto/); mk4 16:46 Pulse 81 MON; Pulse Ox 95% ; mk4 17:00 BP 201 / 85 (auto/); mk4 17:01 Pulse 70 MON; Pulse Ox 94% ; mk4 17:14 Pulse 72 MON; Pulse Ox 95% ; mk4 17:29 Pulse 60 MON; Pulse Ox 96% ; mk4 17:30 BP 189 / 77 (auto/); mk4 17:45 BP 184 / 93 (auto/); mk4 17:45 Pulse 64 MON; Pulse Ox 96% ; mk4 18:00 BP 199 / 84 (auto/); mk4 18:00 Pulse 63 MON; Pulse Ox 95% ; mk4 18:15 BP 193 / 78 (auto/); mk4 18:16 Pulse 68 MON; Pulse Ox 95% ; mk4 18:30 BP 167 / 73 (auto/); mk4 18:31 Pulse 69 MON; Pulse Ox 95% ; mk4 18:45 BP 181 / 77 (auto/); js15 18:45 Pulse 66 MON; Pulse Ox 94% ; js15 19:00 BP 161 / 69 (auto/); js15 19:00 Pulse 63 MON; Pulse Ox 97% ; js15 19:15 BP 181 / 76 (auto/); js15 19:16 Pulse 62 MON; Pulse Ox 96% ; js15 19:30 BP 173 / 79 (auto/); js15 19:30 Pulse 66 MON; Pulse Ox 95% ; js15 13:14 Body Mass Index 33.76 (81.04 kg, 154.94 cm) ct3 Vitals: 13:13 Log In Time N/A - ambulance arrival. mk4 13:14 Log In Time N/A - ambulance arrival. ct3 ED Course: 13:06 Patient visited by Quin Tian PCA. ar3 13:06 Patient moved to Waiting ar3 13:07 Patient moved to 1 ar3 13:14 Patient has correct armband on for positive identification. Placed in gown. Bed in low ct3 position. Call light in reach. Side rails up X2. renal dietitian on. Pulse ox on. NIBP on. 13:15 Patient visited by Mariana Mckeon PCA. ct3 13:15 Triage Initiated mk4 13:18 Avery Carreon FNP is PHCP. ke 13:18 Patient visited by Avery Carreon FNP. ke 13:18 Patient visited by Avery Carreon FNP. ke 13:35 -Blood Culture Sent. mk4 13:35 B-Type Natiuretic Peptide Sent. mk4 13:35 Basic Metabolic Profile Sent. mk4 13:35 CBC with Diff Sent. mk4 13:35 Cardiac Injury Profile Sent. mk4 13:35 Troponin Sent. mk4 13:36 PT/INR Sent. mk4 13:43 Patient visited by Quin Tian PCA. ar3 13:43 EKG done. (by ED staff). Reviewed by Avery MUNSON. ar3 13:44 The patient / caregiver is instructed regarding the plan of care and ED course. mk4 13:44 Inserted saline lock: 20 gauge in right hand. mk4 13:50 -Arterial Blood Gas Sent. sd7 14:15 Patient visited by Avery Carreon FNP. ke 14:40 Patient visited by Avery Carreon FNP. ke 14:53 Chest, 1 View Returned. EDMS 15:11 Patient visited by Anupama Chavarria RN. mk4 15:18 Vickey Solares is Hospitalizing Provider. ke 15:41 [facility] Payment Agreement was scanned into [employer] and attached to record. gjb 18:44 No procedures done that require assistance. 4 06/27 09:26 T-Sheet-- Draft Copy was scanned into [employer] and attached to record. gb 09:26 ECG/EKG was scanned into [employer] and attached to record. gb Administered Medications: 06/26 13:43 Drug: Solu-MEDROL 125 mg [Solu-Medrol 500 mg intravenous solution (125 mg)] Route: IVP; mk4 Site: right hand; 13:48 Drug: Albuterol-Ipratropium 3 ml [ipratropium-albuterol 0.5 mg-3 mg(2.5 mg base)/3 mL sd7 nebulization soln (3 mL)] Route: Inhalation; 13:57 Follow up: Response: Nebulizer completed 7 RT: 13:45 ABG's drawn from right radial artery allens test done and positive pressure held for 5 sd7 minutes no bleeding noted pressure bandage applied specimen sent pt. tolerated well. 13:48 Initial Med Neb Given as ordered Patient was instructed and evaluated on procedure sd7 Patient tolerated procedure well without adverse effect. Respiratory: Breath sounds with wheezes bilaterally. at expiration. Order Results: Lab Order: -Arterial Blood Gas; SPEC'M 06/26/16 13:49 Test: ABG pH (ARTERIAL); Value: 7.416; Range: 7.350-7.450; Units: UNITS; Status: F Test: ABG PARTIAL PRESSURE CO2; Value: 37.4; Range: 35.0-45.0; Units: mmHg; Status: F Test: ABG PARTIAL PRESSURE O2; Value: 76.6; Range: 75.0-100.0; Units: mmHg; Status: F Test: ABG TOTAL CO2; Value: 24.6; Range: 23.0-31.0; Units: MEQ/L; Status: F Test: ABG HCO3; Value: 23.5; Range: 22.0-26.0; Units: MEQ/L; Status: F Test: ABG BASE EXCESS; Value: -0.8; Range: -2.0-2.0; Status: F Test: ABG STANDARD HCO3; Value: 23.8; Range: 22.0-26.0; Units: MEQ/L; Status: F Test: ABG O2 SATURATION; Value: 95.7; Range: 95.0-99.0; Units: %; Status: F Test: ABG DEVICE; Value: NASAL DEL; Status: F Lab Order: B-Type Natiuretic Peptide; SPEC'M 06/26/16 13:19 Test: BRAIN NATRIURETIC PEPTIDE; Value: 270; Range: <100; Abnormal: Above high normal; Units: PG/ML; Status: F Lab Order: Basic Metabolic Profile; SPEC'M 06/26/16 13:19 Test: GLUCOSE, FASTING; Value: 151; Range: 83-110; Abnormal: Above high normal; Units: MG/DL; Status: F Test: BLOOD UREA NITROGEN; Value: 47; Range: 7-18; Abnormal: Above high normal; Units: MG/DL; Status: F Test: CREATININE FOR GFR; Value: 1.80; Range: 0.55-1.02; Abnormal: Above high normal; Units: MG/DL; Status: F Test: GLOMERULAR FILTRATION RATE; Value: 28.5; Range: >32; Abnormal: Below low normal; Status: F Test: SODIUM LEVEL; Value: 141; Range: 136-145; Units: MEQ/L; Status: F Test: POTASSIUM SERUM; Value: 4.2; Range: 3.5-5.1; Units: MEQ/L; Status: F Test: CHLORIDE LEVEL; Value: 105; Range: 98-107; Units: MEQ/L; Status: F Test: CARBON DIOXIDE LEVEL; Value: 26; Range: 21-32; Units: MEQ/L; Status: F Test: ANION GAP; Value: 10; Range: 8-16; Units: MEQ/L; Status: F Test: CALCIUM LEVEL; Value: 9.0; Range: 8.8-10.2; Units: MG/DL; Status: F Test Note: ; Units are mL/min/1.73 m2 Chronic Kidney Disease Staging per NKF: Stage I & II GFR >=60 Normal to Mildly Decreased Stage III GFR 30-59 Moderately Decreased Stage IV GFR 15-29 Severely Decreased Stage V GFR <15 Very Little GFR Left ESRD GFR <15 on AGRIC[employer]URAL ENGINEERING TECHNICIANS Lab Order: CBC with Diff; SPEC'M 06/26/16 13:19 Test: WHITE BLOOD COUNT; Value: 7.7; Range: 4.0-10.0; Units: K/mm3; Status: F Test: RED BLOOD COUNT; Value: 3.10; Range: 4.00-5.40; Abnormal: Below low normal; Units: M/mm3; Status: F Test: HEMOGLOBIN; Value: 9.9; Range: 12.0-16.0; Abnormal: Below low normal; Units: g/dl; Status: F Test: HEMATOCRIT; Value: 30.2; Range: 36.0-47.0; Abnormal: Below low normal; Units: %; Status: F Test: MEAN CORPUSCULAR VOLUME; Value: 97.4; Range: 80.0-96.0; Abnormal: Above high normal; Units: fl; Status: F Test: MEAN CORPUSCULAR HEMOGLOBIN; Value: 32.0; Range: 27.0-33.0; Units: pg; Status: F Test: MEAN CORPUSCULAR HGB CONC; Value: 32.9; Range: 32.0-36.5; Units: g/dl; Status: F Test: RED CELL DISTRIBUTION WIDTH; Value: 16.6; Range: 11.5-14.5; Abnormal: Above high normal; Units: %; Status: F Test: PLATELET COUNT, AUTOMATED; Value: 144; Range: 150-450; Abnormal: Below low normal; Units: k/mm3; Status: F Test: NEUTROPHILS %; Value: 84.0; Range: 36.0-66.0; Abnormal: Above high normal; Units: %; Status: F Test: LYMPH %; Value: 10.9; Range: 24.0-44.0; Abnormal: Below low normal; Units: %; Status: F Test: MONO %; Value: 3.3; Range: 0.0-5.0; Units: %; Status: F Test: EOS %; Value: 0.8; Range: 0.0-3.0; Units: %; Status: F Test: BASO %; Value: 0.3; Range: 0.0-1.0; Units: %; Status: F Test: LARGE UNSTAINED CELL %; Value: 0.8; Range: 0.0-4.0; Units: %; Status: F Test: NEUTROPHILS #; Value: 6.5; Range: 1.8-7.7; Units: K/mm3; Status: F Test: LYMPH #; Value: 0.8; Range: 1.5-4.5; Abnormal: Below low normal; Units: K/mm3; Status: F Test: MONO #; Value: 0.3; Range: 0.0-0.8; Units: K/mm3; Status: F Test: EOS #; Value: 0.1; Range: 0.0-0.50; Units: K/mm3; Status: F Test: BASO #; Value: 0.0; Range: 0.0-0.2; Units: K/mm3; Status: F Test: LARGE UNSTAINED CELL #; Value: 0.1; Range: 0.0-0.4; Units: K/mm3; Status: F Lab Order: Cardiac Injury Profile; [facility] 06/26/16 13:19 Test: CPK CREATINE PHOSPHOKINASE; Value: 79; Range: 26-192; Units: U/L; Status: F Test: CK-MB VALUE MASS; Value: 3.8; Range: 0.0-3.6; Abnormal: Above high normal; Units: NG/ML; Status: F Test: MB/CK RELATIVE INDEX; Value: 4.81; Range: < OR =4; Abnormal: Above high normal; Status: F Test Note: ; DIAGNOSIS CRITERIA MMB ng/ml Relative Index (RI) NON-AMI < or = 5 N/A STEIN ZONE > 5 < or = 4 AMI > 5 > 4 Lab Order: Troponin; [facility] 06/26/16:19 Test: TROPONIN I; Value: 0.04; Range: < 0.10; Units: NG/ML; Status: F Test Note: ; Troponin I Reference Interval for iPerceptions LOCI: 99th Percentile= 0.00-0.045 ng/ml Risk Stratification: <= 0.10 ng/ml Decreased Risk for Adverse Clinical Events. 0.10-1.50 ng/ml Increased Risk for Adverse Clinical Events. Evaluation of additional criterion and/or repeat testing in 2-6 hours is suggested to rule out myocardial damage. >= 1.50 ng/ml Indicative of Myocardial Injury. Lab Order: PT/INR; [facility] 06/26/16 13:19 Test: PROTHROMBIN TIME; Value: 13.5; Range: 12.3-14.5; Units: SECONDS; Status: F Test: INR; Value: 1.02; Status: F Test Note: ; THERAPUTIC HUMAN INR VALUES INDICATIONS NORMAL RANGES PROPHYLAXIS/TREATMENT OF: VENOUS THROMBOSIS 2.0-3.0 PULMONARY EMBOLISM 2.0-3.0 PREVENTION OF SYSTEMIC EMBOLISM FROM: TISSUE HEART VALVES 2.0-3.0 ACUTE MYOCARDIAL INFARCTION 2.0-3.0 VALVULAR HEART DISEASE 2.0-3.0 ATRIAL FIBRILLATION 2.0-3.0 MECHANICAL VALVES(HIGH RISK) 2.5-3.5 RECURRENT MYOCARDIAL INFARCTION 2.5-3.5 Radiology Order: Chest, 1 View Test: Chest, 1 View REASON FOR EXAMINATION: Shortness of Breath; CHEST, ONE VIEW:; ; HISTORY: Shortness of breath.; ; COMPARISON: 03/02/2015; ; A minimal increase in interstitial markings is present in the lungs consistent; with chronic interstitial fibrosis. Linear density is present in the right lower; lobe consistent with scar. The heart is upper limits of normal in size. The; pulmonary vasculature is normal in appearance. A cardiac pacemaker is present.; ; IMPRESSION:; ; 1. Chronic interstitial fibrosis.; ; 2. Right lower lobe scar.; ; ; Signed by; Marvin Dinero MD 06/26/2016 02:09 P; Outcome: 15:20 Decision to Hospitalize by Provider. ke 18:34 Discharge Assessment: patient administered narcotics - no. The following High Risk [facility] Discharge criteria are identified: None. Discharged to senior care. Condition: stable. CT Study completed. Property sent home with patient. 18:44 Admission hand-off: Report Faxed Fax receipt verified by gabo [place] unable to go to [place] [phone] at this time. 19:53 Patient left the ED. js15 Signatures: Dispatcher [employer] EDMS Lelia Moran, Reg Reg Avery Villaseñor, LOCKET MAKER LOCKET MAKER Quin Lilly, FIBREGLASS LAY UP WORKER FIBREGLASS LAY UP WORKER ar3 Mckeon, Mariana, FIBREGLASS LAY UP WORKER FIBREGLASS LAY UP WORKER ct3 Anupama Chavarria, RN RN mk4 Keely Aquino,RT RT sd7 Meredith Pa RN RN js15 Beatriz Bellamy Chart Complete MTDD
--- NOTE | 2016-06-28 20:53 | EDDOCDS ---
Physician Documentation [facility] Name: Cristela Cooper Age: 85 yrs Sex: Female : 1930 Arrival Date: 06/26/2016 Time: 13:06 Bed 1 Private MD: Disposition: 06/26/16 15:20 Hospitalization ordered by Vickey Solares for Inpatient Admission. Preliminary diagnosis are Hypoxemia, Other disorders of lung - copd with exacerbation. - [facility] - Status is Inpatient Admission. js15 - Condition is Stable. - Problem is an acute exacerbation. - Symptoms are unchanged. Historical: - Allergies: Codeine Sulfate ("can't breathe"); Coumadin; Hydrocodone-Acetaminophen; Macrobid (Unknown); Narcotics ("can't breathe"); Vicodin (Unknown); - Home Meds: 1. Oxygen 2 L at night 2. allopurinol 100 mg Oral tab 2 tabs once daily 3. aspirin 81 mg Oral chew 1 tab once daily 4. atorvastatin 10 mg oral tab 1 tab once daily 5. bisoprolol fumarate 5 mg oral tab 0.5 tab once daily 6. ferrous sulfate 325 mg (65 mg iron) Oral cpER daily 7. Lasix 40 mg Oral tab 1 tab once daily 8. losartan 100 mg oral tab 1 tab once daily 9. NitroQuick SL 0.4 mg as needed 10. oxybutynin chloride 5 mg Oral tab 1 tab once daily 11. Plavix 75 mg Oral tab 1 tab nightly 12. spironolactone 25 mg Oral tab 1 tab once daily 13. bisoprolol fumarate 10 mg oral tab nightly 14. prednisone 20 mg Oral tab once daily 15. losartan 25 mg oral tab once daily - PMHx: Chronic Back pain; Chronic Renal Failure w/o Dialysis; COPD; Hypercholesterolemia; Hypertension; Myocardial infarction; - PSHx: Pacemaker Insertion; Adenoidectomy; Hysterectomy; back surgery; Unkown abdomen surgery; Tonsillectomy; - Social history: Smoking status: Patient states former smoker of tobacco. No barriers to communication noted, The patient speaks fluent Kyrgyz. - Family history: Not pertinent. - : The pt / caregiver states he / she is on anticoagulants: Plavix. Home medication list is obtained from the facility AUG. - Exposure Risk Screening:: None identified. Vital Signs: 01/17 13:14 BP 191 / 75; Pulse 79; Resp 18; Temp 98.4(TE); Pulse Ox 94% on 2 lpm NC; Weight 81.04 ct3 kg / 178.66 lbs (M); Height 5 ft. 1 in. (154.94 cm) (R); Pain 0/10; 13:45 BP 161 / 70 (auto/); mk4 13:46 Pulse 76 MON; Pulse Ox 95% ; mk4 14:00 BP 168 / 82 (auto/); mk4 14:00 Pulse 84 MON; Pulse Ox 94% ; mk4 14:15 BP 139 / 68 (auto/); mk4 14:16 Pulse 69 MON; Pulse Ox 94% ; mk4 14:30 BP 147 / 67 (auto/); mk4 14:30 Pulse 88 MON; Pulse Ox 93% ; mk4 14:45 BP 154 / 70 (auto/); mk4 14:46 Pulse 61 MON; Pulse Ox 94% ; mk4 15:15 BP 153 / 70 (auto/); mk4 15:15 Pulse 76 MON; Pulse Ox 90% ; mk4 15:29 Pulse 86 MON; Pulse Ox 87% ; mk4 15:30 BP 208 / 77 (auto/); mk4 15:45 BP 185 / 78 (auto/); mk4 15:46 Pulse 81 MON; Pulse Ox 87% ; mk4 16:08 BP 199 / 91 (auto/); mk4 16:08 Pulse 87 MON; Pulse Ox 92% ; mk4 16:15 BP 192 / 86 (auto/); mk4 16:16 Pulse 61 MON; Pulse Ox 95% ; mk4 16:26 Temp 99.4(TE); mk4 16:30 BP 177 / 77 (auto/); mk4 16:31 Pulse 67 MON; Pulse Ox 96% ; mk4 16:45 BP 200 / 81 (auto/); mk4 16:46 Pulse 81 MON; Pulse Ox 95% ; mk4 17:00 BP 201 / 85 (auto/); mk4 17:01 Pulse 70 MON; Pulse Ox 94% ; mk4 17:14 Pulse 72 MON; Pulse Ox 95% ; mk4 17:29 Pulse 60 MON; Pulse Ox 96% ; mk4 17:30 BP 189 / 77 (auto/); mk4 17:45 BP 184 / 93 (auto/); mk4 17:45 Pulse 64 MON; Pulse Ox 96% ; mk4 18:00 BP 199 / 84 (auto/); mk4 18:00 Pulse 63 MON; Pulse Ox 95% ; mk4 18:15 BP 193 / 78 (auto/); mk4 18:16 Pulse 68 MON; Pulse Ox 95% ; mk4 18:30 BP 167 / 73 (auto/); mk4 18:31 Pulse 69 MON; Pulse Ox 95% ; mk4 18:45 BP 181 / 77 (auto/); js15 18:45 Pulse 66 MON; Pulse Ox 94% ; js15 19:00 BP 161 / 69 (auto/); js15 19:00 Pulse 63 MON; Pulse Ox 97% ; js15 19:15 BP 181 / 76 (auto/); js15 19:16 Pulse 62 MON; Pulse Ox 96% ; js15 19:30 BP 173 / 79 (auto/); js15 19:30 Pulse 66 MON; Pulse Ox 95% ; js15 13:14 Body Mass Index 33.76 (81.04 kg, 154.94 cm) ct3 MDM: 13:32 Solu-MEDROL 125 mg IVP once ordered. ke 13:32 -Blood Culture (Adults Only), peripheral from different site, or from device/port/PICC ke etc. if present ordered. 13:32 Tailor Apprentice/Pulse Ox/q 15 min VS ordered. ke 13:32 IV Saline Lock ordered. ke 13:32 Oxygen at 4L/Min NC or Home dosage ordered. ke 13:32 Rhythm Strip to chart ordered. ke 13:32 Albuterol-Ipratropium 3 ml Inhalation once ordered. ke 13:32 Call Respiratory ordered. ke 13:33 -Arterial Blood Gas Ordered. EDMS 13:33 -Blood Culture Ordered. EDMS 13:33 B-Type Natiuretic Peptide Ordered. EDMS 13:33 Basic Metabolic Profile Ordered. EDMS 13:33 CBC with Diff Ordered. EDMS 13:33 Cardiac Injury Profile Ordered. EDMS 13:33 Troponin Ordered. EDMS 13:33 PT/INR Ordered. EDMS 13:33 Chest, 1 View Ordered. EDMS 13:34 ECG WITH READING ER PHYS+CARDIAG ordered. EDMS 13:34 -Blood Culture (Adults Only), peripheral from different site, or from device/port/PICC lbd etc. if present complete. 13:35 Call Respiratory complete. lbd 13:37 BED REQUEST+ADM ordered. EDMS 13:49 BLOOD CULTURES Ordered. EDMS 14:41 B-Type Natiuretic Peptide Reviewed. ke 14:41 Basic Metabolic Profile Reviewed. ke 14:41 CBC with Diff Reviewed. ke 14:41 Cardiac Injury Profile Reviewed. ke 14:41 -Arterial Blood Gas Reviewed. ke 14:41 Troponin Reviewed. ke 14:41 PT/INR Reviewed. ke 15:13 Chest, 1 View Reviewed. ke 15:39 Financial registration complete. gjb 15:41 [facility] Payment Agreement was scanned into [employer] and attached to record. gjb 16:10 Admission / Observation Status ordered. EDMS 16:21 Admission / Observation Status ordered. EDMS 19:41 ELECTROCARDIOGRAM ADULT ordered. EDMS 19:41 CARDIAC MARKER PANEL Ordered. EDMS 19:41 BASIC METABOLIC PROFILE Ordered. EDMS 19:41 COMPLETE BLOOD COUNT Ordered. EDMS 19:42 CARDIAC MARKER PANEL Ordered. EDMS 19:42 CARDIAC MARKER PANEL Ordered. EDMS 06/27 09:26 T-Sheet-- Draft Copy was scanned into [employer] and attached to record. gb 09:26 ECG/EKG was scanned into [employer] and attached to record. gb Administered Medications: 06/26 13:43 Drug: Solu-MEDROL 125 mg [Solu-Medrol 500 mg intravenous solution (125 mg)] Route: IVP; mk4 Site: right hand; 13:48 Drug: Albuterol-Ipratropium 3 ml [ipratropium-albuterol 0.5 mg-3 mg(2.5 mg base)/3 mL sd7 nebulization soln (3 mL)] Route: Inhalation; 13:57 Follow up: Response: Nebulizer completed sd7 Signatures: Dispatcher [employer] EDMS Daniela Martinez, Numerical Control Router Operator Unit lbd Qi Tompkins RN Lelia Romero mcp, Avery Adams, ELECTRIC MULE DRIVER ELECTRIC MULE DRIVER Anupama Cain RN RN mk4 Meredith PaRN RN js15 Beatriz Bellamyb Suhail Pérez, Keely Parekh RN, sa RT sd7 The chart was reviewed and I authenticate all verbal orders and agree with the evaluation and treatment provided.Attachments: 15:41 [facility] Payment Agreement gjb 06/27 09:26 T-Sheet-- Draft Copy gb : ECG/EKG gb Chart Complete MTDD
--- NOTE | 2016-06-28 20:53 | EDDOCDS ---
Physician Documentation [facility] Name: Cristela Cooper Age: 85 yrs Sex: Female : 1930 Arrival Date: 06/26/2016 Time: 13:06 Bed 1 Private MD: Disposition: 06/26/16 15:20 Hospitalization ordered by Vickey Solares for Inpatient Admission. Preliminary diagnosis are Hypoxemia, Other disorders of lung - copd with exacerbation. - [facility] - Status is Inpatient Admission. [id number] - Condition is Stable. - Problem is an acute exacerbation. - Symptoms are unchanged. Historical: - Allergies: Codeine Sulfate ("can't breathe"); Coumadin; Hydrocodone-Acetaminophen; Macrobid (Unknown); Narcotics ("can't breathe"); Vicodin (Unknown); - Home Meds: 1. Oxygen 2 L at night 2. allopurinol 100 mg Oral tab 2 tabs once daily 3. aspirin 81 mg Oral chew 1 tab once daily 4. atorvastatin 10 mg oral tab 1 tab once daily 5. bisoprolol fumarate 5 mg oral tab 0.5 tab once daily 6. ferrous sulfate 325 mg (65 mg iron) Oral cpER daily 7. Lasix 40 mg Oral tab 1 tab once daily 8. losartan 100 mg oral tab 1 tab once daily 9. NitroQuick SL 0.4 mg as needed 10. oxybutynin chloride 5 mg Oral tab 1 tab once daily 11. Plavix 75 mg Oral tab 1 tab nightly 12. spironolactone 25 mg Oral tab 1 tab once daily 13. bisoprolol fumarate 10 mg oral tab nightly 14. prednisone 20 mg Oral tab once daily 15. losartan 25 mg oral tab once daily - PMHx: Chronic Back pain; Chronic Renal Failure w/o Dialysis; COPD; Hypercholesterolemia; Hypertension; Myocardial infarction; - PSHx: Pacemaker Insertion; Adenoidectomy; Hysterectomy; back surgery; Unkown abdomen surgery; Tonsillectomy; - Social history: Smoking status: Patient states former smoker of tobacco. No barriers to communication noted, The patient speaks fluent Telugu. - Family history: Not pertinent. - : The pt / caregiver states he / she is on anticoagulants: Plavix. Home medication list is obtained from the facility AUG. - Exposure Risk Screening:: None identified. Vital Signs: 01/17 13:14 BP 191 / 75; Pulse 79; Resp 18; Temp 98.4(TE); Pulse Ox 94% on 2 lpm NC; Weight 81.04 ct3 kg / 178.66 lbs (M); Height 5 ft. 1 in. (154.94 cm) (R); Pain 0/10; 13:45 BP 161 / 70 (auto/); mk4 13:46 Pulse 76 MON; Pulse Ox 95% ; mk4 14:00 BP 168 / 82 (auto/); mk4 14:00 Pulse 84 MON; Pulse Ox 94% ; mk4 14:15 BP 139 / 68 (auto/); mk4 14:16 Pulse 69 MON; Pulse Ox 94% ; mk4 14:30 BP 147 / 67 (auto/); mk4 14:30 Pulse 88 MON; Pulse Ox 93% ; mk4 14:45 BP 154 / 70 (auto/); mk4 14:46 Pulse 61 MON; Pulse Ox 94% ; mk4 15:15 BP 153 / 70 (auto/); mk4 15:15 Pulse 76 MON; Pulse Ox 90% ; mk4 15:29 Pulse 86 MON; Pulse Ox 87% ; mk4 15:30 BP 208 / 77 (auto/); mk4 15:45 BP 185 / 78 (auto/); mk4 15:46 Pulse 81 MON; Pulse Ox 87% ; mk4 16:08 BP 199 / 91 (auto/); mk4 16:08 Pulse 87 MON; Pulse Ox 92% ; mk4 16:15 BP 192 / 86 (auto/); mk4 16:16 Pulse 61 MON; Pulse Ox 95% ; mk4 16:26 Temp 99.4(TE); mk4 16:30 BP 177 / 77 (auto/); mk4 16:31 Pulse 67 MON; Pulse Ox 96% ; mk4 16:45 BP 200 / 81 (auto/); mk4 16:46 Pulse 81 MON; Pulse Ox 95% ; mk4 17:00 BP 201 / 85 (auto/); mk4 17:01 Pulse 70 MON; Pulse Ox 94% ; mk4 17:14 Pulse 72 MON; Pulse Ox 95% ; mk4 17:29 Pulse 60 MON; Pulse Ox 96% ; mk4 17:30 BP 189 / 77 (auto/); mk4 17:45 BP 184 / 93 (auto/); mk4 17:45 Pulse 64 MON; Pulse Ox 96% ; mk4 18:00 BP 199 / 84 (auto/); mk4 18:00 Pulse 63 MON; Pulse Ox 95% ; mk4 18:15 BP 193 / 78 (auto/); mk4 18:16 Pulse 68 MON; Pulse Ox 95% ; mk4 18:30 BP 167 / 73 (auto/); mk4 18:31 Pulse 69 MON; Pulse Ox 95% ; mk4 18:45 BP 181 / 77 (auto/); js15 18:45 Pulse 66 MON; Pulse Ox 94% ; js15 19:00 BP 161 / 69 (auto/); js15 19:00 Pulse 63 MON; Pulse Ox 97% ; js15 19:15 BP 181 / 76 (auto/); js15 19:16 Pulse 62 MON; Pulse Ox 96% ; js15 19:30 BP 173 / 79 (auto/); js15 19:30 Pulse 66 MON; Pulse Ox 95% ; js15 13:14 Body Mass Index 33.76 (81.04 kg, 154.94 cm) ct3 MDM: 13:32 Solu-MEDROL 125 mg IVP once ordered. ke 13:32 -Blood Culture (Adults Only), peripheral from different site, or from device/port/PICC ke etc. if present ordered. 13:32 Ammonia Still Operator/Pulse Ox/q 15 min VS ordered. ke 13:32 IV Saline Lock ordered. ke 13:32 Oxygen at 4L/Min NC or Home dosage ordered. ke 13:32 Rhythm Strip to chart ordered. ke 13:32 Albuterol-Ipratropium 3 ml Inhalation once ordered. ke 13:32 Call Respiratory ordered. ke 13:33 -Arterial Blood Gas Ordered. EDMS 13:33 -Blood Culture Ordered. EDMS 13:33 B-Type Natiuretic Peptide Ordered. EDMS 13:33 Basic Metabolic Profile Ordered. EDMS 13:33 CBC with Diff Ordered. EDMS 13:33 Cardiac Injury Profile Ordered. EDMS 13:33 Troponin Ordered. EDMS 13:33 PT/INR Ordered. EDMS 13:33 Chest, 1 View Ordered. EDMS 13:34 ECG WITH READING ER PHYS+CARDIAG ordered. EDMS 13:34 -Blood Culture (Adults Only), peripheral from different site, or from device/port/PICC lbd etc. if present complete. 13:35 Call Respiratory complete. lbd 13:37 BED REQUEST+ADM ordered. EDMS 13:49 BLOOD CULTURES Ordered. EDMS 14:41 B-Type Natiuretic Peptide Reviewed. ke 14:41 Basic Metabolic Profile Reviewed. ke 14:41 CBC with Diff Reviewed. ke 14:41 Cardiac Injury Profile Reviewed. ke 14:41 -Arterial Blood Gas Reviewed. ke 14:41 Troponin Reviewed. ke 14:41 PT/INR Reviewed. ke 15:13 Chest, 1 View Reviewed. ke 15:39 Financial registration complete. gjb 15:41 [facility] [place] Payment Agreement was scanned into [email or web address] and attached to record. gjb 16:10 Admission / Observation Status ordered. EDMS 16:21 Admission / Observation Status ordered. EDMS 19:41 ELECTROCARDIOGRAM ADULT ordered. EDMS 19:41 CARDIAC MARKER PANEL Ordered. EDMS 19:41 BASIC METABOLIC PROFILE Ordered. EDMS 19:41 COMPLETE BLOOD COUNT Ordered. EDMS 19:42 CARDIAC MARKER PANEL Ordered. EDMS 19:42 CARDIAC MARKER PANEL Ordered. EDMS 06/27 09:26 T-Sheet-- Draft Copy was scanned into [email or web address] and attached to record. gb 09:26 ECG/EKG was scanned into [email or web address] and attached to record. gb Administered Medications: 06/26 13:43 Drug: Solu-MEDROL 125 mg [Solu-Medrol 500 mg intravenous solution (125 mg)] Route: IVP; mk4 Site: right hand; 13:48 Drug: Albuterol-Ipratropium 3 ml [ipratropium-albuterol 0.5 mg-3 mg(2.5 mg base)/3 mL sd7 nebulization soln (3 mL)] Route: Inhalation; 13:57 Follow up: Response: Nebulizer completed sd7 Signatures: Dispatcher [employer] EDMS Daniela Martinez, [employer] lbd Qi Tompkins RN Lelia Romero mcp, Avery Adams, WORK ORDER CLERK WORK ORDER CLERK Anupama Cain RN RN mk4 Meredith PaRN RN js15 Beatriz Bellamyb Suhail Pérez, Keely Parekh RN, sa RT sd7 The chart was reviewed and I authenticate all verbal orders and agree with the evaluation and treatment provided.Attachments: 15:41 [facility] [place] Payment Agreement gjb 06/27 09:26 T-Sheet-- Draft Copy gb : ECG/EKG gb Chart Complete MTDD
[2016-06-28] MEDS: BISOPROLOL FUMARATE 10 MG TAB PO SCH (20:58)
[2016-06-28] MEDS: ATORVASTATIN 10 MG TAB PO SCH (20:58)
[2016-06-28] MEDS: CLOPIDOGREL 75 MG TAB PO SCH (20:58)
[2016-06-28] MEDS ORDERED: LOSARTAN 50 MG TAB PO SCH (21:00)
[2016-06-29 03:00] VITALS: BP 149/66
[2016-06-29] MEDS: hydrALAZINE INJ 20 MG/ML VIAL IV SCH ×2 (03:00→08:45)
[2016-06-29 04:00] VITALS: BP 149/66
[2016-06-29 06:16] LABS: MEAN CORPUSCULAR HEMOGLOBIN 31.5 pg (27.0-33.0); MEAN CORPUSCULAR HGB CONC 31.1 g/dl (32.0-36.5); MEAN CORPUSCULAR VOLUME 101.4 fl (80.0-96.0); RED CELL DISTRIBUTION WIDTH 17.8 % (11.5-14.5); WHITE BLOOD COUNT 8.4 K/mm3 (4.0-10.0)
[2016-06-29 06:34] LABS: CALCIUM LEVEL 8.6 MG/DL (8.8-10.2); CREATININE FOR GFR 1.96 MG/DL (0.55-1.02); GLOMERULAR FILTRATION RATE 25.9 (>32); POTASSIUM SERUM 3.5 MEQ/L (3.5-5.1)
[2016-06-29 08:00] VITALS: BP 140/58
[2016-06-29] MEDS: ENOXAPARIN 30 MG/0.3 ML SYR (J1650) SC SCH (08:44)
[2016-06-29] MEDS: ALLOPURINOL 300 MG TAB PO SCH (08:44)
[2016-06-29] MEDS: FERROUS SULFATE 325MG TAB PO SCH (08:44)
[2016-06-29] MEDS: ASPIRIN 81 MG ENTERIC TAB PO SCH (08:44)
[2016-06-29] MEDS: predniSONE 20 MG TAB PO SCH (08:44)
[2016-06-29] MEDS: FUROSEMIDE 40 MG TAB PO SCH (08:44)
[2016-06-29] MEDS ORDERED: FURO40TA2 PO (09:22)
[2016-06-29] MEDS ORDERED: COZA100T2 PO (09:22)
[2016-06-29 12:00] VITALS: BP 122/57
--- NOTE | 2016-06-29 16:01 | IPNPDOC ---
Date/Time Seen The patient was seen on 06/29/16 at 08:46. Progress Note SUBJECTIVE: Patient is an 85 year old female presenting with shortness of breath. Patient was examined at bedside and found sitting in bed at 45 degrees. Patient denies feeling short of breath today. She continues to wear 2L oxygen at night. Patient continues to tolerate food. Denies nausea, vomiting, diarrhea , and chest pain. OBJECTIVE: PHYSICAL EXAMINATION: GENERAL: NAD. A&Ox3. HEENT: Normocephalic, atraumatic. EOMI. CARDIOVASCULAR: RRR. Normal S1 and S2. No murmurs, rubs or gallops. RESPIRATORY: Mild wheezes throughout all lung ochoa. No rales or rhonchi. ABDOMINAL: Normoactive bowel sounds. Soft, non-tender. EXTREMITIES: No cyanosis or pallor. Bilateral lower extremity edema. DVT prophylaxis ordered?: Yes, patient is on Lovenox. ASSESSMENT AND PLAN: This is a 85 year old female presenting with shortness of breath. PROBLEMS: 1. Dyspnea. Acute. Patient denies feeling short of breath today. She continues to wear 2L oxygen. Mild wheezing was appreciated throughout lungs ochoa but no rhonchi were appreciated. Will switch her over to her home dose of Lasix 40mg and home dose of Losartan 100 QHS (which is listed wrong on the home med rec list). 2. Diastolic CHF. Acute. Fluid overload is being managed with Lasix. 3. Hyperlipidemia. Chronic. Continue atorvastatin 4. Past Heart attack. Chronic. Patient reveals she had an AK back in 2003. No new episodes of pain since admission. Repeat troponins have been negative. Continue bisprolol, aspirin, plavix, losartan and atorvastatin. Patient was taking Coumadin but stopped taking it due to adverse effect. She is taking aspirin and plavix now instead. 5. Hypertension. Chronic. Today was 149/66. Continue bisprolol spironolactone, and resume her home dose of Losartan 100 QHS (which is also listed wrong on the home med rec list). 6. COPD. Chronic. We will continue patients Levalbuterol HCl q4h prn. 7. Atrial Fibrillation. Chronic. Patient rate controlled with pace maker. Continue Plavix and aspirin. 8. TANISHA. Chronic. Patient non-compliant with CPAP. 9. Chronic Kidney Disease, Stage III. Chronic. Creatinine and BUN are at baseline for her. We will continue to monitor. VS, I&O, 24H, Fishbone VS, I&O, 24H, Fishbone Vital Signs Date Time Temp Pulse Resp B/P Pulse Ox O2 Delivery O2 Flow Rate FiO2 06/29/16 07:45 Nasal Cannula 2.0 06/29/16 04:00 96.3 60 18 149/66 93 I&O- Last 24 Hours up to 6 AM 06/29/16 05:59 Intake Total 1700 ml Output Total 1300 ml Balance 400 ml Laboratory Tests 2 06/28/16 17:02: Urine Amorphous Sediment , Urine Appearance CLEAR, Urine Color YELLOW, Urine pH 5.0, Urine Specific [place] 1.009, Urine Protein NEGATIVE, Urine Glucose (UA) NEGATIVE, Urine Ketones NEGATIVE, Urine Urobilinogen 0.2, Urine Bilirubin NEGATIVE, Urine Leukocyte Esterase TRACEH, Urine Bacteria (Auto) NEGATIVE, Urine Blood 1+H, Urine Calcium Carbonate Cryst(Auto) , Urine Calcium Oxalate Cryst (Auto) , Urine Calcium Phosphate [place] (Auto) , Urine Cellular Casts , Urine Cystine Crystals , Urine Granular Casts (Auto) , Urine Hyaline Casts (Auto ) 8, Urine Leucine Crystals , Urine Mucus (Auto) SMALL, Urine Nitrite NEGATIVE, Urine Oval Fat Bodies (Auto) , Urine RBC (Auto) 2, Urine Renal Epithelial Cells , Urine Sperm (Auto) , Urine Squamous Epithelial Cells 0, Urine Transitional Epithelial Cells , Urine Trichomonas (Auto) , Urine Triple Phosphate Cryst (Auto ) , Urine Tyrosine Crystals , Urine Uric Acid Crystals (Auto) , Urine WBC (Auto ) 0, Urine Waxy Casts (Auto) , Urine Yeast-Like Cells (Auto) 06/29/16 05:46: Anion Gap 8, Blood Urea Nitrogen 70H, Creatinine 1.96H, Sodium Level 149H, Potassium Level 3.5, Chloride Level 110H, Carbon Dioxide Level 31, Calcium Level 8.6L, Glomerular Filtration Rate 25.9L Laboratory Tests 06/29/16 05:46 Calcium Level 8.6 L, Red Blood Count 3.07 L, Mean Corpuscular Volume 101.4 H, Mean Corpuscular Hemoglobin 31.5, Mean Corpuscular Hemoglobin Concent 31.1 L, Red Cell Distribution Width 17.8 H Microbiology 06/26/16 Blood Culture - Preliminary, Resulted No Growth after 48 hours. All Specime... 06/26/16 Blood Culture - Preliminary, Resulted No Growth after 48 hours. All Specime... GME ATTESTATION GME ATTESTATION My preceptor for this patient encounter was physically present in the building during the encounter and was fully available. As needed, all aspects of the patient interview, examination, medical decision making process, and medical care plan development were reviewed and approved by the preceptor. Preceptor is aware and concurs with the plan as stated in the body of this note and will attest to such by his/her cosignature. ATTENDING NOTE I have both independently examined this patient as well as reviewed the note. I have discussed in detail with the resident the findings and plan of treatment as documented in the residents note. I will continue to follow the patient and offer further guidance to the patients care as necessary during this hospital stay. RADHA ARGUELLO DO Jun 29, 2016 08:58 WEN DUQUE DO Jul 17, 2016 22:29
--- NOTE | 2016-06-29 16:11 | DS.PDOC ---
Discharge Summary General Date of Admission Jun 26, 2016 at 16:02 Date of Discharge Jun 29, 2016 at 13:05 Discharge Summary PRIMARY CARE PHYSICIAN: Dr. Graham ATTENDING AT TIME OF DISCHARGE: Dr. Wen Guillermo DISCHARGE DIAGNOS(E)S: 1. Acute exacerbation of diastolic CHF 2. Hyperlipidemia 3. History of NC 4. Hypertension 5. COPD 6. Atrial fibrillation 7. Obstructive sleep apnea 8. Stage III chronic kidney disease HPI & HOSPITAL COURSE: The patient was recently hospitalized for an acute exacerbation of COPD and a viral respiratory infection, and then she returned back to the hospital shortly thereafter with worsening shortness of breath. On admission she had crackles in her lungs, edema in her lower extremities bilaterally, and an elevated BNP. The determination was made that she was now in an acute exacerbation of CHF. She was treated with IV Lasix, diuresed well, and her shortness of breath improved. Apparently she had been taking a reduced dose of Lasix and Cozaar after her recent hospitalization, she will be returned back to her prior dose for discharge at this time. She does wear oxygen at night at home, her oxygen saturation was measured during the day when she was not wearing it and it was was found to be in the low 90s which is within satisfactory limits, especially given her recent acute illness. For further review of systems and physical exam please see today's progress note. DISPOSITION: Home DISCHARGE INSTRUCTIONS: Follow-up with primary care provider Dr. Graham within 7-10 days. Recommend a 2 g sodium restriction in her diet. Activity as tolerated. Continue wearing oxygen at night. If symptoms return, or if you experience worsening of your symptoms, please call your doctor or return to the emergency department. DISCHARGE MEDICATIONS: Continue taking from home: Furosemide 40 mg by mouth daily Losartan 100 mg by mouth daily at bedtime Allopurinol 300 mg by mouth daily Aspirin 81 mg by mouth daily Atorvastatin 10 mg by mouth daily at bedtime Bisoprolol fumarate 10 mg by mouth daily at bedtime Clopidogrel bisulfate 75 mg by mouth daily at bedtime Ferrous sulfate 325 mg by mouth daily Nitroglycerin 0.4 mg sublingual when necessary every 5 minutes when necessary chest pain New Medications: None Stop Taking: None My preceptor for this patient encounter was physically present in the building during the encounter and was fully available. As needed, all aspects of the patient interview, examination, medical decision making process, and medical care plan development were reviewed and approved by the preceptor. Preceptor is aware and concurs with the plan as stated in the body of this note and will attest to such by his/her cosignature. Medications Scheduled (Deltasone) 20 Mg Tab 10 MG PO ASDIRECTED Allopurinol (Allopurinol) 100 Mg Tab 200 MG PO DAILY Aspirin (Aspirin 81) 81 Mg Tab 81 MG PO DAILY Atorvastatin Calcium (Atorvastatin Calcium) 10 Mg Tab 10 MG PO QHS Bisoprolol Fumarate (Bisoprolol Fumarate) 10 Mg Tab 10 MG PO QHS Clopidogrel Bisulfate (Clopidogrel) 75 Mg Tab 75 MG PO QHS Ferrous Sulfate (Ferrous Sulfate) 325 Mg Tab 325 MG PO DAILY Furosemide (Furosemide) 40 Mg Tab 40 MG PO DAILY Losartan Potassium (Losartan Potassium) 100 Mg Tab 100 MG PO DAILY Oxybutynin Chloride (Oxybutynin Chloride) 5 Mg Tab 5 MG PO DAILY HAS BEEN OUT OF MED FOR ABOUT A WEEK Spironolactone (Spironolactone) 25 Mg Tab 25 MG PO DAILY Scheduled PRN Nitroglycerin (Nitrostat) 0.4 Mg Subl 0.4 MG SL PRN PRN PRN CHEST PAIN Allergies Coded Allergies: Codeine (Verified Allergy, Severe, DIFFICULTY BREATHING, 09/15/12) Nitrofurantoin (Unverified Allergy, Unknown, 06/15/14) Warfarin (Verified Adverse Reaction, Intermediate, ELEVATED BP WITH GENERIC WARFARIN. CAN TAKE COUMADIN BRAND, 09/15/12) Propoxyphene (Verified Adverse Reaction, Mild, UNSET STOMACH, 10/14/13) Unclassified Drugs (Unverified Adverse Reaction, Mild, NARCOTICS - UPSET STOMACH, 06/22/16) GME ATTESTATION GME ATTESTATION My preceptor for this patient encounter was physically present in the building during the encounter and was fully available. As needed, all aspects of the patient interview, examination, medical decision making process, and medical care plan development were reviewed and approved by the preceptor. Preceptor is aware and concurs with the plan as stated in the body of this note and will attest to such by his/her cosignature. ATTENDING NOTE I have both independently examined this patient as well as reviewed the note. I have discussed in detail with the resident the findings and plan of treatment as documented in the residents note. I will continue to follow the patient and offer further guidance to the patients care as necessary during this hospital stay. RADHA ARGUELLO DO Jun 29, 2016 16:11 WEN GUILLERMO DO Jul 17, 2016 22:29
== END 2016-06-29 13:05 | disposition home or self-care (01) ==
LOC: M ED 13:06 → M ED INP 16:02 → M PCU 19:57
PROVIDERS: ADMIT Internal Medicine; ATTEND Internal Medicine
DX: I50.31 Acute diastolic (congestive) heart failure (principal); E78.5 Hyperlipidemia, unspecified; I25.2 Old myocardial infarction; I12.9 Hypertensive chronic kidney disease with stage 1 through stage 4 chronic kidney disease, or unspecified chronic kidney disease; J44.9 Chronic obstructive pulmonary disease, unspecified; I48.91 Unspecified atrial fibrillation; G47.33 Obstructive sleep apnea (adult) (pediatric); N18.3 Chronic kidney disease, stage 3 (moderate); R06.02 Shortness of breath; R07.9 Chest pain, unspecified; I27.2 Other secondary pulmonary hypertension; M54.9 Dorsalgia, unspecified; Z95.0 Presence of cardiac pacemaker; Z79.899 Other long term (current) drug therapy; Z79.82 Long term (current) use of aspirin; Z88.5 Allergy status to narcotic agent; Z88.8 Allergy status to other drugs, medicaments and biological substances; Z87.891 Personal history of nicotine dependence
CPT/HCPCS: 36415; 36600; 71010; 80048; 81001; 82550; 82553; 82803; 83880; 84484; 85025; 85027; 85610; 87040; 93005; 93041; 94640; 96372; 96374; 96375; 96376; 99285; G0378; J1650; J1940; J2930

== ENCOUNTER 2016-07-11 15:49 | Inpatient (IN) | payer MEDICARE, MEDICAID ==
[~2016-07-11] VITALS: Ht 154.9 cm; Wt 80.1 kg
[~2016-07-11 15:49] MED LIST changes: +BISO10TA6 PO; +COZA100T2 PO
[2016-07-11] MEDS ORDERED: IPRATROPIUM 0.5MG/ALBUTEROL 2.5MG INH SOL UD 3ML (DUONEB)(J7620) As Ordered ONE (17:03)
[2016-07-11] MEDS ORDERED: methylPREDNISolone INJ 125 MG/2 ML VIAL (J2930) As Ordered ONE (17:15)
[2016-07-11 17:18] LABS: BASO % 0.2 % (0.0-1.0); EOS # 0.1 K/mm3 (0.0-0.50); EOS % 2.4 % (0.0-3.0); LARGE UNSTAINED CELL # 0.1 K/mm3 (0.0-0.4); LARGE UNSTAINED CELL % 2.7 % (0.0-4.0); LYMPH # 0.9 K/mm3 (1.5-4.5); LYMPH % 19.3 % (24.0-44.0); MEAN CORPUSCULAR HEMOGLOBIN 31.1 pg (27.0-33.0); MEAN CORPUSCULAR HGB CONC 31.8 g/dl (32.0-36.5); MEAN CORPUSCULAR VOLUME 97.9 fl (80.0-96.0); MONO # 0.3 K/mm3 (0.0-0.8); MONO % 5.9 % (0.0-5.0); NEUTROPHILS # 3.3 K/mm3 (1.8-7.7); NEUTROPHILS % 69.5 % (36.0-66.0); PLATELET COUNT, AUTOMATED 167 k/mm3 (150-450); RED CELL DISTRIBUTION WIDTH 15.6 % (11.5-14.5); WHITE BLOOD COUNT 4.8 K/mm3 (4.0-10.0)
[2016-07-11 17:25] LABS: ABG BASE EXCESS 1.4 (-2.0-2.0); ABG DEVICE NASAL CANN; ABG HCO3 25.5 MEQ/L (22.0-26.0); ABG PARTIAL PRESSURE CO2 38.3 mmHg (35.0-45.0); ABG PARTIAL PRESSURE O2 188.2 mmHg (75.0-100.0); ABG STANDARD HCO3 25.8 MEQ/L (22.0-26.0); ABG TOTAL CO2 26.7 MEQ/L (23.0-31.0); ABG pH (ARTERIAL) 7.442 UNITS (7.350-7.450)
--- NOTE | 2016-07-11 17:43 | REP ---
Portable chest x-ray: Upright AP view. History: Shortness of breath. Comparison chest x-ray June 26, 2016. Findings: A bipolar pacemaker is seen in the right heart via the left side as before. Heart is not enlarged. There are coarse linear densities in both bases consistent with discoid atelectasis and/or fibrosis. This is similar on the right and more pronounced on the left when compared with the prior study of June 26, 2016. Pulmonary vasculature is not increased. Impression: Discoid atelectasis versus fibrosis in both bases. Pacemaker. Signed by Christian Cheng MD 07/12/2016 09:54 A
[2016-07-11 17:54] LABS: CALCIUM LEVEL 8.8 MG/DL (8.8-10.2); CREATININE FOR GFR 2.89 MG/DL (0.55-1.02); GLOMERULAR FILTRATION RATE 16.5 (>32); POTASSIUM SERUM 4.5 MEQ/L (3.5-5.1)
--- NOTE | 2016-07-11 18:38 | REP ---
CT CHEST WITHOUT CONTRAST: CT chest is performed without IV contrast. Comparison is made with prior CT abdomen and pelvis 02/09/[address] chest 03/05/2006. There are scattered interstitial fibrotic changes in the upper lobes bilaterally. There are more confluent areas of fibro atelectatic change in each lung base. These appear fairly similar to the prior CT abdomen 02/09/2015. However, there is mild bronchiectasis in the right middle and lower lobes. There are areas of mild peribronchial opacity in the right lower lobe which may represent mild peribronchial infiltrate. No suspicious nodules are seen. There is no pleural or pericardial effusion. Heart is upper limits of normal in size. There are moderate arthrosclerotic calcifications of the thoracic aorta without aneurysm. In the visualized portion of the upper abdomen there is small bilateral adrenal nodules which are stable and representing adenomas. There are bilateral renal cysts. IMPRESSION: Bilateral interstitial fibrosis and bilateral lower lobe fibro atelectatic changes. There is right lower lobe bronchiectasis. In the peribronchial regions of the right lower lobe there are mild ill defined opacities which are not seen on prior studies. These may represent progressive areas of fibro atelectatic change or mild peribronchial infiltrate. Signed by Claudy Phillips MD 07/11/2016 07:42 P
[2016-07-11] MEDS ORDERED: METOCLOPRAMIDE INJ 10MG/2ML VIAL (J2765) IV PRN (19:30)
[2016-07-11] MEDS ORDERED: FURO40TA2 PO (19:30)
[2016-07-11] MEDS ORDERED: LEVO500T32 PO (19:30)
[2016-07-11] MEDS ORDERED: ALLO100T PO (19:30)
[2016-07-11] MEDS ORDERED: SPIR25TA2 PO (19:30)
[2016-07-11] MEDS ORDERED: OXYB5TA PO (19:30)
[2016-07-11] MEDS ORDERED: ACETAMINOPHEN TAB 650MG DOSE (2X325MG) PO PRN (19:30)
[2016-07-11] MEDS ORDERED: LOSA100T36 PO (19:30)
[2016-07-11] MEDS ORDERED: IPRATROPIUM 0.02% SOLN 0.5MG/2.5 ML NEB INH PRN (19:30)
[2016-07-11] MEDS ORDERED: BISOPROLOL FUMARATE 5 MG TAB PO ONE (19:30)
--- NOTE | 2016-07-11 19:47 | HPEPDOC ---
General Date of Admission 07/11/2016 746PM Chief Complaint The patient is a 85-year-old female Presented to the ER with complaints of shortness of breath and cough for 1 week duration. History of Present Illness Patient is a 85 year old female with a PMHx of COPD, Diastolic CHF, SSS s/p pacemaker, Atrial fibrillation (not on anticoagulation 2/2 GI bleed), CKD (Stage 3), DLP, HTN, CAD s/p stent (CT in 2003), TANISHA (not on CPAP), Arthritis and Hx of NSVT. She presented to the ER with complaints of shortness of breath and cough for 1 week duration. Patient was recently admitted to the hospital twice in the last 1 month. Jun 21 to Jun 24 and Jun 26 to Jun 29. The first admission was for COPD exacerbation and the second was for COPD exacerbation likely 2/2 viral infection , with possible component of CHF exacerbation. Patient noted that at home she has not been compliant with her medications because she was not sure how to take them. She noted that early this week she has been having some cough and shortness of breath and called her electromechanical assembly technician , and requested antibiotics but was denied. She called her primary care provider who provided her with Levaquin. Currently she notes that she has not had improvement and that her breathing has continued to deteriorate. She has been using her inhaled therapy with increased frequency but it has not helped. She notes that she wheezes at home. She sleeps in an upright position in her chair. She denies any PND. She does not increased leg swelling that started today. She reports a productive cough with yellowish sputum, no blood. She denies any fever or chills at home. She denies chest pain or palpitations. She denies any nausea, vomiting, abdominal pain, constipation, diarrhea or urinary symptoms. Home Medications Scheduled Allopurinol (Allopurinol) 100 Mg Tab 200 MG PO DAILY (Reported) Aspirin (Aspirin 81) 81 Mg Tab 81 MG PO DAILY (Reported) Atorvastatin Calcium (Atorvastatin Calcium) 10 Mg Tab 10 MG PO QHS (Reported) Bisoprolol Fumarate (Bisoprolol Fumarate) 10 Mg Tab 10 MG PO QHS (Reported) Clopidogrel Bisulfate (Clopidogrel) 75 Mg Tab 75 MG PO QHS (Reported) Ferrous Sulfate (Ferrous Sulfate) 325 Mg Tab 325 MG PO DAILY (Reported) Furosemide (Furosemide) 40 Mg Tab 40 MG PO DAILY (Reported) Levofloxacin Hemihydrate (Levofloxacin) 500 Mg Tab 500 MG PO DAILY (Reported) STARTED 07/09/16 FOR 10 DAYS Losartan Potassium (Losartan Potassium) 100 Mg Tab 100 MG PO DAILY (Reported) Oxybutynin Chloride (Oxybutynin Chloride) 5 Mg Tab 5 MG PO DAILY (Reported) HAS BEEN OUT OF MED FOR ABOUT A WEEK Spironolactone (Spironolactone) 25 Mg Tab 25 MG PO DAILY (Reported) Scheduled PRN Nitroglycerin (Nitrostat) 0.4 Mg Subl 0.4 MG SL PRN PRN PRN CHEST PAIN (Reported ) Allergies Coded Allergies: Codeine (Verified Allergy, Severe, DIFFICULTY BREATHING, 09/15/12) Nitrofurantoin (Unverified Allergy, Unknown, 06/15/14) Warfarin (Verified Adverse Reaction, Intermediate, ELEVATED BP WITH GENERIC WARFARIN. CAN TAKE COUMADIN BRAND, 09/15/12) Propoxyphene (Verified Adverse Reaction, Mild, UNSET STOMACH, 10/14/13) Unclassified Drugs (Unverified Adverse Reaction, Mild, NARCOTICS - UPSET STOMACH, 06/22/16) Past Medical History Medical History COPD, Diastolic CHF, SSS s/p pacemaker, Atrial fibrillation (not on anticoagulation 2/2 GI bleed), CKD (Stage 3), DLP, HTN, CAD s/p stent (CT in 2003), TANISHA (not on CPAP), Arthritis and Hx of NSVT. Surgical History Pacemaker placement Adenoidectomy Tonsillectomy Back surgery Hysterectomy Partial bowel resection 2/2 Diverticulitis Family History Family History Non contributory Social History Social History - Denies the use of alcohol or illicit drugs; Quit in 1989 Smoked for 50 years at [facility] - Denies recent travel or sick contacts - Lives alone - Occupation; worked for [employer]) Review of Symptoms Other systems Constitutional: Reports weight loss of 6 lbs in 1 week , Poor appetite, No recent trauma Eyes: No visual changes or eye pain Ears, Nose, Throat: Denies nose bleeds, or difficulty swallowing Cardiovascular: Denies chest pain, sweating, or orthopnea Respiratory: Positive productive cough, wheezing, and shortness of breath GI: Jacobo nausea, vomiting, abdominal pain, diarrhea or constipation : Denies pain with urination or frequency Musculoskeletal: Denies joint pain or swelling Neuro / Psych: Denies muscle weakness or sensory loss Skin: No skin rashes noted All other review of systems negative; otherwise stated in history of present illness Vital Signs - Vitals: BP 149/65, HR 98, RR 18, Sat 92%NC2L, Temp 97.6F - General: Lying in bed, No acute distress, Speaking in full sentences, AAOx3 - HEENT: NC, AT, PERRLA, EOMI - CVS: RRR, +S1S2, - Lungs: Fair air entry bilaterally, Positive expiratory wheezing bilaterally - Abdomen: Soft, Non-distended, Non-tender, + Bowel sounds x 4 - Extremities: + PPx4, Trace LE edema, No calf tenderness - Neuro: No focal motor or sensory deficit - Skin: No visible rashes Laboratory Data Labs 24H Laboratory Tests 2 07/11/16 17:07: B-Type Natriuretic Peptide 94.9, White Blood Count 4.8, Red Blood Count 3.06L, Hemoglobin 9.5L, Hematocrit 29.9L, Mean Corpuscular Volume 97.9H, Mean Corpuscular Hemoglobin 31.1, Mean Corpuscular Hemoglobin Concent 31.8L, Red Cell Distribution Width 15.6H, Platelet Count 167, Neutrophils (%) (Auto) 69.5H , Lymphocytes (%) (Auto) 19.3L, Monocytes (%) (Auto) 5.9H, Eosinophils (%) (Auto ) 2.4, Basophils (%) (Auto) 0.2, Neutrophils # (Auto) 3.3, Lymphocytes # (Auto) 0.9L, Monocytes # (Auto) 0.3, Eosinophils # (Auto) 0.1, Basophils # (Auto) 0.0, Large Unclassified Cells # 0.1, Large Unclassified Cells % 2.7 07/11/16 17:08: Anion Gap 6L, Blood Urea Nitrogen 32H, Creatinine 2.89H, Sodium Level 140, Potassium Level 4.5, Chloride Level 105, Carbon Dioxide Level 29, Calcium Level 8.8, Total Creatine Kinase 81, Creatine Kinase MB 1.6, Creatine Kinase MB Relative Index 1.97, Glomerular Filtration Rate 16.5L, Troponin I 0.02 07/11/16 17:17: Arterial Blood pH 7.442, Arterial Blood Partial Pressure CO2 38.3, Arterial Blood Partial Pressure O2 188.2H, Arterial Blood Total CO2 26.7, Arterial Blood HCO3 25.5, Arterial Blood Base Excess 1.4, Arterial Blood Oxygen Saturation 99.4H, Blood Gas Bicarbonate Standard 25.8, Oxygen Delivery Device NASAL DEL CBC/BMP Laboratory Tests 07/11/16 17:07 Red Blood Count 3.06 L, Mean Corpuscular Volume 97.9 H, Mean Corpuscular Hemoglobin 31.1, Mean Corpuscular Hemoglobin Concent 31.8 L, Red Cell Distribution Width 15.6 H, Neutrophils (%) (Auto) 69.5 H, Lymphocytes (%) (Auto ) 19.3 L, Monocytes (%) (Auto) 5.9 H, Eosinophils (%) (Auto) 2.4, Basophils (%) (Auto) 0.2, Neutrophils # (Auto) 3.3, Lymphocytes # (Auto) 0.9 L, Monocytes # ( Auto) 0.3, Eosinophils # (Auto) 0.1, Basophils # (Auto) 0.0 07/11/16 17:08 Calcium Level 8.8, Total Creatine Kinase 81 Microbiology Microbiology 07/11/16 Blood Culture, Received Pending 07/11/16 Blood Culture, Received Pending Plan / VTE VTE Prophylaxis Ordered?: Yes Plan Plan Dyspnea likely 2/2 acute COPD exacerbation, possible component of Diastolic CHF exacerbation - Presented with SOB, wheezing and productive cough, no fevers at home - Physical reveals expiratory wheezing bilaterally, no fevers - No leukocytosis - ABG does not reveal pCO2 retention - CXR 07/11: discoid atelectasis vs. fibrosis at both bases, pacemaker - CT chest 07/11: bilateral interstitial fibrosis and b/l lower lobe fibroatelectatic changes, mild ill-defined opacities at RLL (new), may represent peribronchial infiltrate vs. progressive fibroatelectatic change - s/p Solumedrol 125mg IV in ER and Duoneb therapy - Will c/w Solumedrol 60 IV q8 hours, Ipratropium inhaled therapy Atrial fibrillation with RVR likely 2/2 duoneb therapy - HR in ER was found to go up to 120s - Will give additional dose of home bisoprolol for better control - Not on anticoagulation because of GI bleeding history - c/w Aspirin Acute kidney injury on CKD3 possibly 2/2 pre-renal or renal etiology, less likely post-renal - Cr baseline of 2.0; currently at 2.9 - Will check urine electrolytes and osmolality - Will hold off on fluid hydration given increased leg swelling - Will hold losartan for now - Will c/w home Lasix dose SSS s/p pacemaker DLP - c/w atorvastatin HTN - c/w bisoprolol with holding parameters - will hold losartan (re: ZAINAB) CAD s/p stent (CT in 2003) - c/w aspirin, Plavix, bisoprolol, atorvastatin, - will hold losartan (re: ZAINAB) TANISHA - not on CPAP Arthritis - c/w Tylenol PRN Hx of NSVT - was found to have run in ER and remained asymptomatic - Will check magnesium level Gastrointestinal prophylaxis - Will start protonix DVT prophylaxis - Will start heparin JIMMY CUNNINGHAM MD Jul 11, 2016 19:47
[2016-07-11 19:53] LABS: MAGNESIUM LEVEL 1.6 MG/DL (1.8-2.4)
[2016-07-11] MEDS ORDERED: NITROGLYCERIN 0.4 MG SUBL TABLET SL PRN (20:00)
--- NOTE | 2016-07-11 22:20 | EDDOCDS ---
Physician Documentation [facility] Name: Cristela Cooper Age: 85 yrs Sex: Female : 1930 Arrival Date: 07/11/2016 Time: 15:49 Bed Admit Hold Private MD: Jose Roberto Graham A. Disposition: 07/11 19:00 Critical Care: Critical care not applicable. pc Disposition: 07/11/16 19:03 Hospitalization ordered by Zeb Lacy for Inpatient Admission. Preliminary diagnosis are Chronic obstructive pulmonary disease with (acute) exacerbation, Bronchiectasis with (acute) exacerbation, Acute kidney failure - due Levaquin. - Bed requested for PCU. - Status is Inpatient Admission. jp6 - Condition is Stable. - Problem is new. - Symptoms have improved. HPI: 16:57 This 85 yrs old Female presents to ER via Walkin/Carried/Asstd with pc complaints of Cold Symptoms. 16:57 The history is obtained from the patient, the patient's family/friend. The patient pc presents with shortness of breath, with a prior history of COPD. The symptoms began She was admitted twice in mid-June for COPD exacerbations, with only a viral etiology found by Resp. panel. She has been home for a week, has continued to have an occasionally productive cough but is coughing a lot. Her PCP placed her on Levaquin last week "because Dr. Ferro's office refused to" and she is no better. She went his office today and he sent her here for admission "she is NOT going home" per her family. She has not had any fevers or chills. She has swollen feet but admits to not taking her Lasix regularly. She also does not use her CPAP for her sleep apnea. Historical: - Allergies: Codeine Sulfate ("can't breathe"); Coumadin; Hydrocodone-Acetaminophen; Macrobid (Unknown); Narcotics ("can't breathe"); Vicodin (Unknown); - Home Meds: 1. allopurinol 100 mg Oral tab 2 tabs once daily (Last dose: 07/11/2016 08:00) 2. aspirin 81 mg Oral chew 1 tab once daily (Last dose: 07/11/2016 08:00) 3. atorvastatin 10 mg oral tab 1 tab once daily (Last dose: 07/11/2016 08:00) 4. bisoprolol fumarate 5 mg oral tab 1 tab once daily (Last dose: 07/11/2016 08:00) 5. ferrous sulfate 325 mg (65 mg iron) Oral cpER daily (Last dose: 07/11/2016 08:00) 6. Lasix 40 mg Oral tab 1 tab once daily (Last dose: 07/11/2016 08:00) 7. losartan 100 mg oral tab 1 tab once daily (Last dose: 07/11/2016 08:00) 8. NitroQuick SL 0.4 mg as needed 9. oxybutynin chloride 5 mg Oral tab 1 tab once daily ran out (Last dose: Unknown) 10. Oxygen 2 L at night 11. Plavix 75 mg Oral tab 1 tab nightly (Last dose: 07/10/2016) 12. spironolactone 25 mg Oral tab 1 tab once daily (Last dose: 07/11/2016 08:00) 13. Ampicillin Oral 14. levofloxacin 500 mg Oral tab 1 tab once daily (Last dose: 07/11/2016 08:00) - PMHx: Chronic Back pain; Chronic Renal Failure w/o Dialysis; COPD; Hypercholesterolemia; Hypertension; Myocardial infarction; Sleep Apnea w/ CPAP; Atrial Fib; Nonsustained Ventricular Tachycardia; - PSHx: Pacemaker Insertion; Adenoidectomy; Hysterectomy; back surgery; Unkown abdomen surgery; Tonsillectomy; - The history from nurses notes was reviewed: and elements of the historical information I have obtained differs from that reported to nursing. - Social history: Smoking status: Patient states former smoker of tobacco. No barriers to communication noted, The patient speaks fluent Croatian. - : The pt / caregiver states he / she is on anticoagulants: Plavix. Home medication list is obtained from the patient, family members. - Hospitalizations: : The patient was recently seen at [facility]. - Exposure Risk Screening:: None identified. - Immunization history:: All immunizations up-to-date. - Family history: Not pertinent. - Social history:: the patient is a former smoker, the patient does not drink alcohol. ROS: 17:01 All systems are negative except as listed. The gastrointestinal and genitourinary pc components are also addressed in the HPI. Exam: 17:01 General Appearance: alert, the patient is in mild distress, anxious. pc 17:01 EENT: normal eye inspection, ears, nose and throat normal, pharynx normal, mucous membranes moist 17:01 Neck: normal inspection. 17:01 Respiratory: no pleuritic chest pain, speaks in full sentences, the patient is in mild respiratory distress, auscultation reveals wheezes, diffusely, decreased air entry noted left posterior lower lobe and right posterior lower lobe. PO 91% on 2L. 17:01 Cardiovascular: normal heart rate, normal rhythm, no jugular venous distension appreciated, no murmurs, no gallop. 17:01 Abdomen: non-tender, non-distended, no organomegaly. 17:01 Skin: normal color, warm, dry. 17:01 Extremities: non-tender, normal range of motion of all joints, pedal edema is present and is 3 +. 17:01 Neuro: alert, oriented to person, place and time, cranial nerves normal as tested, no motor deficits, no sensory deficits. 17:01 Psych: normal mood. Vital Signs: 15:51 BP 103 / 63; Pulse 98; Resp 18 S; Temp 97.6(O); Pulse Ox 91% on R/A; Weight 75.75 kg / gr2 167 lbs (R); Height 5 ft. 1 in. (154.94 cm) (R); Pain 4/10; 16:36 BP 132 / 60 (auto/); dsf 16:37 Pulse 92 MON; Pulse Ox 86% ; dsf 16:42 Pulse 104 MON; Pulse Ox 91% ; dsf 18:12 BP 149 / 65 (auto/); dsf 18:12 Pulse 130 MON; Pulse Ox 92% ; dsf 19:27 BP 178 / 71 (auto/); jp6 19:27 Pulse 102 MON; Pulse Ox 93% ; jp6 19:42 BP 152 / 67 (auto/); jp6 19:43 Pulse 100 MON; Pulse Ox 92% ; jp6 19:57 BP 187 / 68 (auto/); jp6 19:58 Pulse 96 MON; Pulse Ox 93% ; jp6 20:12 BP 143 / 64 (auto/); jp6 20:15 Pulse 104 MON; Pulse Ox 94% ; jp6 20:27 BP 107 / 52 (auto/); jp6 20:27 Pulse 94 MON; Pulse Ox 93% ; jp6 20:42 BP 118 / 57 (auto/); jp6 20:43 Pulse 94 MON; Pulse Ox 92% ; jp6 20:57 BP 113 / 56 (auto/); jp6 20:58 Pulse 100 MON; Pulse Ox 91% ; jp6 21:12 BP 123 / 94 (auto/); jp6 21:13 Pulse 100 MON; Pulse Ox 93% ; jp6 21:27 BP 121 / 91 (auto/); jp6 21:28 Pulse 96 MON; Pulse Ox 91% ; jp6 21:49 Pulse 90 MON; Pulse Ox 94% ; jp6 21:57 BP 130 / 61 (auto/); jp6 22:02 Pulse 96 MON; Pulse Ox 93% ; jp6 22:12 BP 160 / 81 (auto/); jp6 22:13 Pulse 96 MON; Pulse Ox 94% ; jp6 15:51 Body Mass Index 31.55 (75.75 kg, 154.94 cm) gr2 16:37 pt placed on 2 L NC dsf MDM: 16:56 Solu-MEDROL 125 mg IVP once ordered. pc 16:56 -Blood Culture (Adults Only), peripheral from different site, or from device/port/PICC pc etc. if present ordered. 16:56 Call Respiratory ordered. pc 16:56 Speech Language Pathologist/Pulse Ox/q 15 min VS ordered. pc 16:56 IV Saline Lock ordered. pc 16:56 Oxygen at 4L/Min NC or Home dosage ordered. pc 16:56 Rhythm Strip to chart ordered. pc 16:56 Albuterol-Ipratropium 1 neb Nebulizer every 20 minutes x3 ordered. pc 16:57 Chest, 1 View Ordered. EDMS 16:57 -Arterial Blood Gas Ordered. EDMS 16:57 -Blood Culture Ordered. EDMS 16:57 B-Type Natiuretic Peptide Ordered. EDMS 16:57 Basic Metabolic Profile Ordered. EDMS 16:57 CBC with Diff Ordered. EDMS 16:57 Cardiac Injury Profile Ordered. EDMS 16:57 Troponin Ordered. EDMS 16:57 ECG WITH READING ER PHYS+CARDIAG ordered. EDMS 17:01 Differential diagnosis: Anxiety Reaction CHF, Chronic Obstructive Pulmonary Disease pc pneumonia. Plan: labs, meds, imaging, EKG. 17:10 -Blood Culture (Adults Only), peripheral from different site, or from device/port/PICC lbd etc. if present complete. 17:10 Call Respiratory complete. lbd 17:16 BLOOD CULTURES Ordered. EDMS 17:24 Test interpretation: EKG. pc 17:35 -Arterial Blood Gas Reviewed. pc 17:35 CBC with Diff Reviewed. pc 17:37 CT Chest Without Contrast Ordered. EDMS 18:10 Financial registration complete. zo 18:11 [facility] Agreement was scanned into [employer] and attached to record. zo 18:25 Basic Metabolic Profile Reviewed. pc 18:25 B-Type Natiuretic Peptide Reviewed. pc 18:25 Cardiac Injury Profile Reviewed. pc 18:25 Troponin Reviewed. pc 18:25 Chest, 1 View Reviewed. pc 19:00 Data reviewed: old medical records, vital signs, nurses notes, lab test results, all pc radiology studies and available results. Data reviewed: EKG(s). Test interpretation: LAB - all labs as ordered have been reviewed, interpreted and considered in the overall management of the clinical presentation; Arterial blood gas is normal except. pO2: 188 X-RAY - interpreted by Radiologist and personally reviewed, 1 view chest chronic obstructive pulmonary disease pattern, interpreted by Radiologist and personally reviewed, Chest CT; COPD. The patient has been re-examined and re-evaluated. The patient's symptoms have mildly improved after treatment. Physician consultation: Dr. Zeb Lacy regarding admission. Disposition: The historical points, examination findings, and any diagnostic results supporting the provided diagnosis, were discussed with the patient or legal guardian. The need for further work-up and/or treatment in the hospital was explained. 19:25 Admission / Observation Status ordered. EDMS 19:25 2 GRAM SODIUM DIET ordered. EDMS 19:26 URINALYSIS Ordered. EDMS 19:26 SODIUM,RANDOM URINE Ordered. EDMS 19:26 CREATININE,RANDOM URINE Ordered. EDMS 19:26 OSMOLALITY,URINE Ordered. EDMS 19:32 CARDIAC INJURY PROFILE Ordered. EDMS 19:32 TROPONIN Ordered. EDMS 19:33 CBC WITH DIFFERENTIAL Ordered. EDMS 19:33 COMPLETE COMPHRENSIVE METABOLI Ordered. EDMS 19:33 MAGNESIUM LEVEL Ordered. EDMS 19:33 CARDIAC INJURY PROFILE Ordered. EDMS 19:34 CARDIAC INJURY PROFILE Ordered. EDMS 19:34 TROPONIN Ordered. EDMS 19:34 TROPONIN Ordered. EDMS 19:45 MAGNESIUM LEVEL Ordered. EDMS EC:24 Rate is 89 beats/min. Rhythm is irregularly irregular, A fib. Left axis deviation pc noted. QRS is negative in leads II, aVF. SD interval is normal. QRS interval is normal. QT interval is normal. No Q waves. T waves are Normal. No ST changes noted. Clinical impression: Atrial Fibrillation w/o RVR and LAD. Administered Medications: 17:10 Drug: Albuterol-Ipratropium 1 neb [ipratropium-albuterol 0.5 mg-3 mg(2.5 mg base)/3 mL cs15 nebulization soln (1 neb)] Route: Nebulizer; 17:18 Drug: Solu-MEDROL 125 mg [Solu-Medrol 500 mg intravenous solution (125 mg)] Route: IVP; dsf Site: left antecubital; 17:25 Drug: Albuterol-Ipratropium 1 neb [ipratropium-albuterol 0.5 mg-3 mg(2.5 mg base)/3 mL cs15 nebulization soln (1 neb)] Route: Nebulizer; 17:44 Drug: Albuterol-Ipratropium 1 neb [ipratropium-albuterol 0.5 mg-3 mg(2.5 mg base)/3 mL cs15 nebulization soln (1 neb)] Route: Nebulizer; Signatures: Dispatcher [employer] EDMS Luis Mantilla MD MD pc Daniela Martinez, Service Desk Director Unit lbd Frank Stone Shannon, RN RN [id number] Abdias Wlaters,RN RN jf3 Lexie Raza RN RN [id number] Dorcas Michelle RN dsf Hakan Beasley RT [id number] The chart was reviewed and I authenticate all verbal orders and agree with the evaluation and treatment provided.Corrections: (The following items were deleted from the chart) 17:03 16:57 The symptoms began She was admitted twice in mid-June for COPD exacerbations, pc with only a viral etiology found by Resp. panel. She has been home for a week, has continued to have an occasionally productive cough but is coughing a lot. Her PCP placed her on Levaquin last week "because Dr. Ferro's office refused to" and she is no better, pc 19:36 19:26 CARDIAC INJURY PROFILE ordered. EDMO EDMS 19:36 19:26 TROPONIN ordered. EDMS EDMS 19:47 19:28 MAGNESIUM LEVEL ordered. EDMS EDMS Attachments: 18:11 [facility] Payment Agreement zo [facility]
--- NOTE | 2016-07-11 22:20 | EDDOCDS ---
Nurse's Notes [facility] Name: Cristela Cooper Age: 85 yrs Sex: Female : 1930 Arrival Date: 07/11/2016 Time: 15:49 Bed Admit Hold Private MD: Jose Roberto Graham A. Diagnosis: Chronic obstructive pulmonary disease with (acute) exacerbation;Bronchiectasis with (acute) exacerbation;Acute kidney failure-due Levaquin Presentation: 07/11 15:57 Presenting complaint: Patient states: "I don't feel good. I want to throw up when I jf3 eat. My feets are all swollen up and my pressure was kind of low and my doctor thought I should be seen". Family member states general crampy feeling. Adult Sepsis Screening: The patient does not have new or worsening altered mentation. Patient's respiratory rate is less than 22. Systolic blood pressure is greater than 100. Patient has a qSOFA score of 0- Negative Sepsis Screen. Suicide/Homicide risk assessment- the patient denies having any suicidal and/or homicidal ideations and does not present with any other emotional, behavioral or mental health complaints. Status: Patient is not a client services account manager or dependent. Transition of care: patient was received from a primary care office; Dr Graham. 15:57 Acuity: TONY Level 4 jf3 15:57 Method Of Arrival: Walkin/Carried/Asstd jf3 16:30 Acuity level changed due to complexity of care. ck1 16:30 Acuity: TONY Level 3 ck1 Triage Assessment: 16:10 General: Appears in no apparent distress, comfortable, Behavior is cooperative. Pain: jf3 Location: head Pain currently is 5 out of 10 on a pain scale. Respiratory: Airway is patent Respiratory effort is even, unlabored, Respiratory pattern is regular, symmetrical. Historical: - Allergies: Codeine Sulfate ("can't breathe"); Coumadin; Hydrocodone-Acetaminophen; Macrobid (Unknown); Narcotics ("can't breathe"); Vicodin (Unknown); - Home Meds: 1. allopurinol 100 mg Oral tab 2 tabs once daily (Last dose: 07/11/2016 08:00) 2. aspirin 81 mg Oral chew 1 tab once daily (Last dose: 07/11/2016 08:00) 3. atorvastatin 10 mg oral tab 1 tab once daily (Last dose: 07/11/2016 08:00) 4. bisoprolol fumarate 5 mg oral tab 1 tab once daily (Last dose: 07/11/2016 08:00) 5. ferrous sulfate 325 mg (65 mg iron) Oral cpER daily (Last dose: 07/11/2016 08:00) 6. Lasix 40 mg Oral tab 1 tab once daily (Last dose: 07/11/2016 08:00) 7. losartan 100 mg oral tab 1 tab once daily (Last dose: 07/11/2016 08:00) 8. NitroQuick SL 0.4 mg as needed 9. oxybutynin chloride 5 mg Oral tab 1 tab once daily ran out (Last dose: Unknown) 10. Oxygen 2 L at night 11. Plavix 75 mg Oral tab 1 tab nightly (Last dose: 07/10/2016) 12. spironolactone 25 mg Oral tab 1 tab once daily (Last dose: 07/11/2016 08:00) 13. Ampicillin Oral 14. levofloxacin 500 mg Oral tab 1 tab once daily (Last dose: 07/11/2016 08:00) - PMHx: Chronic Back pain; Chronic Renal Failure w/o Dialysis; COPD; Hypercholesterolemia; Hypertension; Myocardial infarction; Sleep Apnea w/ CPAP; Atrial Fib; Nonsustained Ventricular Tachycardia; - PSHx: Pacemaker Insertion; Adenoidectomy; Hysterectomy; back surgery; Unkown abdomen surgery; Tonsillectomy; - The history from nurses notes was reviewed: and elements of the historical information I have obtained differs from that reported to nursing. - Social history: Smoking status: Patient states former smoker of tobacco. No barriers to communication noted, The patient speaks fluent Tongan. - : The pt / caregiver states he / she is on anticoagulants: Plavix. Home medication list is obtained from the patient, family members. - Hospitalizations: : The patient was recently seen at [facility]. - Exposure Risk Screening:: None identified. - Immunization history:: All immunizations up-to-date. - Family history: Not pertinent. - Social history:: the patient is a former smoker, the patient does not drink alcohol. Screenin:15 Screening information is obtained from the patient. Fall risk: No risks identified. jp6 Assistance ADL's: requires no assistance with activities of daily living. Abuse/DV Screen: The patient / caregiver reports he/she is: not in a situation that causes fear, pain or injury. Nutritional screening: No deficits noted. home support is adequate. 21:13 Advance Directives: Currently, there is a health care proxy, Sariah. There is jp6 an active DNR order but there is no copy available at this time. There is no living will. Assessment: 17:12 Adult Sepsis Screening: The patient does not have new or worsening altered mentation. dsf Patient's respiratory rate is less than 22. Systolic blood pressure is greater than 100. Patient has a qSOFA score of 0- Negative Sepsis Screen. General: Appears slight distress. Behavior is appropriate for age, cooperative. Pain: Denies pain. Neurological: Level of Consciousness is awake, alert, Oriented to person, place, time. Cardiovascular: Capillary refill < 3 seconds Heart tones S1 S2 present Rhythm is atrial fibrillation. Respiratory: Airway is patent Respiratory effort is SOB with movement Respiratory pattern is regular, Breath sounds are coarse expiratory bilaterally. Breath sounds with wheezes expiratory bilaterally. GI: Abdomen is non- distended Bowel sounds present X 4 quads. Abd is soft and non tender X 4 quads. Derm: Skin is pink, warm & dry. 18:12 General: Appears in no apparent distress, Behavior is appropriate for age, cooperative. dsf Pain: Denies pain. Neurological: Level of Consciousness is awake, alert. Cardiovascular: Capillary refill < 3 seconds Heart tones S1 S2 present Rhythm is atrial fibrillation. Respiratory: Airway is patent Respiratory effort is unlabored, Respiratory pattern is regular, Breath sounds with wheezes expiratory bilaterally. GI: Abdomen is non- distended. Derm: Skin is pink, warm & dry. 18:46 General: Dr. Lacy in room examining patient . dsf 20:16 Reassessment: Patient appears in no apparent distress at this time. General: Appears in jp6 no apparent distress, comfortable, well developed, well nourished, Behavior is appropriate for age, cooperative. Pain: Denies pain. Neurological: Level of Consciousness is awake, alert, Oriented to person, place, time. EENT: No deficits noted. Cardiovascular: Capillary refill < 3 seconds Heart tones S1 S2 present Rhythm is atrial fibrillation. Respiratory: Airway is patent Respiratory effort is even, unlabored, Respiratory pattern is regular, symmetrical, Breath sounds are coarse Breath sounds with wheezes expiratory bilaterally. GI: Abdomen is non- distended Bowel sounds present X 4 quads. Abd is soft and non tender X 4 quads. : No deficits noted. Derm: Skin is pink, warm & dry. Musculoskeletal: No deficits noted. 20:59 Reassessment: Patient appears in no apparent distress at this time. General: Appears in jp6 no apparent distress, Behavior is appropriate for age, cooperative. Pain: Denies pain. Neurological: Level of Consciousness is awake, alert, Oriented to person, place, time. Respiratory: Airway is patent Respiratory effort is even, unlabored, Respiratory pattern is regular, symmetrical. Derm: Skin is pink, warm & dry. Vital Signs: 15:51 BP 103 / 63; Pulse 98; Resp 18 S; Temp 97.6(O); Pulse Ox 91% on R/A; Weight 75.75 kg gr2 (R); Height 5 ft. 1 in. (154.94 cm) (R); Pain 4/10; 16:36 BP 132 / 60 (auto/); dsf 16:37 Pulse 92 MON; Pulse Ox 86% ; dsf 16:42 Pulse 104 MON; Pulse Ox 91% ; dsf 18:12 BP 149 / 65 (auto/); dsf 18:12 Pulse 130 MON; Pulse Ox 92% ; dsf 19:27 BP 178 / 71 (auto/); jp6 19:27 Pulse 102 MON; Pulse Ox 93% ; jp6 19:42 BP 152 / 67 (auto/); jp6 19:43 Pulse 100 MON; Pulse Ox 92% ; jp6 19:57 BP 187 / 68 (auto/); jp6 19:58 Pulse 96 MON; Pulse Ox 93% ; jp6 20:12 BP 143 / 64 (auto/); jp6 20:15 Pulse 104 MON; Pulse Ox 94% ; jp6 20:27 BP 107 / 52 (auto/); jp6 20:27 Pulse 94 MON; Pulse Ox 93% ; jp6 20:42 BP 118 / 57 (auto/); jp6 20:43 Pulse 94 MON; Pulse Ox 92% ; jp6 20:57 BP 113 / 56 (auto/); jp6 20:58 Pulse 100 MON; Pulse Ox 91% ; jp6 21:12 BP 123 / 94 (auto/); jp6 21:13 Pulse 100 MON; Pulse Ox 93% ; jp6 21:27 BP 121 / 91 (auto/); jp6 21:28 Pulse 96 MON; Pulse Ox 91% ; jp6 21:49 Pulse 90 MON; Pulse Ox 94% ; jp6 21:57 BP 130 / 61 (auto/); jp6 22:02 Pulse 96 MON; Pulse Ox 93% ; jp6 22:12 BP 160 / 81 (auto/); jp6 22:13 Pulse 96 MON; Pulse Ox 94% ; jp6 15:51 Body Mass Index 31.55 (75.75 kg, 154.94 cm) gr2 16:37 pt placed on 2 L NC dsf Vitals: 15:51 Log In Time: July 11, 2016 at 15:51. gr2 ED Course: 15:51 Patient visited by Josseline Lang. gr2 15:51 Jose Roberto Graham is Private Physician. gr2 15:51 Patient moved to Waiting gr2 15:52 Patient visited by Josseline Lang. gr2 15:52 Patient moved to Pre RCE gr2 15:59 Triage Initiated jf3 16:19 Patient moved to Triage 3 jo3 16:23 [facility] ar2 16:24 Luis Mantilla MD is Attending Physician. ar2 16:24 Patient visited by Kyle Hogan PA-C. ar2 16:30 Patient moved to 15 ck1 16:30 The patient / caregiver is instructed regarding the plan of care and ED course. Patient dsf has correct armband on for positive identification. Placed in gown. Bed in low position. Call light in reach. Side rails up X2. morning news producer on. Pulse ox on. NIBP on. 16:31 Luis Mantilla MD is Attending Physician. pc 17:10 -Blood Culture Sent. dsf 17:10 B-Type Natiuretic Peptide Sent. dsf 17:10 Basic Metabolic Profile Sent. dsf 17:10 CBC with Diff Sent. dsf 17:10 Cardiac Injury Profile Sent. dsf 17:10 Troponin Sent. dsf 17:11 Inserted saline lock: 20 gauge in left antecubital area The patient tolerated the dsf procedure well. O2 via nasal cannula \\T\\ 2L/min. 17:14 Patient visited by Dorcas Michelle RN. dsf 17:19 -Arterial Blood Gas Sent. cs15 17:20 EKG done. (by ED staff). Reviewed by Luis Mantilla MD. cmb 17:24 Patient visited by Rosetta Donahue. cmb 17:27 Patient visited by Rosetta Donahue. cmb 17:27 BLOOD CULTURES Sent. cmb 18:11 [facility] Payment Agreement was scanned into [employer] and attached to record. zo 18:18 Chest, 1 View Returned. EDMS 18:21 Patient visited by Dorcas Michelle RN. dsf 19:03 Zeb Lacy is Hospitalizing Provider. pc 19:04 Lexie Raza,RN is Primary Nurse. jp6 19:04 Patient visited by Lexie Raza RN. jp6 19:22 CT Chest Without Contrast Returned. EDMS 20:22 Patient moved to Admit Hold sls1 20:27 No procedures done that require assistance. jp6 Administered Medications: 17:10 Drug: Albuterol-Ipratropium 1 neb [ipratropium-albuterol 0.5 mg-3 mg(2.5 mg base)/3 mL cs15 nebulization soln (1 neb)] Route: Nebulizer; 17:18 Drug: Solu-MEDROL 125 mg [Solu-Medrol 500 mg intravenous solution (125 mg)] Route: IVP; dsf Site: left antecubital; 17:25 Drug: Albuterol-Ipratropium 1 neb [ipratropium-albuterol 0.5 mg-3 mg(2.5 mg base)/3 mL cs15 nebulization soln (1 neb)] Route: Nebulizer; 17:44 Drug: Albuterol-Ipratropium 1 neb [ipratropium-albuterol 0.5 mg-3 mg(2.5 mg base)/3 mL cs15 nebulization soln (1 neb)] Route: Nebulizer; RT: 17:19 ABG's drawn from left radial artery allens test done and positive pressure held for 5 cs15 minutes no bleeding noted pressure bandage applied specimen sent pt. tolerated well. Initial Med Neb Given as ordered. Respiratory: Respiratory effort is unlabored, Respiratory pattern is regular Sputum is thick yellow Breath sounds with crackles in left posterior upper lobe and left posterior lower lobe Breath sounds are diminished bilaterally. 17:24 O2 via nasal cannula \\T\\ 2L/min O2 via 10 L during ABG. cs15 17:44 Respiratory: Breath sounds with crackles in left posterior lower lobe Breath sounds cs15 with wheezes in right posterior lower lobe at expiration. Order Results: Lab Order: -Arterial Blood Gas; SPEC'M 07/11/16 17:17 Test: ABG pH (ARTERIAL); Value: 7.442; Range: 7.350-7.450; Units: UNITS; Status: F Test: ABG PARTIAL PRESSURE CO2; Value: 38.3; Range: 35.0-45.0; Units: mmHg; Status: F Test: ABG PARTIAL PRESSURE O2; Value: 188.2; Range: 75.0-100.0; Abnormal: Above high normal; Units: mmHg; Status: F Test: ABG TOTAL CO2; Value: 26.7; Range: 23.0-31.0; Units: MEQ/L; Status: F Test: ABG HCO3; Value: 25.5; Range: 22.0-26.0; Units: MEQ/L; Status: F Test: ABG BASE EXCESS; Value: 1.4; Range: -2.0-2.0; Status: F Test: ABG STANDARD HCO3; Value: 25.8; Range: 22.0-26.0; Units: MEQ/L; Status: F Test: ABG O2 SATURATION; Value: 99.4; Range: 95.0-99.0; Abnormal: Above high normal; Units: %; Status: F Test: ABG DEVICE; Value: NASAL DEL; Status: F Lab Order: B-Type Natiuretic Peptide; SPEC'M 07/11/16 17:07 Test: BRAIN NATRIURETIC PEPTIDE; Value: 94.9; Range: <100; Units: PG/ML; Status: F Lab Order: Basic Metabolic Profile; SPEC'M 07/11/16 17:08 Test: GLUCOSE, FASTING; Value: 92; Range: 83-110; Units: MG/DL; Status: F Test: BLOOD UREA NITROGEN; Value: 32; Range: 7-18; Abnormal: Above high normal; Units: MG/DL; Status: F Test: CREATININE FOR GFR; Value: 2.89; Range: 0.55-1.02; Abnormal: Above high normal; Units: MG/DL; Status: F Test: GLOMERULAR FILTRATION RATE; Value: 16.5; Range: >32; Abnormal: Below low normal; Status: F Test: SODIUM LEVEL; Value: 140; Range: 136-145; Units: MEQ/L; Status: F Test: POTASSIUM SERUM; Value: 4.5; Range: 3.5-5.1; Units: MEQ/L; Status: F Test: CHLORIDE LEVEL; Value: 105; Range: 98-107; Units: MEQ/L; Status: F Test: CARBON DIOXIDE LEVEL; Value: 29; Range: 21-32; Units: MEQ/L; Status: F Test: ANION GAP; Value: 6; Range: 8-16; Abnormal: Below low normal; Units: MEQ/L; Status: F Test: CALCIUM LEVEL; Value: 8.8; Range: 8.8-10.2; Units: MG/DL; Status: F Test Note: ; Units are mL/min/1.73 m2 Chronic Kidney Disease Staging per NKF: Stage I & II GFR >=60 Normal to Mildly Decreased Stage III GFR 30-59 Moderately Decreased Stage IV GFR 15-29 Severely Decreased Stage V GFR <15 Very Little GFR Left ESRD GFR <15 on ARTISTS' BOOKING REPRESENTATIVE Lab Order: CBC with Diff; SPEC'M 07/11/16 17:07 Test: WHITE BLOOD COUNT; Value: 4.8; Range: 4.0-10.0; Units: K/mm3; Status: F Test: RED BLOOD COUNT; Value: 3.06; Range: 4.00-5.40; Abnormal: Below low normal; Units: M/mm3; Status: F Test: HEMOGLOBIN; Value: 9.5; Range: 12.0-16.0; Abnormal: Below low normal; Units: g/dl; Status: F Test: HEMATOCRIT; Value: 29.9; Range: 36.0-47.0; Abnormal: Below low normal; Units: %; Status: F Test: MEAN CORPUSCULAR VOLUME; Value: 97.9; Range: 80.0-96.0; Abnormal: Above high normal; Units: fl; Status: F Test: MEAN CORPUSCULAR HEMOGLOBIN; Value: 31.1; Range: 27.0-33.0; Units: pg; Status: F Test: MEAN CORPUSCULAR HGB CONC; Value: 31.8; Range: 32.0-36.5; Abnormal: Below low normal; Units: g/dl; Status: F Test: RED CELL DISTRIBUTION WIDTH; Value: 15.6; Range: 11.5-14.5; Abnormal: Above high normal; Units: %; Status: F Test: PLATELET COUNT, AUTOMATED; Value: 167; Range: 150-450; Units: k/mm3; Status: F Test: NEUTROPHILS %; Value: 69.5; Range: 36.0-66.0; Abnormal: Above high normal; Units: %; Status: F Test: LYMPH %; Value: 19.3; Range: 24.0-44.0; Abnormal: Below low normal; Units: %; Status: F Test: MONO %; Value: 5.9; Range: 0.0-5.0; Abnormal: Above high normal; Units: %; Status: F Test: EOS %; Value: 2.4; Range: 0.0-3.0; Units: %; Status: F Test: BASO %; Value: 0.2; Range: 0.0-1.0; Units: %; Status: F Test: LARGE UNSTAINED CELL %; Value: 2.7; Range: 0.0-4.0; Units: %; Status: F Test: NEUTROPHILS #; Value: 3.3; Range: 1.8-7.7; Units: K/mm3; Status: F Test: LYMPH #; Value: 0.9; Range: 1.5-4.5; Abnormal: Below low normal; Units: K/mm3; Status: F Test: MONO #; Value: 0.3; Range: 0.0-0.8; Units: K/mm3; Status: F Test: EOS #; Value: 0.1; Range: 0.0-0.50; Units: K/mm3; Status: F Test: BASO #; Value: 0.0; Range: 0.0-0.2; Units: K/mm3; Status: F Test: LARGE UNSTAINED CELL #; Value: 0.1; Range: 0.0-0.4; Units: K/mm3; Status: F Lab Order: Cardiac Injury Profile; SPEC'M 07/11/16 17:08 Test: CPK CREATINE PHOSPHOKINASE; Value: 81; Range: 26-192; Units: U/L; Status: F Test: CK-MB VALUE MASS; Value: 1.6; Range: 0.0-3.6; Units: NG/ML; Status: F Test: MB/CK RELATIVE INDEX; Value: 1.97; Range: < OR =4; Status: F Test Note: ; DIAGNOSIS CRITERIA MMB ng/ml Relative Index (RI) NON-AMI < or = 5 N/A PHILLIPS ZONE > 5 < or = 4 AMI > 5 > 4 Lab Order: Troponin; SPEC'M 07/11/16 17:08 Test: TROPONIN I; Value: 0.02; Range: < 0.10; Units: NG/ML; Status: F Test Note: ; Troponin I Reference Interval for [employer] LOCI: 99th Percentile= 0.00-0.045 ng/ml Risk Stratification: <= 0.10 ng/ml Decreased Risk for Adverse Clinical Events. 0.10-1.50 ng/ml Increased Risk for Adverse Clinical Events. Evaluation of additional criterion and/or repeat testing in 2-6 hours is suggested to rule out myocardial damage. >= 1.50 ng/ml Indicative of Myocardial Injury. Lab Order: MAGNESIUM LEVEL; SPEC'M 07/11/16 17:08 Test: MAGNESIUM LEVEL; Value: 1.6; Range: 1.8-2.4; Abnormal: Below low normal; Units: MG/DL; Status: F Radiology Order: Chest, 1 View Test: Chest, 1 View REASON FOR EXAMINATION: Shortness of Breath; Portable chest x-ray: Upright AP view.; ; History: Shortness of breath.; ; Comparison chest x-ray June 26, 2016.; ; Findings: A bipolar pacemaker is seen in the right heart via the left side as; before. Heart is not enlarged. There are coarse linear densities in both bases; consistent with discoid atelectasis and/or fibrosis. This is similar on the; right and more pronounced on the left when compared with the prior study of; June 26, 2016. Pulmonary vasculature is not increased.; ; Impression:; ; Discoid atelectasis versus fibrosis in both bases. Pacemaker.; ; ; ; ; Unreviewed; Radiology Order: CT Chest Without Contrast Test: CT Chest Without Contrast REASON FOR EXAMINATION: persistent productive cough, COPD; CT CHEST WITHOUT CONTRAST:; ; CT chest is performed without IV contrast. Comparison is made with prior CT; abdomen and pelvis 02/09/[address] chest 03/05/2006.; ; There are scattered interstitial fibrotic changes in the upper lobes bilaterally.; There are more confluent areas of fibro atelectatic change in each lung base.; These appear fairly similar to the prior CT abdomen 02/09/2015. However, there is; mild bronchiectasis in the right middle and lower lobes. There are areas of mild; peribronchial opacity in the right lower lobe which may represent mild; peribronchial infiltrate. No suspicious nodules are seen. There is no pleural or; pericardial effusion. Heart is upper limits of normal in size. There are moderate; arthrosclerotic calcifications of the thoracic aorta without aneurysm.; ; In the visualized portion of the upper abdomen there is small bilateral adrenal; nodules which are stable and representing adenomas. There are bilateral renal; cysts.; ; IMPRESSION:; ; Bilateral interstitial fibrosis and bilateral lower lobe fibro atelectatic; changes. There is right lower lobe bronchiectasis. In the peribronchial regions; of the right lower lobe there are mild ill defined opacities which are not seen; on prior studies. These may represent progressive areas of fibro atelectatic; change or mild peribronchial infiltrate.; ; ; Signed by; Claudy Phillips MD 07/11/2016 07:42 P; Outcome: 19:03 Decision to Hospitalize by Provider. 21:13 Discharge Assessment: Patient awake, alert and oriented x 3. No cognitive and/or jp6 functional deficits noted. Patient verbalized understanding of disposition instructions. patient administered narcotics - no. The following High Risk Discharge criteria are identified: None. Admitted to PCU accompanied by nurse, accompanied by tech, via stretcher, with oxygen, on monitor, with chart. Condition: improved. CT Study completed. Admission hand-off: Report called to Arcelia BLAKE. Property :Personal belongings accompany Pt. 22:19 Patient left the ED. jp6 Signatures: Dispatcher [employer] Luis Benavides MD MD pc Kim-Ashcraft, Connie, RN RN ck1 Jasmin Trujillo RN RN jo3 Frank Stone Aaron, PA-C PA-C ar2 Dorcas Michelle RN RN dsf Strong, Shannon, RN RN sls1 Rosetta Donahue cmb Josseline Lang gr2 Hakan Beasley,RT RT cs15 Abdias Walters RN RN jf3 Lexie RazaRN RN jp6 Corrections: (The following items were deleted from the chart) 18: 17:12 Cardiovascular: Capillary refill < 3 seconds Heart tones S1 S2 present Rhythm is dsf sinus rhythm No ectopy. dsf 18: 18:12 Cardiovascular: Capillary refill < 3 seconds Heart tones S1 S2 present dsf dsf MTDD
[2016-07-11 23:01] VITALS: BP 130/68
[2016-07-11] MEDS: BISOPROLOL FUMARATE 10 MG TAB PO SCH (23:02)
[2016-07-11] MEDS: ATORVASTATIN 10 MG TAB PO SCH (23:02)
[2016-07-11] MEDS: HEPARIN SOD (PORCINE) 5000 UNITS/ML VIAL SC SCH (23:03)
[2016-07-11] MEDS: CLOPIDOGREL 75 MG TAB PO SCH (23:03)
[2016-07-11 23:43] LABS: OSMOLALITY URINE 306 MOSM/KG (500-800)
[2016-07-12] MEDS ORDERED: SLF 3 ML SYR IV PRN
[2016-07-12] MEDS: methylPREDNISolone INJ 125 MG/2 ML VIAL (J2930) IV SCH ×3 (02:19→18:50)
[2016-07-12 04:00] VITALS: BP 167/88
[2016-07-12] MEDS: HEPARIN SOD (PORCINE) 5000 UNITS/ML VIAL SC SCH ×3 (05:18→22:04)
[2016-07-12] MEDS: SLF 3 ML SYR IV SCH ×3 (05:18→22:05)
[2016-07-12 06:00] LABS: EOS % 0.1 % (0.0-3.0); LARGE UNSTAINED CELL % 1.2 % (0.0-4.0); LYMPH # 0.4 K/mm3 (1.5-4.5); LYMPH % 13.1 % (24.0-44.0); MEAN CORPUSCULAR HEMOGLOBIN 30.1 pg (27.0-33.0); MEAN CORPUSCULAR HGB CONC 30.8 g/dl (32.0-36.5); MEAN CORPUSCULAR VOLUME 97.7 fl (80.0-96.0); MONO # 0.1 K/mm3 (0.0-0.8); MONO % 1.6 % (0.0-5.0); NEUTROPHILS # 2.6 K/mm3 (1.8-7.7); PLATELET COUNT, AUTOMATED 167 k/mm3 (150-450); RED CELL DISTRIBUTION WIDTH 15.7 % (11.5-14.5); WHITE BLOOD COUNT 3.1 K/mm3 (4.0-10.0)
[2016-07-12 06:08] LABS: ALBUMIN 2.7 GM/DL (3.2-5.2); ALBUMIN/GLOBULIN RATIO 0.82 (1.00-1.93); BILIRUBIN,TOTAL 0.4 MG/DL (0.2-1.0); CALCIUM LEVEL 8.7 MG/DL (8.8-10.2); CREATININE FOR GFR 2.95 MG/DL (0.55-1.02); GLOMERULAR FILTRATION RATE 16.1 (>32); MAGNESIUM LEVEL 1.6 MG/DL (1.8-2.4); POTASSIUM SERUM 4.5 MEQ/L (3.5-5.1)
[2016-07-12 07:30] VITALS: BP 135/61
[2016-07-12] MEDS: PANTOPRAZOLE 40MG TAB (PROTONIX) PO SCH (09:11)
[2016-07-12] MEDS: SPIRONOLACTONE 25 MG TAB PO SCH (09:11)
[2016-07-12] MEDS: FUROSEMIDE 40 MG TAB PO SCH (09:11)
[2016-07-12] MEDS: ASPIRIN 81 MG ENTERIC TAB PO SCH (09:12)
[2016-07-12] MEDS: guaiFENesin ER 600 MG TAB PO SCH ×2 (09:12→22:04)
[2016-07-12] MEDS: FERROUS SULFATE 325MG TAB PO SCH (09:12)
[2016-07-12] MEDS: MAG SULF 1GM/100ML (MAG RUN) 1 GM in APPROPRIATE DILUENT 1 EA IV SCH ×2 (11:01→12:08)
[2016-07-12 12:00] VITALS: BP 148/70
[2016-07-12] MEDS: IPRATROPIUM 0.5MG/ALBUTEROL 2.5MG INH SOL UD 3ML (DUONEB)(J7620) NEB SCH ×2 (14:00→20:55)
--- NOTE | 2016-07-12 15:38 | IPNPDOC ---
Assessment/Plan Date Seen The patient was seen on 07/12/16. Problems Problems: (1) Chronic respiratory failure with hypoxia Status: Acute Problem Text: * continue breathing treatment * pt was started on levaquin out pt will continue * continue steroids (2) COPD (chronic obstructive pulmonary disease) Status: Chronic (3) Hyperlipidemia Status: Chronic (4) A-fib Status: Chronic (5) CKD (chronic kidney disease), stage III Status: Chronic (6) Diastolic CHF Status: Chronic Plan / VTE VTE Prophylaxis Ordered?: Yes Subjective Review of Systems CC/HPI The patient is a 85-year-old female admitted with a reason for visit of COPD. Constitutional: Denies: Chills, Fever, Malaise, Night Sweats, Weakness Pulmonary: Reports: Cough, Dyspnea Gastrointestinal: Denies: Abdominal Pain, Diarrhea, Nausea, Vomiting Objective Physical Examination General Exam: Positive: Alert, No Acute Distress ENT Exam: Positive: Atraumatic, Mucous membr. moist/pink, Pharynx Normal Chest Exam: Positive: Clear to auscultation, Normal air movement Heart Exam: Positive: Normal S1, Normal S2, Rate Normal, Regular Rhythm, Negative: Murmurs, Rubs Abdomen Exam: Positive: Normal bowel sounds, Soft, Negative: Hepatospenomegaly, Tenderness Extremity Exam: Positive: Normal pulses, Negative: Clubbing, Cyanosis, Edema Vital Signs/I&O Vital Signs Date Time Temp Pulse Resp B/P Pulse Ox O2 Delivery O2 Flow Rate FiO2 07/12/16 12:00 97.2 88 22 148/70 95 Nasal Cannula 2.0 I&O- Last 24 Hours up to 6 AM 07/12/16 06:00 Intake Total 360 ml Output Total 120 ml Balance 240 ml Laboratory Data Labs 24H Laboratory Tests 2 07/11/16 17:07: B-Type Natriuretic Peptide 94.9, White Blood Count 4.8, Red Blood Count 3.06L, Hemoglobin 9.5L, Hematocrit 29.9L, Mean Corpuscular Volume 97.9H, Mean Corpuscular Hemoglobin 31.1, Mean Corpuscular Hemoglobin Concent 31.8L, Red Cell Distribution Width 15.6H, Platelet Count 167, Neutrophils (%) (Auto) 69.5H , Lymphocytes (%) (Auto) 19.3L, Monocytes (%) (Auto) 5.9H, Eosinophils (%) (Auto ) 2.4, Basophils (%) (Auto) 0.2, Neutrophils # (Auto) 3.3, Lymphocytes # (Auto) 0.9L, Monocytes # (Auto) 0.3, Eosinophils # (Auto) 0.1, Basophils # (Auto) 0.0, Large Unclassified Cells # 0.1, Large Unclassified Cells % 2.7 07/11/16 17:08: Anion Gap 6L, Blood Urea Nitrogen 32H, Creatinine 2.89H, Sodium Level 140, Potassium Level 4.5, Chloride Level 105, Carbon Dioxide Level 29, Calcium Level 8.8, Total Creatine Kinase 81, Creatine Kinase MB 1.6, Creatine Kinase MB Relative Index 1.97, Glomerular Filtration Rate 16.5L, Magnesium Level 1.6L, Troponin I 0.02 07/11/16 17:17: Arterial Blood pH 7.442, Arterial Blood Partial Pressure CO2 38.3, Arterial Blood Partial Pressure O2 188.2H, Arterial Blood Total CO2 26.7, Arterial Blood HCO3 25.5, Arterial Blood Base Excess 1.4, Arterial Blood Oxygen Saturation 99.4H, Blood Gas Bicarbonate Standard 25.8, Oxygen Delivery Device NASAL DEL 07/11/16 22:35: Total Creatine Kinase 69, Creatine Kinase MB 2.2, Creatine Kinase MB Relative Index 3.18, Troponin I 0.02 07/11/16 23:25: Urine Amorphous Sediment , Urine Appearance CLOUDYH, Urine Color YELLOW, Urine pH 5.0, Urine Specific [place] 1.010, Urine Protein NEGATIVE, Urine Glucose (UA ) NEGATIVE, Urine Ketones NEGATIVE, Urine Urobilinogen 0.2, Urine Bilirubin NEGATIVE, Urine Leukocyte Esterase 3+H, Urine Bacteria (Auto) 1+H, Urine Blood NEGATIVE, Urine Calcium Carbonate Cryst(Auto) , Urine Calcium Oxalate Cryst ( Auto) , Urine Calcium Phosphate [place] (Auto) , Urine Cellular Casts , Urine Cystine Crystals , Urine Granular Casts (Auto) , Urine Hyaline Casts (Auto) 62, Urine Leucine Crystals , Urine Mucus (Auto) SMALL, Urine Nitrite NEGATIVE, Urine Oval Fat Bodies (Auto) , Urine RBC (Auto) 7H, Urine Random Creatinine 159.0, Urine Random Osmolality 306L, Urine Random Sodium 62, Urine Renal Epithelial Cells , Urine Sperm (Auto) , Urine Squamous Epithelial Cells 10, Urine Transitional Epithelial Cells , Urine Trichomonas (Auto) , Urine Triple Phosphate Cryst (Auto) , Urine Tyrosine Crystals , Urine Uric Acid Crystals ( Auto) , Urine WBC (Auto) 13H, Urine Waxy Casts (Auto) , Urine Yeast-Like Cells ( Auto) 07/12/16 05:34: Blood Urea Nitrogen 37H, Creatinine 2.95H, Sodium Level 141, Potassium Level 4.5 , Chloride Level 104, Carbon Dioxide Level 29, Calcium Level 8.7L, Aspartate Amino Transf (AST/SGOT) 10L, Alanine Aminotransferase (ALT/SGPT) 12, Alkaline Phosphatase 84, Total Bilirubin 0.4, Total Protein 6.0L, Albumin 2.7L, Albumin/ Globulin Ratio 0.82L, Anion Gap 8, White Blood Count 3.1L, Red Blood Count 2.89L , Hemoglobin 8.7L, Hematocrit 28.3L, Mean Corpuscular Volume 97.7H, Mean Corpuscular Hemoglobin 30.1, Mean Corpuscular Hemoglobin Concent 30.8L, Red Cell Distribution Width 15.7H, Platelet Count 167, Neutrophils (%) (Auto) 84.0H , Lymphocytes (%) (Auto) 13.1L, Monocytes (%) (Auto) 1.6, Eosinophils (%) (Auto ) 0.1, Basophils (%) (Auto) 0.0, Neutrophils # (Auto) 2.6, Lymphocytes # (Auto) 0.4L, Monocytes # (Auto) 0.1, Eosinophils # (Auto) 0.0, Basophils # (Auto) 0.0, Creatine Kinase MB 3.7H, Creatine Kinase MB Relative Index 3.81, Glomerular Filtration Rate 16.1L, Large Unclassified Cells # 0.0, Large Unclassified Cells % 1.2, Magnesium Level 1.6L, Total Creatine Kinase 97, Troponin I < 0.02 07/12/16 14:59: CBC/BMP Laboratory Tests 07/11/16 17:07 Red Blood Count 3.06 L, Mean Corpuscular Volume 97.9 H, Mean Corpuscular Hemoglobin 31.1, Mean Corpuscular Hemoglobin Concent 31.8 L, Red Cell Distribution Width 15.6 H, Neutrophils (%) (Auto) 69.5 H, Lymphocytes (%) (Auto ) 19.3 L, Monocytes (%) (Auto) 5.9 H, Eosinophils (%) (Auto) 2.4, Basophils (%) (Auto) 0.2, Neutrophils # (Auto) 3.3, Lymphocytes # (Auto) 0.9 L, Monocytes # ( Auto) 0.3, Eosinophils # (Auto) 0.1, Basophils # (Auto) 0.0 07/11/16 17:08 Calcium Level 8.8, Total Creatine Kinase 81 07/12/16 05:34 Red Blood Count 2.89 L, Mean Corpuscular Volume 97.7 H, Mean Corpuscular Hemoglobin 30.1, Mean Corpuscular Hemoglobin Concent 30.8 L, Red Cell Distribution Width 15.7 H, Neutrophils (%) (Auto) 84.0 H, Lymphocytes (%) (Auto ) 13.1 L, Monocytes (%) (Auto) 1.6, Eosinophils (%) (Auto) 0.1, Basophils (%) ( Auto) 0.0, Neutrophils # (Auto) 2.6, Lymphocytes # (Auto) 0.4 L, Monocytes # ( Auto) 0.1, Eosinophils # (Auto) 0.0, Basophils # (Auto) 0.0, Calcium Level 8.7 L , Aspartate Amino Transf (AST/SGOT) 10 L, Alanine Aminotransferase (ALT/SGPT) 12 , Alkaline Phosphatase 84, Total Bilirubin 0.4, Total Protein 6.0 L, Albumin 2.7 L Microbiology Microbiology 07/11/16 Blood Culture, Received Pending 07/11/16 Blood Culture, Received Pending BRITTA ELLER DO Jul 12, 2016 15:38
[2016-07-12 15:40] VITALS: BP 143/67
[2016-07-12] MEDS: oxyBUTYnin 5 MG TAB PO SCH (15:44)
[2016-07-12 20:00] VITALS: BP 123/56
[2016-07-12] MEDS: ATORVASTATIN 10 MG TAB PO SCH (22:04)
[2016-07-12] MEDS: CLOPIDOGREL 75 MG TAB PO SCH (22:04)
[2016-07-12] MEDS: BISOPROLOL FUMARATE 10 MG TAB PO SCH (22:05)
[2016-07-12 23:59] VITALS: BP 127/58
[2016-07-13] VITALS (9 sets, daily range): BP systolic 117–156; BP diastolic 54–70; O2SAT 88–98
[2016-07-13] MEDS: methylPREDNISolone INJ 125 MG/2 ML VIAL (J2930) IV SCH ×2 (01:16→09:08)
[2016-07-13] MEDS: HEPARIN SOD (PORCINE) 5000 UNITS/ML VIAL SC SCH ×3 (06:45→22:03)
[2016-07-13] MEDS: SLF 3 ML SYR IV SCH ×3 (06:45→22:04)
[2016-07-13] MEDS: LevoFLOXacin 250 MG TABLET PO SCH (06:45)
[2016-07-13 06:46] LABS: EOS % 0.1 % (0.0-3.0); LARGE UNSTAINED CELL # 0.1 K/mm3 (0.0-0.4); LARGE UNSTAINED CELL % 0.7 % (0.0-4.0); LYMPH # 0.5 K/mm3 (1.5-4.5); LYMPH % 7.2 % (24.0-44.0); MEAN CORPUSCULAR HEMOGLOBIN 30.8 pg (27.0-33.0); MEAN CORPUSCULAR HGB CONC 31.6 g/dl (32.0-36.5); MEAN CORPUSCULAR VOLUME 97.4 fl (80.0-96.0); MONO # 0.1 K/mm3 (0.0-0.8); MONO % 1.5 % (0.0-5.0); NEUTROPHILS % 90.5 % (36.0-66.0); PLATELET COUNT, AUTOMATED 169 k/mm3 (150-450); RED CELL DISTRIBUTION WIDTH 15.8 % (11.5-14.5); WHITE BLOOD COUNT 6.6 K/mm3 (4.0-10.0)
[2016-07-13 07:03] LABS: ALBUMIN 2.6 GM/DL (3.2-5.2); ALBUMIN/GLOBULIN RATIO 0.74 (1.00-1.93); BILIRUBIN,TOTAL 0.4 MG/DL (0.2-1.0); CREATININE FOR GFR 2.29 MG/DL (0.55-1.02); GLOMERULAR FILTRATION RATE 21.6 (>32); MAGNESIUM LEVEL 2.2 MG/DL (1.8-2.4); POTASSIUM SERUM 4.1 MEQ/L (3.5-5.1); TOTAL PROTEIN 6.1 GM/DL (6.4-8.2)
[2016-07-13] MEDS: IPRATROPIUM 0.5MG/ALBUTEROL 2.5MG INH SOL UD 3ML (DUONEB)(J7620) NEB SCH ×3 (07:25→20:53)
[2016-07-13] MEDS: oxyBUTYnin 5 MG TAB PO SCH (08:42)
[2016-07-13] MEDS: FUROSEMIDE 40 MG TAB PO SCH (08:42)
[2016-07-13] MEDS: FERROUS SULFATE 325MG TAB PO SCH (08:42)
[2016-07-13] MEDS: PANTOPRAZOLE 40MG TAB (PROTONIX) PO SCH (08:42)
[2016-07-13] MEDS: guaiFENesin ER 600 MG TAB PO SCH ×2 (08:42→22:04)
[2016-07-13] MEDS: ASPIRIN 81 MG ENTERIC TAB PO SCH (08:42)
[2016-07-13] MEDS: SPIRONOLACTONE 25 MG TAB PO SCH (08:42)
--- NOTE | 2016-07-13 08:59 | ECGEPIP ---
Stationary ECG Study [facility] - ED Test Date: 2016-07-11 Pat Name: CHELLY ESPINO Department: Room: - Gender: F [employer]: noa : 1930 Requested By: Luis Prieto Order Number: [id number] Reading MD: Hanna Cardoza Measurements Intervals [place] Rate: 89 P: SC: 0 QRS: -33 QRSD: 75 T: -7 QT: 348 QTc: 425 Interpretive Statements ATRIAL FIBRILLATION MARKED LEFT AXIS DEVIATION NSTTW ABNORMALITY Electronically Signed On 07-13-2016 8:59:15 EST by Hanna Cardoza
[2016-07-13] MEDS ORDERED: PNEUMOCOCCAL VACCINE 0.5ML SYRINGE(90732) PNEUMOVAX 23 IM ONE (09:00)
--- NOTE | 2016-07-13 16:09 | IPNPDOC ---
Assessment/Plan Date Seen The patient was seen on 07/13/16. Problems Problems: (1) Chronic respiratory failure with hypoxia Status: Acute Response to Treatment: Stable, Improving Problem Text: * continue breathing treatment * pt was started on levaquin out pt will continue * continue steroids will decrease dose to 40 bid (2) COPD (chronic obstructive pulmonary disease) Status: Chronic (3) Hyperlipidemia Status: Chronic (4) A-fib Status: Chronic (5) CKD (chronic kidney disease), stage III Status: Chronic (6) Diastolic CHF Status: Chronic Plan / VTE VTE Prophylaxis Ordered?: Yes Subjective Review of Systems CC/HPI The patient is a 85-year-old female admitted with a reason for visit of COPD. Events since last encounter pt seen and examined feels better today Pulmonary: Denies: Cough, Dyspnea Cardiovascular: Denies: Chest Pain, Lt Headedness, Orthopnea, Palpitations, Paroxysmal Noc. Dyspnea Objective Physical Examination General Exam: Positive: Alert, No Acute Distress ENT Exam: Positive: Atraumatic, Mucous membr. moist/pink, Pharynx Normal Chest Exam: Positive: Clear to auscultation, Normal air movement Heart Exam: Positive: Normal S1, Normal S2, Rate Normal, Regular Rhythm, Negative: Murmurs, Rubs Abdomen Exam: Positive: Normal bowel sounds, Soft, Negative: Hepatospenomegaly, Tenderness Extremity Exam: Positive: Normal pulses, Negative: Clubbing, Cyanosis, Edema Vital Signs/I&O Vital Signs Date Time Temp Pulse Resp B/P Pulse Ox O2 Delivery O2 Flow Rate FiO2 07/13/16 14:00 97.5 70 20 123/54 91 Nasal Cannula 2.0 I&O- Last 24 Hours up to 6 AM 07/13/16 06:00 Intake Total 700 ml Output Total 425 ml Balance 275 ml Laboratory Data Labs 24H Laboratory Tests 2 07/13/16 06:26: Blood Urea Nitrogen 46H, Creatinine 2.29H, Sodium Level 142, Potassium Level 4.1 , Chloride Level 104, Carbon Dioxide Level 30, Calcium Level 9.0, Aspartate Amino Transf (AST/SGOT) 14L, Alanine Aminotransferase (ALT/SGPT) 11L, Alkaline Phosphatase 82, Total Bilirubin 0.4, Total Protein 6.1L, Albumin 2.6L, Albumin/ Globulin Ratio 0.74L, Anion Gap 8, White Blood Count 6.6, Red Blood Count 2.75L , Hemoglobin 8.4L, Hematocrit 26.7L, Mean Corpuscular Volume 97.4H, Mean Corpuscular Hemoglobin 30.8, Mean Corpuscular Hemoglobin Concent 31.6L, Red Cell Distribution Width 15.8H, Platelet Count 169, Neutrophils (%) (Auto) 90.5H , Lymphocytes (%) (Auto) 7.2L, Monocytes (%) (Auto) 1.5, Eosinophils (%) (Auto) 0.1, Basophils (%) (Auto) 0.0, Neutrophils # (Auto) 6.0, Lymphocytes # (Auto) 0.5L, Monocytes # (Auto) 0.1, Eosinophils # (Auto) 0.0, Basophils # (Auto) 0.0, Glomerular Filtration Rate 21.6L, Large Unclassified Cells # 0.1, Large Unclassified Cells % 0.7, Magnesium Level 2.2 CBC/BMP Laboratory Tests 07/13/16 06:26 Calcium Level 9.0, Aspartate Amino Transf (AST/SGOT) 14 L, Alanine Aminotransferase (ALT/SGPT) 11 L, Alkaline Phosphatase 82, Total Bilirubin 0.4, Total Protein 6.1 L, Albumin 2.6 L, Red Blood Count 2.75 L, Mean Corpuscular Volume 97.4 H, Mean Corpuscular Hemoglobin 30.8, Mean Corpuscular Hemoglobin Concent 31.6 L, Red Cell Distribution Width 15.8 H, Neutrophils (%) (Auto) 90.5 H, Lymphocytes (%) (Auto) 7.2 L, Monocytes (%) (Auto) 1.5, Eosinophils (%) (Auto ) 0.1, Basophils (%) (Auto) 0.0, Neutrophils # (Auto) 6.0, Lymphocytes # (Auto) 0.5 L, Monocytes # (Auto) 0.1, Eosinophils # (Auto) 0.0, Basophils # (Auto) 0.0 Microbiology Microbiology 07/11/16 Blood Culture - Preliminary, Resulted No growth after 24 hours . All specim... 07/11/16 Blood Culture - Preliminary, Resulted No growth after 24 hours . All specim... BRITTA ELLER DO Jul 13, 2016 16:09
[2016-07-13] MEDS: methylPREDNISolone INJ 40 MG/1 ML VIAL (J2920) IV SCH (22:03)
[2016-07-13] MEDS: ATORVASTATIN 10 MG TAB PO SCH (22:04)
[2016-07-13] MEDS: CLOPIDOGREL 75 MG TAB PO SCH (22:04)
[2016-07-13] MEDS: BISOPROLOL FUMARATE 10 MG TAB PO SCH (22:04)
--- NOTE | 2016-07-13 23:20 | EDDOCDS ---
Nurse's Notes [facility] Name: Cristela Cooper Age: 85 yrs Sex: Female : 1930 Arrival Date: 07/11/2016 Time: 15:49 Bed Admit Hold Private MD: Jose Roberto Graham A. Diagnosis: Chronic obstructive pulmonary disease with (acute) exacerbation;Bronchiectasis with (acute) exacerbation;Acute kidney failure-due Levaquin Presentation: 07/11 15:57 Presenting complaint: Patient states: "I don't feel good. I want to throw up when I jf3 eat. My feets are all swollen up and my pressure was kind of low and my doctor thought I should be seen". Family member states general crampy feeling. Adult Sepsis Screening: The patient does not have new or worsening altered mentation. Patient's respiratory rate is less than 22. Systolic blood pressure is greater than 100. Patient has a qSOFA score of 0- Negative Sepsis Screen. Suicide/Homicide risk assessment- the patient denies having any suicidal and/or homicidal ideations and does not present with any other emotional, behavioral or mental health complaints. 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 Transition of care: patient was received from a primary care office; Dr Graham. 15:57 Acuity: TONY Level 4 jf3 15:57 Method Of Arrival: Walkin/Carried/Asstd jf3 16:30 Acuity level changed due to complexity of care. ck1 16:30 Acuity: TONY Level 3 ck1 Triage Assessment: 16:10 General: Appears in no apparent distress, comfortable, Behavior is cooperative. Pain: jf3 Location: head Pain currently is 5 out of 10 on a pain scale. Respiratory: Airway is patent Respiratory effort is even, unlabored, Respiratory pattern is regular, symmetrical. Historical: - Allergies: Codeine Sulfate ("can't breathe"); Coumadin; Hydrocodone-Acetaminophen; Macrobid (Unknown); Narcotics ("can't breathe"); Vicodin (Unknown); - Home Meds: 1. allopurinol 100 mg Oral tab 2 tabs once daily (Last dose: 07/11/2016 08:00) 2. aspirin 81 mg Oral chew 1 tab once daily (Last dose: 07/11/2016 08:00) 3. atorvastatin 10 mg oral tab 1 tab once daily (Last dose: 07/11/2016 08:00) 4. bisoprolol fumarate 5 mg oral tab 1 tab once daily (Last dose: 07/11/2016 08:00) 5. ferrous sulfate 325 mg (65 mg iron) Oral cpER daily (Last dose: 07/11/2016 08:00) 6. Lasix 40 mg Oral tab 1 tab once daily (Last dose: 07/11/2016 08:00) 7. losartan 100 mg oral tab 1 tab once daily (Last dose: 07/11/2016 08:00) 8. NitroQuick SL 0.4 mg as needed 9. oxybutynin chloride 5 mg Oral tab 1 tab once daily ran out (Last dose: Unknown) 10. Oxygen 2 L at night 11. Plavix 75 mg Oral tab 1 tab nightly (Last dose: 07/10/2016) 12. spironolactone 25 mg Oral tab 1 tab once daily (Last dose: 07/11/2016 08:00) 13. Ampicillin Oral 14. levofloxacin 500 mg Oral tab 1 tab once daily (Last dose: 07/11/2016 08:00) - PMHx: Chronic Back pain; Chronic Renal Failure w/o Dialysis; COPD; Hypercholesterolemia; Hypertension; Myocardial infarction; Sleep Apnea w/ CPAP; Atrial Fib; Nonsustained Ventricular Tachycardia; - PSHx: Pacemaker Insertion; Adenoidectomy; Hysterectomy; back surgery; Unkown abdomen surgery; Tonsillectomy; - The history from nurses notes was reviewed: and elements of the historical information I have obtained differs from that reported to nursing. - Social history: Smoking status: Patient states former smoker of tobacco. No barriers to communication noted, The patient speaks fluent Afghan. - : The pt / caregiver states he / she is on anticoagulants: Plavix. Home medication list is obtained from the patient, family members. - Hospitalizations: : The patient was recently seen at [facility]. - Exposure Risk Screening:: None identified. - Immunization history:: All immunizations up-to-date. - Family history: Not pertinent. - Social history:: the patient is a former smoker, the patient does not drink alcohol. Screenin:15 Screening information is obtained from the patient. Fall risk: No risks identified. jp6 Assistance ADL's: requires no assistance with activities of daily living. Abuse/DV Screen: The patient / caregiver reports he/she is: not in a situation that causes fear, pain or injury. Nutritional screening: No deficits noted. home support is adequate. 21:13 Advance Directives: Currently, there is a health care proxy, Sariah. There is jp6 an active DNR order but there is no copy available at this time. There is no living will. Assessment: 17:12 Adult Sepsis Screening: The patient does not have new or worsening altered mentation. dsf Patient's respiratory rate is less than 22. Systolic blood pressure is greater than 100. Patient has a qSOFA score of 0- Negative Sepsis Screen. General: Appears slight distress. Behavior is appropriate for age, cooperative. Pain: Denies pain. Neurological: Level of Consciousness is awake, alert, Oriented to person, place, time. Cardiovascular: Capillary refill < 3 seconds Heart tones S1 S2 present Rhythm is atrial fibrillation. Respiratory: Airway is patent Respiratory effort is SOB with movement Respiratory pattern is regular, Breath sounds are coarse expiratory bilaterally. Breath sounds with wheezes expiratory bilaterally. GI: Abdomen is non- distended Bowel sounds present X 4 quads. Abd is soft and non tender X 4 quads. Derm: Skin is pink, warm & dry. 18:12 General: Appears in no apparent distress, Behavior is appropriate for age, cooperative. dsf Pain: Denies pain. Neurological: Level of Consciousness is awake, alert. Cardiovascular: Capillary refill < 3 seconds Heart tones S1 S2 present Rhythm is atrial fibrillation. Respiratory: Airway is patent Respiratory effort is unlabored, Respiratory pattern is regular, Breath sounds with wheezes expiratory bilaterally. GI: Abdomen is non- distended. Derm: Skin is pink, warm & dry. 18:46 General: Dr. Lacy in room examining patient . dsf 20:16 Reassessment: Patient appears in no apparent distress at this time. General: Appears in jp6 no apparent distress, comfortable, well developed, well nourished, Behavior is appropriate for age, cooperative. Pain: Denies pain. Neurological: Level of Consciousness is awake, alert, Oriented to person, place, time. EENT: No deficits noted. Cardiovascular: Capillary refill < 3 seconds Heart tones S1 S2 present Rhythm is atrial fibrillation. Respiratory: Airway is patent Respiratory effort is even, unlabored, Respiratory pattern is regular, symmetrical, Breath sounds are coarse Breath sounds with wheezes expiratory bilaterally. GI: Abdomen is non- distended Bowel sounds present X 4 quads. Abd is soft and non tender X 4 quads. : No deficits noted. Derm: Skin is pink, warm & dry. Musculoskeletal: No deficits noted. 20:59 Reassessment: Patient appears in no apparent distress at this time. General: Appears in jp6 no apparent distress, Behavior is appropriate for age, cooperative. Pain: Denies pain. Neurological: Level of Consciousness is awake, alert, Oriented to person, place, time. Respiratory: Airway is patent Respiratory effort is even, unlabored, Respiratory pattern is regular, symmetrical. Derm: Skin is pink, warm & dry. Vital Signs: 15:51 BP 103 / 63; Pulse 98; Resp 18 S; Temp 97.6(O); Pulse Ox 91% on R/A; Weight 75.75 kg gr2 (R); Height 5 ft. 1 in. (154.94 cm) (R); Pain 4/10; 16:36 BP 132 / 60 (auto/); dsf 16:37 Pulse 92 MON; Pulse Ox 86% ; dsf 16:42 Pulse 104 MON; Pulse Ox 91% ; dsf 18:12 BP 149 / 65 (auto/); dsf 18:12 Pulse 130 MON; Pulse Ox 92% ; dsf 19:27 BP 178 / 71 (auto/); jp6 19:27 Pulse 102 MON; Pulse Ox 93% ; jp6 19:42 BP 152 / 67 (auto/); jp6 19:43 Pulse 100 MON; Pulse Ox 92% ; jp6 19:57 BP 187 / 68 (auto/); jp6 19:58 Pulse 96 MON; Pulse Ox 93% ; jp6 20:12 BP 143 / 64 (auto/); jp6 20:15 Pulse 104 MON; Pulse Ox 94% ; jp6 20:27 BP 107 / 52 (auto/); jp6 20:27 Pulse 94 MON; Pulse Ox 93% ; jp6 20:42 BP 118 / 57 (auto/); jp6 20:43 Pulse 94 MON; Pulse Ox 92% ; jp6 20:57 BP 113 / 56 (auto/); jp6 20:58 Pulse 100 MON; Pulse Ox 91% ; jp6 21:12 BP 123 / 94 (auto/); jp6 21:13 Pulse 100 MON; Pulse Ox 93% ; jp6 21:27 BP 121 / 91 (auto/); jp6 21:28 Pulse 96 MON; Pulse Ox 91% ; jp6 21:49 Pulse 90 MON; Pulse Ox 94% ; jp6 21:57 BP 130 / 61 (auto/); jp6 22:02 Pulse 96 MON; Pulse Ox 93% ; jp6 22:12 BP 160 / 81 (auto/); jp6 22:13 Pulse 96 MON; Pulse Ox 94% ; jp6 15:51 Body Mass Index 31.55 (75.75 kg, 154.94 cm) gr2 16:37 pt placed on 2 L NC dsf Vitals: 15:51 Log In Time: July 11, 2016 at 15:51. gr2 ED Course: 15:51 Patient visited by Josseline Lang. gr2 15:51 Jose Roberto Graham is Private Physician. gr2 15:51 Patient moved to Waiting gr2 15:52 Patient visited by Josseline Lang. gr2 15:52 Patient moved to Pre RCE gr2 15:59 Triage Initiated jf3 16:19 Patient moved to Triage 3 jo3 16:23 [facility] ar2 16:24 Luis Mantilla MD is Attending Physician. ar2 16:24 Patient visited by Kyle Hogan PA-C. ar2 16:30 Patient moved to 15 ck1 16:30 The patient / caregiver is instructed regarding the plan of care and ED course. Patient dsf has correct armband on for positive identification. Placed in gown. Bed in low position. Call light in reach. Side rails up X2. monitor worker on. Pulse ox on. NIBP on. 16:31 Luis Mantilla MD is Attending Physician. pc 17:10 -Blood Culture Sent. dsf 17:10 B-Type Natiuretic Peptide Sent. dsf 17:10 Basic Metabolic Profile Sent. dsf 17:10 CBC with Diff Sent. dsf 17:10 Cardiac Injury Profile Sent. dsf 17:10 Troponin Sent. dsf 17:11 Inserted saline lock: 20 gauge in left antecubital area The patient tolerated the dsf procedure well. O2 via nasal cannula \\T\\ 2L/min. 17:14 Patient visited by Dorcas Michelle RN. dsf 17:19 -Arterial Blood Gas Sent. cs15 17:20 EKG done. (by ED staff). Reviewed by Luis Mantilla MD. cmb 17:24 Patient visited by Rosetta Donahue. cmb 17:27 Patient visited by Rosetta Donahue. cmb 17:27 BLOOD CULTURES Sent. cmb 18:11 [facility] Payment Agreement was scanned into [employer] and attached to record. zo 18:18 Chest, 1 View Returned. EDMS 18:21 Patient visited by Dorcas Michelle RN. dsf 19:03 Zeb Lacy is Hospitalizing Provider. pc 19:04 Lexie Raza,RN is Primary Nurse. jp6 19:04 Patient visited by Lexie Raza,HAYDEN. jp6 19:22 CT Chest Without Contrast Returned. EDMS 20:22 Patient moved to Admit Hold sls1 20:27 No procedures done that require assistance. jp6 02/ 09:59 ECG/EKG was scanned into [employer] and attached to record. gb 10:00 Trend VS was scanned into [employer] and attached to record. gb Administered Medications: 07/11 17:10 Drug: Albuterol-Ipratropium 1 neb [ipratropium-albuterol 0.5 mg-3 mg(2.5 mg base)/3 mL cs15 nebulization soln (1 neb)] Route: Nebulizer; 17:18 Drug: Solu-MEDROL 125 mg [Solu-Medrol 500 mg intravenous solution (125 mg)] Route: IVP; dsf Site: left antecubital; 17:25 Drug: Albuterol-Ipratropium 1 neb [ipratropium-albuterol 0.5 mg-3 mg(2.5 mg base)/3 mL cs15 nebulization soln (1 neb)] Route: Nebulizer; 17:44 Drug: Albuterol-Ipratropium 1 neb [ipratropium-albuterol 0.5 mg-3 mg(2.5 mg base)/3 mL cs15 nebulization soln (1 neb)] Route: Nebulizer; Attachments: 10:00 Trend VS gb RT: 07/11 17:19 ABG's drawn from left radial artery allens test done and positive pressure held for 5 cs15 minutes no bleeding noted pressure bandage applied specimen sent pt. tolerated well. Initial Med Neb Given as ordered. Respiratory: Respiratory effort is unlabored, Respiratory pattern is regular Sputum is thick yellow Breath sounds with crackles in left posterior upper lobe and left posterior lower lobe Breath sounds are diminished bilaterally. 17:24 O2 via nasal cannula \\T\\ 2L/min O2 via 10 L during ABG. cs15 17:44 Respiratory: Breath sounds with crackles in left posterior lower lobe Breath sounds cs15 with wheezes in right posterior lower lobe at expiration. Order Results: Lab Order: -Arterial Blood Gas; SPEC'07/11/16 17:17 Test: ABG pH (ARTERIAL); Value: 7.442; Range: 7.350-7.450; Units: UNITS; Status: F Test: ABG PARTIAL PRESSURE CO2; Value: 38.3; Range: 35.0-45.0; Units: mmHg; Status: F Test: ABG PARTIAL PRESSURE O2; Value: 188.2; Range: 75.0-100.0; Abnormal: Above high normal; Units: mmHg; Status: F Test: ABG TOTAL CO2; Value: 26.7; Range: 23.0-31.0; Units: MEQ/L; Status: F Test: ABG HCO3; Value: 25.5; Range: 22.0-26.0; Units: MEQ/L; Status: F Test: ABG BASE EXCESS; Value: 1.4; Range: -2.0-2.0; Status: F Test: ABG STANDARD HCO3; Value: 25.8; Range: 22.0-26.0; Units: MEQ/L; Status: F Test: ABG O2 SATURATION; Value: 99.4; Range: 95.0-99.0; Abnormal: Above high normal; Units: %; Status: F Test: ABG DEVICE; Value: NASAL DEL; Status: F Lab Order: B-Type Natiuretic Peptide; SPEC07/11/16 17:07 Test: BRAIN NATRIURETIC PEPTIDE; Value: 94.9; Range: <100; Units: PG/ML; Status: F Lab Order: Basic Metabolic Profile; SPEC'07/11/16 17:08 Test: GLUCOSE, FASTING; Value: 92; Range: 83-110; Units: MG/DL; Status: F Test: BLOOD UREA NITROGEN; Value: 32; Range: 7-18; Abnormal: Above high normal; Units: MG/DL; Status: F Test: CREATININE FOR GFR; Value: 2.89; Range: 0.55-1.02; Abnormal: Above high normal; Units: MG/DL; Status: F Test: GLOMERULAR FILTRATION RATE; Value: 16.5; Range: >32; Abnormal: Below low normal; Status: F Test: SODIUM LEVEL; Value: 140; Range: 136-145; Units: MEQ/L; Status: F Test: POTASSIUM SERUM; Value: 4.5; Range: 3.5-5.1; Units: MEQ/L; Status: F Test: CHLORIDE LEVEL; Value: 105; Range: 98-107; Units: MEQ/L; Status: F Test: CARBON DIOXIDE LEVEL; Value: 29; Range: 21-32; Units: MEQ/L; Status: F Test: ANION GAP; Value: 6; Range: 8-16; Abnormal: Below low normal; Units: MEQ/L; Status: F Test: CALCIUM LEVEL; Value: 8.8; Range: 8.8-10.2; Units: MG/DL; Status: F Test Note: ; Units are mL/min/1.73 m2 Chronic Kidney Disease Staging per NKF: Stage I & II GFR >=60 Normal to Mildly Decreased Stage III GFR 30-59 Moderately Decreased Stage IV GFR 15-29 Severely Decreased Stage V GFR <15 Very Little GFR Left ESRD GFR <15 on IDE[employer] WORKER Lab Order: CBC with Diff; SPEC'M 07/11/16 17:07 Test: WHITE BLOOD COUNT; Value: 4.8; Range: 4.0-10.0; Units: K/mm3; Status: F Test: RED BLOOD COUNT; Value: 3.06; Range: 4.00-5.40; Abnormal: Below low normal; Units: M/mm3; Status: F Test: HEMOGLOBIN; Value: 9.5; Range: 12.0-16.0; Abnormal: Below low normal; Units: g/dl; Status: F Test: HEMATOCRIT; Value: 29.9; Range: 36.0-47.0; Abnormal: Below low normal; Units: %; Status: F Test: MEAN CORPUSCULAR VOLUME; Value: 97.9; Range: 80.0-96.0; Abnormal: Above high normal; Units: fl; Status: F Test: MEAN CORPUSCULAR HEMOGLOBIN; Value: 31.1; Range: 27.0-33.0; Units: pg; Status: F Test: MEAN CORPUSCULAR HGB CONC; Value: 31.8; Range: 32.0-36.5; Abnormal: Below low normal; Units: g/dl; Status: F Test: RED CELL DISTRIBUTION WIDTH; Value: 15.6; Range: 11.5-14.5; Abnormal: Above high normal; Units: %; Status: F Test: PLATELET COUNT, AUTOMATED; Value: 167; Range: 150-450; Units: k/mm3; Status: F Test: NEUTROPHILS %; Value: 69.5; Range: 36.0-66.0; Abnormal: Above high normal; Units: %; Status: F Test: LYMPH %; Value: 19.3; Range: 24.0-44.0; Abnormal: Below low normal; Units: %; Status: F Test: MONO %; Value: 5.9; Range: 0.0-5.0; Abnormal: Above high normal; Units: %; Status: F Test: EOS %; Value: 2.4; Range: 0.0-3.0; Units: %; Status: F Test: BASO %; Value: 0.2; Range: 0.0-1.0; Units: %; Status: F Test: LARGE UNSTAINED CELL %; Value: 2.7; Range: 0.0-4.0; Units: %; Status: F Test: NEUTROPHILS #; Value: 3.3; Range: 1.8-7.7; Units: K/mm3; Status: F Test: LYMPH #; Value: 0.9; Range: 1.5-4.5; Abnormal: Below low normal; Units: K/mm3; Status: F Test: MONO #; Value: 0.3; Range: 0.0-0.8; Units: K/mm3; Status: F Test: EOS #; Value: 0.1; Range: 0.0-0.50; Units: K/mm3; Status: F Test: BASO #; Value: 0.0; Range: 0.0-0.2; Units: K/mm3; Status: F Test: LARGE UNSTAINED CELL #; Value: 0.1; Range: 0.0-0.4; Units: K/mm3; Status: F Lab Order: Cardiac Injury Profile; SPEC'M 07/11/16 17:08 Test: CPK CREATINE PHOSPHOKINASE; Value: 81; Range: 26-192; Units: U/L; Status: F Test: CK-MB VALUE MASS; Value: 1.6; Range: 0.0-3.6; Units: NG/ML; Status: F Test: MB/CK RELATIVE INDEX; Value: 1.97; Range: < OR =4; Status: F Test Note: ; DIAGNOSIS CRITERIA MMB ng/ml Relative Index (RI) NON-AMI < or = 5 N/A PHILLIPS ZONE > 5 < or = 4 AMI > 5 > 4 Lab Order: Troponin; SPEC'M 07/11/16 17:08 Test: TROPONIN I; Value: 0.02; Range: < 0.10; Units: NG/ML; Status: F Test Note: ; Troponin I Reference Interval for [employer] LOCI: 99th Percentile= 0.00-0.045 ng/ml Risk Stratification: <= 0.10 ng/ml Decreased Risk for Adverse Clinical Events. 0.10-1.50 ng/ml Increased Risk for Adverse Clinical Events. Evaluation of additional criterion and/or repeat testing in 2-6 hours is suggested to rule out myocardial damage. >= 1.50 ng/ml Indicative of Myocardial Injury. Lab Order: MAGNESIUM LEVEL; SPEC'M 07/11/16 17:08 Test: MAGNESIUM LEVEL; Value: 1.6; Range: 1.8-2.4; Abnormal: Below low normal; Units: MG/DL; Status: F Radiology Order: Chest, 1 View Test: Chest, 1 View REASON FOR EXAMINATION: Shortness of Breath; Portable chest x-ray: Upright AP view.; ; History: Shortness of breath.; ; Comparison chest x-ray June 26, 2016.; ; Findings: A bipolar pacemaker is seen in the right heart via the left side as; before. Heart is not enlarged. There are coarse linear densities in both bases; consistent with discoid atelectasis and/or fibrosis. This is similar on the; right and more pronounced on the left when compared with the prior study of; June 26, 2016. Pulmonary vasculature is not increased.; ; Impression:; ; Discoid atelectasis versus fibrosis in both bases. Pacemaker.; ; ; ; ; Unreviewed; Radiology Order: CT Chest Without Contrast Test: CT Chest Without Contrast REASON FOR EXAMINATION: persistent productive cough, COPD; CT CHEST WITHOUT CONTRAST:; ; CT chest is performed without IV contrast. Comparison is made with prior CT; abdomen and pelvis 02/09/[address] chest 03/05/2006.; ; There are scattered interstitial fibrotic changes in the upper lobes bilaterally.; There are more confluent areas of fibro atelectatic change in each lung base.; These appear fairly similar to the prior CT abdomen 02/09/2015. However, there is; mild bronchiectasis in the right middle and lower lobes. There are areas of mild; peribronchial opacity in the right lower lobe which may represent mild; peribronchial infiltrate. No suspicious nodules are seen. There is no pleural or; pericardial effusion. Heart is upper limits of normal in size. There are moderate; arthrosclerotic calcifications of the thoracic aorta without aneurysm.; ; In the visualized portion of the upper abdomen there is small bilateral adrenal; nodules which are stable and representing adenomas. There are bilateral renal; cysts.; ; IMPRESSION:; ; Bilateral interstitial fibrosis and bilateral lower lobe fibro atelectatic; changes. There is right lower lobe bronchiectasis. In the peribronchial regions; of the right lower lobe there are mild ill defined opacities which are not seen; on prior studies. These may represent progressive areas of fibro atelectatic; change or mild peribronchial infiltrate.; ; ; Signed by; Claudy Phillips MD 07/11/2016 07:42 P; Outcome: 19:03 Decision to Hospitalize by Provider. 21:13 Discharge Assessment: Patient awake, alert and oriented x 3. No cognitive and/or jp6 functional deficits noted. Patient verbalized understanding of disposition instructions. patient administered narcotics - no. The following High Risk Discharge criteria are identified: None. Admitted to PCU accompanied by nurse, accompanied by tech, via stretcher, with oxygen, on monitor, with chart. Condition: improved. CT Study completed. Admission hand-off: Report called to Arcelia BLAKE. Property :Personal belongings accompany Pt. 22:19 Patient left the ED. jp6 Signatures: Dispatcher [employer] EDNE Luis Mantilla MD MD pc Barnhardt, Gloria, Reg Reg gb Abby,Zenaida,RN RN ck1 Jasmin Trujillo,RN RN jo3 Frank Stone Aaron, PA-C PA-C ar2 Dorcas Michelle,RN RN dsf Astrid Huber, RN RN sls1 Rosetta Donahue cmb Rickey, Josseline gr2 Hakan Beasley,RT RT cs15 Abdias WaltersRN RN jf3 Lexie Raza,RN RN jp6 Corrections: (The following items were deleted from the chart) 18: 17:12 Cardiovascular: Capillary refill < 3 seconds Heart tones S1 S2 present Rhythm is dsf sinus rhythm No ectopy. dsf 18:22 18:12 Cardiovascular: Capillary refill < 3 seconds Heart tones S1 S2 present dsf dsf Chart Complete MTDD
--- NOTE | 2016-07-13 23:20 | EDDOCDS ---
Physician Documentation [facility] Name: Cristela Cooper Age: 85 yrs Sex: Female : 1930 Arrival Date: 07/11/2016 Time: 15:49 Bed Admit Hold Private MD: Jose Roberto Graham A. Disposition: 07/11 19:00 Critical Care: Critical care not applicable. pc Disposition: 07/11/16 19:03 Hospitalization ordered by Zeb Lacy for Inpatient Admission. Preliminary diagnosis are Chronic obstructive pulmonary disease with (acute) exacerbation, Bronchiectasis with (acute) exacerbation, Acute kidney failure - due Levaquin. - Bed requested for PCU. - Status is Inpatient Admission. jp6 - Condition is Stable. - Problem is new. - Symptoms have improved. HPI: 16:57 This 85 yrs old Female presents to ER via Walkin/Carried/Asstd with pc complaints of Cold Symptoms. 16:57 The history is obtained from the patient, the patient's family/friend. The patient pc presents with shortness of breath, with a prior history of COPD. The symptoms began She was admitted twice in mid-June for COPD exacerbations, with only a viral etiology found by Resp. panel. She has been home for a week, has continued to have an occasionally productive cough but is coughing a lot. Her PCP placed her on Levaquin last week "because Dr. Ferro's office refused to" and she is no better. She went his office today and he sent her here for admission "she is NOT going home" per her family. She has not had any fevers or chills. She has swollen feet but admits to not taking her Lasix regularly. She also does not use her CPAP for her sleep apnea. Historical: - Allergies: Codeine Sulfate ("can't breathe"); Coumadin; Hydrocodone-Acetaminophen; Macrobid (Unknown); Narcotics ("can't breathe"); Vicodin (Unknown); - Home Meds: 1. allopurinol 100 mg Oral tab 2 tabs once daily (Last dose: 07/11/2016 08:00) 2. aspirin 81 mg Oral chew 1 tab once daily (Last dose: 07/11/2016 08:00) 3. atorvastatin 10 mg oral tab 1 tab once daily (Last dose: 07/11/2016 08:00) 4. bisoprolol fumarate 5 mg oral tab 1 tab once daily (Last dose: 07/11/2016 08:00) 5. ferrous sulfate 325 mg (65 mg iron) Oral cpER daily (Last dose: 07/11/2016 08:00) 6. Lasix 40 mg Oral tab 1 tab once daily (Last dose: 07/11/2016 08:00) 7. losartan 100 mg oral tab 1 tab once daily (Last dose: 07/11/2016 08:00) 8. NitroQuick SL 0.4 mg as needed 9. oxybutynin chloride 5 mg Oral tab 1 tab once daily ran out (Last dose: Unknown) 10. Oxygen 2 L at night 11. Plavix 75 mg Oral tab 1 tab nightly (Last dose: 07/10/2016) 12. spironolactone 25 mg Oral tab 1 tab once daily (Last dose: 07/11/2016 08:00) 13. Ampicillin Oral 14. levofloxacin 500 mg Oral tab 1 tab once daily (Last dose: 07/11/2016 08:00) - PMHx: Chronic Back pain; Chronic Renal Failure w/o Dialysis; COPD; Hypercholesterolemia; Hypertension; Myocardial infarction; Sleep Apnea w/ CPAP; Atrial Fib; Nonsustained Ventricular Tachycardia; - PSHx: Pacemaker Insertion; Adenoidectomy; Hysterectomy; back surgery; Unkown abdomen surgery; Tonsillectomy; - The history from nurses notes was reviewed: and elements of the historical information I have obtained differs from that reported to nursing. - Social history: Smoking status: Patient states former smoker of tobacco. No barriers to communication noted, The patient speaks fluent Greek. - : The pt / caregiver states he / she is on anticoagulants: Plavix. Home medication list is obtained from the patient, family members. - Hospitalizations: : The patient was recently seen at [facility]. - Exposure Risk Screening:: None identified. - Immunization history:: All immunizations up-to-date. - Family history: Not pertinent. - Social history:: the patient is a former smoker, the patient does not drink alcohol. ROS: 17:01 All systems are negative except as listed. The gastrointestinal and genitourinary pc components are also addressed in the HPI. Exam: 17:01 General Appearance: alert, the patient is in mild distress, anxious. pc 17:01 EENT: normal eye inspection, ears, nose and throat normal, pharynx normal, mucous membranes moist 17:01 Neck: normal inspection. 17:01 Respiratory: no pleuritic chest pain, speaks in full sentences, the patient is in mild respiratory distress, auscultation reveals wheezes, diffusely, decreased air entry noted left posterior lower lobe and right posterior lower lobe. PO 91% on 2L. 17:01 Cardiovascular: normal heart rate, normal rhythm, no jugular venous distension appreciated, no murmurs, no gallop. 17:01 Abdomen: non-tender, non-distended, no organomegaly. 17:01 Skin: normal color, warm, dry. 17:01 Extremities: non-tender, normal range of motion of all joints, pedal edema is present and is 3 +. 17:01 Neuro: alert, oriented to person, place and time, cranial nerves normal as tested, no motor deficits, no sensory deficits. 17:01 Psych: normal mood. Vital Signs: 15:51 BP 103 / 63; Pulse 98; Resp 18 S; Temp 97.6(O); Pulse Ox 91% on R/A; Weight 75.75 kg / gr2 167 lbs (R); Height 5 ft. 1 in. (154.94 cm) (R); Pain 4/10; 16:36 BP 132 / 60 (auto/); dsf 16:37 Pulse 92 MON; Pulse Ox 86% ; dsf 16:42 Pulse 104 MON; Pulse Ox 91% ; dsf 18:12 BP 149 / 65 (auto/); dsf 18:12 Pulse 130 MON; Pulse Ox 92% ; dsf 19:27 BP 178 / 71 (auto/); jp6 19:27 Pulse 102 MON; Pulse Ox 93% ; jp6 19:42 BP 152 / 67 (auto/); jp6 19:43 Pulse 100 MON; Pulse Ox 92% ; jp6 19:57 BP 187 / 68 (auto/); jp6 19:58 Pulse 96 MON; Pulse Ox 93% ; jp6 20:12 BP 143 / 64 (auto/); jp6 20:15 Pulse 104 MON; Pulse Ox 94% ; jp6 20:27 BP 107 / 52 (auto/); jp6 20:27 Pulse 94 MON; Pulse Ox 93% ; jp6 20:42 BP 118 / 57 (auto/); jp6 20:43 Pulse 94 MON; Pulse Ox 92% ; jp6 20:57 BP 113 / 56 (auto/); jp6 20:58 Pulse 100 MON; Pulse Ox 91% ; jp6 21:12 BP 123 / 94 (auto/); jp6 21:13 Pulse 100 MON; Pulse Ox 93% ; jp6 21:27 BP 121 / 91 (auto/); jp6 21:28 Pulse 96 MON; Pulse Ox 91% ; jp6 21:49 Pulse 90 MON; Pulse Ox 94% ; jp6 21:57 BP 130 / 61 (auto/); jp6 22:02 Pulse 96 MON; Pulse Ox 93% ; jp6 22:12 BP 160 / 81 (auto/); jp6 22:13 Pulse 96 MON; Pulse Ox 94% ; jp6 15:51 Body Mass Index 31.55 (75.75 kg, 154.94 cm) gr2 16:37 pt placed on 2 L NC dsf MDM: 16:56 Solu-MEDROL 125 mg IVP once ordered. pc 16:56 -Blood Culture (Adults Only), peripheral from different site, or from device/port/PICC pc etc. if present ordered. 16:56 Call Respiratory ordered. pc 16:56 Instrumentation Engineering Technician/Pulse Ox/q 15 min VS ordered. pc 16:56 IV Saline Lock ordered. pc 16:56 Oxygen at 4L/Min NC or Home dosage ordered. pc 16:56 Rhythm Strip to chart ordered. pc 16:56 Albuterol-Ipratropium 1 neb Nebulizer every 20 minutes x3 ordered. pc 16:57 Chest, 1 View Ordered. EDMS 16:57 -Arterial Blood Gas Ordered. EDMS 16:57 -Blood Culture Ordered. EDMS 16:57 B-Type Natiuretic Peptide Ordered. EDMS 16:57 Basic Metabolic Profile Ordered. EDMS 16:57 CBC with Diff Ordered. EDMS 16:57 Cardiac Injury Profile Ordered. EDMS 16:57 Troponin Ordered. EDMS 16:57 ECG WITH READING ER PHYS+CARDIAG ordered. EDMS 17:01 Differential diagnosis: Anxiety Reaction CHF, Chronic Obstructive Pulmonary Disease pc pneumonia. Plan: labs, meds, imaging, EKG. 17:10 -Blood Culture (Adults Only), peripheral from different site, or from device/port/PICC lbd etc. if present complete. 17:10 Call Respiratory complete. lbd 17:16 BLOOD CULTURES Ordered. EDMS 17:24 Test interpretation: EKG. pc 17:35 -Arterial Blood Gas Reviewed. pc 17:35 CBC with Diff Reviewed. pc 17:37 CT Chest Without Contrast Ordered. EDMS 18:10 Financial registration complete. zo 18:11 [facility] Payment Agreement was scanned into Laser View and attached to record. zo 18:25 Basic Metabolic Profile Reviewed. pc 18:25 B-Type Natiuretic Peptide Reviewed. pc 18:25 Cardiac Injury Profile Reviewed. pc 18:25 Troponin Reviewed. pc 18:25 Chest, 1 View Reviewed. pc 19:00 Data reviewed: old medical records, vital signs, nurses notes, lab test results, all pc radiology studies and available results. Data reviewed: EKG(s). Test interpretation: LAB - all labs as ordered have been reviewed, interpreted and considered in the overall management of the clinical presentation; Arterial blood gas is normal except. pO2: 188 X-RAY - interpreted by Radiologist and personally reviewed, 1 view chest chronic obstructive pulmonary disease pattern, interpreted by Radiologist and personally reviewed, Chest CT; COPD. The patient has been re-examined and re-evaluated. The patient's symptoms have mildly improved after treatment. Physician consultation: Dr. Zeb Lacy regarding admission. Disposition: The historical points, examination findings, and any diagnostic results supporting the provided diagnosis, were discussed with the patient or legal guardian. The need for further work-up and/or treatment in the hospital was explained. 19:25 Admission / Observation Status ordered. EDMS 19:25 2 GRAM SODIUM DIET ordered. EDMS 19:26 URINALYSIS Ordered. EDMS 19:26 SODIUM,RANDOM URINE Ordered. EDMS 19:26 CREATININE,RANDOM URINE Ordered. EDMS 19:26 OSMOLALITY,URINE Ordered. EDMS 19:32 CARDIAC INJURY PROFILE Ordered. EDMS 19:32 TROPONIN Ordered. EDMS 19:33 CBC WITH DIFFERENTIAL Ordered. EDMS 19:33 COMPLETE COMPHRENSIVE METABOLI Ordered. EDMS 19:33 MAGNESIUM LEVEL Ordered. EDMS 19:33 CARDIAC INJURY PROFILE Ordered. EDMS 19:34 CARDIAC INJURY PROFILE Ordered. EDMS 19:34 TROPONIN Ordered. EDMS 19:34 TROPONIN Ordered. EDMS 19:45 MAGNESIUM LEVEL Ordered. EDMS 07/12 09:59 ECG/EKG was scanned into Laser View and attached to record. gb 10:00 Trend VS was scanned into Laser View and attached to record. EC/01 17:24 Rate is 89 beats/min. Rhythm is irregularly irregular, A fib. Left axis deviation pc noted. QRS is negative in leads II, aVF. OK interval is normal. QRS interval is normal. QT interval is normal. No Q waves. T waves are Normal. No ST changes noted. Clinical impression: Atrial Fibrillation w/o RVR and LAD. Administered Medications: 17:10 Drug: Albuterol-Ipratropium 1 neb [ipratropium-albuterol 0.5 mg-3 mg(2.5 mg base)/3 mL cs15 nebulization soln (1 neb)] Route: Nebulizer; 17:18 Drug: Solu-MEDROL 125 mg [Solu-Medrol 500 mg intravenous solution (125 mg)] Route: IVP; dsf Site: left antecubital; 17:25 Drug: Albuterol-Ipratropium 1 neb [ipratropium-albuterol 0.5 mg-3 mg(2.5 mg base)/3 mL cs15 nebulization soln (1 neb)] Route: Nebulizer; 17:44 Drug: Albuterol-Ipratropium 1 neb [ipratropium-albuterol 0.5 mg-3 mg(2.5 mg base)/3 mL cs15 nebulization soln (1 neb)] Route: Nebulizer; Signatures: Dispatcher [employer] EDMS Luis Mantilla MD MD pc Daniela Martinez, Air Reduction Equipment Operator Unit lbd Lelia Moran, Reg Reg Frank Stone Shannon, RN RN [id number] Abdias Walters RN RN [id number] Lexie Raza RN RN [id number] Dorcas Michelle RN dsf Hakan Beasley RT [id number] The chart was reviewed and I authenticate all verbal orders and agree with the evaluation and treatment provided.Corrections: (The following items were deleted from the chart) 17:03 16:57 The symptoms began She was admitted twice in mid-June for COPD exacerbations, pc with only a viral etiology found by Resp. panel. She has been home for a week, has continued to have an occasionally productive cough but is coughing a lot. Her PCP placed her on Levaquin last week "because Dr. Ferro's office refused to" and she is no better, pc 19:36 19:26 CARDIAC INJURY PROFILE ordered. EDMS EDMS :36 19:26 TROPONIN ordered. EDMS EDMS 19:47 19:28 MAGNESIUM LEVEL ordered. EDMS EDMS Attachments: 18:11 [facility] Payment Agreement zo 07/12 09:59 ECG/EKG gb Chart Complete MTDD
[2016-07-14 01:43] VITALS: O2SAT 92
[2016-07-14] MEDS: IPRATROPIUM 0.5MG/ALBUTEROL 2.5MG INH SOL UD 3ML (DUONEB)(J7620) NEB SCH ×4 (01:57→19:20)
[2016-07-14 06:00] VITALS: BP 133/62
[2016-07-14] MEDS: SLF 3 ML SYR IV SCH ×3 (06:02→21:34)
[2016-07-14] MEDS: HEPARIN SOD (PORCINE) 5000 UNITS/ML VIAL SC SCH ×3 (06:02→21:34)
[2016-07-14 06:44] LABS: BASO % 0.1 % (0.0-1.0); EOS % 0.1 % (0.0-3.0); LARGE UNSTAINED CELL # 0.1 K/mm3 (0.0-0.4); LARGE UNSTAINED CELL % 0.9 % (0.0-4.0); LYMPH # 0.5 K/mm3 (1.5-4.5); LYMPH % 6.9 % (24.0-44.0); MEAN CORPUSCULAR HEMOGLOBIN 30.9 pg (27.0-33.0); MEAN CORPUSCULAR VOLUME 99.9 fl (80.0-96.0); MONO # 0.2 K/mm3 (0.0-0.8); MONO % 2.4 % (0.0-5.0); NEUTROPHILS # 6.1 K/mm3 (1.8-7.7); NEUTROPHILS % 89.6 % (36.0-66.0); PLATELET COUNT, AUTOMATED 200 k/mm3 (150-450); RED CELL DISTRIBUTION WIDTH 15.7 % (11.5-14.5); WHITE BLOOD COUNT 6.8 K/mm3 (4.0-10.0)
[2016-07-14 07:04] LABS: ALBUMIN 2.8 GM/DL (3.2-5.2); ALBUMIN/GLOBULIN RATIO 0.74 (1.00-1.93); BILIRUBIN,TOTAL 0.3 MG/DL (0.2-1.0); CREATININE FOR GFR 2.4 MG/DL (0.55-1.02); GLOMERULAR FILTRATION RATE 20.5 (>32); POTASSIUM SERUM 3.7 MEQ/L (3.5-5.1); TOTAL PROTEIN 6.6 GM/DL (6.4-8.2)
[2016-07-14] MEDS: ASPIRIN 81 MG ENTERIC TAB PO SCH (10:11)
[2016-07-14] MEDS: methylPREDNISolone INJ 40 MG/1 ML VIAL (J2920) IV SCH ×2 (10:11→21:31)
[2016-07-14] MEDS: FUROSEMIDE 40 MG TAB PO SCH (10:11)
[2016-07-14] MEDS: SPIRONOLACTONE 25 MG TAB PO SCH (10:11)
[2016-07-14] MEDS: oxyBUTYnin 5 MG TAB PO SCH (10:11)
[2016-07-14] MEDS: FERROUS SULFATE 325MG TAB PO SCH (10:11)
[2016-07-14] MEDS: guaiFENesin ER 600 MG TAB PO SCH ×2 (10:11→21:31)
[2016-07-14] MEDS: PANTOPRAZOLE 40MG TAB (PROTONIX) PO SCH (10:11)
[2016-07-14 14:00] VITALS: BP 128/57
[2016-07-14] MEDS: ATORVASTATIN 10 MG TAB PO SCH (21:31)
[2016-07-14] MEDS: CLOPIDOGREL 75 MG TAB PO SCH (21:31)
[2016-07-14] MEDS: BISOPROLOL FUMARATE 10 MG TAB PO SCH (21:34)
--- NOTE | 2016-07-14 21:44 | IPNPDOC ---
Assessment/Plan Date Seen The patient was seen on 07/14/16. Problems Problems: (1) Chronic respiratory failure with hypoxia Status: Acute Response to Treatment: Stable, Improving Problem Text: * continue breathing treatment * pt was started on levaquin out pt will continue * continue steroids will decrease dose to 40 bid (2) COPD (chronic obstructive pulmonary disease) Status: Chronic (3) Hyperlipidemia Status: Chronic (4) A-fib Status: Chronic (5) CKD (chronic kidney disease), stage III Status: Chronic (6) Diastolic CHF Status: Chronic Plan / VTE VTE Prophylaxis Ordered?: Yes Subjective Review of Systems CC/HPI The patient is a 85-year-old female admitted with a reason for visit of COPD. Objective Physical Examination General Exam: Positive: Alert, No Acute Distress ENT Exam: Positive: Atraumatic, Mucous membr. moist/pink, Pharynx Normal Chest Exam: Positive: Clear to auscultation, Normal air movement Heart Exam: Positive: Normal S1, Normal S2, Rate Normal, Regular Rhythm, Negative: Murmurs, Rubs Abdomen Exam: Positive: Normal bowel sounds, Soft, Negative: Hepatospenomegaly, Tenderness Extremity Exam: Positive: Normal pulses, Negative: Clubbing, Cyanosis, Edema Vital Signs/I&O Vital Signs Date Time Temp Pulse Resp B/P Pulse Ox O2 Delivery O2 Flow Rate FiO2 07/14/16 21:34 82 126/61 07/14/16 14:00 98.2 18 91 Nasal Cannula 2.0 I&O- Last 24 Hours up to 6 AM 07/14/16 06:00 Intake Total 1680 ml Output Total 600 ml Balance 1080 ml Laboratory Data Labs 24H Laboratory Tests 2 07/14/16 06:27: Blood Urea Nitrogen 52H, Creatinine 2.40H, Sodium Level 144, Potassium Level 3.7 , Chloride Level 104, Carbon Dioxide Level 30, Calcium Level 9.0, Aspartate Amino Transf (AST/SGOT) 14L, Alanine Aminotransferase (ALT/SGPT) 15, Alkaline Phosphatase 93, Total Bilirubin 0.3, Total Protein 6.6, Albumin 2.8L, Albumin/ Globulin Ratio 0.74L, Anion Gap 10, White Blood Count 6.8, Red Blood Count 3.00L , Hemoglobin 9.3L, Hematocrit 30.0L, Mean Corpuscular Volume 99.9H, Mean Corpuscular Hemoglobin 30.9, Mean Corpuscular Hemoglobin Concent 31.0L, Red Cell Distribution Width 15.7H, Platelet Count 200, Neutrophils (%) (Auto) 89.6H , Lymphocytes (%) (Auto) 6.9L, Monocytes (%) (Auto) 2.4, Eosinophils (%) (Auto) 0.1, Basophils (%) (Auto) 0.1, Neutrophils # (Auto) 6.1, Lymphocytes # (Auto) 0.5L, Monocytes # (Auto) 0.2, Eosinophils # (Auto) 0.0, Basophils # (Auto) 0.0, Glomerular Filtration Rate 20.5L, Large Unclassified Cells # 0.1, Large Unclassified Cells % 0.9, Magnesium Level 2.0 CBC/BMP Laboratory Tests 07/14/16 06:27 Calcium Level 9.0, Aspartate Amino Transf (AST/SGOT) 14 L, Alanine Aminotransferase (ALT/SGPT) 15, Alkaline Phosphatase 93, Total Bilirubin 0.3, Total Protein 6.6, Albumin 2.8 L, Red Blood Count 3.00 L, Mean Corpuscular Volume 99.9 H, Mean Corpuscular Hemoglobin 30.9, Mean Corpuscular Hemoglobin Concent 31.0 L, Red Cell Distribution Width 15.7 H, Neutrophils (%) (Auto) 89.6 H, Lymphocytes (%) (Auto) 6.9 L, Monocytes (%) (Auto) 2.4, Eosinophils (%) (Auto ) 0.1, Basophils (%) (Auto) 0.1, Neutrophils # (Auto) 6.1, Lymphocytes # (Auto) 0.5 L, Monocytes # (Auto) 0.2, Eosinophils # (Auto) 0.0, Basophils # (Auto) 0.0 Microbiology Microbiology 07/11/16 Blood Culture - Preliminary, Resulted No Growth after 72 hours. All specime... 07/11/16 Blood Culture - Preliminary, Resulted No Growth after 72 hours. All specime... BRITTA ELLER DO Jul 14, 2016 21:44
[2016-07-14 22:00] VITALS: BP 126/61
[2016-07-15] MEDS: IPRATROPIUM 0.5MG/ALBUTEROL 2.5MG INH SOL UD 3ML (DUONEB)(J7620) NEB SCH ×4 (01:46→19:04)
[2016-07-15] MEDS: SLF 3 ML SYR IV SCH ×3 (05:11→21:11)
[2016-07-15] MEDS: LevoFLOXacin 250 MG TABLET PO SCH (05:11)
[2016-07-15] MEDS: HEPARIN SOD (PORCINE) 5000 UNITS/ML VIAL SC SCH ×3 (05:11→21:10)
[2016-07-15 06:00] VITALS: BP 141/66
[2016-07-15 06:38] LABS: BASO % 0.1 % (0.0-1.0); EOS % 0.2 % (0.0-3.0); LARGE UNSTAINED CELL # 0.1 K/mm3 (0.0-0.4); LARGE UNSTAINED CELL % 0.8 % (0.0-4.0); LYMPH # 0.5 K/mm3 (1.5-4.5); LYMPH % 8.8 % (24.0-44.0); MEAN CORPUSCULAR HGB CONC 31.9 g/dl (32.0-36.5); MEAN CORPUSCULAR VOLUME 97.3 fl (80.0-96.0); MONO # 0.2 K/mm3 (0.0-0.8); MONO % 2.8 % (0.0-5.0); NEUTROPHILS # 5.1 K/mm3 (1.8-7.7); NEUTROPHILS % 87.4 % (36.0-66.0); PLATELET COUNT, AUTOMATED 179 k/mm3 (150-450); RED CELL DISTRIBUTION WIDTH 15.4 % (11.5-14.5); WHITE BLOOD COUNT 5.8 K/mm3 (4.0-10.0)
[2016-07-15 07:03] LABS: ALBUMIN 2.7 GM/DL (3.2-5.2); ALBUMIN/GLOBULIN RATIO 0.96 (1.00-1.93); BILIRUBIN,TOTAL 0.3 MG/DL (0.2-1.0); CALCIUM LEVEL 8.5 MG/DL (8.8-10.2); CREATININE FOR GFR 2.2 MG/DL (0.55-1.02); GLOMERULAR FILTRATION RATE 22.6 (>32); MAGNESIUM LEVEL 1.9 MG/DL (1.8-2.4); POTASSIUM SERUM 3.6 MEQ/L (3.5-5.1); TOTAL PROTEIN 5.5 GM/DL (6.4-8.2)
--- NOTE | 2016-07-15 07:51 | IPNPDOC ---
Assessment/Plan Date Seen The patient was seen on 07/15/16. Problems Problems: (1) Chronic respiratory failure with hypoxia Status: Resolved Response to Treatment: Stable, Improving Problem Text: * continue breathing treatment * pt was started on levaquin out pt will continue had completed 3 days prior to admission, today is day # 7, will d/c in am * continue steroids will decrease dose to prednisone 40 bid (2) COPD (chronic obstructive pulmonary disease) Status: Chronic Problem Text: * continue duonebs, * pt is normally on oxygen at home (3) Hyperlipidemia Status: Chronic (4) A-fib Status: Chronic (5) CKD (chronic kidney disease), stage III Status: Chronic (6) Diastolic CHF Status: Chronic Plan / VTE VTE Prophylaxis Ordered?: Yes Plan Therapy: PT, Home Safety Eval Subjective Review of Systems CC/HPI The patient is a 85-year-old female admitted with a reason for visit of COPD. Constitutional: Denies: Chills, Fever, Malaise, Night Sweats, Weakness Pulmonary: Denies: Cough, Dyspnea Cardiovascular: Denies: Chest Pain, Lt Headedness, Orthopnea, Palpitations, Paroxysmal Noc. Dyspnea Objective Physical Examination General Exam: Positive: Alert, No Acute Distress ENT Exam: Positive: Atraumatic, Mucous membr. moist/pink, Pharynx Normal Chest Exam: Positive: Clear to auscultation, Normal air movement Heart Exam: Positive: Normal S1, Normal S2, Rate Normal, Regular Rhythm, Negative: Murmurs, Rubs Abdomen Exam: Positive: Normal bowel sounds, Soft, Negative: Hepatospenomegaly, Tenderness Extremity Exam: Positive: Normal pulses, Negative: Clubbing, Cyanosis, Edema Vital Signs/I&O Vital Signs Date Time Temp Pulse Resp B/P Pulse Ox O2 Delivery O2 Flow Rate FiO2 07/15/16 06:00 97.7 82 20 141/66 96 Room Air 07/14/16 20:30 2.0 I&O- Last 24 Hours up to 6 AM 07/15/16 05:59 Intake Total 1360 ml Output Total 1100 ml Balance 260 ml Laboratory Data Labs 24H Laboratory Tests 2 07/15/16 06:21: Blood Urea Nitrogen 56H, Creatinine 2.20H, Sodium Level 144, Potassium Level 3.6 , Chloride Level 104, Carbon Dioxide Level 30, Calcium Level 8.5L, Aspartate Amino Transf (AST/SGOT) 11L, Alanine Aminotransferase (ALT/SGPT) 13, Alkaline Phosphatase 81, Total Bilirubin 0.3, Total Protein 5.5L, Albumin 2.7L, Albumin/ Globulin Ratio 0.96L, Anion Gap 10, White Blood Count 5.8, Red Blood Count 2.87L , Hemoglobin 8.9L, Hematocrit 27.9L, Mean Corpuscular Volume 97.3H, Mean Corpuscular Hemoglobin 31.0, Mean Corpuscular Hemoglobin Concent 31.9L, Red Cell Distribution Width 15.4H, Platelet Count 179, Neutrophils (%) (Auto) 87.4H , Lymphocytes (%) (Auto) 8.8L, Monocytes (%) (Auto) 2.8, Eosinophils (%) (Auto) 0.2, Basophils (%) (Auto) 0.1, Neutrophils # (Auto) 5.1, Lymphocytes # (Auto) 0.5L, Monocytes # (Auto) 0.2, Eosinophils # (Auto) 0.0, Basophils # (Auto) 0.0, Glomerular Filtration Rate 22.6L, Large Unclassified Cells # 0.1, Large Unclassified Cells % 0.8, Magnesium Level 1.9 CBC/BMP Laboratory Tests 07/15/16 06:21 Calcium Level 8.5 L, Aspartate Amino Transf (AST/SGOT) 11 L, Alanine Aminotransferase (ALT/SGPT) 13, Alkaline Phosphatase 81, Total Bilirubin 0.3, Total Protein 5.5 L, Albumin 2.7 L, Red Blood Count 2.87 L, Mean Corpuscular Volume 97.3 H, Mean Corpuscular Hemoglobin 31.0, Mean Corpuscular Hemoglobin Concent 31.9 L, Red Cell Distribution Width 15.4 H, Neutrophils (%) (Auto) 87.4 H, Lymphocytes (%) (Auto) 8.8 L, Monocytes (%) (Auto) 2.8, Eosinophils (%) (Auto ) 0.2, Basophils (%) (Auto) 0.1, Neutrophils # (Auto) 5.1, Lymphocytes # (Auto) 0.5 L, Monocytes # (Auto) 0.2, Eosinophils # (Auto) 0.0, Basophils # (Auto) 0.0 Microbiology Microbiology 07/11/16 Blood Culture - Preliminary, Resulted No Growth after 72 hours. All specime... 07/11/16 Blood Culture - Preliminary, Resulted No Growth after 72 hours. All specime... BRITTA ELLER DO Jul 15, 2016 07:51
[2016-07-15] MEDS: FERROUS SULFATE 325MG TAB PO SCH (09:25)
[2016-07-15] MEDS: predniSONE 20 MG TAB PO SCH ×2 (09:25→21:10)
[2016-07-15] MEDS: ASPIRIN 81 MG ENTERIC TAB PO SCH (09:25)
[2016-07-15] MEDS: SPIRONOLACTONE 25 MG TAB PO SCH (09:25)
[2016-07-15] MEDS: guaiFENesin ER 600 MG TAB PO SCH ×2 (09:25→21:10)
[2016-07-15] MEDS: oxyBUTYnin 5 MG TAB PO SCH (09:25)
[2016-07-15] MEDS: FUROSEMIDE 40 MG TAB PO SCH (09:25)
[2016-07-15] MEDS: PANTOPRAZOLE 40MG TAB (PROTONIX) PO SCH (09:25)
[2016-07-15 14:00] VITALS: BP 128/72
[2016-07-15 21:10] VITALS: BP 128/72
[2016-07-15] MEDS: ATORVASTATIN 10 MG TAB PO SCH (21:10)
[2016-07-15] MEDS: BISOPROLOL FUMARATE 10 MG TAB PO SCH (21:10)
[2016-07-15] MEDS: CLOPIDOGREL 75 MG TAB PO SCH (21:10)
[2016-07-15 22:00] VITALS: BP 145/65
[2016-07-16] MEDS: IPRATROPIUM 0.5MG/ALBUTEROL 2.5MG INH SOL UD 3ML (DUONEB)(J7620) NEB SCH ×2 (02:00→08:29)
[2016-07-16] MEDS: HEPARIN SOD (PORCINE) 5000 UNITS/ML VIAL SC SCH (05:47)
[2016-07-16] MEDS: SLF 3 ML SYR IV SCH (05:47)
[2016-07-16 06:00] VITALS: BP 142/65
[2016-07-16 06:49] LABS: BASO % 0.1 % (0.0-1.0); EOS % 0.4 % (0.0-3.0); LARGE UNSTAINED CELL # 0.1 K/mm3 (0.0-0.4); LYMPH # 0.6 K/mm3 (1.5-4.5); LYMPH % 8.2 % (24.0-44.0); MEAN CORPUSCULAR HEMOGLOBIN 30.5 pg (27.0-33.0); MEAN CORPUSCULAR HGB CONC 30.9 g/dl (32.0-36.5); MEAN CORPUSCULAR VOLUME 98.5 fl (80.0-96.0); MONO # 0.4 K/mm3 (0.0-0.8); MONO % 5.8 % (0.0-5.0); NEUTROPHILS # 5.3 K/mm3 (1.8-7.7); NEUTROPHILS % 84.5 % (36.0-66.0); PLATELET COUNT, AUTOMATED 191 k/mm3 (150-450); RED CELL DISTRIBUTION WIDTH 16.3 % (11.5-14.5); WHITE BLOOD COUNT 6.3 K/mm3 (4.0-10.0)
[2016-07-16 07:11] LABS: ALBUMIN 2.7 GM/DL (3.2-5.2); ALBUMIN/GLOBULIN RATIO 0.87 (1.00-1.93); BILIRUBIN,TOTAL 0.4 MG/DL (0.2-1.0); CALCIUM LEVEL 9.1 MG/DL (8.8-10.2); CREATININE FOR GFR 2.21 MG/DL (0.55-1.02); GLOMERULAR FILTRATION RATE 22.5 (>32); MAGNESIUM LEVEL 1.9 MG/DL (1.8-2.4); POTASSIUM SERUM 3.7 MEQ/L (3.5-5.1); TOTAL PROTEIN 5.8 GM/DL (6.4-8.2)
[2016-07-16] MEDS ORDERED: DELT1TAB PO (08:19)
[2016-07-16] MEDS: predniSONE 20 MG TAB PO SCH (08:46)
[2016-07-16] MEDS: ASPIRIN 81 MG ENTERIC TAB PO SCH (08:46)
[2016-07-16] MEDS: FUROSEMIDE 40 MG TAB PO SCH (08:46)
[2016-07-16] MEDS: PANTOPRAZOLE 40MG TAB (PROTONIX) PO SCH (08:46)
[2016-07-16] MEDS: oxyBUTYnin 5 MG TAB PO SCH (08:46)
[2016-07-16] MEDS: FERROUS SULFATE 325MG TAB PO SCH (08:46)
[2016-07-16] MEDS: guaiFENesin ER 600 MG TAB PO SCH (08:46)
[2016-07-16] MEDS: SPIRONOLACTONE 25 MG TAB PO SCH (08:47)
== END 2016-07-16 11:50 | disposition home health service (06) | DRG 191 ==
LOC: M ED 15:49 → M ED INP 19:18 → M PCU 22:25 → M MS5PR 07-13 03:13
PROVIDERS: ADMIT Internal Medicine; ATTEND Internal Medicine
DX: J44.1 Chronic obstructive pulmonary disease with (acute) exacerbation (principal); I50.32 Chronic diastolic (congestive) heart failure; N17.9 Acute kidney failure, unspecified; J96.11 Chronic respiratory failure with hypoxia; I48.2 Chronic atrial fibrillation; N18.3 Chronic kidney disease, stage 3 (moderate); E78.5 Hyperlipidemia, unspecified; I10 Essential (primary) hypertension; I25.10 Atherosclerotic heart disease of native coronary artery without angina pectoris; I25.2 Old myocardial infarction; G47.33 Obstructive sleep apnea (adult) (pediatric); Z95.0 Presence of cardiac pacemaker; Z95.5 Presence of coronary angioplasty implant and graft; I49.5 Sick sinus syndrome; M19.90 Unspecified osteoarthritis, unspecified site; Z90.49 Acquired absence of other specified parts of digestive tract

== ENCOUNTER → 2016-08-13 | Outpatient (REF) | payer MEDICARE, MEDICAID ==
[~2016-08-13] MED LIST changes: +LEVO500T32 PO
[2016-08-13 12:55] LABS: MEAN CORPUSCULAR HEMOGLOBIN 32.2 pg (27.0-33.0); MEAN CORPUSCULAR HGB CONC 32.2 g/dl (32.0-36.5); MEAN CORPUSCULAR VOLUME 100.1 fl (80.0-96.0); WHITE BLOOD COUNT 5.6 K/mm3 (4.0-10.0)
[2016-08-13 13:26] LABS: CALCIUM LEVEL 8.3 MG/DL (8.8-10.2); CREATININE FOR GFR 1.86 MG/DL (0.55-1.02); GLOMERULAR FILTRATION RATE 27.5 (>32); POTASSIUM SERUM 3.6 MEQ/L (3.5-5.1)
== END ==
LOC: M LAB REF 12:16
PROVIDERS: ATTEND Family Medicine
DX: I50.32 Chronic diastolic (congestive) heart failure (principal)

== ENCOUNTER → 2016-09-04 | Outpatient (REF) | payer MEDICARE, MEDICAID ==
[2016-09-04 12:26] LABS: CALCIUM LEVEL 8.8 MG/DL (8.8-10.2); CREATININE FOR GFR 1.51 MG/DL (0.55-1.02); POTASSIUM SERUM 3.7 MEQ/L (3.5-5.1)
[2016-09-04 12:56] LABS: MEAN CORPUSCULAR HEMOGLOBIN 31.5 pg (27.0-33.0); MEAN CORPUSCULAR VOLUME 98.6 fl (80.0-96.0); RED CELL DISTRIBUTION WIDTH 17.4 % (11.5-14.5); WHITE BLOOD COUNT 6.5 K/mm3 (4.0-10.0)
== END ==
LOC: M LAB REF 11:47
PROVIDERS: ATTEND Family Medicine
DX: I50.32 Chronic diastolic (congestive) heart failure (principal)

== ENCOUNTER → 2016-09-17 | Outpatient (REF) | payer MEDICARE, MEDICAID ==
[2016-09-18 14:10] LABS: PERCENT SATURATION 16.8 % (13.2-37.4)
== END ==
LOC: M LAB REF 13:35
PROVIDERS: ATTEND Internal Medicine Nephrology
DX: D64.9 Anemia, unspecified (principal)

== ENCOUNTER → 2017-01-14 | Outpatient (REF) | payer MEDICARE, OTHER ==
[~2017-01-14] MED LIST changes: +ACET1TAB17 PO; -AUGM875T27 PO; +AUGM875T28 PO; +CETI10TA PO; +COMBAER6 INH; +FERR1TAB8 PO; -FERR325T PO; +FLOM5CAP PO; +LEVO500T3 PO; -LEVO500T32 PO; -OXYB5TA PO; +OXYB5TAB10 PO; +POTA10CA PO
== END ==
LOC: M SMT 17:02
PROVIDERS: ATTEND Nurse Practitioner Women's Health
DX: R39.15 Urgency of urination (principal)

== ENCOUNTER 2017-01-16 00:15 | Inpatient (IN) | payer MEDICARE, MEDICAID ==
[~2017-01-16] VITALS: Ht 157.5 cm; Wt 83.2 kg
[~2017-01-16 00:15] MED LIST changes: -ACET1TAB17 PO; -CETI10TA PO; -COMBAER6 INH; -FLOM5CAP PO; -POTA10CA PO
[2017-01-16] MEDS ORDERED: oxyCODONE 5MG TAB PO ONE (00:45)
[2017-01-16] MEDS ORDERED: ONDANSETRON 4MG/2ML VIAL (J2405) IV ONE ×2 (02:15→07:15)
[2017-01-16 02:20] VITALS: O2SAT 94
[2017-01-16 02:26] LABS: BASO % 0.6 % (0.0-1.0); EOS # 0.4 K/mm3 (0.0-0.50); EOS % 5.4 % (0.0-3.0); LARGE UNSTAINED CELL # 0.2 K/mm3 (0.0-0.4); LARGE UNSTAINED CELL % 2.4 % (0.0-4.0); LYMPH # 2.4 K/mm3 (1.5-4.5); LYMPH % 33.3 % (24.0-44.0); MEAN CORPUSCULAR HEMOGLOBIN 31.3 pg (27.0-33.0); MEAN CORPUSCULAR HGB CONC 32.6 g/dl (32.0-36.5); MONO # 0.4 K/mm3 (0.0-0.8); MONO % 6.2 % (0.0-5.0); NEUTROPHILS # 3.5 K/mm3 (1.8-7.7); PLATELET COUNT, AUTOMATED 130 k/mm3 (150-450); RED CELL DISTRIBUTION WIDTH 16.9 % (11.5-14.5); WHITE BLOOD COUNT 6.8 K/mm3 (4.0-10.0)
[2017-01-16 02:43] LABS: ERYTHROCYTE SEDIMENTATION RATE 37 mm/hr (0-42)
[2017-01-16 03:11] LABS: ANION GAP 6 MEQ/L (8-16); BLOOD UREA NITROGEN 60 MG/DL (7-18); CALCIUM LEVEL 8.8 MG/DL (8.8-10.2); CARBON DIOXIDE LEVEL 25 MEQ/L (21-32); CHLORIDE LEVEL 111 MEQ/L (98-107); CREATININE FOR GFR 2.08 MG/DL (0.55-1.02); GLOMERULAR FILTRATION RATE 24.1 (>32); GLUCOSE, FASTING 117 MG/DL (83-110); POTASSIUM SERUM 4.8 MEQ/L (3.5-5.1); SODIUM LEVEL 142 MEQ/L (136-145)
[2017-01-16] MEDS ORDERED: NS 500 ML IV ONE (05:45)
[2017-01-16] MEDS ORDERED: NS 1,000 ML IV SCH (07:15)
[2017-01-16] MEDS ORDERED: COMBAER6 INH (07:52)
[2017-01-16] MEDS ORDERED: ACET1TAB17 PO (07:52)
[2017-01-16] MEDS ORDERED: CETI10TA PO (07:52)
[2017-01-16] MEDS ORDERED: POTA10CA PO (07:52)
[2017-01-16] MEDS ORDERED: FLOM5CAP PO (07:52)
--- NOTE | 2017-01-16 08:23 | REP ---
Right knee five views: Comparison is 02/05/2016. There is tricompartment osteoarthritis, most advanced in the medial and patella femoral compartments. This has progressed. There is diffuse demineralization, unchanged. There is no fracture or dislocation. No calcifications. There is no effusion. 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 No effusion or fracture. The Signed by Claudy Ewing MD 01/16/2017 08:15 A
--- NOTE | 2017-01-16 08:35 | REP ---
Lumbar spine five views: Comparisons are the lumbar spine plain film study 04/21/[address] of 04/13/2016. There is scoliosis convex right, unchanged. Vertebral body heights and alignment are normal and unchanged. There is advanced degenerative disc disease at L1-2 and L2-3, unchanged. There is grade 1 retrolisthesis of the L3 vertebral body, likely degenerative. There is no spondylolysis. On the comparison CT. There appears to be a laminectomy defect in the left L3 lamina. There is osteoarthritis throughout the facet articulations. There are numerous pelvic calcifications bilaterally, mostly likely phleboliths although ureteral calculi cannot be entirely discounted. Correlation with symptomatology is recommended. Signed by Claudy Ewing MD 01/16/2017 08:26 A
[2017-01-16] MEDS ORDERED: ONDANSETRON 4MG/2ML VIAL (J2405) IV PRN (08:45)
[2017-01-16] MEDS ORDERED: ACETAMINOPHEN TAB 650MG DOSE (2X325MG) PO PRN (08:45)
[2017-01-16] MEDS ORDERED: ZYLO300T4 PO (09:19)
[2017-01-16 09:55] VITALS: BP 142/65
[2017-01-16] MEDS: HEPARIN SOD (PORCINE) 5000 UNITS/ML VIAL SC SCH ×3 (10:37→21:25)
--- NOTE | 2017-01-16 10:40 | REP ---
KCT LUMBAR SPINE WITHOUT CONTRAST: HISTORY: Back pain. COMPARISON: 04/21/2016 A diffuse disc bulge is present at the L1-2 level. There is minimal compression of the thecal sac. The L1 nerves exit the neural foramina without compression. A diffuse disc bulge is present at the L2-3 level. There is hypertrophy of the ligamenta flava and posterior articulating facets. These findings produce minimal central canal stenosis. The L2 nerves exit the neural foramina without compression. A diffuse disc bulge is present at the L3-4 level. There is hypertrophy of the ligamenta flava and posterior articulating facets. There are 3 mm of retrolisthesis of L3 on L4. These findings produce moderate central canal stenosis. There is compression of the L3 nerves in the neural foramina. A diffuse disc bulge is present at the L4-5 level. There is hypertrophy of the ligamenta flava and posterior articulating facets. These findings produce severe central canal stenosis. The L4 nerves exit the neural foramina without compression. A diffuse disc bulge is present at the L5-S1 level. There is minimal compression of the thecal sac. There is hypertrophy of the posterior articulating facets. There is compression of the L5 nerves in the neural foramina. The L1-2 through L3-4 intervertebral discs are decreased in height. Vacuum phenomenon is present. These findings are consistent with disc degeneration. Bilateral renal cysts are present. IMPRESSION: 1. Diffuse disc bulges at the L1-2, L and L5-S1 levels with minimal thecal sac compression. There is compression of the L5 nerves in the neural foramina. 2. Minimal central canal stenosis at the L2-3 level secondary to disc bulge ligamentous and facet hypertrophy. 2. Moderate central canal stenosis at the L3-4 level secondary to disc bulge, ligamentous and facet hypertrophy, and retrolisthesis. There is compression of the L3 nerves in the neural foramina. 3. Severe central canal stenosis at the L4-5 level secondary to disc bulge, ligamentous and facet hypertrophy. Signed by Marvin Dinero MD 01/16/2017 10:55 A
[2017-01-16 14:00] VITALS: BP 123/57
[2017-01-16] MEDS ORDERED: IPRATROPIUM 0.5MG/ALBUTEROL 2.5MG INH SOL UD 3ML (DUONEB)(J7620) NEB PRN (16:15)
[2017-01-16] MEDS ORDERED: NITROGLYCERIN 0.4 MG SUBL TABLET SL PRN (16:15)
--- NOTE | 2017-01-16 16:41 | HPEPDOC ---
General Date of Admission Jan 16, 2017 at 08:34 Chief Complaint The patient is a 86-year-old female admitted with a reason for visit of Intractable Low Back Pain. Source: Patient Exam Limitations: No limitations History of Present Illness 86-year-old female with past medical history of COPD, Diastolic CHF, SSS s/p pacemaker, Atrial fibrillation (not on anticoagulation 2/2 GI bleed), CKD ( Stage 3), DLP, HTN, CAD s/p stent ([place] in [place]), TANISHA (not on CPAP), Arthritis, chronic back pain, and Hx of NSVT. The patient presents to the ER with a chief complaint of acute on chronic lower back pain. The patient states that her back pain has been worsening for the last 4 days. She states that she tried to take Tylenol at home as opioid medications make her nauseous. However, the patient states that she could not control the pain at home and came to the ER for further evaluation and management. During this time, the patient denies any trauma to the back, falls, or any event that led to her back pain. She denies any saddle anesthesia or any urinary/fecal incontinence. She denies any numbness or tingling radiating down the back of her legs. She denies any other acute complaints of fevers, chills, chest pain, palpitations, abdominal pain, or any nausea/vomiting/diarrhea. In the ER, imaging revealed no acute fractures. CT scan of the lumbar spine revealed diffuse disc bulges in the L1-2, L2-3, L3-4, and L5-S1 areas with minimal-moderate thecal sac compression. The L4-5 level did reveal severe central canal stenosis. The hospitalist team was called for admission for further evaluation and management. Home Medications Scheduled Allopurinol (Zyloprim) 300 Mg Tab, 300 MG PO DAILY, (Reported) Aspirin (Aspirin 81) 81 Mg Tab, 81 MG PO DAILY, (Reported) Atorvastatin Calcium (Atorvastatin Calcium) 10 Mg Tab, 10 MG PO QHS, (Reported) Bisoprolol Fumarate (Bisoprolol Fumarate) 10 Mg Tab, 10 MG PO QHS, (Reported) Cetirizine HCl (Cetirizine HCl) 10 Mg Tab, 10 MG PO DAILY, (Reported) Clopidogrel Bisulfate (Clopidogrel) 75 Mg Tab, 75 MG PO QHS, (Reported) Ferrous Sulfate (Ferrous Sulfate) 325 Mg Tab, 325 MG PO DAILY, (Reported) Furosemide (Furosemide) 40 Mg Tab, 20 MG PO DAILY, (Reported) original rx is 40mg daily, pt has been cutting in half Losartan Potassium (Losartan Potassium) 100 Mg Tab, 100 MG PO DAILY, (Reported) Oxybutynin Chloride (Oxybutynin Chloride) 5 Mg Tab, 5 MG PO DAILY, (Reported) Potassium Chloride (Klor-Con M10) 10 Meq Tabcr, 10 MEQ PO DAILY, (Reported) Spironolactone (Spironolactone) 25 Mg Tab, 25 MG PO DAILY, (Reported) Tamsulosin Hydrochloride (Flomax) 0.4 Mg Cap, 0.4 MG PO DAILY, (Reported) Scheduled PRN Acetaminophen (Acetaminophen) 325 Mg Tab, 650 MG PO Q4H PRN for PAIN, (Reported) Albuterol/Ipratropium (Combivent Respimat 20-100 Mcg/Act) 1 Aer Aer, 1 PUFF INH QID PRN for SHORTNESS OF BREATH, (Reported) Nitroglycerin (Nitrostat) 0.4 Mg Subl, 0.4 MG SL PRN PRN for CHEST PAIN, ( Reported) Allergies Coded Allergies: Codeine (Verified Allergy, Severe, DIFFICULTY BREATHING, 01/16/17) Nitrofurantoin (Unverified Allergy, Unknown, 01/16/17) Warfarin (Verified Adverse Reaction, Intermediate, ELEVATED BP WITH GENERIC WARFARIN. CAN TAKE COUMADIN BRAND, 01/16/17) Propoxyphene (Verified Adverse Reaction, Mild, UNSET STOMACH, 01/16/17) Unclassified Drugs (Unverified Adverse Reaction, Mild, NARCOTICS - UPSET STOMACH, 01/16/17) Past Medical History Medical History As noted above Surgical History Pacemaker placement Adenoidectomy Tonsillectomy Back surgery Hysterectomy Partial bowel resection 2/2 Diverticulitis Family History Significant Family History: Noncontributory Social History Lives alone, is able to complete activities of daily living independently. However, does have family in the area who comes over to help her out at times. Denies any use of alcohol or illicit drugs. States that she smoked 1 pack of tobacco per day for 50 years, quit in 1989. Review of Symptoms Other systems 10 point review of systems negative unless otherwise specified in HPI. Physical Examination General Exam: Positive: Alert, Cooperative, No Acute Distress ENT Exam: Positive: Atraumatic, Mucous membr. moist/pink Neck Exam: Negative: JVD Chest Exam: Positive: Clear to auscultation, Normal air movement Heart Exam: Positive: Rate Normal, Normal S1, Normal S2 Abdomen Exam: Positive: Soft, Negative: Tenderness Extremity Exam: Negative: Swelling Psych Exam: Positive: Oriented x 3 Vital Signs Vital Signs Date Time Temp Pulse Resp B/P (MAP) Pulse Ox O2 Delivery O2 Flow Rate FiO2 01/16/17 14:00 97.9 60 20 123/57 (79) 96 01/16/17 10:10 Nasal Cannula 2.0 Laboratory Data Labs 24H Laboratory Tests 2 01/16/17 02:17: White Blood Count 6.8, Red Blood Count 3.08L, Hemoglobin 9.7L, Hematocrit 29.6L , Mean Corpuscular Volume 96.0, Mean Corpuscular Hemoglobin 31.3, Mean Corpuscular Hemoglobin Concent 32.6, Red Cell Distribution Width 16.9H, Platelet Count 130L, Neutrophils (%) (Auto) 52.0, Lymphocytes (%) (Auto) 33.3, Monocytes (%) (Auto) 6.2H, Eosinophils (%) (Auto) 5.4H, Basophils (%) (Auto) 0.6 , Neutrophils # (Auto) 3.5, Lymphocytes # (Auto) 2.4, Monocytes # (Auto) 0.4, Eosinophils # (Auto) 0.4, Basophils # (Auto) 0.0, Large Unclassified Cells % 2.4 , Large Unclassified Cells # 0.2, Erythrocyte Sedimentation Rate 37, Anion Gap 6L, Glomerular Filtration Rate 24.1L, Blood Urea Nitrogen 60H, Creatinine 2.08H , Sodium Level 142, Potassium Level 4.8, Chloride Level 111H, Carbon Dioxide Level 25, Calcium Level 8.8, C-Reactive Protein, Quantitative < 0.30 CBC/BMP Laboratory Tests 01/16/17 02:17 Red Blood Count 3.08 L, Mean Corpuscular Volume 96.0, Mean Corpuscular Hemoglobin 31.3, Mean Corpuscular Hemoglobin Concent 32.6, Red Cell Distribution Width 16.9 H, Neutrophils (%) (Auto) 52.0, Lymphocytes (%) (Auto) 33.3, Monocytes (%) (Auto) 6.2 H, Eosinophils (%) (Auto) 5.4 H, Basophils (%) ( Auto) 0.6, Neutrophils # (Auto) 3.5, Lymphocytes # (Auto) 2.4, Monocytes # (Auto ) 0.4, Eosinophils # (Auto) 0.4, Basophils # (Auto) 0.0, Calcium Level 8.8 Plan / VTE VTE Prophylaxis Ordered?: Yes Plan Plan Intractable Acute on Chronic Lower Back Pain Hx of Right L3-L4 Laminectomy in the 1980s Lumbar Spine XR and CT Scan noted--I have put a call out to [facility] regarding results, will await call back and further reccs No alarm signs of saddle anesthesia, urinary/fecal incontinence Patient's pain did improve with Oxycodone IR in the ER, but she became very nauseous with this--states that she usually just takes Tylenol, bc Opioids make her feel very nauseous We will cont Tylenol prn for now PT/OT for functional optimization COPD, stable Albuterol prn Atrial fibrillation, stable Rate controlled on Bisoprolol Not on anticoagulation because of GI bleeding history Cont Aspirin Chronic Kidney Disease, Stage III Serum Cr at baseline SSS s/p pacemaker Dyslipidemia Cont atorvastatin HTN Cont Losartan, Bisprolol, Spironolactone CAD s/p stent ([place] 2004) Cont aspirin, Plavix, bisoprolol, atorvastatin, losartan TANISHA Not on CPAP Gout Cont allopurinol DVT prophylaxis Heparin SC LIZBETH PEACOCK MD Jan 16, 2017 16:41
[2017-01-16] MEDS: IPRATROPIUM 0.5MG/ALBUTEROL 2.5MG INH SOL UD 3ML (DUONEB)(J7620) NEB SCH (20:00)
[2017-01-16] MEDS: CLOPIDOGREL 75 MG TAB PO SCH (21:25)
[2017-01-16] MEDS: ATORVASTATIN 10 MG TAB PO SCH (21:25)
[2017-01-16] MEDS: BISOPROLOL FUMARATE 10 MG TAB PO SCH (21:26)
[2017-01-16 22:00] VITALS: BP 115/65
[2017-01-17] MEDS: IPRATROPIUM 0.5MG/ALBUTEROL 2.5MG INH SOL UD 3ML (DUONEB)(J7620) NEB SCH ×4 (00:56→19:24)
[2017-01-17 06:00] VITALS: BP 116/59
[2017-01-17] MEDS: HEPARIN SOD (PORCINE) 5000 UNITS/ML VIAL SC SCH ×3 (06:27→21:04)
[2017-01-17 07:45] LABS: MEAN CORPUSCULAR HEMOGLOBIN 31.1 pg (27.0-33.0); MEAN CORPUSCULAR HGB CONC 31.3 g/dl (32.0-36.5); MEAN CORPUSCULAR VOLUME 99.4 fl (80.0-96.0); RED CELL DISTRIBUTION WIDTH 16.9 % (11.5-14.5); WHITE BLOOD COUNT 4.8 K/mm3 (4.0-10.0)
[2017-01-17 08:04] LABS: CALCIUM LEVEL 8.5 MG/DL (8.8-10.2); CREATININE FOR GFR 2.32 MG/DL (0.55-1.02); GLOMERULAR FILTRATION RATE 21.2 (>32)
[2017-01-17 08:05] LABS: POTASSIUM SERUM 5.4 MEQ/L (3.5-5.1)
[2017-01-17] MEDS: LOSARTAN 50 MG TAB PO SCH (09:00)
[2017-01-17] MEDS: POTASSIUM CHLORIDE 10 MEQ SR TABLET PO SCH (09:00)
[2017-01-17] MEDS: SPIRONOLACTONE 25 MG TAB PO SCH (09:00)
[2017-01-17] MEDS: FUROSEMIDE 20 MG TAB PO SCH (09:00)
[2017-01-17] MEDS ORDERED: SOD POLYSTYRENE SULFONATE SUSP 15 GM/60 ML UD PO ONE (10:00)
[2017-01-17] MEDS: FERROUS SULFATE 325MG TAB PO SCH (10:08)
[2017-01-17] MEDS: CETIRIZINE (ZyrTEC) 10 MG TAB PO SCH (10:09)
[2017-01-17] MEDS: ALLOPURINOL 300 MG TAB PO SCH (10:09)
[2017-01-17] MEDS: oxyBUTYnin 5 MG TAB PO SCH (10:09)
[2017-01-17] MEDS: ASPIRIN 81 MG ENTERIC TAB PO SCH (10:09)
[2017-01-17] MEDS: TAMSULOSIN 0.4 MG CAP PO SCH (10:09)
--- NOTE | 2017-01-17 12:22 | IPNPDOC ---
Subjective Date Seen The patient was seen on 01/17/17. Subjective Chief Complaint/HPI Patient seen and examined at the bedside this morning. States that her back pain has improved this morning, and notes that she does have better flexibility there today. Objective Physical Examination General Exam: Positive: Alert, Cooperative, No Acute Distress ENT Exam: Positive: Atraumatic, Mucous membr. moist/pink Neck Exam: Negative: JVD Chest Exam: Positive: Clear to auscultation, Normal air movement Heart Exam: Positive: Rate Normal, Normal S1, Normal S2 Abdomen Exam: Positive: Soft, Negative: Tenderness Extremity Exam: Negative: Swelling Psych Exam: Positive: Oriented x 3 Assessment /Plan Plan/VTE VTE Prophylaxis Ordered?: Yes Plan Intractable Acute on Chronic Lower Back Pain Hx of Right L3-L4 Laminectomy in the Lumbar Spine XR and CT Scan noted--I did review the imaging with Dr. Balderrama of Neurosurgery. No surgical indication at this time. Continue with supportive treatment. No alarm signs of saddle anesthesia, urinary/fecal incontinence Patient's pain did improve with Oxycodone IR in the ER, but she became very nauseous with this--states that she usually just takes Tylenol, bc Opioids make her feel very nauseous We will cont Tylenol prn for now PT/OT for functional optimization Hyperkalemia Serum K 5.4 this morning--given a dose of Kayexalate COPD, stable Albuterol prn Atrial fibrillation, stable Rate controlled on Bisoprolol Not on anticoagulation because of GI bleeding history Cont Aspirin Chronic Kidney Disease, Stage III Serum Cr at baseline SSS s/p pacemaker Dyslipidemia Cont atorvastatin HTN Cont Losartan, Bisprolol, Spironolactone CAD s/p stent ([place] in 2003) Cont aspirin, Plavix, bisoprolol, atorvastatin, losartan TANISHA Not on CPAP Gout Cont allopurinol DVT prophylaxis Heparin SC Dispo-anticipate discharge in the next 24-48 hours pending clinical improvement and clearance by physical therapy. VS, I&O, 24H, Fishbone Vital Signs/I&O Vital Signs Date Time Temp Pulse Resp B/P (MAP) Pulse Ox O2 Delivery O2 Flow Rate FiO2 01/17/17 11:50 Nasal Cannula 2.0 01/17/17 06:00 99.0 61 18 116/59 (78) 95 I&O- Last 24 Hours up to 6 AM 01/17/17 05:59 Intake Total 240 ml Output Total 500 ml Balance -260 ml Laboratory Data 24H LABS Laboratory Tests 2 01/17/17 07:08: Anion Gap 8, Glomerular Filtration Rate 21.2L, Blood Urea Nitrogen 57H, Creatinine 2.32H, Sodium Level 144, Potassium Level 5.4H, Chloride Level 112H, Carbon Dioxide Level 24, Calcium Level 8.5L CBC/BMP Laboratory Tests 01/17/17 07:08 Red Blood Count 2.71 L, Mean Corpuscular Volume 99.4 H, Mean Corpuscular Hemoglobin 31.1, Mean Corpuscular Hemoglobin Concent 31.3 L, Red Cell Distribution Width 16.9 H, Calcium Level 8.5 L LIZBETH PEACOCK MD Jan 17, 2017 12:22
[2017-01-17 14:00] VITALS: BP 119/56
[2017-01-17 20:00] VITALS: BP 137/62
[2017-01-17] MEDS: CLOPIDOGREL 75 MG TAB PO SCH (21:03)
[2017-01-17] MEDS: ATORVASTATIN 10 MG TAB PO SCH (21:03)
[2017-01-17] MEDS: BISOPROLOL FUMARATE 10 MG TAB PO SCH (21:03)
[2017-01-17 21:43] VITALS: BP 113/52
[2017-01-18] MEDS: IPRATROPIUM 0.5MG/ALBUTEROL 2.5MG INH SOL UD 3ML (DUONEB)(J7620) NEB SCH ×4 (02:00→21:13)
[2017-01-18] MEDS: HEPARIN SOD (PORCINE) 5000 UNITS/ML VIAL SC SCH ×3 (05:59→20:08)
[2017-01-18 06:00] VITALS: BP 103/59
[2017-01-18 07:14] LABS: MEAN CORPUSCULAR HEMOGLOBIN 31.9 pg (27.0-33.0); MEAN CORPUSCULAR HGB CONC 32.4 g/dl (32.0-36.5); MEAN CORPUSCULAR VOLUME 98.7 fl (80.0-96.0); WHITE BLOOD COUNT 4.6 K/mm3 (4.0-10.0)
[2017-01-18 07:23] LABS: CALCIUM LEVEL 8.5 MG/DL (8.8-10.2); CREATININE FOR GFR 2.46 MG/DL (0.55-1.02); GLOMERULAR FILTRATION RATE 19.9 (>32); POTASSIUM SERUM 4.8 MEQ/L (3.5-5.1)
[2017-01-18] MEDS: FERROUS SULFATE 325MG TAB PO SCH (11:15)
[2017-01-18] MEDS: POTASSIUM CHLORIDE 10 MEQ SR TABLET PO SCH (11:15)
[2017-01-18] MEDS: TAMSULOSIN 0.4 MG CAP PO SCH (11:15)
[2017-01-18] MEDS: FUROSEMIDE 20 MG TAB PO SCH (11:15)
[2017-01-18 11:16] VITALS: BP 119/59
[2017-01-18] MEDS: LOSARTAN 50 MG TAB PO SCH (11:16)
[2017-01-18] MEDS: SPIRONOLACTONE 25 MG TAB PO SCH (11:16)
[2017-01-18] MEDS: oxyBUTYnin 5 MG TAB PO SCH (11:16)
[2017-01-18] MEDS: ASPIRIN 81 MG ENTERIC TAB PO SCH (11:17)
[2017-01-18] MEDS: ALLOPURINOL 300 MG TAB PO SCH (11:17)
[2017-01-18] MEDS: CETIRIZINE (ZyrTEC) 10 MG TAB PO SCH (11:17)
[2017-01-18 14:00] VITALS: BP 102/55
--- NOTE | 2017-01-18 16:52 | IPNPDOC ---
Subjective Date Seen The patient was seen on 01/18/17. Subjective Chief Complaint/HPI Patient seen and examined at the bedside today. States that her lower back pain is improving, but she still feels some pain associated with ambulation. Objective Physical Examination General Exam: Positive: Alert, Cooperative, No Acute Distress ENT Exam: Positive: Atraumatic, Mucous membr. moist/pink Neck Exam: Negative: JVD Chest Exam: Positive: Clear to auscultation, Normal air movement Heart Exam: Positive: Rate Normal, Normal S1, Normal S2 Abdomen Exam: Positive: Soft, Negative: Tenderness Extremity Exam: Negative: Swelling Psych Exam: Positive: Oriented x 3 Assessment /Plan Plan/VTE VTE Prophylaxis Ordered?: Yes Plan Intractable Acute on Chronic Lower Back Pain Hx of Right L3-L4 Laminectomy in the Lumbar Spine XR and CT Scan noted--I did review the imaging with Dr. Balderrama of Neurosurgery. No surgical indication at this time. Continue with supportive treatment. No alarm signs of saddle anesthesia, urinary/fecal incontinence Patient's pain did improve with Oxycodone IR in the ER, but she became very nauseous with this--states that she usually just takes Tylenol, bc Opioids make her feel very nauseous We will cont Tylenol prn for now PT/OT for functional optimization Hyperkalemia, resolved COPD, stable Albuterol prn Atrial fibrillation, stable Rate controlled on Bisoprolol Not on anticoagulation because of GI bleeding history Cont Aspirin Chronic Kidney Disease, Stage III Serum Cr at baseline SSS s/p pacemaker Dyslipidemia Cont atorvastatin HTN Cont Losartan, Bisprolol, Spironolactone CAD s/p stent ([place] in 2003) Cont aspirin, Plavix, bisoprolol, atorvastatin, losartan TANISHA Not on CPAP Gout Cont allopurinol DVT prophylaxis Heparin SC Dispo- discharge pending clearance by physical therapy. VS, I&O, 24H, Fishbone Vital Signs/I&O Vital Signs Date Time Temp Pulse Resp B/P (MAP) Pulse Ox O2 Delivery O2 Flow Rate FiO2 01/18/17 14:00 97.4 96 18 102/55 (71) 97 Nasal Cannula 2.0 I&O- Last 24 Hours up to 6 AM 01/18/17 05:59 Intake Total 720 ml Output Total 250 ml Balance 470 ml Laboratory Data 24H LABS Laboratory Tests 2 01/18/17 06:59: Anion Gap 8, Glomerular Filtration Rate 19.9L, Blood Urea Nitrogen 65H, Creatinine 2.46H, Sodium Level 146H, Potassium Level 4.8, Chloride Level 113H, Carbon Dioxide Level 25, Calcium Level 8.5L CBC/BMP Laboratory Tests 01/18/17 06:59 Red Blood Count 2.59 L, Mean Corpuscular Volume 98.7 H, Mean Corpuscular Hemoglobin 31.9, Mean Corpuscular Hemoglobin Concent 32.4, Red Cell Distribution Width 17.0 H, Calcium Level 8.5 L LIZBETH PEACOCK MD Jan 18, 2017 16:52
[2017-01-18] MEDS ORDERED: NS 600 ML IV SCH (17:00)
[2017-01-18] MEDS: ATORVASTATIN 10 MG TAB PO SCH (20:01)
[2017-01-18] MEDS: CLOPIDOGREL 75 MG TAB PO SCH (20:01)
[2017-01-18] MEDS: BISOPROLOL FUMARATE 10 MG TAB PO SCH (20:08)
[2017-01-18 22:00] VITALS: BP 113/53
[2017-01-19] MEDS: IPRATROPIUM 0.5MG/ALBUTEROL 2.5MG INH SOL UD 3ML (DUONEB)(J7620) NEB SCH ×5 (01:24→20:14)
[2017-01-19] MEDS: HEPARIN SOD (PORCINE) 5000 UNITS/ML VIAL SC SCH ×3 (05:32→20:21)
[2017-01-19 06:00] VITALS: BP 121/59
[2017-01-19 06:37] LABS: MEAN CORPUSCULAR HEMOGLOBIN 31.4 pg (27.0-33.0); MEAN CORPUSCULAR HGB CONC 31.3 g/dl (32.0-36.5); MEAN CORPUSCULAR VOLUME 100.2 fl (80.0-96.0); RED CELL DISTRIBUTION WIDTH 17.2 % (11.5-14.5); WHITE BLOOD COUNT 4.3 K/mm3 (4.0-10.0)
[2017-01-19 06:58] LABS: CALCIUM LEVEL 8.5 MG/DL (8.8-10.2); CREATININE FOR GFR 2.49 MG/DL (0.55-1.02); GLOMERULAR FILTRATION RATE 19.6 (>32); POTASSIUM SERUM 4.2 MEQ/L (3.5-5.1)
[2017-01-19] MEDS: CETIRIZINE (ZyrTEC) 10 MG TAB PO SCH (09:36)
[2017-01-19] MEDS: FERROUS SULFATE 325MG TAB PO SCH (09:36)
[2017-01-19] MEDS: TAMSULOSIN 0.4 MG CAP PO SCH (09:36)
[2017-01-19] MEDS: oxyBUTYnin 5 MG TAB PO SCH (09:36)
[2017-01-19] MEDS: ASPIRIN 81 MG ENTERIC TAB PO SCH (09:36)
[2017-01-19] MEDS: ALLOPURINOL 300 MG TAB PO SCH (09:36)
--- NOTE | 2017-01-19 13:15 | IPNPDOC ---
Subjective Date Seen The patient was seen on 01/19/17. Subjective Chief Complaint/HPI Patient seen and examined at the bedside. States that her lower back pain has improved, but she still feels it at times when walking. She denies any other acute complaints at this time. Objective Physical Examination General Exam: Positive: Alert, Cooperative, No Acute Distress ENT Exam: Positive: Atraumatic, Mucous membr. moist/pink Neck Exam: Negative: JVD Chest Exam: Positive: Clear to auscultation, Normal air movement Heart Exam: Positive: Rate Normal, Normal S1, Normal S2 Abdomen Exam: Positive: Soft, Negative: Tenderness Extremity Exam: Negative: Swelling Psych Exam: Positive: Oriented x 3 Assessment /Plan Plan/VTE VTE Prophylaxis Ordered?: Yes Plan Intractable Acute on Chronic Lower Back Pain Hx of Right L3-L4 Laminectomy in the Lumbar Spine XR and CT Scan noted--I did review the imaging with Dr. Balderrama of Neurosurgery. No surgical indication at this time. Continue with supportive treatment. No alarm signs of saddle anesthesia, urinary/fecal incontinence Patient's pain did improve with Oxycodone IR in the ER, but she became very nauseous with this--states that she usually just takes Tylenol, bc Opioids make her feel very nauseous We will cont Tylenol prn for now PT/OT for functional optimization Hyperkalemia, resolved COPD, stable Albuterol prn Atrial fibrillation, stable Rate controlled on Bisoprolol Not on anticoagulation because of GI bleeding history Cont Aspirin Chronic Kidney Disease, Stage III Serum Cr at baseline SSS s/p pacemaker Dyslipidemia Cont atorvastatin HTN Cont Losartan, Bisprolol, Spironolactone CAD s/p stent ([place] in 2003) Cont aspirin, Plavix, bisoprolol, atorvastatin, losartan TANISHA Not on CPAP Gout Cont allopurinol DVT prophylaxis Heparin SC Dispo- discharge pending clearance by physical therapy. VS, I&O, 24H, Fishbone Vital Signs/I&O Vital Signs Date Time Temp Pulse Resp B/P (MAP) Pulse Ox O2 Delivery O2 Flow Rate FiO2 01/19/17 06:00 98.4 78 18 121/59 (79) 90 Room Air 01/18/17 14:00 2.0 I&O- Last 24 Hours up to 6 AM 01/19/17 05:59 Intake Total 660 ml Balance 660 ml Laboratory Data 24H LABS Laboratory Tests 2 01/19/17 05:56: Anion Gap 9, Glomerular Filtration Rate 19.6L, Blood Urea Nitrogen 67H, Creatinine 2.49H, Sodium Level 145, Potassium Level 4.2, Chloride Level 112H, Carbon Dioxide Level 24, Calcium Level 8.5L CBC/BMP Laboratory Tests 01/19/17 05:56 Red Blood Count 2.68 L, Mean Corpuscular Volume 100.2 H, Mean Corpuscular Hemoglobin 31.4, Mean Corpuscular Hemoglobin Concent 31.3 L, Red Cell Distribution Width 17.2 H, Calcium Level 8.5 L LIZBETH PEACOCK MD Jan 19, 2017 13:15
[2017-01-19 14:00] VITALS: BP 120/58
[2017-01-19] MEDS: CLOPIDOGREL 75 MG TAB PO SCH (20:21)
[2017-01-19] MEDS: ATORVASTATIN 10 MG TAB PO SCH (20:21)
[2017-01-19] MEDS: BISOPROLOL FUMARATE 10 MG TAB PO SCH (20:23)
[2017-01-19 22:00] VITALS: BP 158/79
[2017-01-20] MEDS: IPRATROPIUM 0.5MG/ALBUTEROL 2.5MG INH SOL UD 3ML (DUONEB)(J7620) NEB SCH ×2 (01:23→07:09)
[2017-01-20] MEDS: HEPARIN SOD (PORCINE) 5000 UNITS/ML VIAL SC SCH (05:18)
[2017-01-20 05:53] LABS: MEAN CORPUSCULAR HEMOGLOBIN 31.5 pg (27.0-33.0); MEAN CORPUSCULAR HGB CONC 31.2 g/dl (32.0-36.5); RED CELL DISTRIBUTION WIDTH 17.4 % (11.5-14.5); WHITE BLOOD COUNT 4.4 K/mm3 (4.0-10.0)
[2017-01-20 06:00] VITALS: BP 151/65
[2017-01-20 06:06] LABS: CALCIUM LEVEL 8.3 MG/DL (8.8-10.2); CREATININE FOR GFR 1.97 MG/DL (0.55-1.02); GLOMERULAR FILTRATION RATE 25.7 (>32); POTASSIUM SERUM 4.6 MEQ/L (3.5-5.1)
[2017-01-20 08:06] LABS: REASON FOR REVIEW COMPREHENSIVE REVIEW
[2017-01-20 08:18] LABS: PERCENT SATURATION 15.6 % (13.2-45.0)
[2017-01-20] MEDS: ALLOPURINOL 300 MG TAB PO SCH (08:52)
[2017-01-20] MEDS: CETIRIZINE (ZyrTEC) 10 MG TAB PO SCH (08:52)
[2017-01-20] MEDS: TAMSULOSIN 0.4 MG CAP PO SCH (08:52)
[2017-01-20] MEDS: oxyBUTYnin 5 MG TAB PO SCH (08:52)
[2017-01-20] MEDS: ASPIRIN 81 MG ENTERIC TAB PO SCH (08:52)
[2017-01-20] MEDS: FERROUS SULFATE 325MG TAB PO SCH (08:52)
--- NOTE | 2017-01-20 15:22 | DS.PDOC ---
Discharge Summary General Date of Admission Jan 18, 2017 at 14:32 Date of Discharge 01/20/17 Discharge Summary PROCEDURES PERFORMED DURING STAY: None. ADMITTING DIAGNOSES: 1. . Acute on chronic lower back pain DISCHARGE DIAGNOSES: 1. . Acute on chronic lower back pain COMPLICATIONS/CHIEF COMPLAINT: Intractable Low Back Pain. HISTORY OF PRESENT ILLNESS: . 86-year-old female with past medical history of COPD, Diastolic CHF, SSS s/p pacemaker, Atrial fibrillation (not on anticoagulation 2/2 GI bleed), CKD ( Stage 3), DLP, HTN, CAD s/p stent ([place] in 2003), TANISHA (not on CPAP), Arthritis, chronic back pain, and Hx of NSVT. The patient presents to the ER with a chief complaint of acute on chronic lower back pain. The patient states that her back pain has been worsening for the last 4 days. She states that she tried to take Tylenol at home as opioid medications make her nauseous. However, the patient states that she could not control the pain at home and came to the ER for further evaluation and management. During this time, the patient denies any trauma to the back, falls, or any event that led to her back pain. She denies any saddle anesthesia or any urinary/fecal incontinence. She denies any numbness or tingling radiating down the back of her legs. She denies any other acute complaints of fevers, chills, chest pain, palpitations, abdominal pain, or any nausea/vomiting/diarrhea. In the ER, imaging revealed no acute fractures. CT scan of the lumbar spine revealed diffuse disc bulges in the L1-2, L2-3, L3-4, and L5-S1 areas with minimal-moderate thecal sac compression. The L4-5 level did reveal severe central canal stenosis. The hospitalist team was called for admission for further evaluation and management. During hospitalization, neurosurgery was consulted and I did personally review the patient's CAT scan results with our neurosurgeon Dr. Balderrama, and there was no surgical intervention indicated. During hospitalization, the patient's acute on chronic back pain was treated supportively with Tylenol, K pad, and functional optimization with physical therapy. The patient suffered no acute complaints of saddle anesthesia, or fecal/urinary incontinence, or any other alarm symptoms requiring emergent care. The patient's other chronic comorbidities were treated as previously prescribed. At this time, the patient states that she is eager to return home and is feeling much better. The patient was seen and cleared by physical therapy. The patient has been advised to follow -up with her primary care physician within one week. She has also been advised to return to the ER for worsening or persistent back pain, or any other acute emergencies. DISCHARGE MEDICATIONS: Please see below. ALLERGIES: Please see below. PHYSICAL EXAMINATION ON DISCHARGE: VITAL SIGNS: Please see below. General Exam: Positive: Alert, Cooperative, No Acute Distress ENT Exam: Positive: Atraumatic, Mucous membr. moist/pink Neck Exam: Negative: JVD Chest Exam: Positive: Clear to auscultation, Normal air movement Heart Exam: Positive: Rate Normal, Normal S1, Normal S2 Abdomen Exam: Positive: Soft, Negative: Tenderness Extremity Exam: Negative: Swelling Psych Exam: Positive: Oriented x 3 LABORATORY DATA: Please see below. IMAGING: KCT LUMBAR SPINE WITHOUT CONTRAST: HISTORY: Back pain. COMPARISON: 04/21/2016 A diffuse disc bulge is present at the L1-2 level. There is minimal compression of the thecal sac. The L1 nerves exit the neural foramina without compression. A diffuse disc bulge is present at the L2-3 level. There is hypertrophy of the ligamenta flava and posterior articulating facets. These findings produce minimal central canal stenosis. The L2 nerves exit the neural foramina without compression. A diffuse disc bulge is present at the L3-4 level. There is hypertrophy of the ligamenta flava and posterior articulating facets. There are 3 mm of retrolisthesis of L3 on L4. These findings produce moderate central canal stenosis. There is compression of the L3 nerves in the neural foramina. A diffuse disc bulge is present at the L4-5 level. There is hypertrophy of the ligamenta flava and posterior articulating facets. These findings produce severe central canal stenosis. The L4 nerves exit the neural foramina without compression. A diffuse disc bulge is present at the L5-S1 level. There is minimal compression of the thecal sac. There is hypertrophy of the posterior articulating facets. There is compression of the L5 nerves in the neural foramina. The L1-2 through L3-4 intervertebral discs are decreased in height. Vacuum phenomenon is present. These findings are consistent with disc degeneration. Bilateral renal cysts are present. IMPRESSION: 1. Diffuse disc bulges at the L1-2, L and L5-S1 levels with minimal thecal sac compression. There is compression of the L5 nerves in the neural foramina. 2. Minimal central canal stenosis at the L2-3 level secondary to disc bulge ligamentous and facet hypertrophy. 2. Moderate central canal stenosis at the L3-4 level secondary to disc bulge, ligamentous and facet hypertrophy, and retrolisthesis. There is compression of the L3 nerves in the neural foramina. 3. Severe central canal stenosis at the L4-5 level secondary to disc bulge, ligamentous and facet hypertrophy. PROGNOSIS: Stable ACTIVITY: As tolerated. DIET: . 2 g low sodium diet DISCHARGE PLAN: DISPOSITION: Home, Self-Care. DISCHARGE INSTRUCTIONS: 1. . Follow-up with primary care physician within one week 2. . Continue medical therapy as previously prescribed 3. . Return to the ER for any acute emergencies DISCHARGE CONDITION: Stable. TIME SPENT ON DISCHARGE: Greater than 30 minutes. Vital Signs/I&Os Vital Signs Date Time Temp Pulse Resp B/P (MAP) Pulse Ox O2 Delivery O2 Flow Rate FiO2 01/20/17 11:17 Room Air 01/20/17 06:00 99.7 75 20 151/65 (93) 90 01/18/17 14:00 2.0 I&O- Last 24 Hours up to 6 AM 01/20/17 06:00 Intake Total 1140 ml Balance 1140 ml Laboratory Data Labs 24H Laboratory Tests 2 01/20/17 05:13: Differential Slide Review Report, Differential Pathologist's Review COMPREHENSIVE REVIEW, Peripheral Blood Smear Path Consult PERIPHERAL SMEAR 01/20/17 05:15: Anion Gap 8, Glomerular Filtration Rate 25.7L, Blood Urea Nitrogen 56H, Creatinine 1.97H, Sodium Level 149H, Potassium Level 4.6, Chloride Level 118H, Carbon Dioxide Level 23, Calcium Level 8.3L, Iron Level 33L, Total Iron Binding Capacity 211L, Transferrin % Saturation 15.6, Ferritin 25 CBC/BMP Laboratory Tests 01/20/17 05:15 Red Blood Count 2.53 L, Mean Corpuscular Volume 101.0 H, Mean Corpuscular Hemoglobin 31.5, Mean Corpuscular Hemoglobin Concent 31.2 L, Red Cell Distribution Width 17.4 H, Calcium Level 8.3 L Discharge Medications Scheduled Allopurinol (Zyloprim) 300 Mg Tab, 300 MG PO DAILY, (Reported) Aspirin (Aspirin 81) 81 Mg Tab, 81 MG PO DAILY, (Reported) Atorvastatin Calcium (Atorvastatin Calcium) 10 Mg Tab, 10 MG PO QHS, (Reported) Bisoprolol Fumarate (Bisoprolol Fumarate) 10 Mg Tab, 10 MG PO QHS, (Reported) Cetirizine HCl (Cetirizine HCl) 10 Mg Tab, 10 MG PO DAILY, (Reported) Clopidogrel Bisulfate (Clopidogrel) 75 Mg Tab, 75 MG PO QHS, (Reported) Ferrous Sulfate (Ferrous Sulfate) 325 Mg Tab, 325 MG PO DAILY, (Reported) Furosemide (Furosemide) 40 Mg Tab, 20 MG PO DAILY, (Reported) original rx is 40mg daily, pt has been cutting in half Losartan Potassium (Losartan Potassium) 100 Mg Tab, 100 MG PO DAILY, (Reported) Oxybutynin Chloride (Oxybutynin Chloride) 5 Mg Tab, 5 MG PO DAILY, (Reported) Potassium Chloride (Klor-Con M10) 10 Meq Tabcr, 10 MEQ PO DAILY, (Reported) Spironolactone (Spironolactone) 25 Mg Tab, 25 MG PO DAILY, (Reported) Tamsulosin Hydrochloride (Flomax) 0.4 Mg Cap, 0.4 MG PO DAILY, (Reported) Scheduled PRN Acetaminophen (Acetaminophen) 325 Mg Tab, 650 MG PO Q4H PRN for PAIN, (Reported) Albuterol/Ipratropium (Combivent Respimat 20-100 Mcg/Act) 1 Aer Aer, 1 PUFF INH QID PRN for SHORTNESS OF BREATH, (Reported) Nitroglycerin (Nitrostat) 0.4 Mg Subl, 0.4 MG SL PRN PRN for CHEST PAIN, ( Reported) Allergies Coded Allergies: Codeine (Verified Allergy, Severe, DIFFICULTY BREATHING, 01/16/17) Nitrofurantoin (Unverified Allergy, Unknown, 01/16/17) Warfarin (Verified Adverse Reaction, Intermediate, ELEVATED BP WITH GENERIC WARFARIN. CAN TAKE COUMADIN BRAND, 01/16/17) Propoxyphene (Verified Adverse Reaction, Mild, UNSET STOMACH, 01/16/17) Unclassified Drugs (Unverified Adverse Reaction, Mild, NARCOTICS - UPSET STOMACH, 01/16/17) LIZBETH PEACOCK MD Jan 20, 2017 15:22
== END 2017-01-20 12:45 | disposition home or self-care (01) | DRG 552 ==
LOC: EDBD 00:15 → M ED 00:15 → M ED INP 08:34 → M MS4PR 10:00 → INTOOBSV 01-18 14:32 → OBSVTOIN 01-18 14:32 → M MS5PR 01-18 19:24
PROVIDERS: ADMIT Internal Medicine; ATTEND Internal Medicine
DX: M48.06 Spinal stenosis, lumbar region (principal); I50.32 Chronic diastolic (congestive) heart failure; I13.0 Hypertensive heart and chronic kidney disease with heart failure and stage 1 through stage 4 chronic kidney disease, or unspecified chronic kidney disease; M51.06 Intervertebral disc disorders with myelopathy, lumbar region; M10.9 Gout, unspecified; J44.9 Chronic obstructive pulmonary disease, unspecified; I48.91 Unspecified atrial fibrillation; N18.3 Chronic kidney disease, stage 3 (moderate); E78.5 Hyperlipidemia, unspecified; M51.17 Intervertebral disc disorders with radiculopathy, lumbosacral region; I25.2 Old myocardial infarction; G47.33 Obstructive sleep apnea (adult) (pediatric); Z95.0 Presence of cardiac pacemaker; Z79.82 Long term (current) use of aspirin; Z79.899 Other long term (current) drug therapy; Z88.8 Allergy status to other drugs, medicaments and biological substances; Z88.5 Allergy status to narcotic agent; Z90.710 Acquired absence of both cervix and uterus; Z87.891 Personal history of nicotine dependence; E87.5 Hyperkalemia

== ENCOUNTER → 2017-02-14 | Outpatient (REF) | payer MEDICARE ==
[~2017-02-14] MED LIST changes: +ACET1TAB17 PO; +CETI10TA PO; +COMBAER6 INH; +FLOM5CAP PO; +POTA10CA PO
== END ==
LOC: M SMT 17:13
PROVIDERS: ATTEND Nurse Practitioner Women's Health
DX: N39.0 Urinary tract infection, site not specified (principal); R39.14 Feeling of incomplete bladder emptying
CPT/HCPCS: 81001; 87086; G0463

== ENCOUNTER 2017-02-17 08:06 | Emergency (ER) | payer MEDICARE ==
[2017-02-17] MEDS ORDERED: NS 1,000 ML IV SCH (08:22)
[2017-02-17] MEDS ORDERED: ACETAMINOPHEN TAB 650MG DOSE (2X325MG) PO ONE (08:45)
[2017-02-17 08:53] LABS: BASO % 0.9 % (0.0-1.0); EOS # 0.3 K/mm3 (0.0-0.50); EOS % 4.9 % (0.0-3.0); LARGE UNSTAINED CELL # 0.1 K/mm3 (0.0-0.4); LARGE UNSTAINED CELL % 1.7 % (0.0-4.0); LYMPH # 1.4 K/mm3 (1.5-4.5); LYMPH % 25.6 % (24.0-44.0); MEAN CORPUSCULAR HEMOGLOBIN 31.6 pg (27.0-33.0); MEAN CORPUSCULAR HGB CONC 32.7 g/dl (32.0-36.5); MEAN CORPUSCULAR VOLUME 96.6 fl (80.0-96.0); MONO # 0.3 K/mm3 (0.0-0.8); MONO % 5.5 % (0.0-5.0); NEUTROPHILS # 3.4 K/mm3 (1.8-7.7); NEUTROPHILS % 61.4 % (36.0-66.0); PLATELET COUNT, AUTOMATED 136 k/mm3 (150-450); RED CELL DISTRIBUTION WIDTH 16.1 % (11.5-14.5); WHITE BLOOD COUNT 5.5 K/mm3 (4.0-10.0)
--- NOTE | 2017-02-17 08:53 | REP ---
Clinical: Altered mental status. Comparison: 07/08/2015 . Findings: Age-related atrophy and microvascular ischemic changes are appreciated. The ventricles and sulci are symmetric. Phillips-white differentiation is maintained. There is no evidence for acute intracranial hemorrhage, mass/mass effect, pathology or infarction. No extra-axial fluid collection. Calvarium is intact. Paranasal sinuses and mastoid air cells are clear. Impression: Age related atrophy and microvascular ischemic changes. No acute intracranial hemorrhage, infarction, or mass/mass effect. Signed by Domingo Veliz MD 02/17/2017 08:46 A
[2017-02-17 08:55] LABS: VENOUS BASE EXCESS -3.8 (-2.0-2.0); VENOUS O2 SATURATION 95.2 % (60.0-80.0); VENOUS PARTIAL PRESSURE CO2 35.1 mmHg (38.0-50.0); VENOUS PARTIAL PRESSURE O2 77.7 mmHg (30.0-50.0); VENOUS STANDARD HCO3 21.2 MEQ/L; VENOUS TOTAL CO2 21.7 MEQ/L (24.0-28.0)
[2017-02-17] MEDS ORDERED: NS 500 ML IV ONE ×2 (09:00→11:00)
[2017-02-17 09:23] LABS: ALBUMIN 3.8 GM/DL (3.2-5.2); ALBUMIN/GLOBULIN RATIO 1.06 (1.00-1.93); ALKALINE PHOSPHATASE 102 U/L (45-117); ALT/SGPT 15 U/L (12-78); ANION GAP 10 MEQ/L (8-16); AST/SGOT 10 U/L (15-37); BILIRUBIN,DIRECT 0.1 MG/DL (0.0-0.2); BILIRUBIN,TOTAL 0.4 MG/DL (0.2-1.0); BLOOD UREA NITROGEN 63 MG/DL (7-18); CALCIUM LEVEL 9.5 MG/DL (8.8-10.2); CARBON DIOXIDE LEVEL 25 MEQ/L (21-32); CHLORIDE LEVEL 106 MEQ/L (98-107); CREATININE FOR GFR 2.18 MG/DL (0.55-1.02); GLOMERULAR FILTRATION RATE 22.8 (>32); GLUCOSE, FASTING 101 MG/DL (83-110); POTASSIUM SERUM 4.9 MEQ/L (3.5-5.1); SODIUM LEVEL 141 MEQ/L (136-145); TOTAL PROTEIN 7.4 GM/DL (6.4-8.2)
[2017-02-17] MEDS ORDERED: BISO10TA6 PO (14:05)
[2017-02-17] MEDS ORDERED: BISOPROLOL FUMARATE 5 MG TAB PO ONE (14:15)
[2017-02-17 14:45] VITALS: BP 162/66
[2017-02-17 16:15] VITALS: BP 148/61
--- NOTE | 2017-02-18 19:18 | ECGEPIP ---
Stationary ECG Study [facility] - ED Test Date: 2017-02-17 Pat Name: CHELLY ESPINO Department: Room: - Gender: F Print Designer: rn : 1930 Requested By: Hanna Cardoza Order Number: [id number] Reading MD: Luis Mantilla Measurements Intervals [place] Rate: 98 P: [place]: 0 QRS: -42 QRSD: 85 T: 67 QT: 345 QTc: 441 Interpretive Statements ATRIAL FIBRILLATION LEFT AXIS DEVIATION NSTTW ABNORMALITIES SIMILAR TO 07/11/16 Electronically Signed On 02-18-2017 19:18:45 EDT by Luis Mantilla
--- NOTE | 2017-02-18 19:23 | ECGEPIP ---
Stationary ECG Study [facility] - ED Test Date: 2017-02-17 Pat Name: CHELLY ESPINO Department: Room: - Gender: F Biological Scientist: rn : 1930 Requested By: Hanna Cardoza Order Number: [id number] Reading MD: Luis Mantilal Measurements Intervals [place] Rate: 96 P: [place]: 0 QRS: -42 QRSD: 82 T: 10 QT: 364 QTc: 460 Interpretive Statements ATRIAL FIBRILLATION LEFT AXIS DEVIATION SIMILAR TO PRIOR ON SAME DATE Electronically Signed On 02-18-2017 19:23:14 EDT by Luis Mantilla
== END 2017-02-17 16:24 | disposition home or self-care (01) ==
LOC: M ED 08:06 → EDBD 08:06 → M ED 16:24
DX: I95.1 Orthostatic hypotension (principal); I48.91 Unspecified atrial fibrillation; I25.10 Atherosclerotic heart disease of native coronary artery without angina pectoris; I50.9 Heart failure, unspecified; I13.10 Hypertensive heart and chronic kidney disease without heart failure, with stage 1 through stage 4 chronic kidney disease, or unspecified chronic kidney disease; N18.3 Chronic kidney disease, stage 3 (moderate); G47.33 Obstructive sleep apnea (adult) (pediatric); J44.9 Chronic obstructive pulmonary disease, unspecified; Z99.81 Dependence on supplemental oxygen; M51.06 Intervertebral disc disorders with myelopathy, lumbar region; M48.06 Spinal stenosis, lumbar region; M25.561 Pain in right knee; G89.29 Other chronic pain; Z91.138 Patient's unintentional underdosing of medication regimen for other reason; Z79.899 Other long term (current) drug therapy; Z79.82 Long term (current) use of aspirin; Z79.02 Long term (current) use of antithrombotics/antiplatelets; Z88.5 Allergy status to narcotic agent; Z88.8 Allergy status to other drugs, medicaments and biological substances

== ENCOUNTER → 2017-02-21 | Outpatient (REF) | payer MEDICARE ==
[2017-02-21 19:50] LABS: MEAN CORPUSCULAR HEMOGLOBIN 31.6 pg (27.0-33.0); MEAN CORPUSCULAR HGB CONC 32.1 g/dl (32.0-36.5); MEAN CORPUSCULAR VOLUME 98.7 fl (80.0-96.0); PLATELET COUNT, AUTOMATED 158 k/mm3 (150-450); RED CELL DISTRIBUTION WIDTH 16.3 % (11.5-14.5); WHITE BLOOD COUNT 6.2 K/mm3 (4.0-10.0)
[2017-02-21 20:09] LABS: FOLATE 13.6 NG/ML (>5.4)
[2017-02-21 20:46] LABS: EOSINOPHILS 9 % (0-5)
[2017-02-21 20:48] LABS: ANISOCYTOSIS 1+; TEAR DROP CELLS 1+
== END ==
LOC: M LAB REF 16:59
PROVIDERS: ATTEND Family Medicine
DX: D64.9 Anemia, unspecified (principal)

== ENCOUNTER → 2017-07-22 | Outpatient (CLI) | payer MEDICARE ==
[2017-07-22 15:02] LABS: ANION GAP 9 MEQ/L (8-16); BLOOD UREA NITROGEN 38 MG/DL (7-18); CALCIUM LEVEL 9.2 MG/DL (8.8-10.2); CARBON DIOXIDE LEVEL 30 MEQ/L (21-32); CHLORIDE LEVEL 102 MEQ/L (98-107); CREATININE FOR GFR 1.72 MG/DL (0.55-1.30); GLUCOSE, FASTING 101 MG/DL (70-100); SODIUM LEVEL 141 MEQ/L (136-145)
== END ==
LOC: M SMT 11:44
DX: N18.9 Chronic kidney disease, unspecified (principal)
CPT/HCPCS: 80048

== ENCOUNTER → 2017-09-10 | Outpatient (REF) | payer MEDICARE, MEDICAID ==
[2017-09-10 19:35] LABS: FERRITIN 23 NG/ML (8-252); IRON (FE) 34 UG/DL (50-170); TOTAL IRON BINDING CAPACITY 242 UG/DL (250-450)
[2017-09-10 19:42] LABS: FOLATE 9.3 NG/ML; VITAMIN B12 LEVEL 256 PG/ML
== END ==
LOC: M LAB REF 17:42
DX: D64.9 Anemia, unspecified (principal)
CPT/HCPCS: 82746